=== PATIENT | female | born 1965 | race Two or more races ===

== ENCOUNTER → 2016-12-06 | Outpatient (CLI) | payer OTHER ==
--- NOTE | 2016-12-06 14:30 | PN ---
51-year-old lady who has been followed in the sleep center for treatment of sleepwalking and possible REM sleep behavioral disorder. We did the polysomnogram for the patient in September 2016 which did not show significant respiratory abnormalities. At the same time, patient continued to feel closing her throat in the middle of the night and at that time she snores. She is on treatment with clonazepam 0.5 mg, with that dose, there was no improvements related to her movements at night. With two tablets, she is slightly better, but she still continued to move and go out of bed. They put alarm on the door which wakes up her if she is starting to go out of her bedroom. [place] Sleepiness Scale is 9. MEDICATIONS: 1. Clonazepam. 2. Ultram. 3. [place]. 4. ( ) Prozac. During physical exam, the patient in no distress. BP 101/76, HR 100, RR 16. Weight 190, BMI 34.7. Temp 97.2. Oxygen saturation at room air 95%. HEENT: PERRLA, EOMI. LUNGS: Clear. HEART: S1, S2 regular. ABDOMEN: Obese, soft, nontender. EXTREMITIES: No edema. IMPRESSION: 1. Snoring, patient continued to wake up from sleep with feeling that her throat was closed. Results of polysomnogram from September negative for obstructive sleep apnea-hypopnea syndrome but during the sleep study, there was no REM sleep practically documented. 2. Patient continued to have out of dream movements during sleep on the dose of Clonazepam 0.5 mg and 1 mg. 3. Depression. 4. Anxiety. 5. Obesity. 6. Posttraumatic stress disorder. 7. Neck disc problems. 8. Shoulder pain. 9. Back pain. 10. Status post section. 11. Status post tonsillectomy. 12. Patient continues smoking. PLAN: 1. We will consider to repeat sleep study at home. 2. We will increase dose of Klonopin to 1.5 mg at bedtime. 3. Losing weight. 4. No driving if feeling any sleepiness. 5. Precautions related to REM sleep behavioral disorder. Continue to use precautions. 6. Losing weight. 7. Smoking cessation program. Thank you very much for allowing me to participate in the management of your patient. Sincerely, Clarke Us MD, PhD, FAASM. Diplomat of [employer], Sleep Medicine Board by [employer] Enterostomal Nurse of [facility] [place]
== END | disposition home or self-care (01) ==

== ENCOUNTER 2016-12-22 17:25 | Emergency (ER) | payer OTHER ==
[2016-12-22 17:37] VITALS: BP 106/63; PULSE 105; RESP 20; TEMP 97.4
[2016-12-22] MEDS ORDERED: DIPH,PERTUS(ACELL)TETVAC-LF 0.5 ML VIAL IM ONE (18:20)
--- NOTE | 2016-12-22 18:52 | ED ---
Psych HPI - General Chief Complaint: Psychiatric Symptoms Stated Complaint: LACERATION, MENTAL HEALTH Time Seen by Provider: 12/22/16 17:43 Source: patient Mode of arrival: ambulatory - History of Present Illness Initial Comments: The patient is a 51-year-old female who presents to ED with a chief complaint of suicidal ideation. Patient states that she was depressed earlier today and consumed alcohol. She states that she wanted to hurt herself so she sliced her right wrist with a razor blade. She notes that she has an underlying history of psychiatric disorder for which she takes multiple medications. Patient states that she is usually compliant with these medications, though she does admit that she did not take her most recent dose secondary to the fact that she felt a little dizzy earlier today. The patient notes that she's been hearing voices. She states that this is sometimes typical of her disorder. Again, she does state that she is having suicidal ideations. She denies any homicidal ideations. Patient denies any fevers or chills. Patient is uncertain as to when she had her last tetanus shot. - Related Data Home Medications Medication Instructions Recorded Confirmed Atorvastatin [Lipitor] 40 mg PO HS 06/30/15 05/22/16 FLUoxetine HCL 40 mg PO DAILY 11/22/15 05/22/16 QUEtiapine [SEROquel] 400 mg PO HS 11/22/15 05/22/16 FLUoxetine HCL [PROzac] 20 mg PO DAILY 02/20/16 05/22/16 cloNIDine HCL [Catapres] 0.1 mg PO TID 05/22/16 05/22/16 traMADol HCL [Ultram] 50 mg PO Q6HR PRN 05/22/16 05/22/16 Previous Rx's Medication Instructions Recorded Hyoscyamine Sulfate [Levsin] 0.125 mg PO AC-BRKFST PRN #20 tab 05/22/16 Ondansetron Odt [Zofran Odt] 4 mg PO Q6HR PRN #12 tab 05/22/16 Dicyclomine [Bentyl] 20 mg PO QID #20 tablet 06/09/16 Ondansetron Odt [Zofran ODT] 4 mg PO Q8HR PRN #15 tab 06/09/16 Allergies Allergy/AdvReac Type Severity Reaction Status Date / Time No Known Allergies Allergy Verified 12/22/16 18:12 Review of Systems ROS Statement: Those systems with pertinent positive or pertinent negative responses have been documented in the HPI. ROS Other: All systems not noted in ROS Statement are negative. Constitutional: Denies: fever, chills, weakness Eyes: Denies: eye pain ENT: Denies: ear pain, throat pain, dental pain Respiratory: Denies: cough, dyspnea, wheezes, hemoptysis, stridor Cardiovascular: Denies: chest pain, palpitations Endocrine: Denies: fatigue Gastrointestinal: Denies: abdominal pain, nausea, vomiting, diarrhea Genitourinary: Denies: urgency, dysuria, frequency Musculoskeletal: Denies: back pain Skin: Denies: rash, lesions Neurological: Denies: headache, weakness Psychiatric: Reports: anxiety, depression, auditory hallucinations, suicidal thoughts Hematological/Lymphatic: Denies: easy bleeding Past Medical History Past Medical History: Asthma, Hyperlipidemia, Osteoarthritis (OA) Additional Past Medical History / Comment(s): migraines, PALPITATIONS, CERVICAL DISC DISEASE History of Any Multi-Drug Resistant Organisms: None Reported Past Surgical History: Breast Surgery, Section, Tonsillectomy Additional Past Surgical History / Comment(s): Lt breast biopsy-NEG Past Anesthesia/Blood Transfusion Reactions: No Reported Reaction Additional Past Anesthesia/Blood Transfusion Reaction / Comment(s): CLUASTERPHOBIA Past Psychological History: Anxiety, Depression, PTSD Smoking Status: Current every day smoker Past Alcohol Use History: Rare Additional Past Alcohol Use History / Comment(s): STARTED SMOKING AT AGE 22, SMOKES 5 CIG PER DAY Past Drug Use History: Marijuana - Past Family History Mother Additional Family Medical History / Comment(s): HAD 1 KIDNEY REMOVED WHEN SHE WAS YOUNGER-PT NOT SURE WHY Father Family Medical History: Osteoarthritis (OA) Additional Family Medical History / Comment(s): DDD General Exam Limitations: no limitations General appearance: alert, in no apparent distress Head exam: Present: atraumatic Eye exam: Present: normal appearance, PERRL Pupils: Present: normal accommodation ENT exam: Present: normal exam, mucous membranes moist Neck exam: Present: normal inspection Respiratory exam: Present: normal lung sounds bilaterally. Absent: wheezes, rales, rhonchi, stridor Cardiovascular Exam: Present: regular rate, normal rhythm GI/Abdominal exam: Present: soft. Absent: distended, tenderness, guarding, rebound Extremities exam: Present: other (multiple superficial lacerations noted on the anterior right wrist) Back exam: Present: normal inspection, full ROM. Absent: tenderness Neurological exam: Present: alert, oriented X3 Psychiatric exam: Present: depressed, suicidal ideation Skin exam: Present: warm, dry, other (4cm laceration horizontally across the anterior right wrist. This does not extend deeper than the subcutaneous tissue. There is another superficial laceration proximal to this that does not extend below the dermis) Course Vital Signs 12/22/16 17:32 Temperature 97.4 F L Pulse Rate 105 H Respiratory 20 Rate Blood Pressure 106/63 O2 Sat by Pulse 96 Oximetry Medical Decision Making - Medical Decision Making Patient is a 51-year-old female who presents to ED with a chief complaint of suicidal ideation. Patient states that the symptoms of the present over the course the past 24 hours. Patient's initial BAL noted to be 0.09. Patient was reevaluated about one hour later and noted to no longer be suicidal. We'll provide patient with tetanus shot. Check UDS. Check UA. Check CBC, BMP, mag. Check salicylates and acetaminophen as well. 10:53 PM [facility] has evaluated the patient and deemed that she is safe for discharge home at this point in time. Patient has regular follow-up with [facility]. She agrees to stay with her significant other over the course of the night. Patient has no desire to harm herself. Patient's laceration on the right wrist was cleaned extensively with wound final cleaner. Antibiotic ointment was placed over it. Nonstick gauze covered this and it was wrapped with a Kerlex. Encouraged patient to leave this on overnight. Answered all the patient's questions to her satisfaction. He encouraged her to continue following up with her psychiatrist. Encouraged patient to return to the ED should she have any recurrence of suicidal ideation. Patient denies that she has guns in her household.. - Lab Data Result diagrams: 12/22/16 18:42 12/22/16 18:42 Lab Results 12/22/16 12/22/16 12/22/16 Range/Units 18:42 18:42 18:42 WBC 9.4 (3.8-10.6) k/uL RBC 3.74 L (3.80-5.40) m/uL Hgb 12.8 (11.4-16.0) gm/dL Hct 38.2 (34.0-46.0) % MCV 102.3 H (80.0-100.0) fL MCH 34.3 (25.0-35.0) pg MCHC 33.5 (31.0-37.0) g/dL RDW 13.8 (11.5-15.5) % Plt Count 279 (150-450) k/uL Macrocytosis Slight Sodium 139 (137-145) mmol/L Potassium 3.8 (3.5-5.1) mmol/L Chloride 105 (98-107) mmol/L Carbon Dioxide 19 L (22-30) mmol/L Anion Gap 15 mmol/L BUN 9 (7-17) mg/dL Creatinine 0.80 (0.52-1.04) mg/dL Est GFR (MDRD) Af Amer >60 (>60 ml/min/1.73 sqM) Est GFR (MDRD) Non-Af >60 (>60 ml/min/1.73 sqM) Glucose 97 (74-99) mg/dL Calcium 9.1 (8.4-10.2) mg/dL Magnesium 2.0 (1.6-2.3) mg/dL Total Bilirubin 0.4 (0.2-1.3) mg/dL AST 37 H (14-36) U/L ALT 37 (9-52) U/L Alkaline Phosphatase 102 (38-126) U/L Total Protein 6.6 (6.3-8.2) g/dL Albumin 3.7 (3.5-5.0) g/dL Urine Color Urine Appearance (Clear) Urine pH (5.0-8.0) Ur Specific [place] (1.001-1.035) Urine Protein (Negative) Urine Glucose (UA) (Negative) Urine Ketones (Negative) Urine Blood (Negative) Urine Nitrate (Negative) Urine Bilirubin (Negative) Urine Urobilinogen (<2.0) mg/dL Ur Leukocyte Esterase (Negative) Urine RBC (0-5) /hpf Urine WBC (0-5) /hpf Ur Squamous Epith Cells (0-4) /hpf Urine Bacteria (None) /hpf Hyaline Casts (0-2) /lpf Urine Mucus (None) /hpf Urine HCG, Qual (Not Detectd) Salicylates <1.0 mg/dL Urine Opiates Screen (NotDetected) Ur Oxycodone Screen (NotDetected) Urine Methadone Screen (NotDetected) Ur Propoxyphene Screen (NotDetected) Acetaminophen <10.0 ug/mL Ur Barbiturates Screen (NotDetected) U Tricyclic Antidepress (NotDetected) Ur Phencyclidine Scrn (NotDetected) Ur Amphetamines Screen (NotDetected) U Methamphetamines Scrn (NotDetected) U Benzodiazepines Scrn (NotDetected) Urine Cocaine Screen (NotDetected) U Marijuana (THC) Screen (NotDetected) 12/22/16 12/22/16 Range/Units 19:18 19:18 WBC (3.8-10.6) k/uL RBC (3.80-5.40) m/uL Hgb (11.4-16.0) gm/dL Hct (34.0-46.0) % MCV (80.0-100.0) fL MCH (25.0-35.0) pg MCHC (31.0-37.0) g/dL RDW (11.5-15.5) % Plt Count (150-450) k/uL Macrocytosis Sodium (137-145) mmol/L Potassium (3.5-5.1) mmol/L Chloride (98-107) mmol/L Carbon Dioxide (22-30) mmol/L Anion Gap mmol/L BUN (7-17) mg/dL Creatinine (0.52-1.04) mg/dL Est GFR (MDRD) Af Amer (>60 ml/min/1.73 sqM) Est GFR (MDRD) Non-Af (>60 ml/min/1.73 sqM) Glucose (74-99) mg/dL Calcium (8.4-10.2) mg/dL Magnesium (1.6-2.3) mg/dL Total Bilirubin (0.2-1.3) mg/dL AST (14-36) U/L ALT (9-52) U/L Alkaline Phosphatase (38-126) U/L Total Protein (6.3-8.2) g/dL Albumin (3.5-5.0) g/dL Urine Color Yellow Urine Appearance Cloudy H (Clear) Urine pH 5.5 (5.0-8.0) Ur Specific [place] 1.012 (1.001-1.035) Urine Protein Trace H (Negative) Urine Glucose (UA) Negative (Negative) Urine Ketones Negative (Negative) Urine Blood Negative (Negative) Urine Nitrate Negative (Negative) Urine Bilirubin Negative (Negative) Urine Urobilinogen <2.0 (<2.0) mg/dL Ur Leukocyte Esterase Negative (Negative) Urine RBC 1 (0-5) /hpf Urine WBC 2 (0-5) /hpf Ur Squamous Epith Cells 9 H (0-4) /hpf Urine Bacteria Rare H (None) /hpf Hyaline Casts 1 (0-2) /lpf Urine Mucus Few H (None) /hpf Urine HCG, Qual Not Detected (Not Detectd) Salicylates mg/dL Urine Opiates Screen Detected H (NotDetected) Ur Oxycodone Screen Not Detected (NotDetected) Urine Methadone Screen Not Detected (NotDetected) Ur Propoxyphene Screen Not Detected (NotDetected) Acetaminophen ug/mL Ur Barbiturates Screen Not Detected (NotDetected) U Tricyclic Antidepress Detected H (NotDetected) Ur Phencyclidine Scrn Not Detected (NotDetected) Ur Amphetamines Screen Not Detected (NotDetected) U Methamphetamines Scrn Not Detected (NotDetected) U Benzodiazepines Scrn Detected H (NotDetected) Urine Cocaine Screen Not Detected (NotDetected) U Marijuana (THC) Screen Detected H (NotDetected) - EKG Data -: EKG Interpreted by Me 12/22/16 18:51 EKG demonstrates NSR with a rate of 80. There are no concerning ST-T changes. The OH and QRS intervals are within normal limits. Disposition Clinical Impression: Depression, Anxiety, Self-harm Disposition: HOME SELF-CARE Condition: Good Instructions: Depression (ED), Anxiety (ED) Additional Instructions: Please return to the ED should you have any suicidal ideations while at home Referrals: None,Stated [Primary Care Provider] - 1-2 days Time of Disposition: 22:53
[2016-12-22 18:53] LABS: CH 34.7; CHCM 34.1; HCT 38.2 % (34.0-46.0); HDW 2.43; HGB 12.8 gm/dL (11.4-16.0); MCH 34.3 pg (25.0-35.0); MCHC 33.5 g/dL (31.0-37.0); MCV 102.3 fL (80.0-100.0); Macrocytosis Slight; Mean Platelet Volume 8.5; RBC 3.74 m/uL (3.80-5.40); RDW 13.8 % (11.5-15.5); WBC 9.4 k/uL (3.8-10.6)
[2016-12-22 19:02] LABS: ALT 37 U/L (9-52); AST 37 U/L (14-36); Acetaminophen <10.0 ug/mL; Alkaline Phosphatase 102 U/L (38-126); Anion Gap 15 mmol/L; Blood Urea Nitrogen 9 mg/dL (7-17); Calcium 9.1 mg/dL (8.4-10.2); Carbon Dioxide 19 mmol/L (22-30); Chloride 105 mmol/L (98-107); Glucose 97 mg/dL (74-99); Non-African American GFR(MDRD) >60 (>60 ml/min/1.73 sqM); Potassium 3.8 mmol/L (3.5-5.1); Salicylate <1.0 mg/dL; Sodium 139 mmol/L (137-145); Total Bilirubin 0.4 mg/dL (0.2-1.3); Total Protein 6.6 g/dL (6.3-8.2)
[2016-12-22 19:55] LABS: Appearance,Urine Cloudy (Clear); Bacteria,Urine Rare /hpf; Bilirubin,Urine Negative (Negative); Glucose,Urine (UA) Negative (Negative); Ketones,Urine Negative (Negative); Leukocyte Esterase,Urine Negative (Negative); Mucus,Urine Few /hpf; Nitrite,Urine Negative (Negative); PH, Urine 5.5 (5.0-8.0); Particle Count 8383; Protein,Urine Trace (Negative); RBC,Urine 1 /hpf (0-5); Specific Gravity,Urine 1.012 (1.001-1.035); Squamous Epithelial Cell,Urine 9 /hpf (0-4); UA Billing (MACRO vs. MICRO) MICRO; Urobilinogen,Urine <2.0 mg/dL (<2.0); WBC,Urine 2 /hpf (0-5)
== END 2016-12-22 23:06 | disposition home or self-care (01) ==
LOC: EC 17:25
DX: S61.511A Laceration without foreign body of right wrist, initial encounter (principal); F41.8 Other specified anxiety disorders; E78.5 Hyperlipidemia, unspecified; F43.10 Post-traumatic stress disorder, unspecified; M19.90 Unspecified osteoarthritis, unspecified site; F17.210 Nicotine dependence, cigarettes, uncomplicated; Z23 Encounter for immunization; Z79.899 Other long term (current) drug therapy; X78.8XXA Intentional self-harm by other sharp object, initial encounter
CPT/HCPCS: 36415; 80053; 80306; 81001; 81025; 82075; 83520; 83735; 85027; 90715; 93005; 99284

== ENCOUNTER 2017-01-08 10:29 | Emergency (ER) | payer OTHER ==
[2017-01-08 10:39] VITALS: PULSE 85; RESP 20; TEMP 97.4
[2017-01-08] MEDS ORDERED: KETOROLAC 60 MG/2 ML VIAL IM STA (10:48)
--- NOTE | 2017-01-08 10:52 | ED ---
Fall HPI - General Chief Complaint: Fall Stated Complaint: Fall, back/knee pain, rash Time Seen by Provider: 01/08/17 10:38 Source: EMS, RN notes reviewed Mode of arrival: EMS - History of Present Illness Initial Comments: 51-year-old female presents to the emergency department with the chief complaint of fall. Patient tripped and fell 2 days ago she can use at low back pain and left knee pain. Patient states that she has not tried anything for pain. But he just continued to worsen so she thought that she should be seen. Patient states she did not hit her head on the father's but no loss bowel or bladder function or saddle anesthesia. Patient states she's been able to get up and walk around just continued pain so she thought that she should be seen possibly use a prescription for home for pain. Patient states that she's also had this rash she's had it for about a month. Patient states she is currently pending a dermatology appointment but it just continues to itch and seems to be getting worse so she thought maybe she could get something for the rash as well. Patient states there is no fever chills. Patient denies any drainage or discharge from the rash. Patient denies any history of a rash. Patient states on of the family has the rash. Patient denies any other symptoms. Patient denies any recent fever, chills, shortness of breath, chest pain, abdominal pain , nausea vomiting, numbness or tingling, dysuria or hematuria, constipation or diarrhea, headaches or visual changes, or any other current symptoms. - Related Data Home Medications Medication Instructions Recorded Confirmed Atorvastatin [Lipitor] 40 mg PO HS 06/30/15 05/22/16 FLUoxetine HCL 40 mg PO DAILY 11/22/15 05/22/16 QUEtiapine [SEROquel] 400 mg PO HS 11/22/15 05/22/16 FLUoxetine HCL [PROzac] 20 mg PO DAILY 02/20/16 05/22/16 cloNIDine HCL [Catapres] 0.1 mg PO TID 05/22/16 05/22/16 traMADol HCL [Ultram] 50 mg PO Q6HR PRN 05/22/16 05/22/16 Previous Rx's Medication Instructions Recorded Hyoscyamine Sulfate [Levsin] 0.125 mg PO AC-BRKFST PRN #20 tab 05/22/16 Ondansetron Odt [Zofran Odt] 4 mg PO Q6HR PRN #12 tab 05/22/16 Dicyclomine [Bentyl] 20 mg PO QID #20 tablet 06/09/16 Ondansetron Odt [Zofran ODT] 4 mg PO Q8HR PRN #15 tab 06/09/16 Ibuprofen [Motrin] 600 mg PO Q6HR PRN #20 tab 01/08/17 predniSONE 50 mg PO DAILY #5 tab 01/08/17 Allergies Allergy/AdvReac Type Severity Reaction Status Date / Time No Known Allergies Allergy Verified 01/08/17 11:15 Review of Systems ROS Statement: Those systems with pertinent positive or pertinent negative responses have been documented in the HPI. ROS Other: All systems not noted in ROS Statement are negative. Past Medical History Past Medical History: Asthma, Hyperlipidemia, Osteoarthritis (OA) Additional Past Medical History / Comment(s): migraines, PALPITATIONS, CERVICAL DISC DISEASE History of Any Multi-Drug Resistant Organisms: None Reported Past Surgical History: Breast Surgery, Section, Tonsillectomy Additional Past Surgical History / Comment(s): Lt breast biopsy-NEG Past Anesthesia/Blood Transfusion Reactions: No Reported Reaction Additional Past Anesthesia/Blood Transfusion Reaction / Comment(s): CLUASTERPHOBIA Past Psychological History: Anxiety, Depression, PTSD Smoking Status: Current every day smoker Past Alcohol Use History: Rare Additional Past Alcohol Use History / Comment(s): STARTED SMOKING AT AGE 22, SMOKES 5 CIG PER DAY Past Drug Use History: Marijuana - Past Family History Mother Additional Family Medical History / Comment(s): HAD 1 KIDNEY REMOVED WHEN SHE WAS YOUNGER-PT NOT SURE WHY Father Family Medical History: Osteoarthritis (OA) Additional Family Medical History / Comment(s): DDD General Exam Limitations: no limitations General appearance: alert, in no apparent distress Head exam: Present: atraumatic, normocephalic, normal inspection Neck exam: Present: normal inspection. Absent: tenderness, meningismus, lymphadenopathy Respiratory exam: Present: normal lung sounds bilaterally Cardiovascular Exam: Present: regular rate, normal rhythm, normal heart sounds. Absent: systolic murmur, diastolic murmur, rubs, gallop, clicks Extremities exam: Present: full ROM, normal capillary refill. Absent: normal inspection (Patient does appear to have a well-healed abrasion to left knee), tenderness, pedal edema, joint swelling, calf tenderness Back exam: Present: normal inspection, full ROM. Absent: tenderness, CVA tenderness (R), CVA tenderness (L), muscle spasm Neurological exam: Present: alert, oriented X3, CN II-XII intact. Absent: motor sensory deficit Psychiatric exam: Present: normal affect, normal mood Skin exam: Present: warm, dry, intact, rash (Raised red circular rash throughout the body, pruritic) Course Vital Signs 01/08/17 10:35 Temperature 97.4 F L Pulse Rate 85 Respiratory 20 Rate O2 Sat by Pulse 93 L Oximetry Medical Decision Making - Medical Decision Making 51-year-old female presents for a rash as well as a fall. At this time x-rays reviewed additional acute process. We discussed patient with significant lumbar strain and left knee abrasion. Patient says. Rash that is consistent with a contact dermatitis. This and we will see patient steroids. We did discuss follow-up with dermatology which she has an appointment for. We discussed return parameters. Patient stated that she understood and all her questions have been answered. She will be discharged home. - Radiology Data Radiology results: report reviewed, image reviewed Disposition Clinical Impression: Fall, Lumbar strain, Contact dermatitis, Abrasion, left knee, initial encounter Disposition: HOME SELF-CARE Condition: Stable Instructions: Abrasion (ED), Low Back Strain (ED) Additional Instructions: Please use medication as discussed. Please follow up with family doctor if symptoms have not improved over the next two days. Please return to the emergency room if your symptoms increase or worsen or for any other concerns. Prescriptions: Ibuprofen [Motrin] 600 mg PO Q6HR PRN #20 tab PRN Reason: Pain predniSONE 50 mg PO DAILY #5 tab Referrals: None,Stated [Primary Care Provider] - 1-2 days Camilo Cortez MD [STAFF PHYSICIAN] - 1-2 days Time of Disposition: 11:16
--- NOTE | 2017-01-08 11:14 | XR ---
EXAMINATION TYPE: XR knee complete LT DATE OF EXAM: 01/08/2017 11:07 AM CLINICAL HISTORY: Fall injury with left knee pain. TECHNIQUE: Three views of the left knee are obtained. COMPARISON: None. FINDINGS: There is no acute fracture/dislocation evident in left knee. The tri-compartment joint sp aces appear within normal limits. A fabella is noted. The overlying soft tissue appears unremarkable. IMPRESSION: There is no acute fracture or dislocation in the left knee.
--- NOTE | 2017-01-08 11:14 | XR ---
EXAMINATION TYPE: XR lumbar spine 2 or 3V DATE OF EXAM: 01/08/2017 11:07 AM COMPARISON: NONE HISTORY: 31-year-old female with low back pain after fall TECHNIQUE: 3 views FINDINGS: There are 5 lumbar-type vertebral bodies. Mild degenerative disc disease lower lumbar spine with disc space narrowing and endplate spondylosis from L3 through S1 levels. Vertebral body heights are prese rved and alignment is maintained. IMPRESSION: Mild degenerative disc disease in the lower lumbar spine. No vertebral compression collapse or malali gnment.
== END 2017-01-08 11:33 | disposition home or self-care (01) ==
LOC: EC 10:29
DX: S39.012A Strain of muscle, fascia and tendon of lower back, initial encounter (principal); L25.9 Unspecified contact dermatitis, unspecified cause; S80.212A Abrasion, left knee, initial encounter; W01.0XXA Fall on same level from slipping, tripping and stumbling without subsequent striking against object, initial encounter; Z79.899 Other long term (current) drug therapy; E78.5 Hyperlipidemia, unspecified; F41.9 Anxiety disorder, unspecified; F32.9 Major depressive disorder, single episode, unspecified; F17.200 Nicotine dependence, unspecified, uncomplicated
CPT/HCPCS: 72100; 73562; 99283; 96372; J1885

== ENCOUNTER 2017-01-27 06:21 | Emergency (ER) | payer OTHER ==
[2017-01-27 06:31] VITALS: BP 140/67; PULSE 98; RESP 18; TEMP 97.4
--- NOTE | 2017-01-27 06:41 | ED ---
General Adult HPI - General Chief complaint: Skin/Abscess/Foreign Body Stated complaint: infection Time Seen by Provider: 01/27/17 06:25 Source: patient, RN notes reviewed Mode of arrival: ambulatory Limitations: no limitations - History of Present Illness Initial comments: This is a 51-year-old female who presents emergency department with a lesion on her old abdominal scar. Her primary medical care doctor cut it open when it was an abscess but now won't heal. She was told by someone in the office that it was staph but she doesn't know if it was MRSA or not. Patient comes in today because the lesion won't heal but there doesn't feel like there is any lump anymore it's just a lesion on the surface of the skin. Patient's had no fever or chills patient's had no drainage. - Related Data Home Medications Medication Instructions Recorded Confirmed Atorvastatin [Lipitor] 40 mg PO HS 06/30/15 01/27/17 QUEtiapine [SEROquel] 400 mg PO HS 11/22/15 01/27/17 FLUoxetine HCL [PROzac] 20 mg PO TID 02/20/16 01/27/17 cloNIDine HCL [Catapres] 0.1 mg PO BID 05/22/16 01/27/17 traMADol HCL [Ultram] 50 mg PO Q6HR PRN 05/22/16 01/27/17 clonazePAM [KlonoPIN] 1.5 mg PO HS 01/08/17 01/27/17 Previous Rx's Medication Instructions Recorded Ondansetron Odt [Zofran Odt] 4 mg PO Q6HR PRN #12 tab 05/22/16 Ibuprofen [Motrin] 600 mg PO Q6HR PRN #20 tab 01/08/17 predniSONE 50 mg PO DAILY #5 tab 01/08/17 Mupirocin [Mupirocin 2%] 1 applic TOPICAL TID 10 Days 01/27/17 Sulfamethox-Tmp 800-160Mg [Bactrim 1 each PO Q12HR #14 tab 01/27/17 DS 800-160 mg] Allergies Allergy/AdvReac Type Severity Reaction Status Date / Time No Known Allergies Allergy Verified 01/08/17 11:15 Review of Systems ROS Statement: Those systems with pertinent positive or pertinent negative responses have been documented in the HPI. ROS Other: All systems not noted in ROS Statement are negative. Past Medical History Past Medical History: Asthma, Hyperlipidemia, Osteoarthritis (OA) Additional Past Medical History / Comment(s): migraines, PALPITATIONS, CERVICAL DISC DISEASE History of Any Multi-Drug Resistant Organisms: None Reported Past Surgical History: Breast Surgery, Section, Tonsillectomy Additional Past Surgical History / Comment(s): Lt breast biopsy-NEG Past Anesthesia/Blood Transfusion Reactions: No Reported Reaction Additional Past Anesthesia/Blood Transfusion Reaction / Comment(s): CLUASTERPHOBIA Past Psychological History: Anxiety, Depression, PTSD Smoking Status: Current every day smoker Past Alcohol Use History: Rare Additional Past Alcohol Use History / Comment(s): STARTED SMOKING AT AGE 22, SMOKES 5 CIG PER DAY Past Drug Use History: Marijuana - Past Family History Mother Additional Family Medical History / Comment(s): HAD 1 KIDNEY REMOVED WHEN SHE WAS YOUNGER-PT NOT SURE WHY Father Family Medical History: Osteoarthritis (OA) Additional Family Medical History / Comment(s): DDD General Exam - General Exam Comments Initial Comments: GENERAL Patient is well-developed and well-nourished. Patient is in mild distress. EYES Patient's pupils are equal and round. Extraocular motion is intact SKIN There is a small 1 cm lesion on an old abdominal scar. No abscess in the area no erythema in the area NEURO The patient is alert and oriented 3 PYSCH Patient has normal interpersonal interactions. MUSCULOSKELETAL Patient has all 4 extremities and and they have full range of motion Limitations: no limitations Course Vital Signs 01/27/17 06:27 Temperature 97.4 F L Pulse Rate 98 Respiratory 18 Rate Blood Pressure 140/67 O2 Sat by Pulse 94 L Oximetry Disposition Clinical Impression: Skin lesion Disposition: HOME SELF-CARE Instructions: Surgical Site Infections (ED) Prescriptions: Mupirocin [Mupirocin 2%] 1 applic TOPICAL TID 10 Days Sulfamethox-Tmp 800-160Mg [Bactrim DS 800-160 mg] 1 each PO Q12HR #14 tab Referrals: None,Stated [Primary Care Provider] - 1-2 days Time of Disposition: 06:39
== END 2017-01-27 06:57 | disposition home or self-care (01) ==
LOC: EC 06:21
DX: L98.9 Disorder of the skin and subcutaneous tissue, unspecified (principal); E78.5 Hyperlipidemia, unspecified; F32.9 Major depressive disorder, single episode, unspecified; F43.10 Post-traumatic stress disorder, unspecified; F41.9 Anxiety disorder, unspecified; Z79.899 Other long term (current) drug therapy; M19.90 Unspecified osteoarthritis, unspecified site; F17.200 Nicotine dependence, unspecified, uncomplicated
CPT/HCPCS: 99282

== ENCOUNTER → 2017-02-14 | Outpatient (CLI) | payer OTHER ==
--- NOTE | 2017-02-14 18:12 | PN ---
DATE OF SERVICE: 02/14/2017 51-year-old lady who has been followed in the sleep center for treatment of sleepwalking, nightmares. We discussed results of recent home sleep apnea test, which showed apnea-hypopnea index of 4.0 which is considered to be normal range by today's criteria. With increasing dose of Klonopin, patient takes now 2 mg at bedtime. She feels much better. No out of dream movements. No going out of bed. [place] Sleepiness Scale today is 9. MEDICATIONS: 1. Seroquel. 2. Prozac. 3. Klonopin. 4. Ultram. 5. [place]. During physical exam, the patient in no distress. BP 102/61, HR 80, RR 16. Oxygen saturation at room air 96%. Weight 196, which is on 6 pounds up comparing with Home sleep study dated which was done in December 2016. Neck: Supple. No JVD. Thyroid is not palpable. LUNGS: Clear to percussion and to auscultation. Good air exchange. No wheezing or rhonchi. HEART: S1, S2 regular. No murmurs, gallops, or rubs. ABDOMEN: Obese. Soft and nontender. Bowel sounds are present. No organomegaly appreciated. EXTREMITIES: No clubbing or cyanosis. CEPHALOMETRIC TECHNICIAN: Awake, alert, and oriented x3. Cranial nerves 2 to 7 intact. There is no fasciculation or atrophy noted. No focal deficits observed. IMPRESSION: 1. Minimal respiratory abnormalities during this home sleep study with apnea-hypopnea index 4.0. 2. Obesity. Patient increased her weight about 6 pounds since the sleep study was done. 3. History of sleepwalking. 4. Nightmares. 5. Depression. 6. Anxiety. 7. Posttraumatic stress disorder. 8. Neck disc problems. 9. Shoulder pain. 10. Back pain. 11. Status post section. 12. Status post tonsillectomy. 13. Patient continues to smoke. PLAN: 1. Continue treatment with Klonopin at the same dose 2 mg. 2. Follow-up visit in two months if patient will continues to increase her weight we will consider to repeat a home sleep apnea test. 3. Losing weight. 4. Sleep hygiene with regular time in bed for at least 8 hours. 5. Precautions related to parasomnia have been discussed with the patient. Thank you very much for allowing me to participate in the management of your patient. Sincerely, Clarke Us MD, PhD, FAASM. Diplomat of [place] [employer], Sleep Medicine Board by [place] [employer] [place] [employer] of [facility] [place]
== END | disposition home or self-care (01) ==
LOC: SLEEP 14:13
PROVIDERS: ATTEND Internal Medicine
DX: G47.33 Obstructive sleep apnea (adult) (pediatric) (principal); E66.9 Obesity, unspecified; F51.3 Sleepwalking [somnambulism]; F51.5 Nightmare disorder; F32.9 Major depressive disorder, single episode, unspecified; F41.9 Anxiety disorder, unspecified; F43.10 Post-traumatic stress disorder, unspecified; F17.200 Nicotine dependence, unspecified, uncomplicated; Z68.35 Body mass index [BMI] 35.0-35.9, adult; Z79.899 Other long term (current) drug therapy

== ENCOUNTER → 2017-04-11 | Outpatient (CLI) | payer OTHER ==
--- NOTE | 2017-04-11 16:13 | PN ---
DATE OF SERVICE: 04/11/2017 51-year-old lady who has been followed in the sleep center for treatment of nightmares, sleepwalking and possible some out of dreams and possible REM sleep behavioral disorder. Presently, the patient is on treatment with Klonopin 2 mg at bedtime. With this regimen no recent episodes of sleepwalking or episodes of out of dream behavior. [place] Sleepiness Scale is 6, which is in normal range. MEDICATIONS: Klonopin, Prozac, Seroquel, Ultram, [place]. During physical exam, the patient in no distress. VITAL SIGNS: BP 113/69, HR 104, RR 16. Height 5 feet 2 inches. Weight 194. BMI 35.4. Temp 97.7 with oxygen level at room air 95%. HEENT: PERRLA, EOMI, Evaluation of the oropharynx showed tongue protrudes midline. NECK: Supple. No JVD, Thyroid is not palpable. LUNGS: Clear to percussion and to auscultation. Good air exchange. No wheezing or rhonchi. HEART: S1, S2 regular. No murmurs, gallops, or rubs. ABDOMEN: Obese, soft and nontender. Bowel sounds are present. No organomegaly appreciated. CENTRAL STERILE SUPPLY TECHNICIAN: Awake, alert, and oriented x3. Cranial nerves 2 to 7 intact. There is no fasciculation or atrophy noted. No focal deficits observed. IMPRESSION: 1. History of sleepwalking, on control with Klonopin at 2 mg at bedtime. 2. Minimal respiratory abnormalities on the home sleep study with apnea-hypopnea index 4.0. 3. Obesity. 4. Nightmares. 5. Anxiety. 6. Depression. 7. Posttraumatic stress disorder. 8. Neck disc problems. 9. Shoulder pain. 10. Back pain. 11. Status post section. 12. Status post tonsillectomy. 13. Patient is a smoker, continues to smoke. PLAN: 1. Continue treatment with Klonopin 2 mg at bedtime. Prescription will be written. 2. Sleep hygiene with regular time in bed for at least 8 hours. 3. No driving if feeling any sleepiness. 4. Watching and losing weight. Thank you very much for allowing me to suspect the management your patient. Sincerely, Clarke Us MD, PhD, FAASM Diplomat of [place] [employer], Sleep Medicine Board by [place] [employer] [place] [employer] Instructor of [facility] [place]
== END | disposition home or self-care (01) ==
LOC: SLEEP 13:08
PROVIDERS: ATTEND Internal Medicine
DX: F51.3 Sleepwalking [somnambulism] (principal); Z79.899 Other long term (current) drug therapy; E66.9 Obesity, unspecified; Z68.35 Body mass index [BMI] 35.0-35.9, adult; F51.5 Nightmare disorder; F41.9 Anxiety disorder, unspecified; F32.9 Major depressive disorder, single episode, unspecified; F43.10 Post-traumatic stress disorder, unspecified; F17.200 Nicotine dependence, unspecified, uncomplicated; M25.519 Pain in unspecified shoulder; M54.9 Dorsalgia, unspecified

== ENCOUNTER → 2017-10-17 | Outpatient (CLI) | payer OTHER ==
--- NOTE | 2017-10-17 11:46 | PN ---
PROGRESS NOTE DATE OF SERVICE: 10/17/2017 A 52-year-old lady has been followed in sleep center for treatment of obstructive sleep apnea-hypopnea syndrome. Recently patient had a home sleep apnea test, which showed obstructive sleep apnea-hypopnea syndrome and subsequently she was started on treatment with CPAP after CPAP titration recommended CPAP pressure 8 cm of water. The patient received her CPAP unit and trying to use it every night, but she has some problem with her mask. I checked her CPAP unit. CPAP pressure is 8 cm of water. Usage is 8/30 nights for more than 4 hours. Apnea-hypopnea index is only 0.9, which is totally normal. When we checked her mask, it looked that patient did not put her head gear on correct position and this was the reason for the problem. She feels better when she is using her CPAP equipment. [place] Sleepiness Scale today is 12. MEDICATIONS: Klonopin, Prozac, Seroquel, [place]. PHYSICAL EXAM: During physical exam, patient in no distress. VITAL SIGNS: BP 118/83, HR around 100, RR 16, weight 187, temp 98.0, oxygen saturation room air 96%. HEENT: PERRLA, EOMI. Evaluation of oropharynx showed moderately low position of soft palate. Short distance between soft palate and pharyngeal wall. NECK: Supple, no JVD. Thyroid is not palpable. LUNGS: Clear to percussion and to auscultation. Good air exchange. No wheezing or rhonchi. HEART: S1, S2 tachycardiac. ABDOMEN: Obese. EXTREMITIES: No clubbing or cyanosis. UNDERWRITING INTERN: Awake, alert, and oriented X3. Cranial nerves 2 to 7 intact. There is no fasciculation or atrophy. noted. No focal deficits observed. IMPRESSION: 1. Obstructive sleep apnea-hypopnea syndrome. of patient's respiration on CPAP. The patient benefitting from treatment. 2. Depression. 3. Anxiety. 4. Posttraumatic stress disorder. 5. Neck problems. 6. Shoulder pain, status post neck, back and shoulder injections. 7. Status post . 8. Patient continues to smoke. PLAN: 1. Continue treatment with CPAP every night for the whole night. 2. Losing weight. 3. Sleep hygiene with regular time in bed for at least 7-1/2 to 8 hours. 4. No driving if feeling sleepiness. 5. Smoking cessation program. Thank you very much for allowing me to participate in management of your patient. Sincerely, Clarke Us MD, PhD, FAASM Diplomat of [employer] [place] Board of Medical Specialties [place] Board of Internal Medicine [employer] Clerk of [facility] [place] HERMILA / GRAEME: [id number] /
== END ==
LOC: SLEEP 10:34
PROVIDERS: ATTEND Internal Medicine
DX: G47.33 Obstructive sleep apnea (adult) (pediatric) (principal); F41.9 Anxiety disorder, unspecified; F32.9 Major depressive disorder, single episode, unspecified; F43.10 Post-traumatic stress disorder, unspecified; F17.200 Nicotine dependence, unspecified, uncomplicated; Z98.890 Other specified postprocedural states; Z79.899 Other long term (current) drug therapy

== ENCOUNTER 2017-11-19 14:53 | Emergency (ER) | payer OTHER ==
[2017-11-19] MEDS ORDERED: SODIUM CHLORIDE 0.9% 1,000 ML IV ONE (15:19)
--- NOTE | 2017-11-19 15:24 | ED ---
General Adult HPI - General Chief complaint: Chest Pain Stated complaint: Weak/passed out 2 days ago Time Seen by Provider: 11/19/17 15:12 Source: patient, RN notes reviewed, old records reviewed Mode of arrival: wheelchair Limitations: no limitations - History of Present Illness Initial comments: 52-year-old female presents for evaluation of bilateral chest pressure, shortness of breath, cough and multiple other complaints. Patient states over the past 3 days she has had generalized weakness. She had episode of lightheadedness and near collapse 3 days ago. Denies palpitations. She has also had intermittent chest pressure. Denies any central radiating chest pain. Complains of some mild shortness of breath as well as cough. Cough is nonproductive, worse at night. She also complains of rhinorrhea and nasal congestion. Complains of mild sore throat. Denies fever or chills. Denies myalgias. States she has had some nausea and approximately 3 episodes of vomiting over the past week. Patient is not certain of current medication she is on. She denies history of CAD. Denies history of COPD, states she has mild asthma, she has been using an albuterol inhaler with minimal relief. She is a current smoker. She does have a history of chronic back pain. - Related Data Home Medications Medication Instructions Recorded Confirmed FLUoxetine HCL [PROzac] 60 mg PO DAILY 02/20/16 11/19/17 clonazePAM [KlonoPIN] 0.5 mg PO HS 01/08/17 11/19/17 Hydrocodone/Acetaminophen [Peggs 1 tab PO TID PRN 11/19/17 11/19/17 7.5-325] Prazosin HCl 2 mg PO BID 11/19/17 11/19/17 QUEtiapine FUMARATE [Seroquel Xr] 600 mg PO HS 11/19/17 11/19/17 Previous Rx's Medication Instructions Recorded Albuterol Inhaler [Ventolin Hfa 1 - 2 puff INHALATION Q4HR PRN #1 11/19/17 Inhaler] inhaler Azithromycin [Zithromax Z-pack] 0 mg PO DIRECTED #6 tab 11/19/17 methylPREDNISolone Dose Pack 4 mg PO DIRECTED #21 package 11/19/17 [Medrol Dose Pack] Allergies Allergy/AdvReac Type Severity Reaction Status Date / Time No Known Allergies Allergy Verified 11/19/17 15:42 Review of Systems ROS Statement: Those systems with pertinent positive or pertinent negative responses have been documented in the HPI. ROS Other: All systems not noted in ROS Statement are negative. Past Medical History Past Medical History: Asthma, Hyperlipidemia, Osteoarthritis (OA) Additional Past Medical History / Comment(s): migraines, PALPITATIONS, CERVICAL DISC DISEASE History of Any Multi-Drug Resistant Organisms: None Reported Past Surgical History: Breast Surgery, Section, Tonsillectomy Additional Past Surgical History / Comment(s): Lt breast biopsy-NEG Past Anesthesia/Blood Transfusion Reactions: No Reported Reaction Additional Past Anesthesia/Blood Transfusion Reaction / Comment(s): CLUASTERPHOBIA Past Psychological History: Anxiety, Depression, PTSD Smoking Status: Current every day smoker Past Alcohol Use History: Rare Past Drug Use History: Marijuana - Past Family History Mother Additional Family Medical History / Comment(s): HAD 1 KIDNEY REMOVED WHEN SHE WAS YOUNGER-PT NOT SURE WHY Father Family Medical History: Osteoarthritis (OA) Additional Family Medical History / Comment(s): DDD General Exam Limitations: no limitations General appearance: alert, in no apparent distress Head exam: Present: atraumatic, normocephalic Eye exam: Present: normal appearance, PERRL ENT exam: Present: normal exam, other (Bilateral nasal congestion) Neck exam: Present: normal inspection. Absent: tenderness, meningismus Respiratory exam: Present: wheezes, decreased breath sounds, other ( Bronchospastic cough). Absent: respiratory distress Cardiovascular Exam: Present: regular rate, normal rhythm GI/Abdominal exam: Present: soft. Absent: distended, tenderness, guarding, rebound Extremities exam: Present: normal inspection, normal capillary refill. Absent: pedal edema, calf tenderness Back exam: Present: normal inspection, full ROM Neurological exam: Present: alert, oriented X3, CN II-XII intact. Absent: motor sensory deficit Psychiatric exam: Present: normal affect, normal mood Skin exam: Present: warm, dry, intact. Absent: cyanosis, diaphoretic Course Vital Signs 11/19/17 11/19/17 11/19/17 15:00 15:56 16:03 Temperature 97.8 F Pulse Rate 105 H 93 Respiratory 18 20 20 Rate Blood Pressure 81/53 103/67 O2 Sat by Pulse 95 96 Oximetry 11/19/17 11/19/17 11/19/17 16:58 17:00 17:16 Temperature Pulse Rate 92 94 90 Respiratory 19 Rate Blood Pressure 107/72 O2 Sat by Pulse 97 Oximetry EKG Findings - EKG Comments: EKG Findings:: EKG shows normal sinus rhythm, ventricular rate 97, WV interval 1 :30, castration 82, QTC [address] segment elevation or depression Medical Decision Making - Medical Decision Making 52-year-old female presenting with flulike symptoms for the past 3 days. She does admit to having some chest pressure. Patient does have history of asthma, and had minimal wheezing on auscultation. No respiratory distress. Laboratory studies reveal normal white blood cell count 7.1, hemoglobin 14.7, d-dimer is negative. He actually at the normal limits. Lactic acid normal 1.1, urinalysis is negative for signs of infection. Influenza was obtained, this is negative. Chest x-ray shows atelectasis at the left lung base. She is given albuterol and steroids in the emergency department as well as IV hydration. on reevaluation, patient is feeling better. Diagnosis: Viral syndrome, asthma exacerbation. - Lab Data Result diagrams: 11/19/17 15:27 11/19/17 15:27 Lab Results 11/19/17 11/19/17 11/19/17 Range/Units 15:27 15:27 15:27 WBC 7.1 (3.8-10.6) k/uL RBC 4.24 (3.80-5.40) m/uL Hgb 14.7 (11.4-16.0) gm/dL Hct 44.4 (34.0-46.0) % MCV 104.8 H (80.0-100.0) fL MCH 34.7 (25.0-35.0) pg MCHC 33.1 (31.0-37.0) g/dL RDW 14.3 (11.5-15.5) % Plt Count 218 (150-450) k/uL Neutrophils % 55 % Lymphocytes % 32 % Monocytes % 6 % Eosinophils % 3 % Basophils % 1 % Neutrophils # 3.9 (1.3-7.7) k/uL Lymphocytes # 2.3 (1.0-4.8) k/uL Monocytes # 0.4 (0-1.0) k/uL Eosinophils # 0.2 (0-0.7) k/uL Basophils # 0.1 (0-0.2) k/uL Manual Slide Review Performed Large Platelets Present Macrocytosis Moderate PT (9.0-12.0) sec INR (<1.2) APTT (22.0-30.0) sec D-Dimer (<0.60) mg/L FEU Sodium 139 (137-145) mmol/L Potassium 4.3 (3.5-5.1) mmol/L Chloride 105 (98-107) mmol/L Carbon Dioxide 27 (22-30) mmol/L Anion Gap 7 mmol/L BUN 6 L (7-17) mg/dL Creatinine 0.90 (0.52-1.04) mg/dL Est GFR (MDRD) Af Amer >60 (>60 ml/min/1.73 sqM) Est GFR (MDRD) Non-Af >60 (>60 ml/min/1.73 sqM) Glucose 72 L (74-99) mg/dL Plasma Lactic Acid Pablo (0.7-2.0) mmol/L Calcium 8.7 (8.4-10.2) mg/dL Magnesium 2.3 (1.6-2.3) mg/dL Total Bilirubin 0.3 (0.2-1.3) mg/dL AST 77 H (14-36) U/L ALT 52 (9-52) U/L Alkaline Phosphatase 93 (38-126) U/L Total Creatine Kinase 41 (30-135) U/L CK-MB (CK-2) <0.2 (0.0-2.4) ng/mL CK-MB (CK-2) Rel Index Troponin I <0.012 (0.000-0.034) ng/mL NT-Pro-B Natriuret Pep pg/mL Total Protein 5.1 L (6.3-8.2) g/dL Albumin 2.8 L (3.5-5.0) g/dL Amylase 30 (30-110) U/L Lipase 41 (23-300) U/L Urine Color Urine Appearance (Clear) Urine pH (5.0-8.0) Ur Specific [place] (1.001-1.035) Urine Protein (Negative) Urine Glucose (UA) (Negative) Urine Ketones (Negative) Urine Blood (Negative) Urine Nitrite (Negative) Urine Bilirubin (Negative) Urine Urobilinogen (<2.0) mg/dL Ur Leukocyte Esterase (Negative) Influenza Type A RNA (Not Detectd) Influenza Type B (PCR) (Not Detectd) 11/19/17 11/19/17 11/19/17 Range/Units 15:27 15:27 15:27 WBC (3.8-10.6) k/uL RBC (3.80-5.40) m/uL Hgb (11.4-16.0) gm/dL Hct (34.0-46.0) % MCV (80.0-100.0) fL MCH (25.0-35.0) pg MCHC (31.0-37.0) g/dL RDW (11.5-15.5) % Plt Count (150-450) k/uL Neutrophils % % Lymphocytes % % Monocytes % % Eosinophils % % Basophils % % Neutrophils # (1.3-7.7) k/uL Lymphocytes # (1.0-4.8) k/uL Monocytes # (0-1.0) k/uL Eosinophils # (0-0.7) k/uL Basophils # (0-0.2) k/uL Manual Slide Review Large Platelets Macrocytosis PT 9.7 (9.0-12.0) sec INR 1.0 (<1.2) APTT 22.5 (22.0-30.0) sec D-Dimer 0.21 (<0.60) mg/L FEU Sodium (137-145) mmol/L Potassium (3.5-5.1) mmol/L Chloride (98-107) mmol/L Carbon Dioxide (22-30) mmol/L Anion Gap mmol/L BUN (7-17) mg/dL Creatinine (0.52-1.04) mg/dL Est GFR (MDRD) Af Amer (>60 ml/min/1.73 sqM) Est GFR (MDRD) Non-Af (>60 ml/min/1.73 sqM) Glucose (74-99) mg/dL Plasma Lactic Acid Pablo 1.1 (0.7-2.0) mmol/L Calcium (8.4-10.2) mg/dL Magnesium (1.6-2.3) mg/dL Total Bilirubin (0.2-1.3) mg/dL AST (14-36) U/L ALT (9-52) U/L Alkaline Phosphatase (38-126) U/L Total Creatine Kinase (30-135) U/L CK-MB (CK-2) (0.0-2.4) ng/mL CK-MB (CK-2) Rel Index Troponin I (0.000-0.034) ng/mL NT-Pro-B Natriuret Pep 45 pg/mL Total Protein (6.3-8.2) g/dL Albumin (3.5-5.0) g/dL Amylase (30-110) U/L Lipase (23-300) U/L Urine Color Urine Appearance (Clear) Urine pH (5.0-8.0) Ur Specific [place] (1.001-1.035) Urine Protein (Negative) Urine Glucose (UA) (Negative) Urine Ketones (Negative) Urine Blood (Negative) Urine Nitrite (Negative) Urine Bilirubin (Negative) Urine Urobilinogen (<2.0) mg/dL Ur Leukocyte Esterase (Negative) Influenza Type A RNA (Not Detectd) Influenza Type B (PCR) (Not Detectd) 11/19/17 11/19/17 Range/Units 15:40 16:00 WBC (3.8-10.6) k/uL RBC (3.80-5.40) m/uL Hgb (11.4-16.0) gm/dL Hct (34.0-46.0) % MCV (80.0-100.0) fL MCH (25.0-35.0) pg MCHC (31.0-37.0) g/dL RDW (11.5-15.5) % Plt Count (150-450) k/uL Neutrophils % % Lymphocytes % % Monocytes % % Eosinophils % % Basophils % % Neutrophils # (1.3-7.7) k/uL Lymphocytes # (1.0-4.8) k/uL Monocytes # (0-1.0) k/uL Eosinophils # (0-0.7) k/uL Basophils # (0-0.2) k/uL Manual Slide Review Large Platelets Macrocytosis PT (9.0-12.0) sec INR (<1.2) APTT (22.0-30.0) sec D-Dimer (<0.60) mg/L FEU Sodium (137-145) mmol/L Potassium (3.5-5.1) mmol/L Chloride (98-107) mmol/L Carbon Dioxide (22-30) mmol/L Anion Gap mmol/L BUN (7-17) mg/dL Creatinine (0.52-1.04) mg/dL Est GFR (MDRD) Af Amer (>60 ml/min/1.73 sqM) Est GFR (MDRD) Non-Af (>60 ml/min/1.73 sqM) Glucose (74-99) mg/dL Plasma Lactic Acid Pablo (0.7-2.0) mmol/L Calcium (8.4-10.2) mg/dL Magnesium (1.6-2.3) mg/dL Total Bilirubin (0.2-1.3) mg/dL AST (14-36) U/L ALT (9-52) U/L Alkaline Phosphatase (38-126) U/L Total Creatine Kinase (30-135) U/L CK-MB (CK-2) (0.0-2.4) ng/mL CK-MB (CK-2) Rel Index Troponin I (0.000-0.034) ng/mL NT-Pro-B Natriuret Pep pg/mL Total Protein (6.3-8.2) g/dL Albumin (3.5-5.0) g/dL Amylase (30-110) U/L Lipase (23-300) U/L Urine Color Yellow Urine Appearance Clear (Clear) Urine pH 8.0 (5.0-8.0) Ur Specific [place] 1.010 (1.001-1.035) Urine Protein Trace H (Negative) Urine Glucose (UA) Negative (Negative) Urine Ketones Negative (Negative) Urine Blood Negative (Negative) Urine Nitrite Negative (Negative) Urine Bilirubin Negative (Negative) Urine Urobilinogen <2.0 (<2.0) mg/dL Ur Leukocyte Esterase Negative (Negative) Influenza Type A RNA Not Detected (Not Detectd) Influenza Type B (PCR) Not Detected (Not Detectd) Disposition Clinical Impression: Viral syndrome, Asthma Disposition: HOME SELF-CARE Condition: Good Instructions: Asthma (ED), Viral Syndrome (ED) Prescriptions: Albuterol Inhaler [Ventolin Hfa Inhaler] 1 - 2 puff INHALATION Q4HR PRN #1 inhaler PRN Reason: Shortness Of Breath Azithromycin [Zithromax Z-pack] 0 mg PO DIRECTED #6 tab methylPREDNISolone Dose Pack [Medrol Dose Pack] 4 mg PO DIRECTED #21 package Referrals: None,Stated [Primary Care Provider] - 1-2 days Ras Kelly MD [REFERRING] - 1-2 days Time of Disposition: 17:12
[2017-11-19 15:56] LABS: ALT 52 U/L (9-52); AST 77 U/L (14-36); Alkaline Phosphatase 93 U/L (38-126); Amylase 30 U/L (30-110); Anion Gap 7 mmol/L; Blood Urea Nitrogen 6 mg/dL (7-17); Calcium 8.7 mg/dL (8.4-10.2); Carbon Dioxide 27 mmol/L (22-30); Chloride 105 mmol/L (98-107); Glucose 72 mg/dL (74-99); Magnesium 2.3 mg/dL (1.6-2.3); Non-African American GFR(MDRD) >60 (>60 ml/min/1.73 sqM); Potassium 4.3 mmol/L (3.5-5.1); Sodium 139 mmol/L (137-145); Total Bilirubin 0.3 mg/dL (0.2-1.3); Total Protein 5.1 g/dL (6.3-8.2)
[2017-11-19 15:58] LABS: Basophils # (A) 0.1 k/uL (0-0.2); Basophils % (A) 1 %; CH 34.6; CHCM 33.2; Eosinophils # (A) 0.2 k/uL (0-0.7); Eosinophils % (A) 3 %; HCT 44.4 % (34.0-46.0); HDW 2.08; HGB 14.7 gm/dL (11.4-16.0); Luc # (Auto) 0.29; Luc % (Auto) 4; Lymphocytes # (A) 2.3 k/uL (1.0-4.8); Lymphocytes % (A) 32 %; MCH 34.7 pg (25.0-35.0); MCHC 33.1 g/dL (31.0-37.0); MCV 104.8 fL (80.0-100.0); Macrocytosis Moderate; Mean Platelet Volume 9.5; Monocytes # (A) 0.4 k/uL (0-1.0); Monocytes % (A) 6 %; Neutrophils # (A) 3.9 k/uL (1.3-7.7); Neutrophils % (A) 55 %; RBC 4.24 m/uL (3.80-5.40); RDW 14.3 % (11.5-15.5); WBC 7.1 k/uL (3.8-10.6); WBC (Perox) 7.01
[2017-11-19 16:08] LABS: Creatine Kinase 41 U/L (30-135); Partial Thromboplastin Time 22.5 sec (22.0-30.0); Prothrombin Time 9.7 sec (9.0-12.0)
[2017-11-19 16:15] LABS: Large Platelets Present; Manual Review Performed
--- NOTE | 2017-11-19 16:17 | XR ---
EXAMINATION TYPE: XR chest 2V DATE OF EXAM: 11/19/2017 COMPARISON: NONE INDICATION: Chest pain TECHNIQUE: Frontal and lateral views of the chest are obtained. FINDINGS: The heart size is normal. The pulmonary vasculature is normal. Minimal infiltrate may lie along the left diaphragm. Correlate for some minimal subsegmental atelecta sis. Lungs are otherwise clear. IMPRESSION: 1. Minimal subsegmental atelectasis left lung base
[2017-11-19 16:20] LABS: Creatine Kinase MB <0.2 ng/mL (0.0-2.4); Troponin I <0.012 ng/mL (0.000-0.034)
[2017-11-19 16:23] LABS: Appearance,Urine Clear (Clear); Bilirubin,Urine Negative (Negative); Glucose,Urine (UA) Negative (Negative); Ketones,Urine Negative (Negative); Leukocyte Esterase,Urine Negative (Negative); Nitrite,Urine Negative (Negative); Protein,Urine Trace (Negative); UA Billing (MACRO vs. MICRO) CHEM; Urobilinogen,Urine <2.0 mg/dL (<2.0)
[2017-11-19] MEDS ORDERED: DEXAMETHASONE SOD PHOSPHATE 10 MG/ML 1 ML VIAL IV STA (16:40)
[2017-11-19] MEDS ORDERED: ALBUTEROL NEBULIZED 2.5 MG/3 ML INHALATION STA (16:40)
[2017-11-19 18:00] VITALS: BP 106/67; RESP 18
[2017-11-19 18:46] VITALS: PULSE 89; TEMP 96.5
== END 2017-11-19 18:46 | disposition home or self-care (01) ==
LOC: EC 14:53
DX: J45.901 Unspecified asthma with (acute) exacerbation (principal); B34.9 Viral infection, unspecified; F41.9 Anxiety disorder, unspecified; F32.9 Major depressive disorder, single episode, unspecified; F43.10 Post-traumatic stress disorder, unspecified; F17.200 Nicotine dependence, unspecified, uncomplicated; Z79.899 Other long term (current) drug therapy
CPT/HCPCS: 99285; 96374; 96361; 36415; 94640; 93005; 85379; 83880; 80053; 82150; 82550; 82553; 83605; 83690; 83735; 84484; 85025; 85610; 85730; 81003; 87502; 71020; J1100

== ENCOUNTER 2018-01-24 10:49 | Day surgery (SDC) | payer OTHER ==
[2018-01-23 08:42] VITALS: BMI 34.0
[~2018-01-24 10:49] MED LIST: LACTATED RINGERS 1,000 ML IV SCH
[2018-01-24 11:11] VITALS: TEMP 97
[2018-01-24] MEDS ORDERED: PROPOFOL 10 MG/ML 20 ML VIAL IV ONE (11:13)
--- NOTE | 2018-01-24 11:24 | P.GSHP ---
History of Present Illness H&P Date: 01/24/18 Chief Complaint: Screening colonoscopy This a 52-year-old female referred from [facility]. Patient presents today for screening colonoscopy. Past Medical History Past Medical History: Asthma, Hyperlipidemia, Osteoarthritis (OA), Sleep Apnea/ CPAP/BIPAP Additional Past Medical History / Comment(s): hx migraines, occ irregular heartbeat, History of Any Multi-Drug Resistant Organisms: None Reported Past Surgical History: Breast Surgery, Section, Tonsillectomy, Tubal Ligation Additional Past Surgical History / Comment(s): Lt breast biopsy, Past Anesthesia/Blood Transfusion Reactions: Motion Sickness Additional Past Anesthesia/Blood Transfusion Reaction / Comment(s): . Past Psychological History: Anxiety, Depression, PTSD Smoking Status: Current every day smoker Past Alcohol Use History: None Reported Additional Past Alcohol Use History / Comment(s): has smoked for 15 yrs, SMOKES 5 CIGARETTES PER DAY Past Drug Use History: None Reported Additional Drug Use History / Comment(s): denies - Past Family History Mother Family Medical History: No Reported History Additional Family Medical History / Comment(s): . Father Family Medical History: Osteoarthritis (OA) Additional Family Medical History / Comment(s): DDD Medications and Allergies Home Medications Medication Instructions Recorded Confirmed Type FLUoxetine HCL [PROzac] 60 mg PO DAILY 02/20/16 01/23/18 History clonazePAM [KlonoPIN] 1.5 mg PO HS 01/08/17 01/23/18 History Prazosin HCl 2 mg PO 0800,1400 11/19/17 01/23/18 History QUEtiapine FUMARATE [Seroquel Xr] 600 mg PO HS 11/19/17 01/23/18 History Albuterol Inhaler [Ventolin Hfa 2 puff INHALATION Q4HR PRN 01/23/18 01/23/18 History Inhaler] Atorvastatin [Lipitor] 40 mg PO DAILY 01/23/18 01/23/18 History Cholecalciferol (Vitamin D3) 2,000 unit PO DAILY 01/23/18 01/23/18 History [Vitamin D3] Latanoprost Ophth [Xalatan 0.005%] 1 drops BOTH EYES HS 01/23/18 01/23/18 History Omeprazole [PriLOSEC] 20 mg PO DAILY PRN 02/22/18 02/22/18 History Allergies Allergy/AdvReac Type Severity Reaction Status Date / Time No Known Allergies Allergy Verified 01/23/18 08:29 Surgical - Exam Vital Signs Temp Pulse Resp BP Pulse Ox 97 F L 89 18 123/69 95 01/24/18 11:03 01/24/18 11:03 01/24/18 11:03 01/24/18 11:03 01/24/18 11:03 - General well developed, no distress - Eyes PERRL - ENT normal pinna - Neck no masses - Respiratory normal expansion - Cardiovascular Rhythm: regular - Abdomen Abdomen: soft, non tender Assessment and Plan Assessment: We'll perform screening colonoscopy.
--- NOTE | 2018-01-24 11:41 | P.OP ---
Date of Procedure: 01/24/18 Preoperative Diagnosis: Screening colonoscopy Postoperative Diagnosis: Normal colon Procedure(s) Performed: Colonoscopy Anesthesia: MAC Surgeon: Natan Leger Pathology: none sent Condition: stable Disposition: PACU Description of Procedure: PROCEDURE: The patient was placed on the endoscopy table in the lateral position. Digital rectal examination was performed which revealed no abnormalities. . Flexible colonoscope was then placed in the patient's anus and passed throughout the entire colon. The ileocecal valve was visualized. The cecum, ascending, transverse, descending and sigmoid colon were normal. The rectum was normal as well. There were no masses, polyps or diverticula noted in the entire colon. SUMMARY OF FINDINGS: Normal colonoscopy.
[2018-01-24] MEDS ORDERED: ALBUTEROL NEBULIZED 2.5 MG/3 ML INHALATION STA (12:25)
[2018-01-24 12:32] VITALS: RESP 20
--- NOTE | 2018-01-24 13:19 | XR ---
EXAMINATION TYPE: XR chest 1V portable DATE OF EXAM: 01/24/2018 COMPARISON: 11/19/2017 HISTORY: Shortness of breath after colonoscopy. TECHNIQUE: Single frontal view of the chest is obtained. FINDINGS: Left midlung opacity is curvilinear in orientation and likely related to atelectasis. Copi ous soft tissues partially obscure the left lateral lung. There is no focal air space opacity, pleura l effusion, or pneumothorax seen. The cardiac silhouette size is within normal limits. The osseous structures are intact. Incidental note of degenerative changes of the right glenohumeral joint at t he greater tuberosity. IMPRESSION: Curvilinear left midlung opacity favored to represent subsegmental atelectasis.
[2018-01-24 13:39] VITALS: BP 138/82; PULSE 94
== END 2018-01-24 13:58 | disposition home or self-care (01) ==
LOC: ORWHC2ENDO 10:49
PROVIDERS: ATTEND Surgery
DX: Z12.11 Encounter for screening for malignant neoplasm of colon (principal); J45.909 Unspecified asthma, uncomplicated; E78.5 Hyperlipidemia, unspecified; M19.90 Unspecified osteoarthritis, unspecified site; F41.9 Anxiety disorder, unspecified; F32.9 Major depressive disorder, single episode, unspecified; G47.33 Obstructive sleep apnea (adult) (pediatric); F43.10 Post-traumatic stress disorder, unspecified; F17.210 Nicotine dependence, cigarettes, uncomplicated; Z82.61 Family history of arthritis; Z79.899 Other long term (current) drug therapy; Z99.89 Dependence on other enabling machines and devices; Z86.69 Personal history of other diseases of the nervous system and sense organs
CPT/HCPCS: 94640; 81025; 71045; J2704; G0121

== ENCOUNTER 2018-01-29 12:44 | Emergency (ER) | payer OTHER ==
[2018-01-29 12:59] VITALS: RESP 18
--- NOTE | 2018-01-29 13:09 | ED ---
Fall HPI - General Chief Complaint: Fall Stated Complaint: Throat pain, fall Time Seen by Provider: 01/29/18 12:54 Source: patient, EMS, RN notes reviewed Mode of arrival: EMS Limitations: no limitations - History of Present Illness Initial Comments: This a 52-year-old female presents emergency Department chief complaint of right ankle pain. Patient states she tripped and fell yesterday. Patient only complains of right ankle pain. Denies head injury, loss conscious, neck, back pain. Patient states she did have colonoscopy yesterday with no complications. Patient denies any chest pain or shortness of breath. Patient states that she has been drinking alcohol today. She does drink on a regular basis. - Related Data Home Medications Medication Instructions Recorded Confirmed FLUoxetine HCL [PROzac] 60 mg PO DAILY 02/20/16 01/29/18 clonazePAM [KlonoPIN] 1 - 1.5 mg PO HS 01/08/17 01/29/18 Prazosin HCl 2 mg PO 0800,1400 11/19/17 01/29/18 QUEtiapine FUMARATE [Seroquel Xr] 600 mg PO HS 11/19/17 01/29/18 Albuterol Inhaler [Ventolin Hfa 2 puff INHALATION RT-Q4H PRN 01/23/18 01/29/18 Inhaler] Atorvastatin [Lipitor] 40 mg PO DAILY 01/23/18 01/29/18 Cholecalciferol (Vitamin D3) 2,000 unit PO DAILY 01/23/18 01/29/18 [Vitamin D3] Latanoprost Ophth [Xalatan 0.005%] 1 drops BOTH EYES HS 01/23/18 01/29/18 Omeprazole [PriLOSEC] 20 mg PO DAILY PRN 01/23/18 01/29/18 Allergies Allergy/AdvReac Type Severity Reaction Status Date / Time No Known Allergies Allergy Verified 01/29/18 13:15 Review of Systems ROS Statement: Those systems with pertinent positive or pertinent negative responses have been documented in the HPI. ROS Other: All systems not noted in ROS Statement are negative. Past Medical History Past Medical History: Asthma, Hyperlipidemia, Osteoarthritis (OA), Sleep Apnea/ CPAP/BIPAP Additional Past Medical History / Comment(s): hx migraines, occ irregular heartbeat, History of Any Multi-Drug Resistant Organisms: None Reported Past Surgical History: Breast Surgery, Section, Tonsillectomy, Tubal Ligation Additional Past Surgical History / Comment(s): Lt breast biopsy, Past Anesthesia/Blood Transfusion Reactions: Motion Sickness Additional Past Anesthesia/Blood Transfusion Reaction / Comment(s): . Past Psychological History: Anxiety, Depression, PTSD Smoking Status: Current every day smoker Past Alcohol Use History: Occasional Past Drug Use History: None Reported - Past Family History Mother Family Medical History: No Reported History Additional Family Medical History / Comment(s): . Father Family Medical History: Osteoarthritis (OA) Additional Family Medical History / Comment(s): DDD General Exam Limitations: no limitations General appearance: alert, in no apparent distress Head exam: Present: atraumatic, normocephalic, normal inspection Eye exam: Present: normal appearance, PERRL, EOMI. Absent: scleral icterus, conjunctival injection, periorbital swelling Neck exam: Present: normal inspection, full ROM. Absent: tenderness Respiratory exam: Present: normal lung sounds bilaterally. Absent: respiratory distress, wheezes, rales, rhonchi, stridor Cardiovascular Exam: Present: regular rate, normal rhythm, normal heart sounds. Absent: systolic murmur, diastolic murmur, rubs, gallop, clicks GI/Abdominal exam: Present: soft, normal bowel sounds. Absent: distended, tenderness, guarding, rebound, rigid Extremities exam: Present: other (Right ankle there is minimal swelling and tenderness the lateral portion, pedal pulses are equal bilaterally there is no proximal tib-fib tenderness no tenderness of the right foot. Remaining extremity exam within normal limits) Neurological exam: Present: alert, oriented X3, CN II-XII intact Skin exam: Present: warm, dry, intact, normal color. Absent: rash Course Vital Signs 01/29/18 12:49 Temperature 98.0 F Pulse Rate 95 Respiratory 18 Rate Blood Pressure 104/59 O2 Sat by Pulse 95 Oximetry Medical Decision Making - Medical Decision Making 52-year-old female presented for fall, right ankle injury. There is no acute fracture. Patient did admit to some alcohol drinking. Patient's blood alcohol was 0.1. Patient has been in the ER for over an hour she is clinically sober at this time. Patient will be discharged to the waiting room. patient is not driving Disposition Clinical Impression: Fall, Right ankle sprain, Alcohol abuse Disposition: HOME SELF-CARE Condition: Stable Instructions: Ankle Sprain (ED) Additional Instructions: Please return to the Emergency Department if symptoms worsen or any other concerns. Referrals: None,Stated [Primary Care Provider] - 1-2 days Time of Disposition: 14:02
--- NOTE | 2018-01-29 13:37 | XR ---
EXAMINATION TYPE: XR ankle complete RT DATE OF EXAM: 01/29/2018 COMPARISON: NONE HISTORY: Pain TECHNIQUE: Frontal, lateral and oblique images of the right ankle are obtained. COMPARISON: None. FINDINGS: There is no acute fracture/dislocation evident. The joint spaces appear within normal pretty its. The overlying soft tissue appears unremarkable. IMPRESSION: There is no acute fracture or dislocation seen.
[2018-01-29 14:17] VITALS: BP 105/67; PULSE 96; TEMP 98.3
== END 2018-01-29 14:15 | disposition home or self-care (01) ==
LOC: EC 12:44
DX: S93.401A Sprain of unspecified ligament of right ankle, initial encounter (principal); F10.10 Alcohol abuse, uncomplicated; E78.5 Hyperlipidemia, unspecified; G47.33 Obstructive sleep apnea (adult) (pediatric); F32.9 Major depressive disorder, single episode, unspecified; F41.9 Anxiety disorder, unspecified; F17.200 Nicotine dependence, unspecified, uncomplicated; Z79.899 Other long term (current) drug therapy; Z99.89 Dependence on other enabling machines and devices; W01.0XXA Fall on same level from slipping, tripping and stumbling without subsequent striking against object, initial encounter; Y92.009 Unspecified place in unspecified non-institutional (private) residence as the place of occurrence of the external cause
CPT/HCPCS: 82075; 99284

== ENCOUNTER → 2018-05-02 | Outpatient (CLI) | payer OTHER ==
--- NOTE | 2018-05-05 11:56 | MM ---
Reason for exam: screening (asymptomatic). Last mammogram was performed 3 years and 5 months ago. History: Family history of breast cancer in grandmother at age 60. Excisional biopsy of the left breast. Physical Findings: A clinical breast exam by your physician is recommended on an annual basis and results should be correlated with mammographic findings. MG Screening Mammo w CAD Bilateral CC and MLO view(s) were taken. Prior study comparison: December 09, 2014, bilateral MG diagnostic mammo w CAD [facility]. The breast tissue is heterogeneously dense. This may lower the sensitivity of mammography. Focal asymmetry upper outer right breast 7.3cm from nipple. This finding is changed when compared with previous exams. ASSESSMENT: Incomplete: need additional imaging evaluation, BI-RAD 0 RECOMMENDATION: Special view mammogram of the right breast. If lesion persists on supplemental views, image directed ultrasound is recommended. [facility] will attempt to contact patient to return for supplemental views and ultrasound if indicated.
== END | disposition home or self-care (01) ==
LOC: RADMAMWWP 10:24
PROVIDERS: ATTEND Family Medicine
DX: Z12.31 Encounter for screening mammogram for malignant neoplasm of breast (principal)
CPT/HCPCS: 77067

== ENCOUNTER → 2018-05-20 | Outpatient (CLI) | payer OTHER ==
--- NOTE | 2018-05-20 08:55 | MM ---
Reason for exam: additional evaluation requested from abnormal screening. Last mammogram was performed 1 month ago. History: Family history of breast cancer in grandmother at age 60. Excisional biopsy of the left breast. Physical Findings: Nurse did not find any significant physical abnormalities on exam. MG 3D Work Up W/Cad RT Spot compression CC, spot compression MLO, and LM view(s) were taken of the right breast. Prior study comparison: May 02, 2018, bilateral MG screening mammo w CAD. December 09, 2014, bilateral MG diagnostic mammo w CAD [facility]. No definite lesions persist on additional views. These results were verbally communicated with the patient and result sheet given to the patient on 05/20/18. ASSESSMENT: Probably benign, BI-RAD 3 RECOMMENDATION: Follow-up diagnostic mammogram of the right breast in 6 months.
== END | disposition home or self-care (01) ==
LOC: RADMAMWWP 06:52
PROVIDERS: ATTEND Family Medicine
DX: R92.8 Other abnormal and inconclusive findings on diagnostic imaging of breast (principal)
CPT/HCPCS: 77065; G0279; 77061

== ENCOUNTER → 2018-05-22 | Outpatient (CLI) | payer OTHER ==
--- NOTE | 2018-05-22 16:22 | PN ---
PROGRESS NOTE DATE OF SERVICE: 05/22/2018 This patient is a 52-year-old lady who has been followed in the sleep center for treatment of obstructive sleep apnea-hypopnea syndrome, sleepwalking, sleeptalking and night terrors. At the present time, patient continues to use her CPAP equipment every night for the whole night. No snoring with the machine. The patient did not bring her machine today to check. With Klonopin 1.5 mg at night, she does not have any episodes of sleepwalking nor any side effects of medications. [place] Sleepiness Scale today is 6, which is in normal range. MEDICATIONS: 1. Klonopin. 2. Prozac. 3. Seroquel. PHYSICAL EXAMINATION: GENERAL A pleasant patient in no distress. VITAL SIGNS: BP 120/81, HR 96, RR 16, height 5 feet 1 inch, weight 181, BMI 34. Afebrile. HEENT: PERRLA, EOMI. Evaluation of oropharynx showed tongue protrudes midline; moderately low position of soft palate. NECK: Supple. No JVD. Thyroid is not palpable. LUNGS: Clear to percussion and to auscultation. Good air exchange. No wheezing or rhonchi. HEART: S1, S2 regular. No murmurs, gallops or rubs. ABDOMEN: Obese. EXTREMITIES : No clubbing or cyanosis. ASSISTANT CREDIT MANAGER: Awake, alert, and oriented X3. Cranial nerves 2 to 7 intact. There is no fasciculation or atrophy. noted. No focal deficits observed. IMPRESSION: 1. Obstructive sleep apnea-hypopnea syndrome. The patient is on treatment with CPAP, benefitting from treatment. 2. History of sleepwalking, on treatment with Klonopin 1.5 mg at bedtime. No episodes of sleepwalking. 3. Depression. 4. Anxiety. 5. Post-traumatic stress disorder. 6. History of neck problems. 7. Shoulder pain. 8. Status post . 9. Patient continues to smoke about half pack a day. PLAN: 1. Continue treatment with CPAP every night for the whole night. 2. The patient will continue to take Klonopin 1.5 mg at bedtime. 3. Losing weight. At present patient has lost 6 pounds compared to the previous visit. 4. No driving if feeling any sleepiness. Thank you very much for allowing me to participate in the management of your patient. Sincerely, Clarke Us MD, PhD, FAASM Diplomat of [employer] Waste Collection Driver of [facility] [place] MMRITA / GRAEME: [id number] /
== END | disposition home or self-care (01) ==
LOC: SLEEP 15:00
PROVIDERS: ATTEND Internal Medicine
DX: G47.33 Obstructive sleep apnea (adult) (pediatric) (principal); F32.9 Major depressive disorder, single episode, unspecified; F41.9 Anxiety disorder, unspecified; F43.10 Post-traumatic stress disorder, unspecified; M25.519 Pain in unspecified shoulder; F17.200 Nicotine dependence, unspecified, uncomplicated; M53.82 Other specified dorsopathies, cervical region; Z99.89 Dependence on other enabling machines and devices; Z79.899 Other long term (current) drug therapy

== ENCOUNTER → 2018-06-09 | Outpatient (CLI) | payer OTHER ==
--- NOTE | 2018-06-09 09:36 | MR ---
EXAMINATION TYPE: MR alexine/lspine wo con DATE OF EXAM: 06/09/2018 COMPARISON: Prior MRI cervical and lumbar spine August 03, 2016. HISTORY: Neck pain, low back pain per order. Severe low back pain for 2 years going into right leg pe r patient. Neck pain for one year causing pain or weakness into both arms and fingers per patient. TECHNIQUE: Multiplanar, multisequence imaging of the cervical and lumbar spine are both performed wit hout IV contrast. FINDINGS: C-SPINE: FINDINGS: Sagittal images of the cervical spine show the craniocervical junction to remain within nor mal limits. The cervical and upper thoracic spinal cord remains normal in course, caliber, and signa l. Vertebral alignment is stable. The vertebral body heights remain normal. Mild disc space narrowi ng C5-C6 and C6-C7 levels with posterior disc herniations effacing anterior thecal sac on sagittal im ages is redemonstrated. Mild anterior spurring at these levels is again seen. The bone marrow signal intensity is within normal limits. Axial images show the C2-C3, C3-C4, and the C4-C5 levels all to remain within normal limits. Axial images at C5-C6 level redemonstrated broad-based posterior disc protrusion effacing anterior th ecal sac and causing mild to moderate right greater than left bilateral neural foraminal narrowing. N o significant change from prior. Some posterior spurring is also redemonstrated. Axial images at C6-C7 level show broad-based posterior disc protrusion and some marginal spurring cau sing effacement of the anterior thecal sac and moderate bilateral neural foraminal narrowing. No sign ificant change from prior. Axial images at C7-T1 level remain within normal limits. IMPRESSION: Degenerative changes redemonstrated C5-C6 and C6-C7 level as detailed above. No significa nt change or progression from prior MRI. L-SPINE: Sagittal images of the lumbar spine show vertebral body heights and alignment to remain satisfactory. The intervertebral discs redemonstrate multilevel disc desiccation. There is persistent mild to mode rate disc space narrowing L4-L5 level with vacuum disc phenomenon present. No new prominent posterior disc herniations are seen on sagittal images. The conus medullaris remains normal in position and si gnal ending superior L1 level. The bone marrow signal intensity is within normal limits. Mild multil evel anterior spurring is redemonstrated. Axial images show the T12-L1, L1-L2, and L2-L3 levels all to remain within normal limits. Axial images at L3-L4 level redemonstrate mild facet degenerative changes and mild broad disc bulge b ut spinal canal is preserved and bilateral neural foramina are patent. No significant change from rito or. Axial images at L4-L5 level redemonstrate mild broad disc bulge and mild facet degenerative changes b ilaterally. Bilateral neural foramina are patent. Spinal canal is preserved. No significant change fr om prior. Axial images at L5-S1 level redemonstrate mild facet degenerative changes bilaterally. There is centr al disc protrusion seen but spinal canal is preserved as there is prominence of epidural fat at this level. Bilateral neural foramina are patent. No suspicious retroperitoneal findings are seen. IMPRESSION: Multilevel degenerative changes mid to lower lumbar spine as detailed above, no significa nt change or progression from prior MRI is seen.
== END | disposition home or self-care (01) ==
LOC: RADMRIMAIN 08:14
PROVIDERS: ATTEND Psychiatry & Neurology Neurology
DX: M48.02 Spinal stenosis, cervical region (principal); M99.71 Connective tissue and disc stenosis of intervertebral foramina of cervical region; M50.222 Other cervical disc displacement at C5-C6 level; M47.812 Spondylosis without myelopathy or radiculopathy, cervical region; M48.061 Spinal stenosis, lumbar region without neurogenic claudication; M51.26 Other intervertebral disc displacement, lumbar region; M47.816 Spondylosis without myelopathy or radiculopathy, lumbar region
CPT/HCPCS: 72141; 72148

== ENCOUNTER 2018-11-16 11:56 | Emergency (ER) | payer OTHER ==
[2018-11-16 12:05] VITALS: TEMP 98.2
[2018-11-16] MEDS ORDERED: SODIUM CHLORIDE 0.9% 1,000 ML IV STA (12:58)
--- NOTE | 2018-11-16 13:11 | ED ---
General Adult HPI - General Chief complaint: Vaginal Bleeding Stated complaint: Dizzy Time Seen by Provider: 11/16/18 12:55 Source: patient, RN notes reviewed Mode of arrival: wheelchair Limitations: no limitations - History of Present Illness Initial comments: Patient 53-year-old female presented to the emergency room today with a chief complaint of vaginal bleeding. She does admit that she has been bleeding over the last 3 months. She states she's had having bleeding when bleeding starts for 5 days. She states that it's followed by just a light bleeding for the rest month until the next period starts. She states this is been going on for the past 3 months. She states prior to that she had 2 months for she did not have a period. She states prior to that she was having normal menstrual cycles. Patient does admit to abdominal cramping and pain. Patient denies any other complaints or symptoms. Patient denies any recent fever, chills, shortness of breath, chest pain, nausea or vomiting, numbness or tingling, constipation or diarrhea, headaches or visual changes, or any other complaints. - Related Data Home Medications Medication Instructions Recorded Confirmed FLUoxetine HCL [PROzac] 60 mg PO DAILY 02/20/16 01/29/18 clonazePAM [KlonoPIN] 1.5 mg PO HS 01/08/17 11/16/18 Prazosin HCl 2 mg PO 0800,1400 11/19/17 01/29/18 Albuterol Inhaler [Ventolin Hfa 2 puff INHALATION RT-Q4H PRN 01/23/18 11/16/18 Inhaler] Atorvastatin [Lipitor] 40 mg PO DAILY 01/23/18 11/16/18 Cholecalciferol (Vitamin D3) 2,000 unit PO DAILY 01/23/18 01/29/18 [Vitamin D3] Latanoprost Ophth [Xalatan 0.005%] 1 drops BOTH EYES HS 01/23/18 11/16/18 Omeprazole [PriLOSEC] 20 mg PO DAILY 01/23/18 11/16/18 Hydrocodone/Acetaminophen [[place] 1 tab PO TID PRN 11/16/18 11/16/18 10-325] Seroquel (Unknown Dose) 1 tab PO HS 11/16/18 11/16/18 Trazodone (Unknown Dose) 1 tab PO HS 11/16/18 11/16/18 Previous Rx's Medication Instructions Recorded Ibuprofen [Motrin] 800 mg PO Q6HR #30 tab 11/16/18 Allergies Allergy/AdvReac Type Severity Reaction Status Date / Time No Known Allergies Allergy Verified 11/16/18 13:28 Review of Systems ROS Statement: Those systems with pertinent positive or pertinent negative responses have been documented in the HPI. ROS Other: All systems not noted in ROS Statement are negative. Past Medical History Past Medical History: Asthma, Hyperlipidemia, Osteoarthritis (OA), Sleep Apnea/ CPAP/BIPAP Additional Past Medical History / Comment(s): hx migraines, occ irregular heartbeat, History of Any Multi-Drug Resistant Organisms: None Reported Past Surgical History: Breast Surgery, Section, Tonsillectomy, Tubal Ligation Additional Past Surgical History / Comment(s): Lt breast biopsy, Past Anesthesia/Blood Transfusion Reactions: Motion Sickness Additional Past Anesthesia/Blood Transfusion Reaction / Comment(s): . Past Psychological History: Anxiety, Depression, PTSD Smoking Status: Current every day smoker Past Alcohol Use History: Occasional Past Drug Use History: None Reported - Past Family History Mother Family Medical History: No Reported History Additional Family Medical History / Comment(s): . Father Family Medical History: Osteoarthritis (OA) Additional Family Medical History / Comment(s): DDD General Exam - General Exam Comments Initial Comments: General: The patient is awake and alert, in no distress, and does not appear acutely ill. Eye: There is normal conjunctiva bilaterally. No signs of icterus. Ears, nose, mouth and throat: There are moist mucous membranes and no oral lesions. Neck: The neck is supple, there is no tenderness or JVD. Cardiovascular: There is a regular rate and rhythm. No murmur, rub or gallop is appreciated. Respiratory: Lungs are clear to auscultation, respirations are non-labored, breath sounds are equal. No wheezes, stridor, rales, or rhonchi. Gastrointestinal: Soft and palpation. Patient does have tenderness both left and right lower quadrants. No rebound, guarding or CVA tenderness. Musculoskeletal: Normal ROM, no tenderness. Strength 5/5. Sensation intact. Pulses equal bilaterally 2+. Neurological: A&O x 3. CN II-XII intact, There are no obvious motor or sensory deficits. Coordination appears grossly intact. Speech is normal. Skin: Skin is warm and dry and no rashes or lesions are noted. Psychiatric: Cooperative, appropriate mood & affect, normal judgment. Limitations: no limitations Course Vital Signs 11/16/18 11/16/18 12:03 14:05 Temperature 98.2 F Pulse Rate 80 84 Respiratory 18 16 Rate Blood Pressure 94/62 118/85 O2 Sat by Pulse 98 96 Oximetry EKG Findings - EKG Comments: EKG Findings:: EKG performed at 1347: Shows normal sinus rhythm at [address] interval 132. QRS 82. QT/QTC 370/467. No acute ST changes. Medical Decision Making - Medical Decision Making Patient reexamined at this time shows no signs of distress is resting comfortably in the room. Patient's vitals reviewed in show improvement of blood pressure after liter bolus. She is doing well at this time. Denies any dizziness or lightheadedness. Patient does not that she's had this bleeding for the last 3 months. Ultrasound reviewed and does show evidence for uterine fibroid. Patient's hemoglobin stable. Remaining labs reviewed. Will be discharged home to follow-up with [facility]. She states she's tried to follow up through the family physician. Advised return if any symptoms increase or worsen or for any other concerns. - Lab Data Result diagrams: 11/16/18 14:16 11/16/18 14:16 Lab Results 11/16/18 11/16/18 11/16/18 Range/Units 14:16 14:16 14:16 WBC 5.3 (3.8-10.6) k/uL RBC 4.23 (3.80-5.40) m/uL Hgb 14.4 (11.4-16.0) gm/dL Hct 45.5 (34.0-46.0) % MCV 107.5 H (80.0-100.0) fL MCH 33.9 (25.0-35.0) pg MCHC 31.5 (31.0-37.0) g/dL RDW 13.1 (11.5-15.5) % Plt Count 182 (150-450) k/uL Neutrophils % 46 % Lymphocytes % 40 % Monocytes % 6 % Eosinophils % 3 % Basophils % 1 % Neutrophils # 2.5 (1.3-7.7) k/uL Lymphocytes # 2.1 (1.0-4.8) k/uL Monocytes # 0.3 (0-1.0) k/uL Eosinophils # 0.2 (0-0.7) k/uL Basophils # 0.1 (0-0.2) k/uL Manual Slide Review Performed Reactive Lymphocytes Present Large Platelets Present Macrocytosis Moderate PT 9.6 (9.0-12.0) sec INR 0.9 (<1.2) APTT 24.7 (22.0-30.0) sec Sodium 142 (137-145) mmol/L Potassium 3.8 (3.5-5.1) mmol/L Chloride 105 (98-107) mmol/L Carbon Dioxide 26 (22-30) mmol/L Anion Gap 11 mmol/L BUN 9 (7-17) mg/dL Creatinine 0.75 (0.52-1.04) mg/dL Est GFR (CKD-EPI)AfAm >90 (>60 ml/min/1.73 sqM) Est GFR (CKD-EPI)NonAf >90 (>60 ml/min/1.73 sqM) Glucose 87 (74-99) mg/dL Calcium 9.1 (8.4-10.2) mg/dL Total Bilirubin 0.3 (0.2-1.3) mg/dL AST 46 H (14-36) U/L ALT 33 (9-52) U/L Alkaline Phosphatase 89 (38-126) U/L Total Protein 7.0 (6.3-8.2) g/dL Albumin 4.1 (3.5-5.0) g/dL Urine Color Urine Appearance (Clear) Urine pH (5.0-8.0) Ur Specific [place] (1.001-1.035) Urine Protein (Negative) Urine Glucose (UA) (Negative) Urine Ketones (Negative) Urine Blood (Negative) Urine Nitrite (Negative) Urine Bilirubin (Negative) Urine Urobilinogen (<2.0) mg/dL Ur Leukocyte Esterase (Negative) Urine RBC (0-5) /hpf Urine WBC (0-5) /hpf Ur Squamous Epith Cells (0-4) /hpf Urine Bacteria (None) /hpf 16/18 Range/Units 14:16 WBC (3.8-10.6) k/uL RBC (3.80-5.40) m/uL Hgb (11.4-16.0) gm/dL Hct (34.0-46.0) % MCV (80.0-100.0) fL MCH (25.0-35.0) pg MCHC (31.0-37.0) g/dL RDW (11.5-15.5) % Plt Count (150-450) k/uL Neutrophils % % Lymphocytes % % Monocytes % % Eosinophils % % Basophils % % Neutrophils # (1.3-7.7) k/uL Lymphocytes # (1.0-4.8) k/uL Monocytes # (0-1.0) k/uL Eosinophils # (0-0.7) k/uL Basophils # (0-0.2) k/uL Manual Slide Review Reactive Lymphocytes Large Platelets Macrocytosis PT (9.0-12.0) sec INR (<1.2) APTT (22.0-30.0) sec Sodium (137-145) mmol/L Potassium (3.5-5.1) mmol/L Chloride (98-107) mmol/L Carbon Dioxide (22-30) mmol/L Anion Gap mmol/L BUN (7-17) mg/dL Creatinine (0.52-1.04) mg/dL Est GFR (CKD-EPI)AfAm (>60 ml/min/1.73 sqM) Est GFR (CKD-EPI)NonAf (>60 ml/min/1.73 sqM) Glucose (74-99) mg/dL Calcium (8.4-10.2) mg/dL Total Bilirubin (0.2-1.3) mg/dL AST (14-36) U/L ALT (9-52) U/L Alkaline Phosphatase (38-126) U/L Total Protein (6.3-8.2) g/dL Albumin (3.5-5.0) g/dL Urine Color Yellow Urine Appearance Cloudy H (Clear) Urine pH 6.0 (5.0-8.0) Ur Specific [place] 1.003 (1.001-1.035) Urine Protein Trace H (Negative) Urine Glucose (UA) Negative (Negative) Urine Ketones Negative (Negative) Urine Blood Large H (Negative) Urine Nitrite Negative (Negative) Urine Bilirubin Negative (Negative) Urine Urobilinogen <2.0 (<2.0) mg/dL Ur Leukocyte Esterase Negative (Negative) Urine RBC 8 H (0-5) /hpf Urine WBC 3 (0-5) /hpf Ur Squamous Epith Cells 2 (0-4) /hpf Urine Bacteria Few H (None) /hpf Disposition Clinical Impression: Uterine fibroid Disposition: HOME SELF-CARE Condition: Good Instructions: Dysfunctional Uterine Bleeding (ED) Additional Instructions: Please follow-up with [facility] as discussed. Please use medication as prescribed. Please return to emergency room symptoms increase or worsen. Concerns. Prescriptions: Ibuprofen [Motrin] 800 mg PO Q6HR #30 tab Is patient prescribed a controlled substance at d/c from ED?: No Referrals: [facility] [Primary Care Provider] - 1-2 days Time of Disposition: 16:35
[2018-11-16] MEDS ORDERED: ACETAMINOPHEN IV (For NPO) 1,000 MG in EMPTY BAG 1 BAG IVPB STA (13:13)
[2018-11-16] MEDS ORDERED: MORPHINE SULFATE 4 MG/ML SYRINGE IV STA (14:25)
[2018-11-16 14:47] LABS: Appearance,Urine Cloudy (Clear); Bacteria,Urine Few /hpf; Bilirubin,Urine Negative (Negative); Blood,Urine Large (Negative); Color,Urine Yellow; Glucose,Urine (UA) Negative (Negative); Ketones,Urine Negative (Negative); Leukocyte Esterase,Urine Negative (Negative); Nitrite,Urine Negative (Negative); Protein,Urine Trace (Negative); RBC,Urine 8 /hpf (0-5); Specific Gravity,Urine 1.003 (1.001-1.035); Squamous Epithelial Cell,Urine 2 /hpf (0-4); Urobilinogen,Urine <2.0 mg/dL (<2.0)
[2018-11-16 14:53] LABS: INR 0.9 (<1.2); Partial Thromboplastin Time 24.7 sec (22.0-30.0); Prothrombin Time 9.6 sec (9.0-12.0)
[2018-11-16 14:56] LABS: Basophils # (A) 0.1 k/uL (0-0.2); Basophils % (A) 1 %; Eosinophils # (A) 0.2 k/uL (0-0.7); Eosinophils % (A) 3 %; HCT 45.5 % (34.0-46.0); HGB 14.4 gm/dL (11.4-16.0); Lymphocytes # (A) 2.1 k/uL (1.0-4.8); Lymphocytes % (A) 40 %; MCH 33.9 pg (25.0-35.0); MCHC 31.5 g/dL (31.0-37.0); MCV 107.5 fL (80.0-100.0); Macrocytosis Moderate; Mean Platelet Volume 10.3; Monocytes # (A) 0.3 k/uL (0-1.0); Monocytes % (A) 6 %; Neutrophils # (A) 2.5 k/uL (1.3-7.7); Neutrophils % (A) 46 %; Platelet Count 182 k/uL (150-450); RBC 4.23 m/uL (3.80-5.40); RDW 13.1 % (11.5-15.5); WBC 5.3 k/uL (3.8-10.6)
[2018-11-16 14:59] LABS: ALT 33 U/L (9-52); AST 46 U/L (14-36); Albumin 4.1 g/dL (3.5-5.0); Alkaline Phosphatase 89 U/L (38-126); Anion Gap 11 mmol/L; Blood Urea Nitrogen 9 mg/dL (7-17); Calcium 9.1 mg/dL (8.4-10.2); Carbon Dioxide 26 mmol/L (22-30); Chloride 105 mmol/L (98-107); Glucose 87 mg/dL (74-99); Potassium 3.8 mmol/L (3.5-5.1); Sodium 142 mmol/L (137-145); Total Bilirubin 0.3 mg/dL (0.2-1.3)
[2018-11-16 15:14] LABS: Large Platelets Present; Reactive Lymphocytes Present
--- NOTE | 2018-11-16 16:10 | US ---
EXAMINATION TYPE: US transvaginal DATE OF EXAM: 11/16/2018 COMPARISON: CT 2016 CLINICAL HISTORY: bleeding. Pelvic pain, irregular cycles, 3, para 3 TECHNIQUE: Transvaginal ER exam Date of LMP: 11/14/18 EXAM MEASUREMENTS: Uterus: 8.6 x 4.0 x 4.9 cm Endometrial Stripe: 0.6 cm Right Ovary: not seen Left Ovary: not seen 1. Uterus: anteverted, 4.5 x 3.5 x 4.2cm exophytic hypoechoic area left uterus, probable fibroid 2. Endometrium: small amount of fluid seen within fundal portion 3. Right Ovary: not seen 4. Left Ovary: not seen 5. Bilateral Adnexa: wnl 6. Posterior cul-de-sac: wnl Heterogeneous uterus with endometrium thickened to 6 mm, there is a 4 mm oval anechoic area towards t he fundus. Some lobulation suggest poorly visualized fibroids. Suspect trapped fluid. Would exclude p regnancy or early gestational sac with beta-hCG. No free fluid is seen in pelvic cul-de-sac. Neither ovary is clearly identified. IMPRESSION: As above. Heterogeneous lobulation is suggestive of fibroids, they can be better visualiz ed and characterized with pelvic MRI if desired.
[2018-11-16 17:05] VITALS: BP 119/65; PULSE 71; RESP 18
== END 2018-11-16 16:46 | disposition home or self-care (01) ==
LOC: EC 11:56
DX: D25.9 Leiomyoma of uterus, unspecified (principal); E78.5 Hyperlipidemia, unspecified; J45.909 Unspecified asthma, uncomplicated; G47.30 Sleep apnea, unspecified; F32.9 Major depressive disorder, single episode, unspecified; F41.9 Anxiety disorder, unspecified; F17.200 Nicotine dependence, unspecified, uncomplicated; Z79.899 Other long term (current) drug therapy; Z99.89 Dependence on other enabling machines and devices; Z86.79 Personal history of other diseases of the circulatory system; Z98.51 Tubal ligation status
CPT/HCPCS: 36415; 93005; 80053; 85025; 85610; 85730; 81001; 76830; 99284; 96374; 96375; 96361; J2270; J0131

== ENCOUNTER 2018-11-17 14:28 | Emergency (ER) | payer OTHER ==
[2018-11-17] MEDS ORDERED: SODIUM CHLORIDE 0.9% 1,000 ML IV STA (16:01)
[2018-11-17] MEDS ORDERED: KETOROLAC 30 MG/ML 1 ML VIAL IVP STA (16:01)
--- NOTE | 2018-11-17 16:10 | ED ---
General Adult HPI - General Chief complaint: Urogenital Stated complaint: Back and and pain-revisit Time Seen by Provider: 11/17/18 15:44 Source: patient, RN notes reviewed Mode of arrival: ambulatory Limitations: no limitations - History of Present Illness Initial comments: Patient's a 53-year-old female presents emergency room today with a chief complaint vaginal bleeding with lower abdominal pain. She does admit that she was seen here in the emergency room yesterday. She was diagnosed with uterine fibroid. She states she did follow-up the family doctor today and is trying to get an appointment with [facility]. Patient states still having some bleeding which has improved. States still having pain today she has been using her [place] at home with little relief the symptoms. Patient does admit that she's felt tired. Patient denies any recent fever, chills, shortness of breath, chest pain, back pain, numbness or tingling, dysuria or hematuria, constipation or diarrhea, headaches or visual changes, or any other complaints. - Related Data Home Medications Medication Instructions Recorded Confirmed clonazePAM [KlonoPIN] 1.5 mg PO HS 01/08/17 11/17/18 Albuterol Inhaler [Ventolin Hfa 2 puff INHALATION RT-Q4H PRN 01/23/18 11/17/18 Inhaler] Atorvastatin [Lipitor] 40 mg PO DAILY 01/23/18 11/17/18 Omeprazole [PriLOSEC] 20 mg PO DAILY 01/23/18 11/17/18 Hydrocodone/Acetaminophen [[place] 1 tab PO TID PRN 11/16/18 11/17/18 10-325] Multivitamins, Thera [Multivitamin 1 tab PO DAILY 11/17/18 11/17/18 (formulary)] Allergies Allergy/AdvReac Type Severity Reaction Status Date / Time No Known Allergies Allergy Verified 11/17/18 15:02 Review of Systems ROS Statement: Those systems with pertinent positive or pertinent negative responses have been documented in the HPI. ROS Other: All systems not noted in ROS Statement are negative. Past Medical History Past Medical History: Asthma, Hyperlipidemia, Osteoarthritis (OA), Sleep Apnea/ CPAP/BIPAP Additional Past Medical History / Comment(s): hx migraines, occ irregular heartbeat, History of Any Multi-Drug Resistant Organisms: None Reported Past Surgical History: Breast Surgery, Section, Tonsillectomy, Tubal Ligation Additional Past Surgical History / Comment(s): Lt breast biopsy, Past Anesthesia/Blood Transfusion Reactions: Motion Sickness Additional Past Anesthesia/Blood Transfusion Reaction / Comment(s): . Past Psychological History: Anxiety, Depression, PTSD Smoking Status: Current every day smoker Past Alcohol Use History: Occasional Past Drug Use History: None Reported - Past Family History Mother Family Medical History: No Reported History Additional Family Medical History / Comment(s): . Father Family Medical History: Osteoarthritis (OA) Additional Family Medical History / Comment(s): DDD General Exam - General Exam Comments Initial Comments: General: The patient is awake and alert, in no distress, and does not appear acutely ill. Eye: Pupils are equal, round and reactive to light, extra-ocular movements are intact. No nystagmus. There is normal conjunctiva bilaterally. No signs of icterus. Ears, nose, mouth and throat: There are moist mucous membranes and no oral lesions. Neck: The neck is supple, there is no tenderness or JVD. Cardiovascular: There is a regular rate and rhythm. No murmur, rub or gallop is appreciated. Respiratory: Lungs are clear to auscultation, respirations are non-labored, breath sounds are equal. No wheezes, stridor, rales, or rhonchi. Gastrointestinal: Abdomen soft on palpation. Mild tenderness lower abdomen on palpation. No rebound, guarding or CVA tenderness. Musculoskeletal: Normal ROM, no tenderness. Strength 5/5. Sensation intact. Pulses equal bilaterally 2+. Neurological: A&O x 3. CN II-XII intact, There are no obvious motor or sensory deficits. Coordination appears grossly intact. Speech is normal. Skin: Skin is warm and dry and no rashes or lesions are noted. Psychiatric: Cooperative, appropriate mood & affect, normal judgment. Limitations: no limitations Course Vital Signs 11/17/18 11/17/18 15:00 16:25 Temperature 98.3 F Pulse Rate 101 H 97 Respiratory 16 18 Rate Blood Pressure 93/54 105/69 O2 Sat by Pulse 95 100 Oximetry Medical Decision Making - Medical Decision Making Reexamined at this time shows no signs of distress. Patient's labs been reviewed. Hemoglobin stable. Patient's urinalysis does show 7 white cells. Culture pending. Patient's did have a ultrasound performed yesterday which did show evidence for uterine fibroids. Was discussed with patient she does admit that she has an appointment later in the week with her doctor. Patient was prescribed anti-inflammatories. She states that she has naproxen at home. She states she has not been using. She is advised to begin taking this because it may help with her symptoms. Advised to return if any symptoms increase or worsen. She states understanding and is in agreement. - Lab Data Result diagrams: 11/17/18 16:20 11/17/18 16:20 Lab Results 11/17/18 11/17/18 11/17/18 Range/Units 16:20 16:20 16:20 WBC 5.8 (3.8-10.6) k/uL RBC 4.37 (3.80-5.40) m/uL Hgb 15.2 (11.4-16.0) gm/dL Hct 46.9 H (34.0-46.0) % MCV 107.4 H (80.0-100.0) fL MCH 34.7 (25.0-35.0) pg MCHC 32.4 (31.0-37.0) g/dL RDW 13.1 (11.5-15.5) % Plt Count 192 (150-450) k/uL Neutrophils % 45 % Lymphocytes % 42 % Monocytes % 5 % Eosinophils % 4 % Basophils % 1 % Neutrophils # 2.6 (1.3-7.7) k/uL Lymphocytes # 2.4 (1.0-4.8) k/uL Monocytes # 0.3 (0-1.0) k/uL Eosinophils # 0.2 (0-0.7) k/uL Basophils # 0.1 (0-0.2) k/uL Macrocytosis Moderate PT (9.0-12.0) sec INR (<1.2) APTT (22.0-30.0) sec Sodium 141 (137-145) mmol/L Potassium 3.8 (3.5-5.1) mmol/L Chloride 107 (98-107) mmol/L Carbon Dioxide 26 (22-30) mmol/L Anion Gap 8 mmol/L BUN 6 L (7-17) mg/dL Creatinine 0.94 (0.52-1.04) mg/dL Est GFR (CKD-EPI)AfAm 81 (>60 ml/min/1.73 sqM) Est GFR (CKD-EPI)NonAf 71 (>60 ml/min/1.73 sqM) Glucose 92 (74-99) mg/dL Calcium 9.3 (8.4-10.2) mg/dL Total Bilirubin 0.5 (0.2-1.3) mg/dL AST 49 H (14-36) U/L ALT 34 (9-52) U/L Alkaline Phosphatase 77 (38-126) U/L Total Protein 7.1 (6.3-8.2) g/dL Albumin 4.0 (3.5-5.0) g/dL Urine Color Urine Appearance (Clear) Urine pH (5.0-8.0) Ur Specific [place] (1.001-1.035) Urine Protein (Negative) Urine Glucose (UA) (Negative) Urine Ketones (Negative) Urine Blood (Negative) Urine Nitrite (Negative) Urine Bilirubin (Negative) Urine Urobilinogen (<2.0) mg/dL Ur Leukocyte Esterase (Negative) Urine RBC (0-5) /hpf Urine WBC (0-5) /hpf Ur Squamous Epith Cells (0-4) /hpf Urine Bacteria (None) /hpf Urine Mucus (None) /hpf Urine HCG, Qual Not Detected (Not Detectd) 11/17/18 11/17/18 Range/Units 16:20 16:20 WBC (3.8-10.6) k/uL RBC (3.80-5.40) m/uL Hgb (11.4-16.0) gm/dL Hct (34.0-46.0) % MCV (80.0-100.0) fL MCH (25.0-35.0) pg MCHC (31.0-37.0) g/dL RDW (11.5-15.5) % Plt Count (150-450) k/uL Neutrophils % % Lymphocytes % % Monocytes % % Eosinophils % % Basophils % % Neutrophils # (1.3-7.7) k/uL Lymphocytes # (1.0-4.8) k/uL Monocytes # (0-1.0) k/uL Eosinophils # (0-0.7) k/uL Basophils # (0-0.2) k/uL Macrocytosis PT 10.0 (9.0-12.0) sec INR 0.9 (<1.2) APTT 25.3 (22.0-30.0) sec Sodium (137-145) mmol/L Potassium (3.5-5.1) mmol/L Chloride (98-107) mmol/L Carbon Dioxide (22-30) mmol/L Anion Gap mmol/L BUN (7-17) mg/dL Creatinine (0.52-1.04) mg/dL Est GFR (CKD-EPI)AfAm (>60 ml/min/1.73 sqM) Est GFR (CKD-EPI)NonAf (>60 ml/min/1.73 sqM) Glucose (74-99) mg/dL Calcium (8.4-10.2) mg/dL Total Bilirubin (0.2-1.3) mg/dL AST (14-36) U/L ALT (9-52) U/L Alkaline Phosphatase (38-126) U/L Total Protein (6.3-8.2) g/dL Albumin (3.5-5.0) g/dL Urine Color Light Red Urine Appearance Cloudy H (Clear) Urine pH 6.0 (5.0-8.0) Ur Specific [place] 1.017 (1.001-1.035) Urine Protein 1+ H (Negative) Urine Glucose (UA) Negative (Negative) Urine Ketones Trace H (Negative) Urine Blood Large H (Negative) Urine Nitrite Negative (Negative) Urine Bilirubin Negative (Negative) Urine Urobilinogen 3.0 (<2.0) mg/dL Ur Leukocyte Esterase Trace H (Negative) Urine RBC 2 (0-5) /hpf Urine WBC 7 H (0-5) /hpf Ur Squamous Epith Cells 31 H (0-4) /hpf Urine Bacteria Occasional H (None) /hpf Urine Mucus Many H (None) /hpf Urine HCG, Qual (Not Detectd) Disposition Clinical Impression: Uterine fibroid Disposition: HOME SELF-CARE Condition: Good Instructions: Dysfunctional Uterine Bleeding (ED) Additional Instructions: Please use medication as discussed. Please follow-up with [facility]/family doctor in the next 2 days of symptoms have not improved. Please return to emergency room if the symptoms increase or worsen or for any other concerns. Is patient prescribed a controlled substance at d/c from ED?: No Referrals: [facility] [Primary Care Provider] - 1-2 days Time of Disposition: 17:42
[2018-11-17 16:42] LABS: Appearance,Urine Cloudy (Clear); Bacteria,Urine Occasional /hpf; Bilirubin,Urine Negative (Negative); Blood,Urine Large (Negative); Color,Urine Light Red; Glucose,Urine (UA) Negative (Negative); Ketones,Urine Trace (Negative); Leukocyte Esterase,Urine Trace (Negative); Mucus,Urine Many /hpf; Nitrite,Urine Negative (Negative); Protein,Urine 1+ (Negative); RBC,Urine 2 /hpf (0-5); Specific Gravity,Urine 1.017 (1.001-1.035); Squamous Epithelial Cell,Urine 31 /hpf (0-4)
[2018-11-17 16:46] LABS: Calcium 9.3 mg/dL (8.4-10.2); Potassium 3.8 mmol/L (3.5-5.1); Total Bilirubin 0.5 mg/dL (0.2-1.3); Total Protein 7.1 g/dL (6.3-8.2)
[2018-11-17 16:56] LABS: Basophils # (A) 0.1 k/uL (0-0.2); Basophils % (A) 1 %; Eosinophils # (A) 0.2 k/uL (0-0.7); Eosinophils % (A) 4 %; HCT 46.9 % (34.0-46.0); HGB 15.2 gm/dL (11.4-16.0); INR 0.9 (<1.2); Lymphocytes # (A) 2.4 k/uL (1.0-4.8); Lymphocytes % (A) 42 %; MCH 34.7 pg (25.0-35.0); MCHC 32.4 g/dL (31.0-37.0); MCV 107.4 fL (80.0-100.0); Macrocytosis Moderate; Mean Platelet Volume 9.8; Monocytes # (A) 0.3 k/uL (0-1.0); Monocytes % (A) 5 %; Neutrophils # (A) 2.6 k/uL (1.3-7.7); Neutrophils % (A) 45 %; Partial Thromboplastin Time 25.3 sec (22.0-30.0); Platelet Count 192 k/uL (150-450); RBC 4.37 m/uL (3.80-5.40); RDW 13.1 % (11.5-15.5); WBC 5.8 k/uL (3.8-10.6)
[2018-11-17 17:53] VITALS: BP 133/59; PULSE 68; RESP 17; TEMP 97.3
== END 2018-11-17 17:53 | disposition home or self-care (01) ==
LOC: EC 14:28
DX: D25.9 Leiomyoma of uterus, unspecified (principal); J45.909 Unspecified asthma, uncomplicated; E78.5 Hyperlipidemia, unspecified; M19.90 Unspecified osteoarthritis, unspecified site; G47.30 Sleep apnea, unspecified; Z99.89 Dependence on other enabling machines and devices; F32.9 Major depressive disorder, single episode, unspecified; F41.9 Anxiety disorder, unspecified; F43.10 Post-traumatic stress disorder, unspecified; F17.200 Nicotine dependence, unspecified, uncomplicated; Z79.899 Other long term (current) drug therapy
CPT/HCPCS: 36415; 80053; 85025; 85610; 85730; 81001; 81025; 87086; 99283; 96374; 96361; J1885

== ENCOUNTER → 2019-05-14 | Outpatient (CLI) | payer OTHER ==
--- NOTE | 2019-05-14 18:07 | PN ---
PROGRESS NOTE DATE OF SERVICE: 05/14/2019 This patient is a 53-year-old lady who has been [facility] for treatment of obstructive sleep apnea-hypopnea syndrome. Patient has had difficulties using her CPAP equipment because she does not feel comfortable with her full-face mask. Without the machine, she continues to wake up from sleep multiple times with choking. [place] Sleepiness Scale today is 5. I checked the patient's CPAP unit. CPAP pressure is 8 cm of water. I reviewed the results of her previous titration. MEDICATIONS: 1. Klonopin. 2. Prozac. 3. Seroquel. PHYSICAL EXAMINATION: GENERAL: A pleasant 53-year-old lady without distress. VITAL SIGNS: BP 150/90, HR 84, RR 16, height 5 feet 1-1/2 inches, weight 170 pounds, body mass index 31.6, temperature 97.9, oxygen saturation at room air 98%. HEENT: PERRLA, EOMI. Evaluation of oropharynx showed tongue protrudes midline. Moderately low position of soft palate. NECK: Supple. No JVD. Thyroid is not palpable. LUNGS: Clear to percussion and to auscultation. Good air exchange. No wheezing or rhonchi. HEART: S1, S2 regular. No murmurs, gallops or rubs. ABDOMEN: Slightly obese. EXTREMITIES: No clubbing or cyanosis. PLASTIC AND RECONSTRUCTIVE SURGEON: Awake, alert, and oriented X3. Cranial nerves 2 to 7 intact. There is no fasciculation or atrophy. noted. No focal deficits observed. IMPRESSION: 1. Obstructive sleep apnea-hypopnea syndrome. Patient has difficulties using CPAP equipment secondary to mask fitting and pressure. 2. History of sleepwalking, on treatment with Klonopin. 3. Depression. 4. Anxiety. 5. Post-traumatic stress disorder. 6. History of neck problems. 7. Shoulder pain. 8. Status post section. 9. Patient continues to smoke, about 5 cigarettes a day. PLAN: 1. We will fit the patient with a nasal pillow mask. 2. I adjusted the pressure in her CPAP unit to automatic regimen with a pressure range from 4 to 8 cm of water, which makes the pressure less and hopefully will improve patient's compliance with treatment. 3. Sleep hygiene with regular time in bed for 7-1/2 to 8 hours. 4. No driving if feeling any sleepiness. Thank you very much for allowing me to participate in the management of your patient. Sincerely, Clarke Us MD, PhD, FAASM Diplomat of [employer] [place] [employer] In Service Coordinator of [facility] [place] HERMILA / GRAEME: [id number] /
== END | disposition home or self-care (01) ==
LOC: SLEEP 16:04
PROVIDERS: ATTEND Internal Medicine
DX: G47.33 Obstructive sleep apnea (adult) (pediatric) (principal); F51.3 Sleepwalking [somnambulism]; F32.9 Major depressive disorder, single episode, unspecified; F41.9 Anxiety disorder, unspecified; E66.9 Obesity, unspecified; F43.10 Post-traumatic stress disorder, unspecified; M25.519 Pain in unspecified shoulder; F17.210 Nicotine dependence, cigarettes, uncomplicated; M54.2 Cervicalgia; Z98.890 Other specified postprocedural states; Z79.899 Other long term (current) drug therapy; Z99.89 Dependence on other enabling machines and devices; Z68.31 Body mass index [BMI] 31.0-31.9, adult

== ENCOUNTER 2019-06-23 00:05 | Emergency (ER) | payer OTHER ==
[2019-06-23] MEDS ORDERED: SODIUM CHLORIDE 0.9% 1,000 ML IV ONE (00:24)
--- NOTE | 2019-06-23 00:24 | ED ---
Altered Mental Status HPI <Belinda Jama - Last Filed: 06/23/19 07:58> <Cipriano Palafox - Last Filed: 06/23/19 10:46> - General Stated Complaint: etoh Time Seen by Provider: 06/23/19 00:12 - History of Present Illness Initial Comments: Cydney is a 53-year-old female who is brought to the emergency department today by EMS and police for evaluation of altered mental status. The police they were called because the patient was found sitting on the front porch at a house, the occupants of the house did not know the patient, did not know why she was there. The patient had slurred speech and cannot explain herself therefore police were called. Upon arrival is very clear that the patient was intoxicated. She denied any complaints, she was laughing and cooperative with staff, she cannot provide any significant history and decision was made to bring the ER for evaluation. (Belinda Jama) - Related Data Home Medications Medication Instructions Recorded Confirmed clonazePAM [KlonoPIN] 1.5 mg PO HS 01/08/17 06/23/19 Hydrocodone/Acetaminophen [[place] 1 tab PO TID PRN 11/16/18 06/23/19 10-325] Ibuprofen [Motrin] 600 mg PO Q6HR PRN 06/23/19 06/23/19 Allergies Allergy/AdvReac Type Severity Reaction Status Date / Time No Known Allergies Allergy Verified 06/23/19 10:06 Review of Systems ROS Other: All systems not noted in ROS Statement are negative. <Belinda Jama - Last Filed: 06/23/19 07:58> ROS Other: All systems not noted in ROS Statement are negative. <Cipriano Palafox - Last Filed: 06/23/19 10:46> ROS Statement: Those systems with pertinent positive or pertinent negative responses have been documented in the HPI. Past Medical History Past Medical History: Asthma, Hyperlipidemia, Osteoarthritis (OA), Sleep Apnea/CPAP/BIPAP Additional Past Medical History / Comment(s): hx migraines, occ irregular heartbeat, History of Any Multi-Drug Resistant Organisms: None Reported Past Surgical History: Breast Surgery, Section, Tonsillectomy, Tubal Ligation Additional Past Surgical History / Comment(s): Lt breast biopsy, Past Anesthesia/Blood Transfusion Reactions: Motion Sickness Additional Past Anesthesia/Blood Transfusion Reaction / Comment(s): . Past Psychological History: Anxiety, Depression, PTSD Smoking Status: Current every day smoker Past Alcohol Use History: Occasional Past Drug Use History: None Reported - Past Family History Mother Family Medical History: No Reported History Additional Family Medical History / Comment(s): . Father Family Medical History: Osteoarthritis (OA) Additional Family Medical History / Comment(s): DDD <Belinda Jama - Last Filed: 06/23/19 07:58> General Exam <Belinda Jama - Last Filed: 06/23/19 07:58> - General Exam Comments Initial Comments: Physical Exam GENERAL: Patient appears much older than stated age HENT: Normocephalic TMs normal bilaterally, no hemotympanum No lwo signs or raccoon eyes Patient is wearing glasses which are noted to be broken with no left-sided arm, patient is also noted have an abrasion on her left eyebrow, and concerned she may have fallen and broken her glasses EYES: PERRL, EOMI PULMONARY: Unlabored respirations. No audible rales rhonchi or wheezing was noted. CARDIOVASCULAR: There is a regular rate and rhythm without any murmurs gallops or rubs. ABDOMEN: Soft and nontender with normal bowel sounds. SKIN: Abrasion above left eyebrow : Deferred NEUROLOGIC: Oriented to self only, unaware of where she is, where she was prior to coming to the hospital or the date MUSCULOSKELETAL: Normal extremities with adequate strength and full range of motion. No lower extremity swelling or edema. No calf tenderness. PSYCHIATRIC: Belligerent (Belinda Jama) Course <Cipriano Palafox - Last Filed: 06/23/19 10:46> Vital Signs 06/23/19 06/23/19 06/23/19 00:24 05:56 08:56 Temperature 98.0 F 98.0 F 97.5 F L Pulse Rate 79 75 75 Respiratory 18 16 16 Rate Blood Pressure 117/78 92/54 115/73 O2 Sat by Pulse 92 L 94 L 93 L Oximetry - Reevaluation(s) Reevaluation #1: 06/23/19 10:45 Patient reevaluated she is awake alert oriented 3 determined to be sober she will be discharged (Cipriano Palafox) Medical Decision Making - Lab Data Result diagrams: 06/23/19 00:29 06/23/19 00:29 <Belinda Jama - Last Filed: 06/23/19 07:58> - Lab Data Result diagrams: 06/23/19 00:29 06/23/19 00:29 <JavyCipriano - Last Filed: 06/23/19 10:46> - Medical Decision Making The patient was seen and evaluated, history is obtained from PD, EMS and limited history from the patient Patient was apparently found sitting on the front porch of people she did not know, did not know how she got there, did not know why she was there, patient was clearly intoxicated spelled of alcohol he admitted to drinking Patient was noted to have broken glasses and abrasion above her left I therefore decision was made to computed tomography scan head to evaluate for any intracranial pathology due to trauma Labs resulted with the elevated alcohol level at 287 CT head with no acute findings (Belinda Jama) - Lab Data Lab Results 06/23/19 06/23/19 06/23/19 Range/Units 00:29 00:29 00:29 WBC 6.4 (3.8-10.6) k/uL RBC 4.53 (3.80-5.40) m/uL Hgb 15.7 (11.4-16.0) gm/dL Hct 47.6 H (34.0-46.0) % MCV 105.2 H (80.0-100.0) fL MCH 34.6 (25.0-35.0) pg MCHC 32.9 (31.0-37.0) g/dL RDW 13.6 (11.5-15.5) % Plt Count 187 (150-450) k/uL Neutrophils % (Manual) 44 % Lymphocytes % (Manual) 45 % Monocytes % (Manual) 5 % Eosinophils % (Manual) 5 % Myelocytes % 1 % Neutrophils # (Manual) 2.82 (1.3-7.7) k/uL Lymphocytes # (Manual) 2.88 (1.0-4.8) k/uL Monocytes # (Manual) 0.32 (0-1.0) k/uL Eosinophils # (Manual) 0.32 (0-0.7) k/uL Myelocytes # (Manual) 0.06 H (0) k/uL Nucleated RBCs 0 (0-0) /100 WBC Manual Slide Review Performed Macrocytosis Slight PT 10.1 (9.0-12.0) sec INR 0.9 (<1.2) APTT 25.5 (22.0-30.0) sec Sodium 138 (137-145) mmol/L Potassium 3.5 (3.5-5.1) mmol/L Chloride 99 (98-107) mmol/L Carbon Dioxide 29 (22-30) mmol/L Anion Gap 10 mmol/L BUN 6 L (7-17) mg/dL Creatinine 0.74 (0.52-1.04) mg/dL Est GFR (CKD-EPI)AfAm >90 (>60 ml/min/1.73 sqM) Est GFR (CKD-EPI)NonAf >90 (>60 ml/min/1.73 sqM) Glucose 82 (74-99) mg/dL Calcium 8.8 (8.4-10.2) mg/dL Total Bilirubin 0.9 (0.2-1.3) mg/dL AST 48 H (14-36) U/L ALT 24 (9-52) U/L Alkaline Phosphatase 95 (38-126) U/L Total Protein 7.1 (6.3-8.2) g/dL Albumin 4.2 (3.5-5.0) g/dL Urine Color Urine Appearance (Clear) Urine pH (5.0-8.0) Ur Specific [place] (1.001-1.035) Urine Protein (Negative) Urine Glucose (UA) (Negative) Urine Ketones (Negative) Urine Blood (Negative) Urine Nitrite (Negative) Urine Bilirubin (Negative) Urine Urobilinogen (<2.0) mg/dL Ur Leukocyte Esterase (Negative) Urine RBC (0-5) /hpf Urine WBC (0-5) /hpf Ur Squamous Epith Cells (0-4) /hpf Urine Opiates Screen (NotDetected) Ur Oxycodone Screen (NotDetected) Urine Methadone Screen (NotDetected) Ur Propoxyphene Screen (NotDetected) Ur Barbiturates Screen (NotDetected) U Tricyclic Antidepress (NotDetected) Ur Phencyclidine Scrn (NotDetected) Ur Amphetamines Screen (NotDetected) U Methamphetamines Scrn (NotDetected) U Benzodiazepines Scrn (NotDetected) Urine Cocaine Screen (NotDetected) U Marijuana (THC) Screen (NotDetected) Serum Alcohol 287 H* mg/dL 06/23/19 Range/Units 08:40 WBC (3.8-10.6) k/uL RBC (3.80-5.40) m/uL Hgb (11.4-16.0) gm/dL Hct (34.0-46.0) % MCV (80.0-100.0) fL MCH (25.0-35.0) pg MCHC (31.0-37.0) g/dL RDW (11.5-15.5) % Plt Count (150-450) k/uL Neutrophils % (Manual) % Lymphocytes % (Manual) % Monocytes % (Manual) % Eosinophils % (Manual) % Myelocytes % % Neutrophils # (Manual) (1.3-7.7) k/uL Lymphocytes # (Manual) (1.0-4.8) k/uL Monocytes # (Manual) (0-1.0) k/uL Eosinophils # (Manual) (0-0.7) k/uL Myelocytes # (Manual) (0) k/uL Nucleated RBCs (0-0) /100 WBC Manual Slide Review Macrocytosis PT (9.0-12.0) sec INR (<1.2) APTT (22.0-30.0) sec Sodium (137-145) mmol/L Potassium (3.5-5.1) mmol/L Chloride (98-107) mmol/L Carbon Dioxide (22-30) mmol/L Anion Gap mmol/L BUN (7-17) mg/dL Creatinine (0.52-1.04) mg/dL Est GFR (CKD-EPI)AfAm (>60 ml/min/1.73 sqM) Est GFR (CKD-EPI)NonAf (>60 ml/min/1.73 sqM) Glucose (74-99) mg/dL Calcium (8.4-10.2) mg/dL Total Bilirubin (0.2-1.3) mg/dL AST (14-36) U/L ALT (9-52) U/L Alkaline Phosphatase (38-126) U/L Total Protein (6.3-8.2) g/dL Albumin (3.5-5.0) g/dL Urine Color Light Yellow Urine Appearance Clear (Clear) Urine pH 6.0 (5.0-8.0) Ur Specific [place] 1.004 (1.001-1.035) Urine Protein Negative (Negative) Urine Glucose (UA) Negative (Negative) Urine Ketones Negative (Negative) Urine Blood Trace H (Negative) Urine Nitrite Negative (Negative) Urine Bilirubin Negative (Negative) Urine Urobilinogen <2.0 (<2.0) mg/dL Ur Leukocyte Esterase Negative (Negative) Urine RBC <1 (0-5) /hpf Urine WBC 1 (0-5) /hpf Ur Squamous Epith Cells 1 (0-4) /hpf Urine Opiates Screen Not Detected (NotDetected) Ur Oxycodone Screen Not Detected (NotDetected) Urine Methadone Screen Not Detected (NotDetected) Ur Propoxyphene Screen Not Detected (NotDetected) Ur Barbiturates Screen Not Detected (NotDetected) U Tricyclic Antidepress Detected H (NotDetected) Ur Phencyclidine Scrn Not Detected (NotDetected) Ur Amphetamines Screen Not Detected (NotDetected) U Methamphetamines Scrn Not Detected (NotDetected) U Benzodiazepines Scrn Not Detected (NotDetected) Urine Cocaine Screen Not Detected (NotDetected) U Marijuana (THC) Screen Detected H (NotDetected) Serum Alcohol mg/dL Disposition Is patient prescribed a controlled substance at d/c from ED?: No <Belinda Jama - Last Filed: 06/23/19 07:58> Is patient prescribed a controlled substance at d/c from ED?: No <Cipriano Palafox - Last Filed: 06/23/19 10:46> Clinical Impression: Alcoholic intoxication Disposition: HOME SELF-CARE Condition: Stable Instructions (If sedation given, give patient instructions): Alcohol Intoxication (ED) Referrals: [facility] [Primary Care Provider] - 1-2 days
[2019-06-23 00:40] LABS: HCT 47.6 % (34.0-46.0); HGB 15.7 gm/dL (11.4-16.0); MCH 34.6 pg (25.0-35.0); MCHC 32.9 g/dL (31.0-37.0); MCV 105.2 fL (80.0-100.0); Macrocytosis Slight; Mean Platelet Volume 9.4; Platelet Count 187 k/uL (150-450); RBC 4.53 m/uL (3.80-5.40); RDW 13.6 % (11.5-15.5); WBC 6.4 k/uL (3.8-10.6)
[2019-06-23 00:49] LABS: African American GFR (CKD) >90 (>60 ml/min/1.73 sqM); Albumin 4.2 g/dL (3.5-5.0); Anion Gap 10 mmol/L; Calcium 8.8 mg/dL (8.4-10.2); Carbon Dioxide 29 mmol/L (22-30); Chloride 99 mmol/L (98-107); Glucose 82 mg/dL (74-99); Sodium 138 mmol/L (137-145); Total Bilirubin 0.9 mg/dL (0.2-1.3); Total Protein 7.1 g/dL (6.3-8.2)
[2019-06-23 00:54] LABS: INR 0.9 (<1.2); Partial Thromboplastin Time 25.5 sec (22.0-30.0); Prothrombin Time 10.1 sec (9.0-12.0)
[2019-06-23 00:57] LABS: Alcohol 287 mg/dL; Blood Urea Nitrogen 6 mg/dL (7-17); Potassium 3.5 mmol/L (3.5-5.1)
[2019-06-23 00:58] LABS: ALT 24 U/L (9-52); AST 48 U/L (14-36); Alkaline Phosphatase 95 U/L (38-126)
[2019-06-23 01:39] LABS: Eosinophils # (M) 0.32 k/uL (0-0.7); Lymphocytes # (M) 2.88 k/uL (1.0-4.8); Monocytes # (M) 0.32 k/uL (0-1.0); Myelocytes # (M) 0.06 k/uL (0); Myelocytes % 1 %; Neutrophils % (M) 44 %; Nucleated Red Blood Cells 0 /100 WBC (0-0); Total Cells Counted 100
--- NOTE | 2019-06-23 02:33 | CT ---
EXAM: CT Head Without Intravenous Contrast CLINICAL HISTORY: altered mental status, intoxicated, head injury TECHNIQUE: Axial computed tomography images of the head/brain without intravenous contrast. CTDI is 0.085, 0.085, 49.1 mGy and DLP is 1099.4 mGy-cm. This CT exam was performed using one or more of the following dose reduction techniques: automated exposure control, adjustment of the mA and/or kV according to patient size, and/or use of iterative reconstruction technique. COMPARISON: 11/11/2014 FINDINGS: Brain: Unremarkable. No acute hemorrhage, large hypodensity, or significant mass effect. Ventricles: Unremarkable. No ventriculomegaly. Bones/joints: Unremarkable. No acute fracture. Soft tissues: Unremarkable. Sinuses: Unremarkable. Mastoid air cells: Unremarkable. IMPRESSION: No acute intracranial hemorrhage or calvarial fracture.
[2019-06-23 05:57] VITALS: PULSE 75; RESP 16
[2019-06-23 08:57] VITALS: BP 115/73; TEMP 97.5
[2019-06-23 09:13] LABS: Appearance,Urine Clear (Clear); Bilirubin,Urine Negative (Negative); Blood,Urine Trace (Negative); Color,Urine Light Yellow; Glucose,Urine (UA) Negative (Negative); Ketones,Urine Negative (Negative); Leukocyte Esterase,Urine Negative (Negative); Nitrite,Urine Negative (Negative); Protein,Urine Negative (Negative); RBC,Urine <1 /hpf (0-5); Specific Gravity,Urine 1.004 (1.001-1.035); Squamous Epithelial Cell,Urine 1 /hpf (0-4); Urobilinogen,Urine <2.0 mg/dL (<2.0); WBC,Urine 1 /hpf (0-5)
[2019-06-23 09:17] LABS: Amphetamine Screen,Urine Not Detected (NotDetected); Barbiturate Screen,Urine Not Detected (NotDetected); Benzodiazepines Screen,Urine Not Detected (NotDetected); Cocaine Screen,Urine Not Detected (NotDetected); Methadone Screen, Urine Not Detected (NotDetected); Opiate Screen,Urine Not Detected (NotDetected); Oxycodone Screen, Urine Not Detected (NotDetected); Phencyclidine Screen,Urine Not Detected (NotDetected); Tricyclic Antidepressant,Urine Detected (NotDetected); Urn Cannabinoid Scrn Detected (NotDetected)
== END 2019-06-23 11:30 | disposition home or self-care (01) ==
LOC: EC 00:05
DX: F10.129 Alcohol abuse with intoxication, unspecified (principal); S00.212A Abrasion of left eyelid and periocular area, initial encounter; G47.30 Sleep apnea, unspecified; F17.200 Nicotine dependence, unspecified, uncomplicated; Z79.899 Other long term (current) drug therapy
CPT/HCPCS: 99284; 36415; 80053; 85025; 85610; 85730; 81001; 80306; 70450; 96360; 96361 ×9; G0480; 80320

== ENCOUNTER → 2019-09-25 | Outpatient (CLI) | payer OTHER ==
--- NOTE | 2019-09-28 08:26 | MM ---
Reason for exam: screening (asymptomatic). Last mammogram was performed 1 year and 4 months ago. History: Family history of breast cancer in grandmother at age 60. Excisional biopsy of the left breast. Physical Findings: A clinical breast exam by your physician is recommended on an annual basis and results should be correlated with mammographic findings. MG 3D Screening Mammo W/Cad Bilateral CC and MLO view(s) were taken. Prior study comparison: May 20, 2018, right breast MG 3d work up w/cad RT. May 02, 2018, bilateral MG screening mammo w CAD. The breast tissue is heterogeneously dense. This may lower the sensitivity of mammography. No significant changes when compared with prior studies. ASSESSMENT: Benign, BI-RAD 2 RECOMMENDATION: Routine screening mammogram of both breasts in 1 year.
== END | disposition home or self-care (01) ==
LOC: RADMAMWWP 10:50
PROVIDERS: ATTEND Internal Medicine
DX: Z12.31 Encounter for screening mammogram for malignant neoplasm of breast (principal)
CPT/HCPCS: 77063; 77067

== ENCOUNTER 2020-01-14 07:30 | Day surgery (SDC) | payer OTHER ==
[2020-01-12 12:23] VITALS: BMI 32.1
[~2020-01-14 07:30] MED LIST changes: +LIDOCAINE 1% 20 ML VIAL (10MG/ML) FOR IV START INTRADERMA PRN; +MIDAZOLAM 2 MG/2 ML VIAL IV PRN
[2020-01-14 08:13] VITALS: TEMP 98.1
[2020-01-14] MEDS ORDERED: fentaNYL (PF) 50 MCG/ML 2 ML AMP ONE (08:34)
[2020-01-14] MEDS ORDERED: PROPOFOL 10 MG/ML 20 ML VIAL IV ONE (08:34)
[2020-01-14] MEDS ORDERED: LIDOCAINE 1% INJ 10MG/ML (20 ML MDV) ONE (08:34)
[2020-01-14] MEDS ORDERED: MIDAZOLAM 2 MG/2 ML VIAL ONE (08:34)
--- NOTE | 2020-01-14 09:02 | P.PCN ---
Date of Procedure: 01/14/20 Description of Procedure: BRIEF HISTORY: Patient is a 54-year-old female presents for outpatient esophagogastroduodenoscopy for evaluation of symptoms of dysphagia. She reports frequent episodes of esophageal dysphagia. She reports episodes where she wakes up at night and has difficulty swallowing. She also reports uncontrolled reflux disease. Home medications list omeprazole daily. PROCEDURE PERFORMED: Esophagogastroduodenoscopy with biopsy. PREOPERATIVE DIAGNOSIS: Dysphagia, esophageal dysphagia, GERD. ESTIMATED BLOOD LOSS: Minimal. IV sedation per anesthesia. PROCEDURE: After informed consent was obtained, the patient was brought into the endoscopy unit. IV sedation was administered by Anesthesia under continuous monitoring. Initially the Olympus GIF-190 video endoscope was inserted into the mouth. Esophagus intubated without any difficulty. It was gradually advanced into the stomach and duodenum and carefully examined. The bulb and the second part of the duodenum appeared normal, except for some erythema suggestive of mild duodenitis with biopsies taken. The scope at this time was withdrawn to the stomach, adequately insufflated with air, and upon careful examination, mucosa of the antrum, body, cardia and the fundus appeared normal, except for some scattered punctate erythema in the antrum and body suggestive of mild gastritis with biopsies taken. The scope was then withdrawn into the esophagus. The GE junction was located at 35 cm from the incisors. The esophagus appeared normal, except for some minimal erythema in the distal esophagus suggestive of LA grade a distal esophagitis with biopsies of the GE junction taken. There were no ero sions or ulcerations seen and the patient tolerated the procedure well. IMPRESSION: 1. Mild gastritis antrum and body, biopsied. 2. Duodenitis, biopsied. 3. LA grade a distal esophagitis, biopsies of the GE junction. RECOMMENDATIONS: The findings of this examination were discussed with the patient. Okay to resume diet. Okay to resume medications. No pathology from biopsies. Continue omeprazole daily.
[2020-01-14 09:37] VITALS: BP 116/81; PULSE 87; RESP 20
== END 2020-01-14 09:45 | disposition home or self-care (01) ==
LOC: ORWHC2ENDO 07:30
PROVIDERS: ATTEND Internal Medicine
DX: K29.50 Unspecified chronic gastritis without bleeding (principal); K21.0 Gastro-esophageal reflux disease with esophagitis; K29.80 Duodenitis without bleeding; F17.210 Nicotine dependence, cigarettes, uncomplicated; E78.5 Hyperlipidemia, unspecified; G47.33 Obstructive sleep apnea (adult) (pediatric); Z99.89 Dependence on other enabling machines and devices; J45.909 Unspecified asthma, uncomplicated; F43.10 Post-traumatic stress disorder, unspecified; G43.909 Migraine, unspecified, not intractable, without status migrainosus; F41.9 Anxiety disorder, unspecified; F32.9 Major depressive disorder, single episode, unspecified; Z90.710 Acquired absence of both cervix and uterus; Z97.2 Presence of dental prosthetic device (complete) (partial); Z98.51 Tubal ligation status; Z79.891 Long term (current) use of opiate analgesic; Z79.899 Other long term (current) drug therapy
CPT/HCPCS: 88305; 43239; J2250; J2001; J3010; J2704

== ENCOUNTER → 2020-01-18 | Outpatient (CLI) | payer OTHER ==
--- NOTE | 2020-01-18 11:14 | FL ---
EXAMINATION: Cervical and Thoracic Esophagram DATE OF EXAM: 01/18/2020 CLINICAL INDICATION: 54-year-old female worsening heartburn for one year COMPARISON: None Total Fluoroscopy Time: 3 minutes 3 seconds Total images: 50 FINDINGS: The swallowing mechanism is normal. There may be some contour nodularity in the region of the lingual tonsils. Also, anterior endplate spondylosis mid to lower cervical spine causes mild impression onto the posterior wall of the cervical esophagus/hypopharynx without obstruction. Otherwise, hypopharyng eal anatomy is preserved. The thoracic portion has a normal course and caliber. There is mild tertiary peristalsis and intermit tent mild delay in clearance of contrast from the esophagus. The mucosa is normal and no persistent f illing defect is encountered. There is a tiny sliding hiatal hernia. The patient is prone/supine, changes in position contributes t o moderate to severe gastroesophageal reflux. Valsalva maneuver inconsistently contributes to reflux. IMPRESSION: 1. Tiny sliding hiatal hernia with moderate to severe gastroesophageal reflux. 2. Some contour nodularity in the region of the lingual tonsils. Correlate with direct inspection for suspected lingual tonsillar hypertrophy.
== END | disposition home or self-care (01) ==
LOC: RADUSWWP 09:29
PROVIDERS: ATTEND Internal Medicine
DX: K44.9 Diaphragmatic hernia without obstruction or gangrene (principal); K21.9 Gastro-esophageal reflux disease without esophagitis
CPT/HCPCS: 74220

== ENCOUNTER 2020-05-02 13:27 | Emergency (ER) | payer OTHER ==
[2020-05-02 13:36] VITALS: RESP 18
--- NOTE | 2020-05-02 14:38 | ED ---
Psych HPI - General Chief Complaint: Psychiatric Symptoms Stated Complaint: nervous breakdown Time Seen by Provider: 05/02/20 13:45 Source: patient, family, RN notes reviewed Mode of arrival: ambulatory - History of Present Illness Initial Comments: This is a 54-year-old female history depression and history of posttraumatic stress disorder and anxiety who is brought in by family because of having frequent panic attacks so depressed having suicidal thoughts she's not been com pliant with her medications. She does admit to drinking alcohol denies any illicit drugs. No fevers chills nausea vomiting sweats she did have some chest pain however. He is nonspecific with chest pain she is no prior history of heart disease or overt lung disease is known. No cough no phlegm production no palpitations no other modifying factors MD Complaint: suicidal ideation, feels depressed, other - Related Data Home Medications Medication Instructions Recorded Confirmed clonazePAM [KlonoPIN] 1 mg PO HS 01/08/17 01/14/20 Hydrocodone/Acetaminophen [[place] 1 tab PO TID PRN 11/16/18 01/14/20 10-325] FLUoxetine HCL [PROzac] 20 mg PO DAILY 01/12/20 01/14/20 Omeprazole 20 mg PO DAILY 01/12/20 01/14/20 QUEtiapine FUMARATE [SEROquel] 300 mg PO HS 01/12/20 01/14/20 traZODone HCL 150 mg PO HS 01/12/20 01/14/20 Allergies Allergy/AdvReac Type Severity Reaction Status Date / Time No Known Allergies Allergy Verified 05/02/20 13:36 Review of Systems ROS Statement: Those systems with pertinent positive or pertinent negative responses have been documented in the HPI. ROS Other: All systems not noted in ROS Statement are negative. Past Medical History Past Medical History: Asthma, Hyperlipidemia, Osteoarthritis (OA), Sleep Apnea/CPAP/BIPAP Additional Past Medical History / Comment(s): hx migraines, occ irregular heartbeat, History of Any Multi-Drug Resistant Organisms: None Reported Past Surgical History: Breast Surgery, Section, Tonsillectomy, Tubal Ligation Additional Past Surgical History / Comment(s): Lt breast biopsy, Past Anesthesia/Blood Transfusion Reactions: Motion Sickness Additional Past Anesthesia/Blood Transfusion Reaction / Comment(s): . Past Psychological History: Anxiety, Depression, PTSD Smoking Status: Current every day smoker Past Alcohol Use History: Occasional Past Drug Use History: None Reported - Past Family History Mother Family Medical History: No Reported History Additional Family Medical History / Comment(s): . Father Family Medical History: Osteoarthritis (OA) Additional Family Medical History / Comment(s): DDD General Exam - General Exam Comments Initial Comments: Is a well-developed well-nourished awake alert oriented 3 female she does demonstrate a flat affect Limitations: no limitations General appearance: alert, in no apparent distress Head exam: Present: atraumatic, normocephalic, normal inspection Eye exam: Present: normal appearance, PERRL, EOMI. Absent: scleral icterus, conjunctival injection, periorbital swelling ENT exam: Present: normal exam, mucous membranes moist Neck exam: Present: normal inspection. Absent: tenderness, meningismus, lymphadenopathy Respiratory exam: Present: normal lung sounds bilaterally. Absent: respiratory distress, wheezes, rales, rhonchi, stridor Cardiovascular Exam: Present: regular rate, normal rhythm, normal heart sounds. Absent: systolic murmur, diastolic murmur, rubs, gallop, clicks GI/Abdominal exam: Present: soft, normal bowel sounds. Absent: distended, tenderness, guarding, rebound, rigid Extremities exam: Present: normal inspection, full ROM, normal capillary refill. Absent: tenderness, pedal edema, joint swelling, calf tenderness Back exam: Present: normal inspection Neurological exam: Present: alert, oriented X3, CN II-XII intact Psychiatric exam: Present: depressed, flat affect, suicidal ideation Skin exam: Present: warm, dry, intact, normal color. Absent: rash Course Vital Signs 05/02/20 13:28 Temperature 98.0 F Pulse Rate 95 Respiratory 18 Rate Blood Pressure 105/71 O2 Sat by Pulse 96 Oximetry Medical Decision Making - Medical Decision Making The patient was evaluated by psychiatric service and [facility]. Patient denies suicidal ideation at this time she has agreed to take her medication she'll be discharged with outpatient follow-up. The chest pain is chest wall pain. A care plan has been devised - Lab Data Result diagrams: 05/02/20 14:35 05/02/20 14:35 Lab Results 05/02/20 05/02/20 05/02/20 Range/Units 14:35 14:35 14:35 WBC 10.1 (3.8-10.6) k/uL RBC 3.86 (3.80-5.40) m/uL Hgb 13.7 (11.4-16.0) gm/dL Hct 40.6 (34.0-46.0) % MCV 105.2 H (80.0-100.0) fL MCH 35.6 H (25.0-35.0) pg MCHC 33.8 (31.0-37.0) g/dL RDW 12.8 (11.5-15.5) % Plt Count 174 (150-450) k/uL Neutrophils % 65 % Lymphocytes % 25 % Monocytes % 5 % Eosinophils % 2 % Basophils % 1 % Neutrophils # 6.5 (1.3-7.7) k/uL Lymphocytes # 2.5 (1.0-4.8) k/uL Monocytes # 0.5 (0-1.0) k/uL Eosinophils # 0.2 (0-0.7) k/uL Basophils # 0.1 (0-0.2) k/uL Manual Slide Review Performed Large Platelets Present Macrocytosis Slight PT 9.7 (9.0-12.0) sec INR 0.9 (<1.2) APTT 24.1 (22.0-30.0) sec Sodium 136 L (137-145) mmol/L Potassium 3.4 L (3.5-5.1) mmol/L Chloride 106 (98-107) mmol/L Carbon Dioxide 24 (22-30) mmol/L Anion Gap 6 mmol/L BUN 12 (7-17) mg/dL Creatinine 0.73 (0.52-1.04) mg/dL Est GFR (CKD-EPI)AfAm >90 (>60 ml/min/1.73 sqM) Est GFR (CKD-EPI)NonAf >90 (>60 ml/min/1.73 sqM) Glucose 109 H (74-99) mg/dL Calcium 8.9 (8.4-10.2) mg/dL Magnesium 2.0 (1.6-2.3) mg/dL Total Bilirubin 0.2 (0.2-1.3) mg/dL AST 20 (14-36) U/L ALT 9 (4-34) U/L Alkaline Phosphatase 95 (38-126) U/L Creatine Kinase 76 (30-135) U/L Troponin I (0.000-0.034) ng/mL Total Protein 6.5 (6.3-8.2) g/dL Albumin 3.7 (3.5-5.0) g/dL Lipase 102 (23-300) U/L Urine Opiates Screen (NotDetected) Ur Oxycodone Screen (NotDetected) Urine Methadone Screen (NotDetected) Ur Propoxyphene Screen (NotDetected) Ur Barbiturates Screen (NotDetected) U Tricyclic Antidepress (NotDetected) Ur Phencyclidine Scrn (NotDetected) Ur Amphetamines Screen (NotDetected) U Methamphetamines Scrn (NotDetected) U Benzodiazepines Scrn (NotDetected) Urine Cocaine Screen (NotDetected) U Marijuana (THC) Screen (NotDetected) 05/02/20 05/02/20 Range/Units 14:35 16:00 WBC (3.8-10.6) k/uL RBC (3.80-5.40) m/uL Hgb (11.4-16.0) gm/dL Hct (34.0-46.0) % MCV (80.0-100.0) fL MCH (25.0-35.0) pg MCHC (31.0-37.0) g/dL RDW (11.5-15.5) % Plt Count (150-450) k/uL Neutrophils % % Lymphocytes % % Monocytes % % Eosinophils % % Basophils % % Neutrophils # (1.3-7.7) k/uL Lymphocytes # (1.0-4.8) k/uL Monocytes # (0-1.0) k/uL Eosinophils # (0-0.7) k/uL Basophils # (0-0.2) k/uL Manual Slide Review Large Platelets Macrocytosis PT (9.0-12.0) sec INR (<1.2) APTT (22.0-30.0) sec Sodium (137-145) mmol/L Potassium (3.5-5.1) mmol/L Chloride (98-107) mmol/L Carbon Dioxide (22-30) mmol/L Anion Gap mmol/L BUN (7-17) mg/dL Creatinine (0.52-1.04) mg/dL Est GFR (CKD-EPI)AfAm (>60 ml/min/1.73 sqM) Est GFR (CKD-EPI)NonAf (>60 ml/min/1.73 sqM) Glucose (74-99) mg/dL Calcium (8.4-10.2) mg/dL Magnesium (1.6-2.3) mg/dL Total Bilirubin (0.2-1.3) mg/dL AST (14-36) U/L ALT (4-34) U/L Alkaline Phosphatase (38-126) U/L Creatine Kinase (30-135) U/L Troponin I <0.012 (0.000-0.034) ng/mL Total Protein (6.3-8.2) g/dL Albumin (3.5-5.0) g/dL Lipase (23-300) U/L Urine Opiates Screen Not Detected (NotDetected) Ur Oxycodone Screen Not Detected (NotDetected) Urine Methadone Screen Not Detected (NotDetected) Ur Propoxyphene Screen Not Detected (NotDetected) Ur Barbiturates Screen Not Detected (NotDetected) U Tricyclic Antidepress Detected H (NotDetected) Ur Phencyclidine Scrn Not Detected (NotDetected) Ur Amphetamines Screen Not Detected (NotDetected) U Methamphetamines Scrn Not Detected (NotDetected) U Benzodiazepines Scrn Not Detected (NotDetected) Urine Cocaine Screen Not Detected (NotDetected) U Marijuana (THC) Screen Detected H (NotDetected) - EKG Data -: EKG Interpreted by Mi EKG shows normal: sinus rhythm EKG Comments: Sinus rhythm rate 83. Interval 1:30 QRS duration 80 QT since QTC 392/416 nonspecific T-wave configuration prolonged QT noted ST-T wave changes - Radiology Data Radiology results: report reviewed (Imaging reviewed no acute findings), image reviewed Disposition Clinical Impression: Adjustment reaction of adult life, Chest wall pain Disposition: HOME SELF-CARE Condition: Good Instructions (If sedation given, give patient instructions): Mood Disorders (ED), Chest Wall Pain (ED) Is patient prescribed a controlled substance at d/c from ED?: No Referrals: [facility] [Primary Care Provider] - 1-2 days
[2020-05-02 14:56] LABS: Basophils # (A) 0.1 k/uL (0-0.2); Basophils % (A) 1 %; Eosinophils # (A) 0.2 k/uL (0-0.7); Eosinophils % (A) 2 %; HCT 40.6 % (34.0-46.0); HGB 13.7 gm/dL (11.4-16.0); Lymphocytes # (A) 2.5 k/uL (1.0-4.8); Lymphocytes % (A) 25 %; MCH 35.6 pg (25.0-35.0); MCHC 33.8 g/dL (31.0-37.0); MCV 105.2 fL (80.0-100.0); Macrocytosis Slight; Mean Platelet Volume 11.3; Monocytes # (A) 0.5 k/uL (0-1.0); Monocytes % (A) 5 %; Neutrophils # (A) 6.5 k/uL (1.3-7.7); Neutrophils % (A) 65 %; Platelet Count 174 k/uL (150-450); RBC 3.86 m/uL (3.80-5.40); RDW 12.8 % (11.5-15.5); WBC 10.1 k/uL (3.8-10.6)
[2020-05-02 14:57] LABS: INR 0.9 (<1.2); Partial Thromboplastin Time 24.1 sec (22.0-30.0); Prothrombin Time 9.7 sec (9.0-12.0)
--- NOTE | 2020-05-02 15:00 | XR ---
EXAMINATION TYPE: XR chest 2V DATE OF EXAM: 05/02/2020 COMPARISON: 01/24/2018 HISTORY: 54-year-old female with chest pain TECHNIQUE: PA and lateral views FINDINGS: Heart normal size. Aorta within normal limits. Mild interstitial prominence is unchanged. There is fo yumi patchy peripheral left basilar opacity. No pleural effusion. IMPRESSION: Focal peripheral left basilar opacity could represent atelectasis. Early infiltrate not excluded. Cor relate for an infectious respiratory signs/symptoms.
[2020-05-02 15:03] LABS: ALT 9 U/L (4-34); AST 20 U/L (14-36); African American GFR (CKD) >90 (>60 ml/min/1.73 sqM); Albumin 3.7 g/dL (3.5-5.0); Alkaline Phosphatase 95 U/L (38-126); Anion Gap 6 mmol/L; Blood Urea Nitrogen 12 mg/dL (7-17); Calcium 8.9 mg/dL (8.4-10.2); Carbon Dioxide 24 mmol/L (22-30); Chloride 106 mmol/L (98-107); Creatine Kinase 76 U/L (30-135); Glucose 109 mg/dL (74-99); Non-African American GFR(CKD) >90 (>60 ml/min/1.73 sqM); Potassium 3.4 mmol/L (3.5-5.1); Sodium 136 mmol/L (137-145); Total Bilirubin 0.2 mg/dL (0.2-1.3); Total Protein 6.5 g/dL (6.3-8.2)
[2020-05-02 15:31] LABS: Large Platelets Present
[2020-05-02] MEDS ORDERED: HYDROcodone/APAP 10-325MG 1 EACH TAB PO ONE (16:05)
[2020-05-02] MEDS ORDERED: FLUoxetine HCL 20 MG CAP PO STA (16:05)
[2020-05-02] MEDS ORDERED: clonazePAM 1 MG TAB PO STA (16:06)
[2020-05-02 16:49] LABS: Amphetamine Screen,Urine Not Detected (NotDetected); Barbiturate Screen,Urine Not Detected (NotDetected); Benzodiazepines Screen,Urine Not Detected (NotDetected); Cocaine Screen,Urine Not Detected (NotDetected); Methadone Screen, Urine Not Detected (NotDetected); Opiate Screen,Urine Not Detected (NotDetected); Oxycodone Screen, Urine Not Detected (NotDetected); Phencyclidine Screen,Urine Not Detected (NotDetected); Tricyclic Antidepressant,Urine Detected (NotDetected); Urn Cannabinoid Scrn Detected (NotDetected)
[2020-05-02 18:13] VITALS: BP 107/68; PULSE 79; TEMP 98.1
== END 2020-05-02 18:13 | disposition home or self-care (01) ==
LOC: EC 13:27
DX: F43.22 Adjustment disorder with anxiety (principal); R07.89 Other chest pain; F41.9 Anxiety disorder, unspecified; F32.9 Major depressive disorder, single episode, unspecified; G47.30 Sleep apnea, unspecified; F17.200 Nicotine dependence, unspecified, uncomplicated; Z79.899 Other long term (current) drug therapy; Z99.89 Dependence on other enabling machines and devices; Z91.14 Patient's other noncompliance with medication regimen
CPT/HCPCS: 36415; 71046; 80053; 80306; 82075; 82550; 83690; 83735; 84484; 85025; 85610; 85730; 93005; 99285

== ENCOUNTER → 2020-06-01 | Outpatient (CLI) | payer OTHER ==
[2020-06-01 08:05] LABS: HCT 46.7 % (34.0-46.0); HGB 15.7 gm/dL (11.4-16.0); MCH 35.4 pg (25.0-35.0); MCHC 33.7 g/dL (31.0-37.0); MCV 105.3 fL (80.0-100.0); Macrocytosis Slight; Mean Platelet Volume 11.2; RBC 4.43 m/uL (3.80-5.40); RDW 12.7 % (11.5-15.5); WBC 5.9 k/uL (3.8-10.6)
[2020-06-01 10:41] LABS: Platelet Count 155 k/uL (150-450)
[2020-06-01 12:20] LABS: T4, Free (Free Thyroxine) 0.9 ng/dL (0.80-1.80)
[2020-06-01 13:52] LABS: African American GFR (CKD) 85.2 (60.0-200.0); Albumin 4.3 g/dL (3.80-4.90); Albumin/Globulin Ratio 1.87 (1.60-3.17); Anion Gap 11.2 mmol/L (4.00-12.00); BUN/Creat Ratio 11.11 Ratio (12.00-20.00); Calcium 9.2 mg/dL (8.7-10.3); Carbon Dioxide 23.8 mmol/L (21.6-31.8); Globulin 2.3 g/dL (1.6-3.3); Non-African American GFR(CKD) 73.5 (60.0-200.0); Total Bilirubin 0.3 mg/dL (0.2-1.2); Total Protein 6.6 g/dL (6.2-8.2)
== END | disposition home or self-care (01) ==
LOC: LABWHC1 07:03
PROVIDERS: ATTEND Physician Assistant
DX: R41.3 Other amnesia (principal)
CPT/HCPCS: 36415; 80053; 82306; 82607; 84207; 84439; 84443; 84481; 85027

== ENCOUNTER → 2021-01-15 | Outpatient (CLI) | payer OTHER | END | disposition home or self-care (01) | LOC: LABMAIN 10:46 | PROVIDERS: ATTEND Nurse Practitioner Family | DX: Z00.8 Encounter for other general examination (principal); G89.4 Chronic pain syndrome | CPT/HCPCS: 36415; 84132 ==

== ENCOUNTER → 2021-04-13 | Outpatient (CLI) | payer BC, OTHER ==
--- NOTE | 2021-04-14 06:00 | SFUN ---
SLEEP CENTER FOLLOW UP NOTE DATE OF SERVICE: 04/13/2021 55-year-old lady has been followed in Sleep Center for treatment of obstructive sleep apnea-hypopnea syndrome and sleepwalking. Recently the patient had difficulties to use her CPAP equipment and practically did not use it for the last several months. I checked her machine. Regimen of the pressure 4-8, average pressure of 5.9 for the 2 nights when she used it. Quite high leak was documented at that time 71 L/minute, but apnea-hypopnea index was zero. I adjusted ramp to 45 minutes and EPR to 3 instead of 2. Previously, patient was on Klonopin 2 mg at bedtime, but for quite long periods of time she is off medication and feels more problem now during the sleep as before. [place] Sleepiness Scale today is 10. Medications according to patient, Prozac, Seroquel. PHYSICAL EXAMINATION: GENERAL: Patient in no distress. BP 106/71, HR 94, RR 15, height 5 feet 2 inches, weight 195.0, temperature 96.6, oxygen saturation at room air 96%. Body mass index 35.6. HEENT: PERRLA, EOMI. Oropharynx moderately low position of soft palate. NECK: Supple, no JVD. Thyroid is not palpable. LUNGS: Clear to percussion and to auscultation. Good air exchange. No wheezing or rhonchi. HEART: S1, S2 regular. No murmurs, gallops, or rubs. ABDOMEN: Slightly obese. Soft and nontender. Bowel sounds are present. No organomegaly appreciated. EXTREMITIES: No clubbing or cyanosis. NURSING TECHNICIAN: Awake, alert, and oriented X3. Cranial nerves 2 to 7 intact. There is no fasciculation or atrophy. noted. No focal deficits observed. IMPRESSION: 1. Mild obstructive sleep apnea-hypopnea syndrome. I reviewed results of previous sleep studies. The patient did not demonstrate good compliance with treatment. 2. History of sleepwalking. The patient did not receive Klonopin for a long period of time, increased problems related to parasomnias. 3. Depression. 4. Anxiety. 5. Posttraumatic stress disorder. 6. History of neck problems. 7. Shoulder pain. 8. Status post . PLAN: 1. I adjusted the CPAP unit ramp to 45 minutes and EPR I increased to 3, which should make patient exhalation easier. 2. Prescription for Klonopin 1 mg at bedtime. Previously patient was on 2 mg, but she did not use medication for awhile, so possibly her sensitivity to Klonopin increased. 3. Patient will continue to use PAP equipment every night for the whole night. 4. Sleep hygiene with regular time in bed for at least 7-1/2 to 8 hours. 5. Precautions related to driving. No driving if feeling sleepiness. 6. I will maintain all necessary prescription for PAP supplies including mask, tube, filters. 7. Watching weight. 8. Follow-up visit in 6 months or earlier if patient has any problems. Thank you very much for allowing me to participate in management of your patient. Sincerely, Clarke Us MD, PhD, FAASM Diplomat of [place] [employer] [employer] Design Assembler [facility] [place] MMODL / SARIKAN: [id number] /
== END ==
LOC: SLEEP 16:34
PROVIDERS: ATTEND Internal Medicine
DX: G47.33 Obstructive sleep apnea (adult) (pediatric) (principal); F32.9 Major depressive disorder, single episode, unspecified; F41.9 Anxiety disorder, unspecified; F43.10 Post-traumatic stress disorder, unspecified; M25.519 Pain in unspecified shoulder; F17.200 Nicotine dependence, unspecified, uncomplicated; Z87.39 Personal history of other diseases of the musculoskeletal system and connective tissue; Z98.891 History of uterine scar from previous surgery; Z79.899 Other long term (current) drug therapy

== ENCOUNTER 2021-10-03 08:22 | Emergency (ER) | payer BC, OTHER ==
[2021-10-03 08:32] VITALS: TEMP 98.4
[2021-10-03] MEDS ORDERED: SODIUM CHLORIDE 0.9% 1,000 ML IV STA ×2 (09:00→10:27)
[2021-10-03] MEDS ORDERED: FAMOTIDINE 20 MG/2 ML VIAL IV STA (09:00)
[2021-10-03] MEDS ORDERED: ONDANSETRON 4 MG/2 ML VIAL IVP STA (09:00)
--- NOTE | 2021-10-03 09:44 | XR ---
EXAMINATION TYPE: XR chest 1V portable DATE OF EXAM: 10/03/2021 COMPARISON: 05/02/2020 INDICATION: Chest pain, difficulty breathing TECHNIQUE: Single frontal view of the chest is obtained. FINDINGS: The heart size is normal. The pulmonary vasculature is normal. The lungs are clear. IMPRESSION: 1. No acute pulmonary process.
[2021-10-03 09:45] LABS: Basophils # (A) 0.1 k/uL (0-0.2); Basophils % (A) 1 %; Eosinophils % (A) 0 %; HCT 45.4 % (34.0-46.0); HGB 15.8 gm/dL (11.4-16.0); Lymphocytes # (A) 1.8 k/uL (1.0-4.8); Lymphocytes % (A) 25 %; MCH 36.3 pg (25.0-35.0); MCHC 34.9 g/dL (31.0-37.0); MCV 103.9 fL (80.0-100.0); Macrocytosis Slight; Mean Platelet Volume 11.5; Monocytes # (A) 0.4 k/uL (0-1.0); Monocytes % (A) 6 %; Neutrophils # (A) 4.6 k/uL (1.3-7.7); Neutrophils % (A) 65 %; Platelet Count 175 k/uL (150-450); RBC 4.36 m/uL (3.80-5.40); RDW 13.1 % (11.5-15.5); WBC 7.1 k/uL (3.8-10.6)
[2021-10-03 10:16] LABS: Large Platelets Present
[2021-10-03] MEDS ORDERED: MORPHINE SULFATE 4 MG/ML SYRINGE IVP STA (10:27)
[2021-10-03 10:58] LABS: Appearance,Urine Clear (Clear); Bilirubin,Urine Negative (Negative); Blood,Urine Negative (Negative); Color,Urine Yellow; Glucose,Urine (UA) Negative (Negative); Ketones,Urine 4+ (Negative); Leukocyte Esterase,Urine Negative (Negative); Nitrite,Urine Negative (Negative); Protein,Urine Trace (Negative); Specific Gravity,Urine 1.025 (1.001-1.035); Urobilinogen,Urine <2.0 mg/dL (<2.0)
[2021-10-03 11:11] LABS: ALT 38 U/L (4-34); AST 55 U/L (14-36); African American GFR (CKD) >90 (>60 ml/min/1.73 sqM); Albumin 4.7 g/dL (3.5-5.0); Alkaline Phosphatase 111 U/L (38-126); Amylase 51 U/L (30-110); Anion Gap 16 mmol/L; Blood Urea Nitrogen 10 mg/dL (7-17); Calcium 9.9 mg/dL (8.4-10.2); Carbon Dioxide 23 mmol/L (22-30); Chloride 98 mmol/L (98-107); Glucose 74 mg/dL (74-99); Lipase 25 U/L (23-300); Magnesium 1.9 mg/dL (1.6-2.3); Non-African American GFR(CKD) 83 (>60 ml/min/1.73 sqM); Potassium 3.5 mmol/L (3.5-5.1); Sodium 137 mmol/L (137-145); Total Bilirubin 0.7 mg/dL (0.2-1.3); Total Protein 7.8 g/dL (6.3-8.2)
--- NOTE | 2021-10-03 11:38 | CT ---
EXAMINATION TYPE: CT abdomen pelvis w con DATE OF EXAM: 10/03/2021 HISTORY: Flu like symptoms, acute abdominal pain CT DLP: 1351.8mGycm Automated Exposure Control for Dose Reduction was Utilized. CONTRAST: CT scan of the abdomen and pelvis is performed without oral but with IV Contrast, patient injected wi th 100 mL of Isovue 300. COMPARISON: CT abdomen and pelvis February 20, 2016 FINDINGS: LUNG BASES: Dependent atelectasis and mild left basilar linear atelectasis. LIVER/GB: Liver is diffusely low dense consistent with diffuse fatty infiltration. PANCREAS: No significant abnormality is seen. SPLEEN: No significant abnormality is seen. ADRENALS: No significant abnormality is seen. KIDNEYS: Symmetric cortical medullary uptake and excretion without hydronephrosis seen bilaterally. BOWEL: Suboptimal evaluation of bowel without enteric contrast. No suspicious of small or large bowel dilatation. Mild to moderate mucosal thickening and enhancement of the terminal ileum stents contigu ously into the distal ileum over a moderate length segment. Appendix within normal limits from the ce cum. Wall thickening in the right colon and transverse colon into the left colon favors product of po or distention. UTERUS/ADNEXA: Uterus is surgically absent. A few scattered pelvic phleboliths. LYMPH NODES: No greater than 1cm abdominal or pelvic lymph nodes are appreciated. OSSEOUS STRUCTURES: Mild to moderate disc space narrowing with vacuum disc phenomenon L4-L5 level. OTHER: Moderate-sized umbilical hernia containing fat and tiny mesenteric vessels. Mild calcified pedro que of the aorta extends into branch vessels. IMPRESSION: Suspect uncomplicated focal enteritis involving the terminal ileum. Differential includes infectious and inflammatory etiologies. Correlate clinically.
--- NOTE | 2021-10-03 12:36 | ED ---
General Adult HPI - General Chief complaint: Upper Respiratory Infection Stated complaint: flu symptoms Time Seen by Provider: 10/03/21 08:39 Source: EMS, RN notes reviewed, old records reviewed Mode of arrival: EMS Limitations: no limitations - History of Present Illness Initial comments: Patient is a 56-year-old female who presents emergency Department with 3-4 days of nausea, vomiting, diarrhea. She states she is having difficulty holding food down. She states she feels like she may have the stomach flu. Endorsus crampy abdominal pain across the bilateral lower quadrants. Denies any chest pain, shortness breath. Denies any weakness but does endorse fatigue. Denies any fevers or sick contacts. States no one else at home has same symptoms. She was not vaccinated for COVID-19. She has no other acute complaints at this time. She presents over concern for possible dehydration. States her bowel movements are loose and nonbloody. States her emesis is nonbilious and nonbloody. - Related Data Home Medications Medication Instructions Recorded Confirmed clonazePAM [KlonoPIN] 1 mg PO HS 01/08/17 10/03/21 Hydrocodone/Acetaminophen [[place] 1 tab PO QID 11/16/18 10/03/21 10-325] FLUoxetine HCL [PROzac] 20 mg PO DAILY 01/12/20 10/03/21 Omeprazole 20 mg PO DAILY 01/12/20 10/03/21 traZODone HCL 150 mg PO HS PRN 01/12/20 10/03/21 Ergocalciferol [Vitamin D2 (1250 1,250 mcg PO Q7D 10/03/21 10/03/21 Mcg = 34621 Iu)] Fenofibrate 54 mg PO DAILY 10/03/21 10/03/21 Naloxone HCl [Narcan] 4 mg NASAL ONCE PRN 10/03/21 10/03/21 Polyethylene Glycol 3350 [Miralax] 17 gm PO DAILY PRN 10/03/21 10/03/21 QUEtiapine [SEROquel] 400 mg PO HS 10/03/21 10/03/21 busPIRone HCL 15 mg PO BID PRN 10/03/21 10/03/21 Previous Rx's Medication Instructions Recorded Dicyclomine [Bentyl] 10 mg PO TID 7 Days #21 capsule 10/03/21 Famotidine [Pepcid] 20 mg PO DAILY 7 Days #7 tablet 10/03/21 Ondansetron Odt [Zofran Odt] 4 mg PO Q8HR PRN 3 Days #9 tab 10/03/21 Allergies Allergy/AdvReac Type Severity Reaction Status Date / Time No Known Allergies Allergy Verified 10/03/21 09:44 Review of Systems ROS Statement: Those systems with pertinent positive or pertinent negative responses have been documented in the HPI. Review of Systems: CONST: Denies fever EYES: Denies blurry vision ENT: Denies nasal congestion C/V: Denies Chest pain RESP: Denies shortness of breath GI: Endorses abdominal pain : Denies dysuria SKIN: Denies rash. MSK: Denies joint pain. NEURO: Denies headache ROS Other: All systems not noted in ROS Statement are negative. Past Medical History Past Medical History: Asthma, Hyperlipidemia, Osteoarthritis (OA), Sleep Apnea/CPAP/BIPAP Additional Past Medical History / Comment(s): hx migraines, occ irregular heartbeat, History of Any Multi-Drug Resistant Organisms: None Reported Past Surgical History: Breast Surgery, Section, Tonsillectomy, Tubal Ligation Additional Past Surgical History / Comment(s): Lt breast biopsy, Past Anesthesia/Blood Transfusion Reactions: Motion Sickness Additional Past Anesthesia/Blood Transfusion Reaction / Comment(s): . Past Psychological History: Anxiety, Depression, PTSD Past Alcohol Use History: Occasional Past Drug Use History: None Reported - Past Family History Mother Family Medical History: No Reported History Additional Family Medical History / Comment(s): . Father Family Medical History: Osteoarthritis (OA) Additional Family Medical History / Comment(s): DDD General Exam - General Exam Comments Initial Comments: General: Appears in no acute distress. HEAD: Normal with no signs of head trauma. EYES: PERRLA, EOMI, conjunctiva normal, no discharge. ENT: Hearing grossly intact, normal oropharynx. Mildly dry mucous membranes. RESPIRATORY: Clear breath sounds bilaterally. No wheezes, rales, or rhonchi. C/V: Regular rate and rhythm. S1 and S2 auscultated, no edema, peripheral pulses 2+ and intact throughout ABD: Abdomen soft, nondistended. Patient's mother tender to palpation in the bilateral lower quadrants. No back tenderness to palpation. No guarding. No peritoneal signs. No rebound tenderness. EXT: Normal range of motion, no obvious deformity SKIN: No rashes or lesions observed on exposed skin. NEURO: Alert and oriented 4. Limitations: no limitations Course Vital Signs 10/03/21 10/03/21 10/03/21 08:23 08:40 08:43 Temperature 98.4 F Pulse Rate 91 Respiratory 18 Rate Blood Pressure 108/73 O2 Sat by Pulse 97 88 L 93 L Oximetry 10/03/21 10/03/21 10/03/21 10:12 11:52 12:50 Temperature 98.4 F Pulse Rate 89 87 82 Respiratory 16 20 16 Rate Blood Pressure 114/70 136/84 134/78 O2 Sat by Pulse 95 95 98 Oximetry Medical Decision Making - Medical Decision Making Based on patient's presentation and physical exam, I'm concerned for possible acute abdominal etiology for her current symptoms. Cannot rule out COVID-19 infection. Therefore we'll obtain an abdominal imaging studies as well as a 19 swab. She was in agreement this plan. We will also obtain CT abdomen and pelvis to to her bilateral lower quadrant tenderness to rule out etiologies such as diverticulosis or appendicitis. She was in agreement this plan. Her symptoms symptomatically treated with 1 L fluid bolus, IV Zofran, pain medications. Patient's chest x-ray revealed no acute pulmonary process. EKG revealed normal sinus rhythm. No signs of acute ischemia. Laboratory studies were remarkable for mildly elevated AST and ALT of 55 and 38. Urinalysis is remarkable for 4+ ketones. Covid is negative. Remainder of his labs are unremarkable. CT abdomen and pelvis revealed acute enteritis. Following multiple fluid boluses, patient is feeling improved. She would like to go home. I explained she has enteritis. Likely viral in etiology and supportive management is indicated. She was in agreement this plan. Patient will be given Bentyl, Zofran, famotidine for home. Instructed her to follow-up with her PCP. She was in agreement this plan. I counseled her on proper fluid hydration. I will provide the patient with a prescription for famotidine, ODT Zofran, Bentyl. I instructed the patient to follow up with their PCP in the next 3 days.. I explained that the patient should return to the emergency department if they experience any worsening symptoms. Strict return precautions were discussed with the patient. The patient expressed understanding of these instructions. I answered all questions that the patient had. The patient was discharged home in fair condition with their prescriptions and follow up information. - Lab Data Result diagrams: 10/03/21 09:15 10/03/21 09:15 Lab Results 10/03/21 10/03/21 10/03/21 Range/Units 09:15 09:15 09:15 WBC 7.1 (3.8-10.6) k/uL RBC 4.36 (3.80-5.40) m/uL Hgb 15.8 (11.4-16.0) gm/dL Hct 45.4 (34.0-46.0) % MCV 103.9 H (80.0-100.0) fL MCH 36.3 H (25.0-35.0) pg MCHC 34.9 (31.0-37.0) g/dL RDW 13.1 (11.5-15.5) % Plt Count 175 (150-450) k/uL MPV 11.5 Neutrophils % 65 % Lymphocytes % 25 % Monocytes % 6 % Eosinophils % 0 % Basophils % 1 % Neutrophils # 4.6 (1.3-7.7) k/uL Lymphocytes # 1.8 (1.0-4.8) k/uL Monocytes # 0.4 (0-1.0) k/uL Eosinophils # 0.0 (0-0.7) k/uL Basophils # 0.1 (0-0.2) k/uL Manual Slide Review Performed Large Platelets Present RBC Morphology Normal Macrocytosis Slight Sodium 137 (137-145) mmol/L Potassium 3.5 (3.5-5.1) mmol/L Chloride 98 (98-107) mmol/L Carbon Dioxide 23 (22-30) mmol/L Anion Gap 16 mmol/L BUN 10 (7-17) mg/dL Creatinine 0.81 (0.52-1.04) mg/dL Est GFR (CKD-EPI)AfAm >90 (>60 ml/min/1.73 sqM) Est GFR (CKD-EPI)NonAf 83 (>60 ml/min/1.73 sqM) Glucose 74 (74-99) mg/dL Calcium 9.9 (8.4-10.2) mg/dL Magnesium 1.9 (1.6-2.3) mg/dL Total Bilirubin 0.7 (0.2-1.3) mg/dL AST 55 H (14-36) U/L ALT 38 H (4-34) U/L Alkaline Phosphatase 111 (38-126) U/L Total Protein 7.8 (6.3-8.2) g/dL Albumin 4.7 (3.5-5.0) g/dL Amylase 51 (30-110) U/L Lipase 25 (23-300) U/L Urine Color Yellow Urine Appearance Clear (Clear) Urine pH 6.0 (5.0-8.0) Ur Specific [place] 1.025 (1.001-1.035) Urine Protein Trace H (Negative) Urine Glucose (UA) Negative (Negative) Urine Ketones 4+ H (Negative) Urine Blood Negative (Negative) Urine Nitrite Negative (Negative) Urine Bilirubin Negative (Negative) Urine Urobilinogen <2.0 (<2.0) mg/dL Ur Leukocyte Esterase Negative (Negative) Coronavirus (PCR) (Not Detectd) 10/03/21 Range/Units 09:15 WBC (3.8-10.6) k/uL RBC (3.80-5.40) m/uL Hgb (11.4-16.0) gm/dL Hct (34.0-46.0) % MCV (80.0-100.0) fL MCH (25.0-35.0) pg MCHC (31.0-37.0) g/dL RDW (11.5-15.5) % Plt Count (150-450) k/uL MPV Neutrophils % % Lymphocytes % % Monocytes % % Eosinophils % % Basophils % % Neutrophils # (1.3-7.7) k/uL Lymphocytes # (1.0-4.8) k/uL Monocytes # (0-1.0) k/uL Eosinophils # (0-0.7) k/uL Basophils # (0-0.2) k/uL Manual Slide Review Large Platelets RBC Morphology Macrocytosis Sodium (137-145) mmol/L Potassium (3.5-5.1) mmol/L Chloride (98-107) mmol/L Carbon Dioxide (22-30) mmol/L Anion Gap mmol/L BUN (7-17) mg/dL Creatinine (0.52-1.04) mg/dL Est GFR (CKD-EPI)AfAm (>60 ml/min/1.73 sqM) Est GFR (CKD-EPI)NonAf (>60 ml/min/1.73 sqM) Glucose (74-99) mg/dL Calcium (8.4-10.2) mg/dL Magnesium (1.6-2.3) mg/dL Total Bilirubin (0.2-1.3) mg/dL AST (14-36) U/L ALT (4-34) U/L Alkaline Phosphatase (38-126) U/L Total Protein (6.3-8.2) g/dL Albumin (3.5-5.0) g/dL Amylase (30-110) U/L Lipase (23-300) U/L Urine Color Urine Appearance (Clear) Urine pH (5.0-8.0) Ur Specific [place] (1.001-1.035) Urine Protein (Negative) Urine Glucose (UA) (Negative) Urine Ketones (Negative) Urine Blood (Negative) Urine Nitrite (Negative) Urine Bilirubin (Negative) Urine Urobilinogen (<2.0) mg/dL Ur Leukocyte Esterase (Negative) Coronavirus (PCR) Not Detected (Not Detectd) - EKG Data -: EKG Interpreted by Me EKG Comments: 12-lead Electrocardiogram Interpretation Note EKG was reviewed and interpreted by myself. 12-lead ECG performed at 0922 is interpreted by me as revealing normal sinus rhythm at a rate of 83 beats per m inute. [place] is normal. NE Intervals 146 ms, QRS duration is 80 ms, QTc is 495 ms.. There were no ST or T wave abnormalities to suggest myocardial ischemia or injury. R wave progression across the precordium was satisfactory. By my interpretation this EKG is non-diagnostic for acute ischemia. Disposition Clinical Impression: Enteritis, Dehydration, Nausea and vomiting, Diarrhea Disposition: HOME SELF-CARE Condition: Fair Instructions (If sedation given, give patient instructions): Enteritis (ED) Prescriptions: Dicyclomine [Bentyl] 10 mg PO TID 7 Days #21 capsule Famotidine [Pepcid] 20 mg PO DAILY 7 Days #7 tablet Ondansetron Odt [Zofran Odt] 4 mg PO Q8HR PRN 3 Days #9 tab PRN Reason: Nausea Is patient prescribed a controlled substance at d/c from ED?: No Referrals: [facility] [Primary Care Provider] - 1-2 days
[2021-10-03 12:51] VITALS: BP 134/78; PULSE 82; RESP 16
== END 2021-10-03 12:50 | disposition home or self-care (01) ==
LOC: EC 08:22
DX: K52.9 Noninfective gastroenteritis and colitis, unspecified (principal); E86.0 Dehydration; R11.2 Nausea with vomiting, unspecified; J45.909 Unspecified asthma, uncomplicated; E78.5 Hyperlipidemia, unspecified; M19.90 Unspecified osteoarthritis, unspecified site; F41.9 Anxiety disorder, unspecified; F32.9 Major depressive disorder, single episode, unspecified; F43.12 Post-traumatic stress disorder, chronic; Z98.51 Tubal ligation status; Z20.822 Contact with and (suspected) exposure to COVID-19
CPT/HCPCS: 99285; 96374; 96375 ×2; 96361 ×2; 36415; 93005; 80053; 82150; 83690; 83735; 85025; 81003; 87635; 71045; 74177; J2270; J2405; Q9967

== ENCOUNTER → 2021-10-05 | Outpatient (CLI) | payer BC, OTHER ==
--- NOTE | 2021-10-05 15:03 | SFUN ---
SLEEP CENTER FOLLOW UP NOTE DATE OF SERVICE: 10/05/2021 This 56-year-old lady has been followed in Sleep Center for treatment of obstructive sleep apnea-hypopnea syndrome. Patient cannot use the CPAP equipment, indicating that she cannot tolerate the pressure and has difficulties with the mask. During her previous visit, I adjusted RAMP to the maximal time of 45 minutes and EPR from 2 increased to 3, which is supposed to make breathing easier, and regimen in the machine in the lowest range. Range of the pressure 4 to 8. The patient is on Klonopin 1 mg at bedtime to prevent her sleepwalking episodes. [place] Sleepiness Scale today is 8. MEDICATIONS: Prozac, Seroquel, Klonopin, and some other medication; patient does not remember. PHYSICAL EXAMINATION: GENERAL: Pleasant patient in no distress. VITAL SIGNS: BP 108/74, HR 95, RR 15, height 5 feet 2 inches, weight 193.0, body mass index 35.2. Patient lost about 2 pounds since her last visit. Temperature 96.7, oxygen saturation at room air 94%. HEENT: PERRLA, EOMI, evaluation of oropharynx showed tongue protrudes midline. Moderately low position of soft palate. NECK: Supple, no JVD. Thyroid is not palpable. LUNGS: Clear to percussion and to auscultation. Good air exchange. No wheezing or rhonchi. HEART: S1, S2 regular. No murmurs, gallops, or rubs. ABDOMEN: Soft and nontender. Bowel sounds are present. No organomegaly appreciated. EXTREMITIES: No clubbing or cyanosis. MECHANICAL MAINTENANCE ENGINEER: Awake, alert, and oriented X3. Cranial nerves 2 to 7 intact. There is no fasciculation or atrophy. noted. No focal deficits observed. IMPRESSION: 1. Obstructive sleep apnea-hypopnea syndrome, in mild range. Patient does not use CPAP equipment, has some problems with CPAP. 2. History of sleepwalking, on treatment with Klonopin 1 mg at bedtime. 3. Depression. 4. Anxiety. 5. Post-traumatic stress disorder. 6. History of neck problems. 7. Shoulder pain. 8. Status post . PLAN: 1. Repeat CPAP titration to figure out what is the best mask for the patient along with the best pressure for her. 2. Continue Klonopin 1 mg at bedtime for sleepwalking. 3. Watching and losing weight. 4. Sleep hygiene with time in bed for 7-1/2 to 8 hours. 5. Precautions related to driving. No driving if feeling sleepiness. Thank you very much for allowing me to participate in the management of your patient. Sincerely, Clarke Us MD, PhD, FAASM Diplomat of [place] [employer] Sleep Medicine Board of [place] [employer] Learning Facilitator of [facility] [place] MMRITA / GRAEME: [id number] /
== END ==
LOC: SLEEP 11:45
PROVIDERS: ATTEND Internal Medicine
DX: G47.33 Obstructive sleep apnea (adult) (pediatric) (principal); F41.9 Anxiety disorder, unspecified; F32.9 Major depressive disorder, single episode, unspecified; F43.10 Post-traumatic stress disorder, unspecified; M25.519 Pain in unspecified shoulder; F17.200 Nicotine dependence, unspecified, uncomplicated; Z87.59 Personal history of other complications of pregnancy, childbirth and the puerperium; Z87.39 Personal history of other diseases of the musculoskeletal system and connective tissue; Z79.899 Other long term (current) drug therapy

== ENCOUNTER 2022-02-24 06:51 | Emergency (ER) | payer OTHER ==
[2022-02-24 06:57] VITALS: TEMP 99
[2022-02-24] MEDS ORDERED: LIDOCAINE 5% PATCH TOPICAL STA (07:19)
[2022-02-24] MEDS ORDERED: KETOROLAC 15 MG/ML 1 ML VIAL IVP STA (07:19)
--- NOTE | 2022-02-24 07:19 | ED ---
General Adult HPI - General Chief complaint: Chest Pain Stated complaint: chest pain Time Seen by Provider: 02/24/22 06:56 Source: patient, family Mode of arrival: ambulatory Limitations: no limitations - History of Present Illness Initial comments: Dictation was produced using [id number] dictation software. please excuse any grammatical, word or spelling errors. Chief Complaint: 56-year-old female presents to the emergency department for 1 month of bilateral CVA pain History of Present Illness: Is 56-year-old female she is a poor historian. Patient states she has asthma, dyslipidemia and arthritis. Patient presents to the emergency department for bilateral CVA pain. She did tell triage that she had chest pain that was worsening this morning and abdominal discomfort. Patient when questioned by myself at the bedside states that she is here for bilateral CVA pain. She states that it's to her upper abdomen and radiates to h er bilateral CVAs. She states she's had this for approximately one month. 3 days ago she had episode of hallucinations after one of these pain attacks. Patient lives at home with her fianc. She denies any headache. Patient reports that her pain is severe and at a 10 out of 10. No nausea vomiting. No associated diaphoresis. She has a history of and bilateral tubal ligation. The ROS documented in this emergency department record has been reviewed and confirmed by me. Those systems with pertinent positive or negative responses have been documented in the HPI. All other systems are other negative and/or noncontributory. PHYSICAL EXAM: General Impression: Alert and oriented x3, not in acute distress HEENT: Normocephalic atraumatic, extra-ocular movements intact, pupils equal and reactive to light bilaterally, mucous membranes moist. Cardiovascular: Heart regular rate and rhythm Chest: Able to complete full sentences, no retractions, no tachypnea Abdomen: abdomen soft, non-tender, non-distended, no organomegaly Musculoskeletal: Pulses present and equal in all extremities, no peripheral edema, exquisite palpatory tenderness with grazing the skin with my finger Motor: no focal deficits noted Neurological: CN II-XII grossly intact, no focal motor or sensory deficits noted Skin: Intact with no visualized rashes, no rashes to the flank Psych: Normal affect and mood ED course: 56-year-old female presents emergency department for 1 month of pain complaints. She states that she feels like it is worse in her bilateral CVAs. She does report pain also in the bilateral upper quadrants. Vital signs upon arrival are within acceptable limits. Patient exhibiting bizarre behavior. She states she had hallucinations 3 days ago where she visualized her fianc when he was in there. Laboratory evaluation obtained. CBC, metabolic panel is unremarkable. Urinalysis is negative. Labs suggests chronic alcohol abuse. Computed tomography scan of brain is unremarkable. Chest x-ray is nonacute. Computed tomography scan abdomen and pelvis shows no evidence of intra-abdominal processes. There does appear to be hepatic steatosis fat-containing umbilical hernia. Patient reevaluated at bedside at 950 and found to be stable medical condition. At this point no life-threatening processes noted. Patient does not have any high-risk features. Patient be discharged. Told to follow-up with Primary care doctor. Patient told that she has mild degree of hepatitis it's likely secondary to fatty liver versus alcoholic hepatitis. Patient's told to improve her daily habits include regular exercise, well-rounded diet and decrease in alcohol intake and fatty foods. EKG interpretation: Ventricular rate 80, sinus rhythm, MN interval 134, care is 87, QTC 419. No MN prolongation, no QTC prolongation, no ST or T-wave changes noted. EKG compared to January 14 2022 showing no changes. Overall, this EKG is unremarkable - Related Data Home Medications Medication Instructions Recorded Confirmed clonazePAM [KlonoPIN] 1 mg PO HS 01/08/17 10/03/21 Hydrocodone/Acetaminophen [[place] 1 tab PO QID 11/16/18 10/03/21 10-325] FLUoxetine HCL [PROzac] 20 mg PO DAILY 01/12/20 10/03/21 Omeprazole 20 mg PO DAILY 01/12/20 10/03/21 traZODone HCL 150 mg PO HS PRN 01/12/20 10/03/21 Ergocalciferol [Vitamin D2 (1250 1,250 mcg PO Q7D 10/03/21 10/03/21 Mcg = 24630 Iu)] Fenofibrate 54 mg PO DAILY 10/03/21 10/03/21 Naloxone HCl [Narcan] 4 mg NASAL ONCE PRN 10/03/21 10/03/21 Polyethylene Glycol 3350 [Miralax] 17 gm PO DAILY PRN 10/03/21 10/03/21 QUEtiapine [SEROquel] 400 mg PO HS 10/03/21 10/03/21 busPIRone HCL 15 mg PO BID PRN 10/03/21 10/03/21 Previous Rx's Medication Instructions Recorded Dicyclomine [Bentyl] 10 mg PO TID 7 Days #21 capsule 10/03/21 Famotidine [Pepcid] 20 mg PO DAILY 7 Days #7 tablet 10/03/21 Ondansetron Odt [Zofran Odt] 4 mg PO Q8HR PRN 3 Days #9 tab 10/03/21 Allergies Allergy/AdvReac Type Severity Reaction Status Date / Time No Known Allergies Allergy Verified 02/24/22 06:57 Review of Systems ROS Statement: Those systems with pertinent positive or pertinent negative responses have been documented in the HPI. ROS Other: All systems not noted in ROS Statement are negative. Past Medical History Past Medical History: Asthma, Hyperlipidemia, Osteoarthritis (OA), Sleep Apnea/CPAP/BIPAP Additional Past Medical History / Comment(s): hx migraines, occ irregular heartbeat, History of Any Multi-Drug Resistant Organisms: None Reported Past Surgical History: Breast Surgery, Section, Tonsillectomy, Tubal Ligation Additional Past Surgical History / Comment(s): Lt breast biopsy, Past Anesthesia/Blood Transfusion Reactions: Motion Sickness Additional Past Anesthesia/Blood Transfusion Reaction / Comment(s): . Past Psychological History: Anxiety, Depression, PTSD Smoking Status: Current every day smoker Past Alcohol Use History: Occasional Past Drug Use History: None Reported - Past Family History Mother Family Medical History: No Reported History Additional Family Medical History / Comment(s): . Father Family Medical History: Osteoarthritis (OA) Additional Family Medical History / Comment(s): DDD General Exam Limitations: no limitations Course Vital Signs 02/24/22 02/24/22 06:51 08:54 Temperature 99 F Pulse Rate 96 80 Respiratory 22 20 Rate Blood Pressure 111/75 125/92 O2 Sat by Pulse 97 100 Oximetry Medical Decision Making - Lab Data Result diagrams: 02/24/22 07:16 02/24/22 07:16 Lab Results 02/24/22 02/24/22 02/24/22 Range/Units 07:16 07:16 07:31 WBC 7.0 (3.8-10.6) k/uL RBC 4.50 (3.80-5.40) m/uL Hgb 16.2 H (11.4-16.0) gm/dL Hct 48.8 H (34.0-46.0) % MCV 108.4 H (80.0-100.0) fL MCH 36.1 H (25.0-35.0) pg MCHC 33.3 (31.0-37.0) g/dL RDW 13.0 (11.5-15.5) % Plt Count 164 (150-450) k/uL MPV 12.1 Neutrophils % 57 % Lymphocytes % 30 % Monocytes % 7 % Eosinophils % 2 % Basophils % 2 % Neutrophils # 4.0 (1.3-7.7) k/uL Lymphocytes # 2.1 (1.0-4.8) k/uL Monocytes # 0.5 (0-1.0) k/uL Eosinophils # 0.2 (0-0.7) k/uL Basophils # 0.2 (0-0.2) k/uL Manual Slide Review Performed Large Platelets Present Macrocytosis Moderate Sodium 138 (137-145) mmol/L Potassium 3.8 (3.5-5.1) mmol/L Chloride 102 (98-107) mmol/L Carbon Dioxide 26 (22-30) mmol/L Anion Gap 10 mmol/L BUN 8 (7-17) mg/dL Creatinine 0.90 (0.52-1.04) mg/dL Est GFR (CKD-EPI)AfAm 84 (>60 ml/min/1.73 sqM) Est GFR (CKD-EPI)NonAf 73 (>60 ml/min/1.73 sqM) Glucose 100 H (74-99) mg/dL Calcium 9.7 (8.4-10.2) mg/dL Magnesium 2.0 (1.6-2.3) mg/dL Total Bilirubin 1.1 (0.2-1.3) mg/dL AST 103 H (14-36) U/L ALT 49 H (4-34) U/L Alkaline Phosphatase 112 (38-126) U/L Total Protein 8.2 (6.3-8.2) g/dL Albumin 4.7 (3.5-5.0) g/dL Lipase 47 (23-300) U/L Urine Color Yellow Urine Appearance Cloudy H (Clear) Urine pH 6.0 (5.0-8.0) Ur Specific [place] 1.024 (1.001-1.035) Urine Protein Trace H (Negative) Urine Glucose (UA) Negative (Negative) Urine Ketones 1+ H (Negative) Urine Blood Negative (Negative) Urine Nitrite Negative (Negative) Urine Bilirubin Negative (Negative) Urine Urobilinogen 2.0 (<2.0) mg/dL Ur Leukocyte Esterase Negative (Negative) Urine RBC 2 (0-5) /hpf Urine WBC 3 (0-5) /hpf Ur Squamous Epith Cells 8 H (0-4) /hpf Urine Bacteria Rare H (None) /hpf Urine Mucus Many H (None) /hpf Disposition Clinical Impression: Pain Disposition: HOME SELF-CARE Condition: Good Instructions (If sedation given, give patient instructions): Alcoholic Hepatitis (ED) Is patient prescribed a controlled substance at d/c from ED?: No Referrals: Galina Clemente NPC [Nurse Practitioner] - 1-2 days
[2022-02-24 07:29] LABS: Basophils # (A) 0.2 k/uL (0-0.2); Basophils % (A) 2 %; Eosinophils # (A) 0.2 k/uL (0-0.7); Eosinophils % (A) 2 %; HCT 48.8 % (34.0-46.0); HGB 16.2 gm/dL (11.4-16.0); Lymphocytes # (A) 2.1 k/uL (1.0-4.8); Lymphocytes % (A) 30 %; MCH 36.1 pg (25.0-35.0); MCHC 33.3 g/dL (31.0-37.0); MCV 108.4 fL (80.0-100.0); Macrocytosis Moderate; Mean Platelet Volume 12.1; Monocytes # (A) 0.5 k/uL (0-1.0); Monocytes % (A) 7 %; Neutrophils % (A) 57 %
[2022-02-24 07:37] LABS: Albumin 4.7 g/dL (3.5-5.0); Calcium 9.7 mg/dL (8.4-10.2); Potassium 3.8 mmol/L (3.5-5.1); Total Bilirubin 1.1 mg/dL (0.2-1.3); Total Protein 8.2 g/dL (6.3-8.2)
--- NOTE | 2022-02-24 08:05 | XR ---
EXAMINATION TYPE: XR chest 1V portable DATE OF EXAM: 02/24/2022 7:40 AM COMPARISON:Multiple radiographs, with the most recent on 01/14/2022 TECHNIQUE: XR chest 1V portable Frontal view of the chest. CLINICAL INDICATION:Female, 56 years old with history of severe bilateral cva pain; FINDINGS: Lungs/Pleura: There is flattening of the diaphragm with increased lucency of the lungs. No evidence o f pneumothorax, pleural effusion or focal consolidation. Pulmonary vascularity: Unremarkable. Heart/mediastinum: Cardiomediastinal silhouette is unremarkable. Musculoskeletal: No acute osseous pathology. IMPRESSION: 1. No acute cardiopulmonary disease process. 2. COPD changes.
[2022-02-24 08:16] LABS: Appearance,Urine Cloudy (Clear); Bacteria,Urine Rare /hpf; Bilirubin,Urine Negative (Negative); Blood,Urine Negative (Negative); Color,Urine Yellow; Glucose,Urine (UA) Negative (Negative); Ketones,Urine 1+ (Negative); Leukocyte Esterase,Urine Negative (Negative); Mucus,Urine Many /hpf; Nitrite,Urine Negative (Negative); Protein,Urine Trace (Negative); RBC,Urine 2 /hpf (0-5); Specific Gravity,Urine 1.024 (1.001-1.035); Squamous Epithelial Cell,Urine 8 /hpf (0-4); WBC,Urine 3 /hpf (0-5)
[2022-02-24 08:30] LABS: Large Platelets Present; Platelet Count 164 k/uL (150-450)
[2022-02-24 08:55] VITALS: RESP 20
--- NOTE | 2022-02-24 09:30 | CT ---
EXAMINATION TYPE: CT brain wo con CT DLP: 1094.4 mGycm, Automated exposure control for dose reduction was used. DATE OF EXAM: 02/24/2022 9:21 AM COMPARISON: Prior CT Brain from 06/23/2019 . CLINICAL INDICATION:Female, 56 years old with history of severe bilateral cva pain, TECHNIQUE: Brain: Multiple axial CT images of the brain were obtained without IV contrast. FINDINGS: Brain: Extra-axial spaces: No abnormal extra-axial fluid collections. Ventricular system: Within normal limits Cerebral parenchyma: No acute intraparenchymal hemorrhage or mass effect. The barrera-white junction is well differentiated. Cerebellum: Unremarkable. Mass effect: No evidence of midline shift. Intracranial vasculature: Atherosclerotic calcifications of the intracranial vessels. Soft tissues: Normal. Calvarium/osseous structures: No depressed skull fracture. Paranasal sinuses and mastoid air cells: Mild scattered paranasal sinus disease. Visualized orbits: Orbital contents are intact. IMPRESSION: No acute intracranial process.
--- NOTE | 2022-02-24 09:36 | CT ---
EXAMINATION TYPE: CT abdomen pelvis wo con CT DLP: 836.2 mGycm, Automated exposure control for dose reduction was used. DATE OF EXAM: 02/24/2022 9:22 AM COMPARISON: CT abdomen pelvis most recent from 10/03/2021. CLINICAL INDICATION:Female, 56 years old with history of severe bilateral cva pain; Abdominal pain TECHNIQUE: Standard CT of the abdomen and pelvis without IV or oral contrast. Lack of IV or oral co ntrast limits evaluation of solid and hollow organ viscera. Coronal and sagittal reformats were perfo rmed. FINDINGS: LOWER CHEST: Posterior dependent subsegmental atelectasis is noted. ABDOMEN LIVER: Diffusely hypoattenuating parenchyma. GALLBLADDER AND BILE DUCTS: Unremarkable. PANCREAS: Unremarkable. SPLEEN: Unremarkable. ADRENAL GLANDS: Unremarkable. KIDNEYS AND URETERS: No evidence of hydronephrosis or renal calculus. The ureters are unremarkable. PELVIS BLADDER: Unremarkable REPRODUCTIVE: Unremarkable. ABDOMEN & PELVIS STOMACH AND BOWEL: No evidence of bowel obstruction. Appendix is visualized and within normal limits. PERITONEUM: No evidence of pneumoperitoneum or free fluid. VASCULATURE: Mild atherosclerotic calcifications are present throughout the abdominal aorta and its b ranches. MUSCULOSKELETAL: Mild disc degeneration changes are present throughout the thoracolumbar spine. Atrop hy of the erector spinae muscles bilaterally. LYMPH NODES: No gross evidence for lymphadenopathy. SOFT TISSUE/ABDOMINAL WALL: Fat filled umbilical hernia measuring 18 mm at the neck with superimposed ventral hernia. This hernia intact.. IMPRESSION: 1. No evidence for renal calculi, hydronephrosis or acute intra-abdominal process. 2. Hepatic steatosis 3. Fat-containing Umbilical hernia.
[2022-02-24 10:09] VITALS: BP 122/85; PULSE 78
== END 2022-02-24 10:08 | disposition home or self-care (01) ==
LOC: EC 06:51
DX: R07.89 Other chest pain (principal); J45.909 Unspecified asthma, uncomplicated; E78.5 Hyperlipidemia, unspecified; M19.90 Unspecified osteoarthritis, unspecified site; F41.9 Anxiety disorder, unspecified; F32.A Depression, unspecified; F43.10 Post-traumatic stress disorder, unspecified; F17.200 Nicotine dependence, unspecified, uncomplicated; Z98.51 Tubal ligation status
CPT/HCPCS: 99285; 96374; 36415; 93005; 80053; 83690; 83735; 85025; 81001; 71045; 70450; 74176; J1885

== ENCOUNTER 2022-03-16 08:50 | Day surgery (SDC) | payer OTHER ==
[2022-03-14 12:46] VITALS: BMI 34.0
[~2022-03-16 08:50] MED LIST changes: +DEXAMETHASONE SOD PHOSPHATE 4 MG/ML 1 ML VIAL IV ONE; -LACTATED RINGERS 1,000 ML IV SCH; -LIDOCAINE 1% 20 ML VIAL (10MG/ML) FOR IV START INTRADERMA PRN; -MIDAZOLAM 2 MG/2 ML VIAL IV PRN; +ONDANSETRON 4 MG/2 ML VIAL IVP ONE; +SCOPOLAMINE 1 MG/72 HR PATCH TRANSDERM ONE
[2022-03-16] MEDS: LACTATED RINGERS 1,000 ML IV SCH ×2 (09:16→10:10)
[2022-03-16 09:17] LABS: Glucose,Whole Blood 93 mg/dL (75-99)
[2022-03-16] MEDS: fentaNYL (PF) 50 MCG/ML 2 ML AMP IVP ONE ×2 (09:38→09:41)
[2022-03-16] MEDS: MIDAZOLAM 2 MG/2 ML VIAL IV PRN ×2 (09:38→09:41)
[2022-03-16] MEDS ORDERED: PROPOFOL 10 MG/ML 20 ML VIAL IV ONE (10:14)
[2022-03-16] MEDS ORDERED: MIDAZOLAM 2 MG/2 ML VIAL ONE (10:14)
[2022-03-16] MEDS ORDERED: NEOSTIGMINE 1 MG/ML 10 ML VIAL ONE (10:14)
[2022-03-16] MEDS ORDERED: fentaNYL (PF) 50 MCG/ML 2 ML AMP ONE (10:14)
[2022-03-16] MEDS ORDERED: ROCURONIUM 10 MG/ML (5 ML VIAL) IV ONE (10:14)
[2022-03-16] MEDS ORDERED: SUCCINYLCHOLINE CHLORIDE VIAL 200 MG/10 ML VIAL IV ONE (10:14)
[2022-03-16] MEDS ORDERED: GLYCOPYRROLATE 0.2 MG/ML 2 ML VIAL ONE (10:14)
[2022-03-16] MEDS ORDERED: LIDOCAINE 1%-EPI 1:100,000 20 ML VIAL SQ ONE ×2 (10:32)
[2022-03-16] MEDS ORDERED: BUPIVACAINE (PF) 0.25% 30 ML VIAL SQ ONE ×2 (10:32)
--- NOTE | 2022-03-16 10:39 | P.ANPRN ---
Procedure Note - Anesthesia - Nerve Block Performed Bilateral Rectus Abdominis Single Time Out Performed: Yes ([id number]) Date of Procedure: 03/16/22 Procedure Start Time: 09:37 Procedure Stop Time: 09:43 Location of Patient: PreOp Indication: Acute Post-Operative Pain, Requested by Surgeon Specifically requested for management of pain by DrMaurice: Roro Arroyo Sedation Type: Sedate with meaningful contact maintained Preparation: Sterile Prep Position: Supine Catheter: None Needle Types: Pajunk Needle Gauge: 21 Ultrasound used to visualize needle placement: Yes Ultrasound used to observe medication spread: Yes Injectate: 0.5% Ropivacaine (see comment for volume) (15cc + 10cc nacl pf each side) Blood Aspirated: No Pain Paresthesia on Injection Noted: No Resistance on Injection: Normal Image Stored and Saved: Yes Events: Uneventful and Well Tolerated
[2022-03-16] MEDS ORDERED: LACTATED RINGERS 1,000 ML IV ONE ×2 (10:53)
--- NOTE | 2022-03-16 11:02 | P.OP ---
Date of Procedure: 03/16/22 Preoperative Diagnosis: Umbilical hernia Postoperative Diagnosis: Umbilical hernia Procedure(s) Performed: Umbilical hernia repair with mesh Anesthesia: CASH Surgeon: Roro Arroyo Estimated Blood Loss (ml): 3 Pathology: none sent Condition: stable Disposition: PACU Description of Procedure: The patient's a 56-year-old female with symptomatic umbilical hernia. She is taken to the OR where she's prepped and draped in the usual sterile manner under a general endotracheal anesthetic. Local anesthetic is instilled into the skin, subcutaneous tissue and fascia. An infraumbilical incision was made. The umbilical skin was dissected free from the hernia contents. The fascial edges were freshened. The hernia contents consisted of preperitoneal fat. Preperitoneal space was bluntly and sharply developed. Fascial defect was 2 x 2 centimeters. A subfascial mesh was then placed. It was secured to the fascia using 0 Vicryl. The umbilicus was tacked to the fascia using 4-0 Vicryl. The skin was closed with 4-0 Vicryl in a subcuticular manner. Steri-Strips and dressings were applied. She tolerated the procedure without difficulty and was taken to recovery room in satisfactory condition. According to or personnel, all counts were correct. Plan - Discharge Summary Discharge Rx Participant: Yes New Discharge Prescriptions: New Naproxen 500 mg PO BID #60 tablet HYDROcodone/APAP 10-325MG [[place] 10-325] 1 tab PO Q4HR PRN 3 Days #18 tab PRN Reason: Pain No Action Hydrocodone/Acetaminophen [[place] 10-325] 1 tab PO QID FLUoxetine HCL [PROzac] 20 mg PO DAILY Omeprazole 20 mg PO DAILY busPIRone HCL 15 mg PO BID Fenofibrate 54 mg PO DAILY Atorvastatin Calcium [Lipitor] 40 mg PO HS Magnesium Oxide 400 mg PO HS QUEtiapine [SEROquel] 400 mg PO HS Albuterol Inhaler [Ventolin Hfa Inhaler] 1 puff INHALATION DAILY Discharge Medication List Hydrocodone/Acetaminophen [[place] 10-325] 1 tab PO QID 11/16/18 [History] FLUoxetine HCL [PROzac] 20 mg PO DAILY 01/12/20 [History] Omeprazole 20 mg PO DAILY 01/12/20 [History] Fenofibrate 54 mg PO DAILY 11/02/21 [History] QUEtiapine [SEROquel] 400 mg PO HS 10/03/21 [History] busPIRone HCL 15 mg PO BID 10/03/21 [History] Albuterol Inhaler [Ventolin Hfa Inhaler] 1 puff INHALATION DAILY 03/14/22 [History] Atorvastatin Calcium [Lipitor] 40 mg PO HS 03/14/22 [History] Magnesium Oxide 400 mg PO HS 03/14/22 [History] HYDROcodone/APAP 10-325MG [[place] 10-325] 1 tab PO Q4HR PRN 3 Days #18 tab 03/16/22 [Rx] Naproxen 500 mg PO BID #60 tablet 03/16/22 [Rx] Follow up Appointment(s)/Referral(s): Roro Arroyo DO [Doctor of Osteopathic Medicine] - 2 Weeks Activity/Diet/Wound Care/Special Instructions: Ice to the incision for 24-48 hours. Keep the dressing on until Saturday. It may then be removed and you may shower. No tub baths for 1 week. No lifting greater than 10 [address] while taking pain medication. Call if questions or concerns. Discharge Disposition: HOME SELF-CARE
[2022-03-16 11:16] VITALS: TEMP 97
[2022-03-16] MEDS: HYDROmorphone 0.5 MG/0.5 ML SYRINGE IVP PRN ×2 (11:22→11:33)
[2022-03-16] MEDS ORDERED: HYDROcodone/APAP 10-325MG 1 EACH TAB ONE (12:14)
[2022-03-16] MEDS ORDERED: HYDROcodone/APAP 10-325MG 1 EACH TAB PO ONE (12:15)
[2022-03-16 12:16] VITALS: BP 106/68; PULSE 83; RESP 20
== END 2022-03-16 12:51 | disposition home or self-care (01) ==
LOC: OR 08:50
PROVIDERS: ATTEND Surgery
DX: K42.9 Umbilical hernia without obstruction or gangrene (principal); G89.18 Other acute postprocedural pain
CPT/HCPCS: 49585; C1781; J2250; J0330; J1100; J2710; J0690; J2405; J3010; J2704; J1170

== ENCOUNTER → 2022-06-28 | Outpatient (CLI) | payer OTHER ==
--- NOTE | 2022-06-28 17:08 | P.PN ---
Subjective DATE: 06/28/2022 FOLLOW UP VISIT. Patient with obstructive sleep apnea hypopnea syndrome and positive history of sleep walking return to sleep center for follow-up visit. Information from previous visit have been reviewed. Patient is on clonazepam 1 mg at bedtime to prevent any parasomnias. No recent episodes of sleepwalking Presently patient patient doesn't use machine on a regular basis. She used her CPAP unit only for several nights. The patient does not have significant problems with the mask, PAP unit and humidification. Wyalusing sleepiness scale is 7. I checked information from PAP unit. PAP unit pressure 4-8 average 6.6 cm H2O. Patient feels that sometimes pressure is too high for her. Leak is 66 l/m, which is in high range. Apnea Hypopnea Index is 1, which is normal. MEDICATIONS:1. Clonazepam 1 mg at bedtime 2. Seroquel 3. Trazodone 4. Prozac 5. Buspar During physical exam: GENERAL: A pleasant patient without any distress. VITAL SIGNS: BP 128/83, HR 82, RR 16, weight 177.0, temperature 96.8, oxygen saturation at room air 96 % . HEENT: PERRLA, EOMI.low position of soft palate, Mallapati 3. NECK: Supple. No JVD. LUNGS: Clear to percussion and to auscultation. Good air exchange. No wheezing or rhonchi. HEART: S1, S2 regular. ABDOMEN: Soft and nontender.[] EXTREMITIES: No clubbing or cyanosis. INDUSTRIAL SERVICER: Awake, alert, and oriented x3. No focal deficit. Impressions: 1. Obstructive sleep apnea-hypopnea syndrome. Patient has difficulties with using CPAP. I adjusted pressure down to the range 46 cm of water. Patient promised to use machine every night. 2. History of sleepwalking, on treatment with Klonopin. No recent episodes. 3. anxiety. 4. Depression. 5. Posttraumatic stress disorder. 6. History of shoulder pain. 7. History of neck problems. Plan: 1. Continue using PAP equipment every night for the whole night. Patient promised to follow recommendations. 2. To change air filter at least 1-2 times per month. 3. PAP unit should stay lower then position of the head. 4. Advised patient to remove all remaining water from humidifier canister daily and make it dry after each usage. Refill canister with fresh distilled water before each usage. 5. Sleep hygiene with regular time in bed for at least 8 hours. 6. Precautions related to driving. No driving if feel any sleepiness. 7. I will maintain prescription for PAP supplies including mask, tube, filters. 8. Follow up visit in 6 months or earlier if patient has any problems. 9. Watching weight. 10. Continue clonazepam 1 mg at bedtime. Thank you very much for allowing me to participate in the management of your patient. Clarke Us MD, PhD, FAASM. Diplomat of [place] [employer], Sleep Medicine Board by [place] [employer] [facility] [place]
== END ==
LOC: SLEEP 16:15
PROVIDERS: ATTEND Internal Medicine
DX: G47.33 Obstructive sleep apnea (adult) (pediatric) (principal); F41.9 Anxiety disorder, unspecified; F32.A Depression, unspecified; F43.10 Post-traumatic stress disorder, unspecified; Z99.89 Dependence on other enabling machines and devices; Z87.39 Personal history of other diseases of the musculoskeletal system and connective tissue; F17.200 Nicotine dependence, unspecified, uncomplicated; Z79.899 Other long term (current) drug therapy
CPT/HCPCS: 99212

== ENCOUNTER → 2022-08-13 | Outpatient (CLI) | payer OTHER ==
--- NOTE | 2022-08-15 16:06 | MM ---
Reason for Exam: Screening (asymptomatic). Last mammogram was performed 2 year(s) and 11 month(s) ago. Patient History: Menarche at age 13. First Full-Term at age 24. Hysterectomy at age 52. Postmenopausal. Excisional Biopsy on the Left side. Maternal grandmother had breast cancer, age 60. Risk Values: Kia 5 year model risk: 1.4%. NCI Lifetime model risk: 9.5%. Prior Study Comparison: 05/02/2018 Bilateral Screening Mammogram, [facility]. 05/20/2018 Right Diagnostic Mammogram, [facility]. 09/25/2019 Bilateral Screening Mammogram, [facility]. Tissue Density: The breast tissue is heterogeneously dense. This may lower the sensitivity of mammography. Findings: Analyzed By CAD. There is no suspicious group of microcalcifications or new suspicious mass in either breast. Overall Assessment: Negative, BI-RAD 1 Management: Screening Mammogram of both breasts in 1 year. A clinical breast exam by your physician is recommended on an annual basis and results should be correlated with mammographic findings. Electronically signed and approved by: Cipriano Jay DO
== END | disposition home or self-care (01) ==
LOC: RADMAMWWP 14:47
PROVIDERS: ATTEND Nurse Practitioner
DX: Z12.31 Encounter for screening mammogram for malignant neoplasm of breast (principal); Z78.0 Asymptomatic menopausal state; Z80.3 Family history of malignant neoplasm of breast
CPT/HCPCS: 77063; 77067

== ENCOUNTER 2023-03-07 17:16 | Emergency (ER) | payer OTHER ==
[2023-03-07 17:30] VITALS: BP 107/74; PULSE 100; RESP 20; TEMP 97.2
[2023-03-07] MEDS ORDERED: TRIAMCINOLONE ACET 0.1% OINTMENT 15 GM TUBE TOPICAL ONE (18:03)
--- NOTE | 2023-03-07 18:07 | ED ---
Skin/Abscess/FB HPI - General Chief complaint: Skin/Abscess/Foreign Body Stated complaint: Rash,Sent by Clinic Time Seen by Provider: 03/07/23 17:35 Source: patient, RN notes reviewed Mode of arrival: ambulatory Limitations: no limitations - History of Present Illness Initial comments: This is a 57-year-old female who presents to the emergency department for a rash. States that 2 years ago, shortly after having Covid, she developed dry patches on her legs. These patches start out as a small purple circular lesion. Within 1-2 days these dry up and crust over, and subsequently fall off. She has noticed that these lesions are now occurring on her arms as well. This morning, she noticed that she had a lesion on her abdomen. She called [facility], who advised she come to the emergency department for further evaluation. Patient was told that there are no dermatologists in [place]. Denies any fevers, chills, sore throat, cough, dyspnea, chest pain, palpitations, abdominal pain, nausea, vomiting, diarrhea, back pain, or headaches. MD complaint: rash - Related Data Home Medications Medication Instructions Recorded Confirmed Hydrocodone/Acetaminophen [Alverda 1 tab PO QID 11/16/18 03/16/22 10-325] FLUoxetine HCL [PROzac] 20 mg PO DAILY 01/12/20 03/16/22 Omeprazole 20 mg PO DAILY 01/12/20 03/16/22 Fenofibrate 54 mg PO DAILY 10/03/21 03/16/22 QUEtiapine [SEROquel] 400 mg PO HS 10/03/21 03/16/22 busPIRone HCL 15 mg PO BID 10/03/21 03/16/22 Albuterol Inhaler [Ventolin Hfa 1 puff INHALATION DAILY 03/14/22 03/16/22 Inhaler] Atorvastatin Calcium [Lipitor] 40 mg PO HS 03/14/22 03/16/22 Magnesium Oxide 400 mg PO HS 03/14/22 03/16/22 Previous Rx's Medication Instructions Recorded HYDROcodone/APAP 10-325MG [Alverda 1 tab PO Q4HR PRN 3 Days #18 tab 03/16/22 10-325] Naproxen 500 mg PO BID #60 tablet 03/16/22 Allergies Allergy/AdvReac Type Severity Reaction Status Date / Time No Known Allergies Allergy Verified 03/07/23 17:30 Review of Systems ROS Statement: Those systems with pertinent positive or pertinent negative responses have been documented in the HPI. ROS Other: All systems not noted in ROS Statement are negative. Past Medical History Past Medical History: Asthma, GERD/Reflux, Hyperlipidemia, Osteoarthritis (OA), Sleep Apnea/CPAP/BIPAP Additional Past Medical History / Comment(s): hx migraines, occ irregular heartbeat, no cpap used, anemia, History of Any Multi-Drug Resistant Organisms: None Reported Past Surgical History: Breast Surgery, Section, Hysterectomy, Tonsillectomy, Tubal Ligation Additional Past Surgical History / Comment(s): Lt breast biopsy, Past Anesthesia/Blood Transfusion Reactions: No Reported Reaction, Motion Sickness Additional Past Anesthesia/Blood Transfusion Reaction / Comment(s): . Past Psychological History: Anxiety, Depression, PTSD Smoking Status: Current every day smoker Past Alcohol Use History: Occasional Past Drug Use History: None Reported - Past Family History Mother Family Medical History: No Reported History Additional Family Medical History / Comment(s): . Father Family Medical History: Osteoarthritis (OA) Additional Family Medical History / Comment(s): DDD General Exam Limitations: no limitations General appearance: alert, in no apparent distress Head exam: Present: atraumatic, normocephalic, normal inspection Respiratory exam: Present: normal lung sounds bilaterally. Absent: respiratory distress, wheezes, rales, rhonchi, stridor Cardiovascular Exam: Present: regular rate, normal rhythm, normal heart sounds. Absent: systolic murmur, diastolic murmur, rubs, gallop, clicks Neurological exam: Present: alert, oriented X3, CN II-XII intact Psychiatric exam: Present: normal affect, normal mood Skin exam: Present: other (Scattered circular areas on the bilateral upper and lower extremities. 1 cm papular area near the umbilicus that is purple in color. No drainage or overlying tenderness.) Course Vital Signs 03/07/23 17:27 Temperature 97.2 F L Pulse Rate 100 Respiratory 20 Rate Blood Pressure 107/74 O2 Sat by Pulse 95 Oximetry Medical Decision Making - Medical Decision Making This is a 57-year-old female who presents to the emergency department for a rash. Was pt. sent in by a medical professional or institution? @ -No Did you speak to anyone other than the patient for history? @ -No Did you review nursing and triage notes? @ -Yes, and I agree, it is accurate with regards to the patient's symptoms. Were old charts reviewed? @ -No Differential Diagnosis? @ -Differential Rash: Roseola, measles, Lyme disease, erythema multiforme, cellulitis, toxic shock syndrome, Juan Ramon Jonatan syndrome, Kawasaki disease, ayo mountain spotted fever, contact dermatitis, allergic dermatitis, measles, mumps, rubella, varicella, meningococcal disease, drug reaction, coxsackievirus, This is not meant to be an all-inclusive list. What testing was considered but not performed? (CT, X-rays, U/S, labs)? Why? @ -None What meds were considered but not given? Why? @ -None Did you discuss the management of the patient with other professionals? @ -No Did you reconcile home meds? @ -No Was smoking cessation discussed for >3mins.? @ -No Was critical care preformed (if so, how long)? @ -No Were there social determinants of health that impacted care today? How? (Homelessness, low income, unemployed, alcoholism, drug addiction, transportation, low edu. Level, literacy, decrease access to med. care, fci, rehab)? @ -No Was there de-escalation of care discussed even if they declined? (Discuss DNR or withdrawal of care, Hospice)? @ -No What co-morbidities impacted this encounter? (DM, HTN, Smoking, COPD, CAD, Cancer, CVA, Hep., AIDS, mental health diagnosis, sleep apnea, morbid obesity)? @ -Morbid obesity Was patient admitted / discharged? @ -Discharged. Dr. Zuniga evaluated the patient alongside of me, we discussed with her that we do not have a clear indication as to what exactly is causing this rash. Also advised that we do not do biopsies or similar procedures in the emergency department. I did inform her that we do have a local chiropractic neurologist in [place]. Dr. Prabhakar's office says on their website that the [place] office accepts Medicaid. This information was relayed to the patient, and she was instructed to contact them first thing in the morning for a follow-up appointment. Recommended she take a picture of the lesion on her abdomen before it changes so that she can show it to the chiropractic neurologist and her primary care provider. Triamcinolone cream administered in the emergency department. Advised that she apply this to lesions 3-4 times daily as needed to help with the itching. Undiagnosed new problem with uncertain prognosis? @ -None Drug Therapy requiring intensive monitoring for toxicity (Heparin, Nitro, Insulin, Cardizem)? @ -None Were any procedures done? @ -None Diagnosis/symptom? @ -Dermatitis Acute, or Chronic, or Acute on Chronic? @ -Acute Uncomplicated (without systemic symptoms) or Complicated (systemic symptoms)? @ -Uncomplicated Side effects of treatment? @ -None Exacerbation, Progression, or Severe Exacerbation] @ -Not applicable Poses a threat to life or bodily function? @ -No Return precautions reviewed in depth, the patient is instructed to return to the emergency department with any new, worsening, or concerning symptoms. Patient verbalized understanding. This case was discussed in detail with the attending ED physician, Dr. Zuniga. Presentation, findings, and treatment plan discussed in detail as well. Disposition Clinical Impression: Dermatitis Disposition: HOME SELF-CARE Instructions (If sedation given, give patient instructions): Dermatitis (ED) Additional Instructions: Return to the emergency department with any new, worsening, or concerning symptoms. Use your phone to take a picture of this lesion so you can show your primary care provider. You can use the steroid cream 3-4 times daily as needed. Do not apply this to your face. Contact the dermatology office listed below first thing in the morning for a follow-up appointment. Follow up with your primary care provider in 1-2 days. Is patient prescribed a controlled substance at d/c from ED?: No Referrals: [facility] [Primary Care Provider] - 1-2 days Beatris Prabhakar MD [STAFF PHYSICIAN] - 1-2 days
== END 2023-03-07 18:33 | disposition home or self-care (01) ==
LOC: EC 17:16
DX: L30.9 Dermatitis, unspecified (principal); J45.909 Unspecified asthma, uncomplicated; K21.9 Gastro-esophageal reflux disease without esophagitis; E78.5 Hyperlipidemia, unspecified; M19.90 Unspecified osteoarthritis, unspecified site; F41.9 Anxiety disorder, unspecified; F32.A Depression, unspecified; F17.200 Nicotine dependence, unspecified, uncomplicated; Z79.899 Other long term (current) drug therapy
CPT/HCPCS: 99282

== ENCOUNTER → 2023-03-27 | Outpatient (CLI) | payer OTHER ==
--- NOTE | 2023-03-27 17:43 | P.PN ---
Subjective DATE: 03/27/2023 FOLLOW UP VISIT. Patient with sleepwalking and obstructive sleep apnea hypopnea syndrome return to sleep center for follow-up visit. Information from previous visit have been reviewed. Patient is on treatment with the Klonopin 1 mg at bedtime. With this regimen no recent episodes of sleep walking. Patient does not use CPAP equipment on regular basis. MEDICATIONS:1. Seroquel 2. Trazodone 3. Prozac 4. BuSpar 5. Clonazepam During physical exam: GENERAL: A pleasant patient without any distress. VITAL SIGNS: BP 90/63, HR 107, RR 16 , weight 175.6, temperature 98, oxygen saturation at room air 94 % . HEENT: PERRLA, EOMI.low position of soft palate, Mallapati 3 . NECK: Supple. No JVD. LUNGS: Clear to percussion and to auscultation. Good air exchange. No wheezing or rhonchi. HEART: S1, S2 regular. ABDOMEN: Soft and nontender. Slightly obese EXTREMITIES: No clubbing or cyanosis. MANAGER PROGRESSIVE CARE: Awake, alert, and oriented x3. No focal deficit. Impressions: 1. Sleepwalking. Patient is on treatment with clonazepam 1 mg at bedtime. No recent episodes 2. History of obstructive sleep apnea-hypopnea syndrome. Patient is using CPAP equipment but not on a regular basis. Promised to follow recommendations to use CPAP. 3. History of posttraumatic stress disorder. 4. Depression. 5. History of shoulder pain. 6. History of neck problems. Plan: 1. Patient should use CPAP equipment every night. I again discussed necessity of CPAP therapy with the patient. 2. I will maintain prescription for clonazepam 1 mg at bedtime to prevent sleepwalking. 3. PAP unit should stay lower then position of the head. 4. Advised patient to remove all remaining water from humidifier canister daily and make it dry after each usage. Refill canister with fresh distilled water before each usage. 5. Sleep hygiene with regular time in bed for at least 8 hours. 6. Precautions related to driving. No driving if feel any sleepiness. 7. I will maintain prescription for PAP supplies including mask, tube, filters if necessary. 8. Watching and losing weight. 9. Follow up visit in 6 months or earlier if patient has any problems. Thank you very much for allowing me to participate in the management of your patient. Clarke Us MD, PhD, FAASM. Diplomat of [place] [employer], Sleep Medicine Board by [place] [employer] [facility]
== END ==
LOC: SLEEP 15:15
PROVIDERS: ATTEND Internal Medicine
DX: G47.33 Obstructive sleep apnea (adult) (pediatric) (principal); F32.A Depression, unspecified; F43.10 Post-traumatic stress disorder, unspecified; Z99.89 Dependence on other enabling machines and devices; F51.3 Sleepwalking [somnambulism]; R63.4 Abnormal weight loss; M54.2 Cervicalgia; F17.200 Nicotine dependence, unspecified, uncomplicated
CPT/HCPCS: 99212

== ENCOUNTER 2023-06-03 04:56 | Emergency (ER) | payer OTHER ==
[2023-06-03 05:02] VITALS: RESP 18; TEMP 99
[2023-06-03] MEDS ORDERED: ALBUTEROL NEBULIZED 2.5 MG/3 ML INHALATION STA (05:26)
[2023-06-03] MEDS ORDERED: MORPHINE SULFATE 4 MG/ML SYRINGE IV STA (05:27)
--- NOTE | 2023-06-03 05:46 | ED ---
General Adult HPI - General Chief complaint: Abdominal Pain Stated complaint: Uterine pain Time Seen by Provider: 06/03/23 05:14 Source: patient Mode of arrival: ambulatory Limitations: no limitations - History of Present Illness Initial comments: This patient is a 57-year-old woman to have evaluation for pain that initially was periumbilical but now seems to be diffusely throughout her abdomen. The patient states that the symptoms had been becoming more intense over the course of past few days and into tonight. She has had nausea. Patient has not noted change in bowel movements or urination. No fever or chills -: days(s) Location: abdomen Quality: aching Consistency: constant Improves with: none Worsens with: none Associated Symptoms: nausea/vomiting Treatments Prior to Arrival: none - Related Data Home Medications Medication Instructions Recorded Confirmed Hydrocodone/Acetaminophen [[place]den 1 tab PO QID 11/16/18 03/16/22 10-325] FLUoxetine HCL [PROzac] 20 mg PO DAILY 01/12/20 03/16/22 Omeprazole 20 mg PO DAILY 01/12/20 03/16/22 Fenofibrate 54 mg PO DAILY 10/03/21 03/16/22 QUEtiapine [SEROquel] 400 mg PO HS 10/03/21 03/16/22 busPIRone HCL 15 mg PO BID 10/03/21 03/16/22 Albuterol Inhaler [Ventolin Hfa 1 puff INHALATION DAILY 03/14/22 03/16/22 Inhaler] Atorvastatin Calcium [Lipitor] 40 mg PO HS 03/14/22 03/16/22 Magnesium Oxide 400 mg PO HS 03/14/22 03/16/22 Previous Rx's Medication Instructions Recorded HYDROcodone/APAP 10-325MG [Belden 1 tab PO Q4HR PRN 3 Days #18 tab 03/16/22 10-325] Naproxen 500 mg PO BID #60 tablet 03/16/22 Amoxic-Pot Clav 875-125Mg 1 tab PO Q12HR 7 Days #14 tab 06/03/23 [Augmentin 875-125] Allergies Allergy/AdvReac Type Severity Reaction Status Date / Time No Known Allergies Allergy Verified 06/03/23 05:01 Review of Systems ROS Statement: Those systems with pertinent positive or pertinent negative responses have been documented in the HPI. ROS Other: All systems not noted in ROS Statement are negative. Constitutional: Denies: fever, chills Respiratory: Denies: cough, dyspnea Cardiovascular: Denies: chest pain, palpitations, edema Gastrointestinal: Reports: abdominal pain, nausea. Denies: vomiting, diarrhea, constipation, melena, hematochezia Genitourinary: Denies: dysuria, hematuria Musculoskeletal: Denies: back pain Skin: Denies: rash Neurological: Denies: headache, weakness Past Medical History Past Medical History: Asthma, GERD/Reflux, Hyperlipidemia, Osteoarthritis (OA), Sleep Apnea/CPAP/BIPAP Additional Past Medical History / Comment(s): hx migraines, occ irregular heartbeat, no cpap used, anemia, History of Any Multi-Drug Resistant Organisms: None Reported Past Surgical History: Breast Surgery, Section, Hernia Repair, Hysterectomy, Tonsillectomy, Tubal Ligation Additional Past Surgical History / Comment(s): Lt breast biopsy, Past Anesthesia/Blood Transfusion Reactions: No Reported Reaction, Motion Sickness Additional Past Anesthesia/Blood Transfusion Reaction / Comment(s): . Past Psychological History: Anxiety, Depression, PTSD Smoking Status: Current every day smoker Past Alcohol Use History: Daily Past Drug Use History: None Reported - Past Family History Mother Family Medical History: No Reported History Additional Family Medical History / Comment(s): . Father Family Medical History: Osteoarthritis (OA) Additional Family Medical History / Comment(s): DDD General Exam Limitations: no limitations General appearance: alert, in no apparent distress Head exam: Present: atraumatic, normocephalic Eye exam: Present: normal appearance Neck exam: Present: normal inspection Respiratory exam: Present: normal lung sounds bilaterally, wheezes. Absent: respiratory distress, rales, rhonchi, stridor Cardiovascular Exam: Present: regular rate, normal rhythm, normal heart sounds. Absent: systolic murmur, diastolic murmur, rubs, gallop GI/Abdominal exam: Present: soft. Absent: distended, tenderness, guarding, rebound, rigid, mass Extremities exam: Present: normal inspection, normal capillary refill. Absent: pedal edema, calf tenderness Back exam: Present: normal inspection. Absent: CVA tenderness (R), CVA tenderness (L) Neurological exam: Present: alert Skin exam: Present: warm, dry, intact, normal color. 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 - EKG Results: EKG: interpreted by FABRICIOD, sinus rhythm (Rate 79 bpm), normal axis, normal QRS, normal ST/T, no acute changes Medical Decision Making - Medical Decision Making The patient had computed tomography scan of the abdomen which I interpreted to show some colitis of the right sided colon. Was pt. sent in by a medical professional or institution (, PA, [facility], urgent care, hospital, or fpc...) When possible be specific @ -[No] Did you speak to anyone other than the patient for history (EMS, parent, family, police, friend...)? What history was obtained from this source @ -[No] Did you review nursing and triage notes (agree or disagree)? Why? @ -[I reviewed and agree with nursing and triage notes] Were old charts reviewed (outside hosp., previous admission, EMS record, old EKG, old radiological studies, urgent care reports/EKG's, fpc records)? Report findings @ -[No old charts were reviewed] Differential Diagnosis (chest pain, altered mental status, abdominal pain women, abdominal pain men, vaginal bleeding, weakness, fever, dyspnea, syncope, headache, dizziness, GI bleed, back pain, seizure, CVA, palpatations, mental health, musculoskeletal)? @ -[Differential Abdominal Pain Women: Appendicitis, Cholecystitis, diverticulosis, ischemic bowel, pancreatitis, hepatitis, UTI, gastroenteritis, AAA, incarcerated hernia, bowel obstruction, constipation, inflammatory bowel, hepatitis, peptic ulcer disease, splenic infarction, perforated viscus, vulvitis, ovarian torsion, PID, kidney stone, placenta abruption, this is not meant to be an all-inclusive list EKG interpreted by me (3pts min.). @ -[As above] X-rays interpreted by me (1pt min.). @ -[None done] CT interpreted by me (1pt min.). @ -[As above U/S interpreted by me (1pt. min.). @ -[None done] What testing was considered but not performed or refused? (CT, X-rays, U/S, labs)? Why? @ -[None] What meds were considered but not given or refused? Why? @ -[None] Did you discuss the management of the patient with other professionals (professionals i.e. , PA, [facility], lab, RT, psych nurse, marriage and family social worker, trial lawyer, teacher, safety patrol officer, residential case manager)? Give summary @ -[No] Was smoking cessation discussed for >3mins.? @ -[No] Was critical care preformed (if so, how long)? @ -[No] Were there social determinants of health that impacted care today? How? (Homelessness, low income, unemployed, alcoholism, drug addiction, transportation, low edu. Level, literacy, decrease access to med. care, detention, rehab)? @ -[No] Was there de-escalation of care discussed even if they declined (Discuss DNR or withdrawal of care, Hospice)? DNR status @ -[No] What co-morbidities impacted this encounter? (DM, HTN, Smoking, COPD, CAD, Cancer, CVA, ARF, Chemo, Hep., AIDS, mental health diagnosis, sleep apnea, morbi d obesity)? @ -[None] Was patient admitted / discharged? Hospital course, mention meds given and route, prescriptions, significant lab abnormalities, going to OR and other pertinent info. @ -[This patient is a 57-year-old woman found to have some colitis. We discussed the appropriate further care and follow-up as well as return parameters. Patient currently stable for discharge but will return if any problems. Undiagnosed new problem with uncertain prognosis? @ -[No] Drug Therapy requiring intensive monitoring for toxicity (Heparin, Nitro, Insulin, Cardizem)? @ -[No] Were any procedures done? @ -[No] Diagnosis/symptom? @ -Acute colitis Acute, or Chronic, or Acute on Chronic? @ -[default] Uncomplicated (without systemic symptoms) or Complicated (systemic symptoms)? @ -[Uncomplicated Side effects of treatment? @ -[No] Exacerbation, Progression, or Severe Exacerbation? @ -[No] Poses a threat to life or bodily function? How? (Chest pain, [place], [place], pneumonia, PE, COPD, DKA, ARF, appy, cholecystitis, CVA, Diverticulitis, Homicidal, Suicidal, threat to staff... and all critical care pts) @ -[No] - Lab Data Result diagrams: 06/03/23 05:16 06/03/23 05:16 Lab Results 06/03/23 06/03/23 06/03/23 Range/Units 05:16 05:16 05:16 WBC 7.3 (3.8-10.6) k/uL RBC 4.46 (3.80-5.40) m/uL Hgb 15.8 (11.4-16.0) gm/dL Hct 47.2 H (34.0-46.0) % MCV 105.9 H (80.0-100.0) fL MCH 35.4 H (25.0-35.0) pg MCHC 33.4 (31.0-37.0) g/dL RDW 13.2 (11.5-15.5) % Plt Count 322 (150-450) k/uL MPV 10.9 Neutrophils % 62 % Lymphocytes % 26 % Monocytes % 7 % Eosinophils % 2 % Basophils % 1 % Neutrophils # 4.5 (1.3-7.7) k/uL Lymphocytes # 1.9 (1.0-4.8) k/uL Monocytes # 0.5 (0-1.0) k/uL Eosinophils # 0.1 (0-0.7) k/uL Basophils # 0.0 (0-0.2) k/uL Macrocytosis Moderate Sodium 138 (137-145) mmol/L Potassium 3.9 (3.5-5.1) mmol/L Chloride 105 (98-107) mmol/L Carbon Dioxide 22 (22-30) mmol/L Anion Gap 11 mmol/L BUN 7 (7-17) mg/dL Creatinine 0.47 L (0.52-1.04) mg/dL Est GFR (CKD-EPI)AfAm >90 (>60 ml/min/1.73 sqM) Est GFR (CKD-EPI)NonAf >90 (>60 ml/min/1.73 sqM) Glucose 91 (74-99) mg/dL Lactic Ac Sepsis Rflx Plasma Lactic Acid Pablo 2.1 H* (0.7-2.0) mmol/L Calcium 9.2 (8.4-10.2) mg/dL Total Bilirubin 0.6 (0.2-1.3) mg/dL AST 58 H (14-36) U/L ALT 23 (4-34) U/L Alkaline Phosphatase 135 H (38-126) U/L C-Reactive Protein 2.4 H (<1.0) mg/dL Total Protein 7.5 (6.3-8.2) g/dL Albumin 4.2 (3.5-5.0) g/dL Amylase 43 (30-110) U/L Lipase 69 (23-300) U/L Urine Color Urine Appearance (Clear) Urine pH (5.0-8.0) Ur Specific [place] (1.001-1.035) Urine Protein (Negative) Urine Glucose (UA) (Negative) Urine Ketones (Negative) Urine Blood (Negative) Urine Nitrite (Negative) Urine Bilirubin (Negative) Urine Urobilinogen (<2.0) mg/dL Ur Leukocyte Esterase (Negative) 06/03/23 06/03/23 Range/Units 06:26 07:05 WBC (3.8-10.6) k/uL RBC (3.80-5.40) m/uL Hgb (11.4-16.0) gm/dL Hct (34.0-46.0) % MCV (80.0-100.0) fL MCH (25.0-35.0) pg MCHC (31.0-37.0) g/dL RDW (11.5-15.5) % Plt Count (150-450) k/uL MPV Neutrophils % % Lymphocytes % % Monocytes % % Eosinophils % % Basophils % % Neutrophils # (1.3-7.7) k/uL Lymphocytes # (1.0-4.8) k/uL Monocytes # (0-1.0) k/uL Eosinophils # (0-0.7) k/uL Basophils # (0-0.2) k/uL Macrocytosis Sodium (137-145) mmol/L Potassium (3.5-5.1) mmol/L Chloride (98-107) mmol/L Carbon Dioxide (22-30) mmol/L Anion Gap mmol/L BUN (7-17) mg/dL Creatinine (0.52-1.04) mg/dL Est GFR (CKD-EPI)AfAm (>60 ml/min/1.73 sqM) Est GFR (CKD-EPI)NonAf (>60 ml/min/1.73 sqM) Glucose (74-99) mg/dL Lactic Ac Sepsis Rflx Y Plasma Lactic Acid Pablo (0.7-2.0) mmol/L Calcium (8.4-10.2) mg/dL Total Bilirubin (0.2-1.3) mg/dL AST (14-36) U/L ALT (4-34) U/L Alkaline Phosphatase (38-126) U/L C-Reactive Protein (<1.0) mg/dL Total Protein (6.3-8.2) g/dL Albumin (3.5-5.0) g/dL Amylase (30-110) U/L Lipase (23-300) U/L Urine Color Yellow Urine Appearance Clear (Clear) Urine pH 7.0 (5.0-8.0) Ur Specific [place] 1.020 (1.001-1.035) Urine Protein Trace H (Negative) Urine Glucose (UA) Negative (Negative) Urine Ketones 1+ H (Negative) Urine Blood Negative (Negative) Urine Nitrite Negative (Negative) Urine Bilirubin Negative (Negative) Urine Urobilinogen <2.0 (<2.0) mg/dL Ur Leukocyte Esterase Negative (Negative) Disposition Clinical Impression: Colitis Disposition: HOME SELF-CARE Condition: Good Prescriptions: Amoxic-Pot Clav 875-125Mg [Augmentin 875-125] 1 tab PO Q12HR 7 Days #14 tab Is patient prescribed a controlled substance at d/c from ED?: No Referrals: [facility] [Primary Care Provider] - 1-2 days
[2023-06-03 06:01] LABS: ALT 23 U/L (4-34); AST 58 U/L (14-36); African American GFR (CKD) >90 (>60 ml/min/1.73 sqM); Albumin 4.2 g/dL (3.5-5.0); Alkaline Phosphatase 135 U/L (38-126); Amylase 43 U/L (30-110); Anion Gap 11 mmol/L; Blood Urea Nitrogen 7 mg/dL (7-17); C Reactive Protein 2.4 mg/dL (<1.0); Calcium 9.2 mg/dL (8.4-10.2); Carbon Dioxide 22 mmol/L (22-30); Chloride 105 mmol/L (98-107); Glucose 91 mg/dL (74-99); Lipase 69 U/L (23-300); Non-African American GFR(CKD) >90 (>60 ml/min/1.73 sqM); Potassium 3.9 mmol/L (3.5-5.1); Sodium 138 mmol/L (137-145); Total Bilirubin 0.6 mg/dL (0.2-1.3); Total Protein 7.5 g/dL (6.3-8.2)
[2023-06-03] MEDS ORDERED: ONDANSETRON 4 MG/2 ML VIAL IVP STA (06:05)
[2023-06-03 06:09] LABS: Basophils % (A) 1 %; Eosinophils # (A) 0.1 k/uL (0-0.7); Eosinophils % (A) 2 %; HCT 47.2 % (34.0-46.0); HGB 15.8 gm/dL (11.4-16.0); Lymphocytes # (A) 1.9 k/uL (1.0-4.8); Lymphocytes % (A) 26 %; MCH 35.4 pg (25.0-35.0); MCHC 33.4 g/dL (31.0-37.0); MCV 105.9 fL (80.0-100.0); Macrocytosis Moderate; Mean Platelet Volume 10.9; Monocytes # (A) 0.5 k/uL (0-1.0); Monocytes % (A) 7 %; Neutrophils # (A) 4.5 k/uL (1.3-7.7); Neutrophils % (A) 62 %; Platelet Count 322 k/uL (150-450); RBC 4.46 m/uL (3.80-5.40); RDW 13.2 % (11.5-15.5); WBC 7.3 k/uL (3.8-10.6)
[2023-06-03 07:16] LABS: Appearance,Urine Clear (Clear); Bilirubin,Urine Negative (Negative); Blood,Urine Negative (Negative); Color,Urine Yellow; Glucose,Urine (UA) Negative (Negative); Ketones,Urine 1+ (Negative); Leukocyte Esterase,Urine Negative (Negative); Nitrite,Urine Negative (Negative); Protein,Urine Trace (Negative); Urobilinogen,Urine <2.0 mg/dL (<2.0)
--- NOTE | 2023-06-03 07:48 | CT ---
EXAMINATION TYPE: CT abdomen pelvis wo con DATE OF EXAM: 06/03/2023 COMPARISON: 02/24/2022 INDICATION: Abdominal pain, diffuse DLP: 751.7 mGycm, Automated exposure control for dose reduction was used. CONTRAST: 0 mL of Isovue 300. Study performed without Oral Contrast TECHNIQUE: Axial images were obtained from above the diaphragm to the pubic rami in the axial plane a t 5 mm thick sections. Reconstructed images are reviewed on the computer in the coronal plane. FINDINGS: Limited CT sections are obtained the lung bases. The lung bases are clear. CT ABDOMEN: Liver: Normal Spleen: Normal Pancreas: Normal Adrenal glands: The adrenal glands are normal. Gallbladder: Normal Kidneys: No masses are evident. No hydronephrosis is present. No cysts are present. No renal stone s are evident. Aorta: Mild Vascular calcification is within the aorta. Inferior vena cava: Normal. CT PELVIS: Loops of bowel within the abdomen and pelvis are normal. Study as the oral contrast limiting the evaluation. History some diffuse wall thickening distal ileum and proximal ascending colon. Correlate for colitis and ileitis. No dilated loops of bowel or suggest obstruction. Appendix: Not identified. No suspicious dilated tubular structure or inflammatory changes are evident . Urinary bladder: Normal. Genitourinary structures: Uterus and ovaries are not identified. Osseous structures: No suspicious lytic or sclerotic lesions. IMPRESSIONS: 1. Some mild wall thickening of the distal ileum and proximal ascending colon. Correlate for colitis and ileitis.
[2023-06-03] MEDS ORDERED: predniSONE 20 MG TAB PO STA (07:57)
[2023-06-03] MEDS ORDERED: AMOXIC-POT CLAV 875-125MG 1 EACH TAB PO STA (07:58)
[2023-06-03 08:07] VITALS: BP 112/76; PULSE 70
== END 2023-06-03 08:07 | disposition home or self-care (01) ==
LOC: EC 04:56
DX: K52.9 Noninfective gastroenteritis and colitis, unspecified (principal); E78.5 Hyperlipidemia, unspecified; F32.A Depression, unspecified; F41.9 Anxiety disorder, unspecified; G47.30 Sleep apnea, unspecified; J45.909 Unspecified asthma, uncomplicated; K21.9 Gastro-esophageal reflux disease without esophagitis; M19.90 Unspecified osteoarthritis, unspecified site; F17.200 Nicotine dependence, unspecified, uncomplicated; Z79.899 Other long term (current) drug therapy
CPT/HCPCS: 36415; 94640; 93005; 80053; 82150; 83605; 83690; 85025; 86140; 81003; 74176; 99284; 96374; 96375; J2270; J2405; J7512

== ENCOUNTER → 2023-06-19 | Outpatient (CLI) | payer OTHER ==
[2023-06-19 14:36] LABS: HCT 41.9 % (37.2-46.3); HGB 13.9 d/dL (12.0-15.0); MCH 35.7 pg (27.0-32.0); MCHC 33.2 d/dL (32.0-37.0); MCV 107.7 FL (80.0-97.0); Mean Platelet Volume 12.4 FL (9.5-12.2); NRBC Per 100 WBC 0 X 10*3/uL (0.00-0.01); Platelet Count 194 X 10*3/uL (140-440); RBC 3.89 X 10*6/uL (4.10-5.20); RDW 14.3 % (11.5-14.5); WBC 5.78 X 10*3/uL (4.50-10.00)
[2023-06-19 15:13] LABS: ALT 28 U/L (8-44); AST 52 U/L (13-35); Albumin 4.2 d/dL (3.8-4.9); Albumin/Globulin Ratio 1.75 Ratio (1.60-3.17); Alkaline Phosphatase 112 U/L (41-126); BUN/Creat Ratio 8.67 Ratio (12.00-20.00); Blood Urea Nitrogen 5.2 mg/dL (9.0-27.0); Calcium 9.2 mg/dL (8.7-10.3); Carbon Dioxide 23.7 mmol/L (21.6-31.8); Chloride 104 mmol/L (96-109); Globulin 2.4 d/dL (1.6-3.3); Glucose 84 mg/dL (70-110); Potassium 4.1 mmol/L (3.5-5.5); Sodium 143 mmol/L (135-145); Total Bilirubin 0.4 mg/dL (0.3-1.2); Total Protein 6.6 d/dL (6.2-8.2)
[2023-06-19 15:51] LABS: Basophils # (A) 0.06 X 10*3/uL (0.00-0.10); Eosinophils # (A) 0.25 X 10*3/uL (0.04-0.35); Eosinophils % (A) 4.3 %; Lymphocytes # (A) 1.88 X 10*3/uL (0.90-5.00); Lymphocytes % (A) 32.5 %; Macrocytosis (M) 2+; Monocytes # (A) 0.46 X 10*3/uL (0.20-1.00); Neutrophils # (A) 3.11 X 10*3/uL (1.80-7.70); Neutrophils % (A) 53.9 %
[2023-06-19 17:07] LABS: Hepatitis A Antibody IgM Nonreactive; Hepatitis B Core IgM Nonreactive; Hepatitis B Surface Antigen Nonreactive; Hepatitis C IgG Antibody Nonreactive
[2023-06-20 17:30] LABS: HIV 2 AB Non-Reactive (Non-Reactive); HIV AB P24 Non-Reactive (Non-Reactive); HIV P24 AG Non-Reactive (Non-Reactive)
== END | disposition home or self-care (01) ==
LOC: LABWHC1 07:02
PROVIDERS: ATTEND Dermatology
DX: L40.8 Other psoriasis (principal)
CPT/HCPCS: 36415; 80053; 80074; 85025; 86060; 86480; 87390

== ENCOUNTER 2023-07-01 12:16 | Emergency (ER) | payer OTHER ==
[2023-07-01 12:26] VITALS: RESP 18
--- NOTE | 2023-07-01 13:03 | ED ---
General Adult HPI - General Chief complaint: Anxiety Stated complaint: Anxiety Time Seen by Provider: 07/01/23 12:18 Source: patient, EMS, RN notes reviewed, old records reviewed Mode of arrival: EMS Limitations: no limitations - History of Present Illness Initial comments: 57-year-old female had presented for anxiety. Prior to complete evaluation the patient had eloped from the emergency department. She had stable vitals, normal gait. She was anxious but not reporting any suicidality. She states that she had to deal with some issues at home. A complete history and physical exam was not performed but a screening history and physical exam was performed. Patient had run home to lock her door and then returned emergency department for evaluation. She complains of anxiety. No chest pain. No dyspnea. She states that she does have some diaphoresis. No vomiting. No fever. No suicidal or homicidal ideation. - Related Data Home Medications Medication Instructions Recorded Confirmed Hydrocodone/Acetaminophen [Lengby 1 tab PO QID 11/16/18 03/16/22 10-325] FLUoxetine HCL [PROzac] 20 mg PO DAILY 01/12/20 03/16/22 Omeprazole 20 mg PO DAILY 01/12/20 03/16/22 Fenofibrate 54 mg PO DAILY 10/03/21 03/16/22 QUEtiapine [SEROquel] 400 mg PO HS 10/03/21 03/16/22 busPIRone HCL 15 mg PO BID 10/03/21 03/16/22 Albuterol Inhaler [Ventolin Hfa 1 puff INHALATION DAILY 03/14/22 03/16/22 Inhaler] Atorvastatin Calcium [Lipitor] 40 mg PO HS 03/14/22 03/16/22 Magnesium Oxide 400 mg PO HS 03/14/22 03/16/22 Previous Rx's Medication Instructions Recorded HYDROcodone/APAP 10-325MG [Lengby 1 tab PO Q4HR PRN 3 Days #18 tab 03/16/22 10-325] Naproxen 500 mg PO BID #60 tablet 03/16/22 Amoxic-Pot Clav 875-125Mg 1 tab PO Q12HR 7 Days #14 tab 06/03/23 [Augmentin 875-125] QUEtiapine FUMARATE [SEROquel] 400 mg PO DAILY 30 Days #30 tablet 07/01/23 Allergies Allergy/AdvReac Type Severity Reaction Status Date / Time No Known Allergies Allergy Verified 06/03/23 05:01 Review of Systems ROS Statement: Those systems with pertinent positive or pertinent negative responses have been documented in the HPI. ROS Other: All systems not noted in ROS Statement are negative. Past Medical History Past Medical History: Asthma, GERD/Reflux, Hyperlipidemia, Osteoarthritis (OA), Sleep Apnea/CPAP/BIPAP Additional Past Medical History / Comment(s): hx migraines, occ irregular heartbeat, no cpap used, anemia, History of Any Multi-Drug Resistant Organisms: None Reported Past Surgical History: Breast Surgery, Section, Hernia Repair, H ysterectomy, Tonsillectomy, Tubal Ligation Additional Past Surgical History / Comment(s): Lt breast biopsy, Past Anesthesia/Blood Transfusion Reactions: No Reported Reaction, Motion Sickness Additional Past Anesthesia/Blood Transfusion Reaction / Comment(s): . Past Psychological History: Anxiety, Depression, PTSD Smoking Status: Current every day smoker Past Alcohol Use History: Occasional Past Drug Use History: None Reported - Past Family History Mother Family Medical History: No Reported History Additional Family Medical History / Comment(s): . Father Family Medical History: Osteoarthritis (OA) Additional Family Medical History / Comment(s): DDD General Exam Limitations: no limitations General appearance: alert, anxious Head exam: Present: atraumatic, normocephalic Eye exam: Present: normal appearance ENT exam: Present: normal exam Respiratory exam: Present: normal lung sounds bilaterally. Absent: respiratory distress, wheezes, rales, rhonchi Cardiovascular Exam: Present: regular rate, normal rhythm GI/Abdominal exam: Present: soft. Absent: distended, tenderness, guarding Extremities exam: Present: normal inspection, normal capillary refill. Absent: pedal edema, calf tenderness Neurological exam: Present: alert, CN II-XII intact, normal gait. Absent: motor sensory deficit Psychiatric exam: Present: anxious Skin exam: Present: normal color. Absent: cyanosis Course Vital Signs 07/01/23 12:20 Temperature 97.6 F Pulse Rate 69 Respiratory 18 Rate Blood Pressure 152/85 O2 Sat by Pulse 99 Oximetry Medical Decision Making - Medical Decision Making Was pt. sent in by a medical professional or institution (, PA, [employer], urgent care, hospital, or [facility]...) When possible be specific @ -No Did you speak to anyone other than the patient for history (EMS, parent, family, police, friend...)? What history was obtained from this source @ -No Did you review nursing and triage notes (agree or disagree)? Why? @ -I reviewed and agree with nursing and triage notes Were old charts reviewed (outside hosp., previous admission, EMS record, old EKG, old radiological studies, urgent care reports/EKG's, [facility] records)? Report findings @ -No old charts were reviewed Differential Diagnosis (chest pain, altered mental status, abdominal pain women, abdominal pain men, vaginal bleeding, weakness, fever, dyspnea, syncope, headache, dizziness, GI bleed, back pain, seizure, CVA, palpatations, mental health, musculoskeletal)? @ Arrhythmia, medication refill, anxiety EKG interpreted by me (3pts min.). @Sinus rhythm rate of 79, OK interval 132, QRS duration 87, QTC 414, no ST segment elevation. X-rays interpreted by me (1pt min.). @ -None done CT interpreted by me (1pt min.). @ -None done U/S interpreted by me (1pt. min.). @ -None done What testing was considered but not performed or refused? (CT, X-rays, U/S, labs)? Why? @ -None What meds were considered but not given or refused? Why? @ -None Did you discuss the management of the patient with other professionals (professionals i.e. , PA, [employer], lab, RT, psych nurse, director of social work, broom bundler, teacher, command center officer, case technician)? Give summary @ -No Was smoking cessation discussed for >3mins.? @ -No Was critical care preformed (if so, how long)? @ -No Were there social determinants of health that impacted care today? How? (Homelessness, low income, unemployed, alcoholism, drug addiction, transportation, low edu. Level, literacy, decrease access to med. care, senior care, rehab)? @ -No Was there de-escalation of care discussed even if they declined (Discuss DNR or withdrawal of care, Hospice)? DNR status @ -No What co-morbidities impacted this encounter? (DM, HTN, Smoking, COPD, CAD, Cancer, CVA, ARF, Chemo, Hep., AIDS, mental health diagnosis, sleep apnea, morbid obesity)? @ -Anxiety Was patient admitted / discharged? Hospital course, mention meds given and route, prescriptions, significant lab abnormalities, going to OR and other pertinent info. @ -[Patient does admit to needing a refill of her Seroquel which she takes once daily. Vital signs are stable. She is in sinus rhythm. She has a mild hypokalemia which is replaced. Stable for discharge at this time. Undiagnosed new problem with uncertain prognosis? @ -No Drug Therapy requiring intensive monitoring for toxicity (Heparin, Nitro, Insulin, Cardizem)? @ -No Were any procedures done? @ -No Diagnosis/symptom? @ -Medication refill, anxiety Acute, or Chronic, or Acute on Chronic? @ -[Acute Uncomplicated (without systemic symptoms) or Complicated (systemic symptoms)? @ -default Side effects of treatment? @ -No Exacerbation, Progression, or Severe Exacerbation? @ -No Poses a threat to life or bodily function? How? (Chest pain, [place], [place], pneumonia, PE, COPD, DKA, ARF, appy, cholecystitis, CVA, Diverticulitis, Homicidal, Suicidal, threat to staff... and all critical care pts) @ -[Low risk at this time - Lab Data Result diagrams: 07/01/23 13:40 07/01/23 13:40 Lab Results 07/01/23 07/01/23 Range/Units 13:40 13:40 WBC 9.6 (3.8-10.6) k/uL RBC 4.08 (3.80-5.40) m/uL Hgb 14.7 (11.4-16.0) gm/dL Hct 43.5 (34.0-46.0) % MCV 106.5 H (80.0-100.0) fL MCH 36.1 H (25.0-35.0) pg MCHC 33.9 (31.0-37.0) g/dL RDW 13.2 (11.5-15.5) % Plt Count 205 (150-450) k/uL MPV 10.6 Neutrophils % 64 % Lymphocytes % 23 % Monocytes % 8 % Eosinophils % 1 % Basophils % 1 % Neutrophils # 6.1 (1.3-7.7) k/uL Lymphocytes # 2.2 (1.0-4.8) k/uL Monocytes # 0.7 (0-1.0) k/uL Eosinophils # 0.1 (0-0.7) k/uL Basophils # 0.1 (0-0.2) k/uL Macrocytosis Moderate Sodium 136 L (137-145) mmol/L Potassium 3.2 L (3.5-5.1) mmol/L Chloride 99 (98-107) mmol/L Carbon Dioxide 23 (22-30) mmol/L Anion Gap 14 mmol/L BUN 11 (7-17) mg/dL Creatinine 0.59 (0.52-1.04) mg/dL Est GFR (CKD-EPI)AfAm >90 (>60 ml/min/1.73 sqM) Est GFR (CKD-EPI)NonAf >90 (>60 ml/min/1.73 sqM) Glucose 84 (74-99) mg/dL Calcium 8.9 (8.4-10.2) mg/dL Total Bilirubin 0.9 (0.2-1.3) mg/dL AST 70 H (14-36) U/L ALT 31 (4-34) U/L Alkaline Phosphatase 137 H (38-126) U/L Total Protein 6.9 (6.3-8.2) g/dL Albumin 4.1 (3.5-5.0) g/dL Disposition Clinical Impression: Acute anxiety, Medication refill Disposition: HOME SELF-CARE Condition: Fair Instructions (If sedation given, give patient instructions): Generalized Anxiety Disorder (ED) Prescriptions: QUEtiapine FUMARATE [SEROquel] 400 mg PO DAILY 30 Days #30 tablet Is patient prescribed a controlled substance at d/c from ED?: No Referrals: [facility] [Primary Care Provider] - 1-2 days Time of Disposition: 14:33
[2023-07-01 13:47] LABS: Basophils # (A) 0.1 k/uL (0-0.2); Basophils % (A) 1 %; Eosinophils # (A) 0.1 k/uL (0-0.7); Eosinophils % (A) 1 %; HCT 43.5 % (34.0-46.0); HGB 14.7 gm/dL (11.4-16.0); Lymphocytes # (A) 2.2 k/uL (1.0-4.8); Lymphocytes % (A) 23 %; MCH 36.1 pg (25.0-35.0); MCHC 33.9 g/dL (31.0-37.0); MCV 106.5 fL (80.0-100.0); Macrocytosis Moderate; Mean Platelet Volume 10.6; Monocytes # (A) 0.7 k/uL (0-1.0); Monocytes % (A) 8 %; Neutrophils # (A) 6.1 k/uL (1.3-7.7); Neutrophils % (A) 64 %; Platelet Count 205 k/uL (150-450); RBC 4.08 m/uL (3.80-5.40); RDW 13.2 % (11.5-15.5); WBC 9.6 k/uL (3.8-10.6)
[2023-07-01] MEDS ORDERED: ALBUTEROL HFA INHALER INHALATION STA (13:48)
[2023-07-01 14:13] LABS: ALT 31 U/L (4-34); AST 70 U/L (14-36); African American GFR (CKD) >90 (>60 ml/min/1.73 sqM); Albumin 4.1 g/dL (3.5-5.0); Alkaline Phosphatase 137 U/L (38-126); Anion Gap 14 mmol/L; Blood Urea Nitrogen 11 mg/dL (7-17); Calcium 8.9 mg/dL (8.4-10.2); Carbon Dioxide 23 mmol/L (22-30); Chloride 99 mmol/L (98-107); Glucose 84 mg/dL (74-99); Non-African American GFR(CKD) >90 (>60 ml/min/1.73 sqM); Potassium 3.2 mmol/L (3.5-5.1); Sodium 136 mmol/L (137-145); Total Bilirubin 0.9 mg/dL (0.2-1.3); Total Protein 6.9 g/dL (6.3-8.2)
[2023-07-01] MEDS ORDERED: POTASSIUM CHLORIDE ER 20 MEQ TAB.ER PO STA (14:23)
[2023-07-01 14:58] VITALS: BP 143/86; PULSE 86; TEMP 98
== END 2023-07-01 14:58 | disposition home or self-care (01) ==
LOC: EC 12:16
DX: F41.9 Anxiety disorder, unspecified (principal); Z76.0 Encounter for issue of repeat prescription; E78.5 Hyperlipidemia, unspecified; F32.A Depression, unspecified; G47.30 Sleep apnea, unspecified; J45.909 Unspecified asthma, uncomplicated; K21.9 Gastro-esophageal reflux disease without esophagitis; M19.90 Unspecified osteoarthritis, unspecified site; F17.200 Nicotine dependence, unspecified, uncomplicated; Z79.899 Other long term (current) drug therapy
CPT/HCPCS: 36415; 80053; 85025; 93005; 94640; 99284

== ENCOUNTER 2023-07-22 08:31 | Emergency (ER) | payer OTHER ==
[2023-07-22 08:36] VITALS: TEMP 98.8
[2023-07-22] MEDS ORDERED: ONDANSETRON 4 MG/2 ML VIAL IVP STA (09:17)
[2023-07-22] MEDS ORDERED: SODIUM CHLORIDE 0.9% 1,000 ML IV STA ×2 (09:17→10:00)
[2023-07-22] MEDS ORDERED: PANTOPRAZOLE 40 MG/10 ML VIAL IVP STA (09:17)
[2023-07-22] MEDS: MORPHINE SULFATE 4 MG/ML SYRINGE IVP STA ×2 (09:35→09:55)
--- NOTE | 2023-07-22 09:40 | ED ---
General Adult HPI - General Chief complaint: Abdominal Pain Stated complaint: abd pain Time Seen by Provider: 07/22/23 09:10 Source: patient, EMS, RN notes reviewed, old records reviewed Mode of arrival: EMS - History of Present Illness Initial comments: Patient is a 57-year-old female with past medical history remarkable for chronic pain on home opiate medications, who was recently diagnosed with colitis last month, presents emergency Department complaining of abdominal pain. States she has completed all of her pain meds and has been without them. Has generalized pain. She does have a history of hernia repair with mesh. No other history of abdominal surgeries. So states to finish her pain meds early. States she is continuing to have bilateral lower quadrant abdominal pain worse over the last few days. States she initially improved after short course of antibiotics last month. Presents for reevaluation. Endorses nausea but no emesis. Denies chest pain or shortness of breath. Denies any fevers. Denies any diarrhea or constipation. Denies any melena or hematochezia. Presents for further evaluation at this time. Patient states she also has a history of hysterectomy. Denies any vaginal discharge or bleeding. - Related Data Home Medications Medication Instructions Recorded Confirmed Hydrocodone/Acetaminophen [Salix 1 tab PO QID 11/16/18 03/16/22 10-325] FLUoxetine HCL [PROzac] 20 mg PO DAILY 01/12/20 03/16/22 Omeprazole 20 mg PO DAILY 01/12/20 03/16/22 Fenofibrate 54 mg PO DAILY 10/03/21 03/16/22 QUEtiapine [SEROquel] 400 mg PO HS 10/03/21 03/16/22 busPIRone HCL 15 mg PO BID 10/03/21 03/16/22 Albuterol Inhaler [Ventolin Hfa 1 puff INHALATION DAILY 03/14/22 03/16/22 Inhaler] Atorvastatin Calcium [Lipitor] 40 mg PO HS 03/14/22 03/16/22 Magnesium Oxide 400 mg PO HS 03/14/22 03/16/22 Previous Rx's Medication Instructions Recorded HYDROcodone/APAP 10-325MG [Salix 1 tab PO Q4HR PRN 3 Days #18 tab 03/16/22 10-325] Naproxen 500 mg PO BID #60 tablet 03/16/22 Amoxic-Pot Clav 875-125Mg 1 tab PO Q12HR 7 Days #14 tab 06/03/23 [Augmentin 875-125] QUEtiapine FUMARATE [SEROquel] 400 mg PO DAILY 30 Days #30 tablet 07/01/23 Ciprofloxacin HCl [Cipro] 500 mg PO BID 5 Days #10 tab 07/22/23 metroNIDAZOLE [Flagyl] 500 mg PO TID 5 Days #15 tab 07/22/23 Allergies Allergy/AdvReac Type Severity Reaction Status Date / Time No Known Allergies Allergy Verified 07/22/23 08:37 Review of Systems ROS Statement: Those systems with pertinent positive or pertinent negative responses have been documented in the HPI. Review of Systems: CONST: Denies fever EYES: Denies blurry vision ENT: Denies nasal congestion C/V: Denies Chest pain RESP: Denies shortness of breath GI: Endorses abdominal pain : Denies dysuria SKIN: Denies rash. MSK: Denies joint pain. NEURO: Denies headache ROS Other: All systems not noted in ROS Statement are negative. Past Medical History Past Medical History: Asthma, GERD/Reflux, Hyperlipidemia, Osteoarthritis (OA), Sleep Apnea/CPAP/BIPAP Additional Past Medical History / Comment(s): hx migraines, occ irregular heartbeat, no cpap used, anemia, History of Any Multi-Drug Resistant Organisms: None Reported Past Surgical History: Breast Surgery, Section, Hernia Repair, Hysterectomy, Tonsillectomy, Tubal Ligation Additional Past Surgical History / Comment(s): Lt breast biopsy, Past Anesthesia/Blood Transfusion Reactions: No Reported Reaction, Motion Sickness Additional Past Anesthesia/Blood Transfusion Reaction / Comment(s): . Past Psychological History: Anxiety, Depression, PTSD Smoking Status: Current every day smoker Past Alcohol Use History: Occasional Past Drug Use History: None Reported - Past Family History Mother Family Medical History: No Reported History Additional Family Medical History / Comment(s): . Father Family Medical History: Osteoarthritis (OA) Additional Family Medical History / Comment(s): DDD General Exam - General Exam Comments Initial Comments: General: Appears in no acute distress. HEAD: Normal with no signs of head trauma. EYES: PERRLA, EOMI, conjunctiva normal, no discharge. ENT: Hearing grossly intact, normal oropharynx. RESPIRATORY: Clear breath sounds bilaterally. No wheezes, rales, or rhonchi. C/V: Regular rate and rhythm. S1 and S2 auscultated, no edema, peripheral pulses 2+ and intact throughout ABD: Abdomen soft, nondistended. Mildly tender to palpation in the bilateral lower quadrants and suprapubically. No guarding. No rebound tenderness. No peritoneal signs. Pain mostly seems to be in suprapubic and left lower quadrant. EXT: Normal range of motion, no obvious deformity SKIN: No rashes or lesions observed on exposed skin. NEURO: Alert and oriented 4. No focal sensory or strength deficits. Course Vital Signs 07/22/23 07/22/23 07/22/23 08:32 09:36 12:02 Temperature 98.8 F Pulse Rate 104 H 102 H 61 Respiratory 19 20 19 Rate Blood Pressure 132/84 97/58 112/79 O2 Sat by Pulse 94 L 96 95 Oximetry Medical Decision Making - Medical Decision Making Was pt. sent in by a medical professional or institution (, PA, PETS SALESPERSON, urgent care, hospital, or half-way...) When possible be specific @ -No Did you speak to anyone other than the patient for history (EMS, parent, family, police, friend...)? What history was obtained from this source @ -No Did you review nursing and triage notes (agree or disagree)? Why? @ -I reviewed and agree with nursing and triage notes Were old charts reviewed (outside hosp., previous admission, EMS record, old EKG, old radiological studies, urgent care reports/EKG's, half-way records)? Report findings @ -Old charts reviewed from June 2023, her last visit. Diagnosed with colitis of the visit. Differential Diagnosis (chest pain, altered mental status, abdominal pain women, abdominal pain men, vaginal bleeding, weakness, fever, dyspnea, syncope, head ache, dizziness, GI bleed, back pain, seizure, CVA, palpatations, mental health, musculoskeletal)? @ -Differential Abdominal Pain Women: Appendicitis, Cholecystitis, diverticulosis, ischemic bowel, pancreatitis, hepatitis, UTI, gastroenteritis, AAA, incarcerated hernia, bowel obstruction, constipation, inflammatory bowel, hepatitis, peptic ulcer disease, splenic infarction, perforated viscus, vulvitis, ovarian torsion, PID, kidney stone, placenta abruption, this is not meant to be an all-inclusive list EKG interpreted by me (3pts min.). @ -As above X-rays interpreted by me (1pt min.). @ -Chest x-ray reveals no obvious acute cardiopulmonary process. CT interpreted by me (1pt min.). @ -CT abdomen and pelvis revealed ileitis. U/S interpreted by me (1pt. min.). @ -None done What testing was considered but not performed or refused? (CT, X-rays, U/S, labs)? Why? @ -None What meds were considered but not given or refused? Why? @ -None Did you discuss the management of the patient with other professionals (professionals i.e. , PA, PETS SALESPERSON, lab, RT, psych nurse, social secretary, behavioral psychologist, teacher, surveillance dual rate officer, renal case manager)? Give summary @ -No Was smoking cessation discussed for >3mins.? @ -No Was critical care preformed (if so, how long)? @ -No Were there social determinants of health that impacted care today? How? (Homelessness, low income, unemployed, alcoholism, drug addiction, transportation, low edu. Level, literacy, decrease access to med. care, penitentiary, rehab)? @ -No Was there de-escalation of care discussed even if they declined (Discuss DNR or withdrawal of care, Hospice)? DNR status @ -No What co-morbidities impacted this encounter? (DM, HTN, Smoking, COPD, CAD, Cancer, CVA, ARF, Chemo, Hep., AIDS, mental health diagnosis, sleep apnea, morbid obesity)? @ -None Was patient admitted / discharged? Hospital course, mention meds given and route, prescriptions, significant lab abnormalities, going to OR and other pertinent info. @ -Based on the patient's presentation and physical exam, she presents with lower abdominal pain. Has a history of colitis as well as multiple surgeries. No other obvious symptoms. Also is chronically on pain medications and is out for the last few days. Presents for further evaluation at this time. We will obtain abdominal laboratory studies as well as CT abdomen and pelvis. Vital signs within acceptable limits. She'll be symptomatically treated with IV fluids, Zofran, Protonix as well as morphine. She was in agreement this plan. Patient's labs are remarkable for no obvious findings. Imaging reveals ileitis but no other obvious acute process. On reevaluation, patient's pain is resolved. She will like to home. We discussed results. As her previous symptoms did resolve with antibiotics I will place her on them again empirically. She was in agreement this plan. She is placed on ciprofloxacin and Flagyl. Strict return precautions discussed. She was given a dose prior to discharge. I will provide the patient with a prescription for ciprofloxacin, Flagyl. I instructed the patient to follow up with their PCP in the next 1-3 days. I provided contact information for follow up with gastroenterology. I explained that the patient should return to the emergency department if they experience any worsening symptoms. Strict return precautions were discussed with the patient. The patient expressed understanding of these instructions. I answered all questions that the patient had. The patient was discharged home in good condition with their prescriptions and follow up information. Undiagnosed new problem with uncertain prognosis? @ -No Drug Therapy requiring intensive monitoring for toxicity (Heparin, Nitro, Insulin, Cardizem)? @ -No Were any procedures done? @ -No Diagnosis/symptom? @ -Ileitis Acute, or Chronic, or Acute on Chronic? @ -Acute Uncomplicated (without systemic symptoms) or Complicated (systemic symptoms)? @ -Uncomplicated Side effects of treatment? @ -none Exacerbation, Progression, or Severe Exacerbation] @ -no Poses a threat to life or bodily function? @ -no - Lab Data Result diagrams: 07/22/23 09:29 07/22/23 09:29 Lab Results 07/22/23 07/22/23 07/22/23 Range/Units 09:29 09:29 09:29 WBC 6.2 (3.8-10.6) k/uL RBC 4.82 (3.80-5.40) m/uL Hgb 17.2 H (11.4-16.0) gm/dL Hct 51.7 H (34.0-46.0) % MCV 107.1 H (80.0-100.0) fL MCH 35.7 H (25.0-35.0) pg MCHC 33.3 (31.0-37.0) g/dL RDW 13.1 (11.5-15.5) % Plt Count 127 L (150-450) k/uL MPV 11.7 Neutrophils % 72 % Lymphocytes % 18 % Monocytes % 5 % Eosinophils % 1 % Basophils % 0 % Neutrophils # 4.4 (1.3-7.7) k/uL Lymphocytes # 1.1 (1.0-4.8) k/uL Monocytes # 0.3 (0-1.0) k/uL Eosinophils # 0.1 (0-0.7) k/uL Basophils # 0.0 (0-0.2) k/uL Manual Slide Review Performed Large Platelets Present Macrocytosis Moderate PT 9.8 (9.0-12.0) sec INR 0.9 (<1.2) APTT 23.9 (22.0-30.0) sec Sodium (137-145) mmol/L Potassium (3.5-5.1) mmol/L Chloride (98-107) mmol/L Carbon Dioxide (22-30) mmol/L Anion Gap mmol/L BUN (7-17) mg/dL Creatinine (0.52-1.04) mg/dL Est GFR (CKD-EPI)AfAm (>60 ml/min/1.73 sqM) Est GFR (CKD-EPI)NonAf (>60 ml/min/1.73 sqM) Glucose (74-99) mg/dL Plasma Lactic Acid Palbo (0.7-2.0) mmol/L Calcium (8.4-10.2) mg/dL Total Bilirubin (0.2-1.3) mg/dL AST (14-36) U/L ALT (4-34) U/L Alkaline Phosphatase (38-126) U/L Total Protein (6.3-8.2) g/dL Albumin (3.5-5.0) g/dL Amylase (30-110) U/L Lipase (23-300) U/L Urine Color Light Yellow Urine Appearance Clear (Clear) Urine pH 6.5 (5.0-8.0) Ur Specific Wilson 1.003 (1.001-1.035) Urine Protein Negative (Negative) Urine Glucose (UA) Negative (Negative) Urine Ketones Negative (Negative) Urine Blood Negative (Negative) Urine Nitrite Negative (Negative) Urine Bilirubin Negative (Negative) Urine Urobilinogen <2.0 (<2.0) mg/dL Ur Leukocyte Esterase Negative (Negative) 07/22/23 07/22/23 Range/Units 09:29 09:29 WBC (3.8-10.6) k/uL RBC (3.80-5.40) m/uL Hgb (11.4-16.0) gm/dL Hct (34.0-46.0) % MCV (80.0-100.0) fL MCH (25.0-35.0) pg MCHC (31.0-37.0) g/dL RDW (11.5-15.5) % Plt Count (150-450) k/uL MPV Neutrophils % % Lymphocytes % % Monocytes % % Eosinophils % % Basophils % % Neutrophils # (1.3-7.7) k/uL Lymphocytes # (1.0-4.8) k/uL Monocytes # (0-1.0) k/uL Eosinophils # (0-0.7) k/uL Basophils # (0-0.2) k/uL Manual Slide Review Large Platelets Macrocytosis PT (9.0-12.0) sec INR (<1.2) APTT (22.0-30.0) sec Sodium 140 (137-145) mmol/L Potassium 3.9 (3.5-5.1) mmol/L Chloride 107 (98-107) mmol/L Carbon Dioxide 25 (22-30) mmol/L Anion Gap 8 mmol/L BUN 8 (7-17) mg/dL Creatinine 0.62 (0.52-1.04) mg/dL Est GFR (CKD-EPI)AfAm >90 (>60 ml/min/1.73 sqM) Est GFR (CKD-EPI)NonAf >90 (>60 ml/min/1.73 sqM) Glucose 97 (74-99) mg/dL Plasma Lactic Acid Pablo 1.4 (0.7-2.0) mmol/L Calcium 8.8 (8.4-10.2) mg/dL Total Bilirubin 0.5 (0.2-1.3) mg/dL AST 45 H (14-36) U/L ALT 23 (4-34) U/L Alkaline Phosphatase 106 (38-126) U/L Total Protein 6.7 (6.3-8.2) g/dL Albumin 3.8 (3.5-5.0) g/dL Amylase 42 (30-110) U/L Lipase 67 (23-300) U/L Urine Color Urine Appearance (Clear) Urine pH (5.0-8.0) Ur Specific Wilson (1.001-1.035) Urine Protein (Negative) Urine Glucose (UA) (Negative) Urine Ketones (Negative) Urine Blood (Negative) Urine Nitrite (Negative) Urine Bilirubin (Negative) Urine Urobilinogen (<2.0) mg/dL Ur Leukocyte Esterase (Negative) - EKG Data -: EKG Interpreted by Me EKG Comments: 12-lead Electrocardiogram Interpretation Note EKG was reviewed and interpreted by myself. 12-lead ECG performed at 0952 is interpreted by me as revealing normal sinus rhythm at a rate of 94 beats per minute. [place] is normal. NC interval is 136 ms, QRS duration is 91 ms, QTc is 4 29 ms.. There were no ST or T wave abnormalities to suggest myocardial ischemia or injury. R wave progression across the precordium was satisfactory. By my interpretation this EKG is non-diagnostic for acute ischemia. Disposition Clinical Impression: Ileitis Disposition: HOME SELF-CARE Condition: Good Prescriptions: Ciprofloxacin HCl [Cipro] 500 mg PO BID 5 Days #10 tab metroNIDAZOLE [Flagyl] 500 mg PO TID 5 Days #15 tab Is patient prescribed a controlled substance at d/c from ED?: No Referrals: [facility] [Primary Care Provider] - 1-2 days Alba Jara MD [STAFF PHYSICIAN] - 1-2 days Time of Disposition: 11:31
[2023-07-22] MEDS ORDERED: fentaNYL (PF) 50 MCG/ML 2 ML AMP IVP STA (09:54)
[2023-07-22 10:22] LABS: ALT 23 U/L (4-34); AST 45 U/L (14-36); African American GFR (CKD) >90 (>60 ml/min/1.73 sqM); Albumin 3.8 g/dL (3.5-5.0); Alkaline Phosphatase 106 U/L (38-126); Amylase 42 U/L (30-110); Basophils % (A) 0 %; Blood Urea Nitrogen 8 mg/dL (7-17); Calcium 8.8 mg/dL (8.4-10.2); Carbon Dioxide 25 mmol/L (22-30); Eosinophils # (A) 0.1 k/uL (0-0.7); Eosinophils % (A) 1 %; Glucose 97 mg/dL (74-99); HCT 51.7 % (34.0-46.0); HGB 17.2 gm/dL (11.4-16.0); Lipase 67 U/L (23-300); Lymphocytes # (A) 1.1 k/uL (1.0-4.8); Lymphocytes % (A) 18 %; MCH 35.7 pg (25.0-35.0); MCHC 33.3 g/dL (31.0-37.0); MCV 107.1 fL (80.0-100.0); Macrocytosis Moderate; Mean Platelet Volume 11.7; Monocytes # (A) 0.3 k/uL (0-1.0); Monocytes % (A) 5 %; Neutrophils # (A) 4.4 k/uL (1.3-7.7); Neutrophils % (A) 72 %; Non-African American GFR(CKD) >90 (>60 ml/min/1.73 sqM); Platelet Count 127 k/uL (150-450); RBC 4.82 m/uL (3.80-5.40); RDW 13.1 % (11.5-15.5); Total Bilirubin 0.5 mg/dL (0.2-1.3); Total Protein 6.7 g/dL (6.3-8.2); WBC 6.2 k/uL (3.8-10.6)
--- NOTE | 2023-07-22 10:24 | XR ---
EXAMINATION TYPE: XR chest 1V portable DATE OF EXAM: 07/22/2023 COMPARISON: 02/24/2022 INDICATION: Abdomen pain TECHNIQUE: Single frontal view of the chest is obtained. Examined upright position. FINDINGS: The heart size is normal. The pulmonary vasculature is normal. The lungs are clear. No free air is under the diaphragm. IMPRESSION: 1. No acute pulmonary process.
[2023-07-22 10:37] LABS: Anion Gap 8 mmol/L; Chloride 107 mmol/L (98-107); Potassium 3.9 mmol/L (3.5-5.1); Sodium 140 mmol/L (137-145)
[2023-07-22 10:38] LABS: Appearance,Urine Clear (Clear); Bilirubin,Urine Negative (Negative); Blood,Urine Negative (Negative); Color,Urine Light Yellow; Glucose,Urine (UA) Negative (Negative); Ketones,Urine Negative (Negative); Leukocyte Esterase,Urine Negative (Negative); Nitrite,Urine Negative (Negative); PH, Urine 6.5 (5.0-8.0); Protein,Urine Negative (Negative); Specific Gravity,Urine 1.003 (1.001-1.035); Urobilinogen,Urine <2.0 mg/dL (<2.0)
[2023-07-22 10:41] LABS: INR 0.9 (<1.2); Partial Thromboplastin Time 23.9 sec (22.0-30.0); Prothrombin Time 9.8 sec (9.0-12.0)
--- NOTE | 2023-07-22 10:56 | CT ---
EXAMINATION TYPE: CT abdomen pelvis w con DATE OF EXAM: 07/22/2023 COMPARISON: 06/03/2023 HISTORY: 57-year-old female left lower quadrant abdominal pain TECHNIQUE: Contiguous axial scanning of the abdomen and pelvis following administration of 100 ml Iso eugenia 300 IV contrast. Delayed images through the kidneys and coronal/sagittal reconstructions perform ed. CT DLP: 1924.2 mGycm Automated exposure control for dose reduction was used. FINDINGS: Heart and lungs are normal in size. Prominent hazy bilateral lower lung areas of probable a telectasis and/or scarring. Some mosaic attenuation is also present and could reflect small airways d isease. There is a small hiatal hernia. Liver enlarged at 18.7 cm with low attenuation. Uterus cyst versus more focal fat along the anterior falciform ligament measuring 1.4 cm. Portal venous system is patent. No biliary ductal dilatation. Gallbladder, adrenal glands, spleen, and pancreas within normal limits. Scattered prominent fluid-filled small bowel loops throughout the abdomen. No dilated small bowel, fr ee fluid, or free air. There is moderate to severe circumferential wall thickening involving the ileum to the level of the i leocecal valve for stent of at least 20 cm. There is associated mucosal hyperemia and engorgement of the adjacent vasculature. Reactive right lower quadrant mesenteric lymphadenopathy measuring up to 1. 3 cm. Normal appendix. Mild stool burden. No pericolonic inflammatory change. Bladder partially distended. A couple small pelvic phleboliths. No abnormal fluid collection in the p [place] or pelvic lymphadenopathy. Bones: Moderate degenerative disc disease L4-L5. Facet arthropathy mid to lower lumbar spine. IMPRESSION: 1. EXAM POSITIVE FOR ILEITIS SPANNING AT LEAST 20 CM WITH MODERATE INFLAMMATORY SMALL BOWEL WALL THIC KENING. CORRELATE FOR INFECTIOUS CAUSES OR INFLAMMATORY BOWEL DISEASE. 2. NO ABSCESS OR FREE AIR. 3. HEPATIC STEATOSIS AND SMALL HIATAL HERNIA.
[2023-07-22 11:29] LABS: Large Platelets Present
[2023-07-22] MEDS ORDERED: metroNIDAZOLE 500 MG TAB PO STA (11:47)
[2023-07-22] MEDS ORDERED: CIPROFLOXACIN HCL 500 MG TAB PO STA (11:47)
[2023-07-22] MEDS ORDERED: ONDANSETRON 4 MG ODT STARTER PACK 2 TAB BTL PO STA (11:48)
[2023-07-22 12:04] VITALS: BP 112/79; PULSE 61; RESP 19
== END 2023-07-22 12:15 | disposition home or self-care (01) ==
LOC: EC 08:31
DX: K52.9 Noninfective gastroenteritis and colitis, unspecified (principal); K76.0 Fatty (change of) liver, not elsewhere classified; K44.9 Diaphragmatic hernia without obstruction or gangrene; J45.909 Unspecified asthma, uncomplicated; K21.9 Gastro-esophageal reflux disease without esophagitis; E78.5 Hyperlipidemia, unspecified; M19.90 Unspecified osteoarthritis, unspecified site; G47.30 Sleep apnea, unspecified; F41.9 Anxiety disorder, unspecified; F32.A Depression, unspecified; F17.200 Nicotine dependence, unspecified, uncomplicated; Z79.899 Other long term (current) drug therapy; Z79.1 Long term (current) use of non-steroidal anti-inflammatories (NSAID)
CPT/HCPCS: 36415; 93005; 80053; 82150; 83605; 83690; 85025; 85610; 85730; 81003; 71045; 74177; 99285; 96374; 96375 ×2; 96361; J2405; J3010; S0119; C9113; Q9967

== ENCOUNTER 2023-08-05 14:19 | Emergency (ER) | payer OTHER ==
[2023-08-05] MEDS ORDERED: SODIUM CHLORIDE 0.9% 1,000 ML IV STA (14:27)
[2023-08-05] MEDS ORDERED: KETOROLAC 15 MG/ML 1 ML VIAL IVP STA ×2 (14:27→17:21)
[2023-08-05] MEDS ORDERED: MORPHINE SULFATE 2 MG/ML SYRINGE IVP STA (14:27)
--- NOTE | 2023-08-05 14:34 | ED ---
Fall HPI - General Chief Complaint: Fall Stated Complaint: Left leg fracture Time Seen by Provider: 08/05/23 14:20 Source: patient, EMS, RN notes reviewed Mode of arrival: EMS Limitations: no limitations - History of Present Illness Initial Comments: This is a 58-year-old female who presents to the emergency department for a fall. Patient fell from a standing position in her apartment earlier today and landed on her left leg. Patient did consume alcohol today. States that she did not have that much, however per EMS, her said that she will consume whatever she can get her hands on. Patient does admit to losing a family member couple of days ago and states that this is why she has been consuming alcohol. Pain is predominantly in the lower left leg. This was splinted by EMS prior to arrival. Patient denies hitting her head or sustaining any loss of consciousness. Not taking any blood thinners. MD Complaint: fall - Related Data Home Medications Medication Instructions Recorded Confirmed Hydrocodone/Acetaminophen [[place] 1 tab PO QID 11/16/18 03/16/22 10-325] FLUoxetine HCL [PROzac] 20 mg PO DAILY 01/12/20 03/16/22 Omeprazole 20 mg PO DAILY 01/12/20 03/16/22 Fenofibrate 54 mg PO DAILY 10/03/21 03/16/22 QUEtiapine [SEROquel] 400 mg PO HS 10/03/21 03/16/22 busPIRone HCL 15 mg PO BID 10/03/21 03/16/22 Albuterol Inhaler [Ventolin Hfa 1 puff INHALATION DAILY 03/14/22 03/16/22 Inhaler] Atorvastatin Calcium [Lipitor] 40 mg PO HS 03/14/22 03/16/22 Magnesium Oxide 400 mg PO HS 03/14/22 03/16/22 Previous Rx's Medication Instructions Recorded HYDROcodone/APAP 10-325MG [[place] 1 tab PO Q4HR PRN 3 Days #18 tab 03/16/22 10-325] Naproxen 500 mg PO BID #60 tablet 03/16/22 Amoxic-Pot Clav 875-125Mg 1 tab PO Q12HR 7 Days #14 tab 06/03/23 [Augmentin 875-125] QUEtiapine FUMARATE [SEROquel] 400 mg PO DAILY 30 Days #30 tablet 07/01/23 Ciprofloxacin HCl [Cipro] 500 mg PO BID 5 Days #10 tab 07/22/23 metroNIDAZOLE [Flagyl] 500 mg PO TID 5 Days #15 tab 07/22/23 Ibuprofen [Motrin] 800 mg PO Q8H PRN #30 tab 08/05/23 Allergies Allergy/AdvReac Type Severity Reaction Status Date / Time No Known Allergies Allergy Verified 08/05/23 14:22 Review of Systems ROS Statement: Those systems with pertinent positive or pertinent negative responses have been documented in the HPI. ROS Other: All systems not noted in ROS Statement are negative. Past Medical History Past Medical History: Asthma, GERD/Reflux, Hyperlipidemia, Osteoarthritis (OA), Sleep Apnea/CPAP/BIPAP Additional Past Medical History / Comment(s): hx migraines, occ irregular heartbeat, no cpap used, anemia, History of Any Multi-Drug Resistant Organisms: None Reported Past Surgical History: Breast Surgery, Section, Hernia Repair, Hysterectomy, Tonsillectomy, Tubal Ligation Additional Past Surgical History / Comment(s): Lt breast biopsy, Past Anesthesia/Blood Transfusion Reactions: No Reported Reaction, Motion Sickness Additional Past Anesthesia/Blood Transfusion Reaction / Comment(s): . Past Psychological History: Anxiety, Depression, PTSD Smoking Status: Current every day smoker Past Alcohol Use History: Occasional Past Drug Use History: None Reported - Past Family History Mother Family Medical History: No Reported History Additional Family Medical History / Comment(s): . Father Family Medical History: Osteoarthritis (OA) Additional Family Medical History / Comment(s): DDD General Exam Limitations: no limitations General appearance: alert, appears intoxicated Head exam: Present: atraumatic, normocephalic, normal inspection Respiratory exam: Present: normal lung sounds bilaterally. Absent: respiratory distress, wheezes, rales, rhonchi, stridor Cardiovascular Exam: Present: regular rate, normal rhythm, normal heart sounds. Absent: systolic murmur, diastolic murmur, rubs, gallop, clicks Extremities exam: Present: other (Tenderness to palpation over the majority of the left ankle. Limited range of motion secondary to pain. 2+ DP and PT pulses. Capillary refill less than 1 second.) Neurological exam: Present: alert, oriented X3, CN II-XII intact Psychiatric exam: Present: normal affect, normal mood Skin exam: Present: warm, dry, intact, normal color. Absent: rash Course Vital Signs 08/05/23 08/05/23 08/05/23 14:21 16:00 16:38 Temperature 98.3 F 97.9 F Pulse Rate 115 H 109 H Respiratory 20 18 Rate Blood Pressure 88/62 121/80 109/69 O2 Sat by Pulse 95 95 Oximetry 08/05/23 08/05/23 17:35 19:25 Temperature Pulse Rate 101 H 102 H Respiratory 20 Rate Blood Pressure 124/91 128/86 O2 Sat by Pulse 98 95 Oximetry Procedures - Orthopedic Fracture Reduction Fracture #1 Consent Obtained: verbal consent Side: left Fracture Reduction Location: tibia, fibula Analgesia: none Technique: direct manipulation Post Reduction X-rays Demonstrate: acceptable reduction Post-Reduction Neuro Exam: intact Post-Reduction Vascular Exam: intact Splint Applied: Yes Patient Tolerated Procedure: well - Orthopedic Splinting/Casting Injury #1 Side: left Lower Extremity Injury Location: short leg, ankle Lower Extremity Immobilizer: posterior splint, stirrup splint Other Orthopedic Equipment: crutches Medical Decision Making - Medical Decision Making This is a 58-year-old female who presents to the emergency department for alcohol intoxication and left leg pain after a fall. Was pt. sent in by a medical professional or institution? @ -No Did you speak to anyone other than the patient for history? @ -EMS provided the majority of the information, with the patient explaining where her pain was. Did you review nursing and triage notes? @ -Yes, and I agree, it is accurate with regards to the patient's symptoms. Were old charts reviewed? @ -No Differential Diagnosis? @ -Differential Leg Pain: Leg fracture, leg sprain, DVT, PVD, arterial insufficiency, iliac artery aneurysm, cellulitis, compartment syndrome, tendinopathy, nerve entrapment, piriformis syndrome, osteoarthritis, rhabdomyolysis, myositis, cramping from an electrolyte imbalance, this is not meant to be an all inclusive list. EKG interpreted by me (3pts min.)? @ -Not obtained X-rays interpreted by me (1pt min.)? @ -X-ray of the left hip and tib/fib obtained. My interpretation identifies a fracture to the left medial and lateral malleolus. CT interpreted by me (1pt min.)? @ -Not obtained U/S interpreted by me (1pt. min.)? @ -Not obtained What testing was considered but not performed? (CT, X-rays, U/S, labs)? Why? @ -None What meds were considered but not given? Why? @ -None Did you discuss the management of the patient with other professionals? @ -Yes, Dr. Frye, orthopedics, who advised attempting reduction and splinting, with plan to follow up in the office. However, if reduction could not be done successfully, patient could be admitted to the hospital. Did you reconcile home meds? @ -No Was smoking cessation discussed for >3mins.? @ -No Was critical care preformed (if so, how long)? @ -No Were there social determinants of health that impacted care today? How? (Homeles sness, low income, unemployed, alcoholism, drug addiction, transportation, low edu. Level, literacy, decrease access to med. care, custodial, rehab)? @ -Yes, alcoholism, increasing her risk for health problems and falls, which was the case today. Was there de-escalation of care discussed even if they declined? (Discuss DNR or withdrawal of care, Hospice)? @ -No What co-morbidities impacted this encounter? (DM, HTN, Smoking, COPD, CAD, Cancer, CVA, Hep., AIDS, mental health diagnosis, sleep apnea, morbid obesity)? @ -Alcoholism Was patient admitted / discharged? @ -Discharged. Lab work obtained revealing hypokalemia and a critically elevated alcohol level of 336. However, patient does have chronic alcohol abuse, and this is not uncommon for her. She is also not clinically intoxicated. Patient was given a liter bolus of IV fluids and a 40 mEq of K-Dur for the hypokalemia. X-ray of the left hip and tib-fib obtained revealing displaced fractures to the left medial and lateral malleolus. I spoke with Dr. Frye, orthopedics, who advised that there is associated dislocation and we should attempt reduction in the emergency department. Given her alcohol level, conscious sedation was avoided and she was given IV pain medication. We were able to manipulate this to some extent and apply a posterior stirrup splint. Repeat x-rays did demonstrate improved alignment of the fracture segments. Patient is already taking [place] at home, and she will continue to do. She did not feel like she needed to be admitted, and requested discharge home. I did send in a prescription for ibuprofen to take as well. She is instructed to apply ice for 15-20 minutes every 2-3 hours and keep the leg elevated. Patient was also given a pair of crutches and advised that she cannot be weightbearing on the left lower extremity. Patient was clinically sober at the time of discharge, and discharged home in a taxi. She was also given information for orthopedic follow-up and instructed to contact them first thing tomorrow morning for follow-up appointment. Undiagnosed new problem with uncertain prognosis? @ -None Drug Therapy requiring intensive monitoring for toxicity (Heparin, Nitro, Insulin, Cardizem)? @ -None Were any procedures done? @ -Yes, reduction of the left ankle fracture and application of posterior stirrup splint Diagnosis/symptom? @ -Alcohol intoxication, left lateral malleolus fracture, left medial malleolus fracture, hypokalemia Acute, or Chronic, or Acute on Chronic? @ -Acute Uncomplicated (without systemic symptoms) or Complicated (systemic symptoms)? @ -Uncomplicated Side effects of treatment? @ -None Exacerbation, Progression, or Severe Exacerbation] @ -Not applicable Poses a threat to life or bodily function? @ -Yes, this will impact her ability to ambulate Return precautions reviewed in depth, the patient is instructed to return to the emergency department with any new, worsening, or concerning symptoms. Patient verbalized understanding. This case was discussed in detail with the attending ED physician, Dr. Scanlon. Presentation, findings, and treatment plan discussed in detail as well. - Lab Data Result diagrams: 08/05/23 14:43 08/05/23 14:43 Lab Results 08/05/23 08/05/23 Range/Units 14:43 14:43 WBC 6.7 (3.8-10.6) k/uL RBC 3.84 (3.80-5.40) m/uL Hgb 13.7 D (11.4-16.0) gm/dL Hct 41.2 (34.0-46.0) % MCV 107.4 H (80.0-100.0) fL MCH 35.7 H (25.0-35.0) pg MCHC 33.3 (31.0-37.0) g/dL RDW 13.1 (11.5-15.5) % Plt Count 197 D (150-450) k/uL MPV 9.9 Neutrophils % 66 % Lymphocytes % 25 % Monocytes % 5 % Eosinophils % 1 % Basophils % 0 % Neutrophils # 4.4 (1.3-7.7) k/uL Lymphocytes # 1.7 (1.0-4.8) k/uL Monocytes # 0.3 (0-1.0) k/uL Eosinophils # 0.1 (0-0.7) k/uL Basophils # 0.0 (0-0.2) k/uL Macrocytosis Moderate Sodium 144 (137-145) mmol/L Potassium 2.9 L (3.5-5.1) mmol/L Chloride 106 (98-107) mmol/L Carbon Dioxide 25 (22-30) mmol/L Anion Gap 13 mmol/L BUN 8 (7-17) mg/dL Creatinine 0.62 (0.52-1.04) mg/dL Est GFR (CKD-EPI)AfAm >90 (>60 ml/min/1.73 sqM) Est GFR (CKD-EPI)NonAf >90 (>60 ml/min/1.73 sqM) Glucose 144 H (74-99) mg/dL Calcium 8.7 (8.4-10.2) mg/dL Total Bilirubin 0.4 (0.2-1.3) mg/dL AST 69 H (14-36) U/L ALT 31 (4-34) U/L Alkaline Phosphatase 106 (38-126) U/L Total Protein 7.2 (6.3-8.2) g/dL Albumin 4.0 (3.5-5.0) g/dL Serum Alcohol 336 H* mg/dL - Radiology Data Radiology results: report reviewed, image reviewed Disposition Clinical Impression: Fall, Fracture of medial malleolus of left tibia, Fracture of lateral malleolus of left ankle, Alcohol intoxication, Hypokalemia Disposition: HOME SELF-CARE Instructions (If sedation given, give patient instructions): Ankle Fracture (ED), Fall Prevention for Older Adults (ED), Splint Care (ED) Additional Instructions: Return to the emergency department with any new, worsening, or concerning symptoms. Alternate with ibuprofen and Tylenol as needed for pain relief. Celestine ly ice for 15-20 minutes every 2-3 hours and keep the leg elevated. Contact orthopedics first thing tomorrow morning regarding the fracture, and let them know that Dr. Frye requested you be seen in the office this week. Make sure that you avoid putting weight on that leg. Prescriptions: Ibuprofen [Motrin] 800 mg PO Q8H PRN #30 tab PRN Reason: Pain Is patient prescribed a controlled substance at d/c from ED?: No Referrals: [facility] [Primary Care Provider] - 1-2 days Essie Frye DO [Doctor of Osteopathic Medicine] - 1-2 days
[2023-08-05 15:20] LABS: ALT 31 U/L (4-34); AST 69 U/L (14-36); African American GFR (CKD) >90 (>60 ml/min/1.73 sqM); Alkaline Phosphatase 106 U/L (38-126); Anion Gap 13 mmol/L; Blood Urea Nitrogen 8 mg/dL (7-17); Calcium 8.7 mg/dL (8.4-10.2); Carbon Dioxide 25 mmol/L (22-30); Chloride 106 mmol/L (98-107); Glucose 144 mg/dL (74-99); Non-African American GFR(CKD) >90 (>60 ml/min/1.73 sqM); Potassium 2.9 mmol/L (3.5-5.1); Sodium 144 mmol/L (137-145); Total Bilirubin 0.4 mg/dL (0.2-1.3); Total Protein 7.2 g/dL (6.3-8.2)
[2023-08-05 15:26] LABS: Basophils % (A) 0 %; Eosinophils # (A) 0.1 k/uL (0-0.7); Eosinophils % (A) 1 %; HCT 41.2 % (34.0-46.0); Lymphocytes # (A) 1.7 k/uL (1.0-4.8); Lymphocytes % (A) 25 %; MCH 35.7 pg (25.0-35.0); MCHC 33.3 g/dL (31.0-37.0); MCV 107.4 fL (80.0-100.0); Macrocytosis Moderate; Mean Platelet Volume 9.9; Monocytes # (A) 0.3 k/uL (0-1.0); Monocytes % (A) 5 %; Neutrophils # (A) 4.4 k/uL (1.3-7.7); Neutrophils % (A) 66 %; Platelet Count 197 k/uL (150-450); RBC 3.84 m/uL (3.80-5.40); RDW 13.1 % (11.5-15.5); WBC 6.7 k/uL (3.8-10.6)
--- NOTE | 2023-08-05 15:29 | XR ---
EXAMINATION TYPE: XR Hip Complete LT DATE OF EXAM: 08/05/2023 3:05 PM INDICATION: Patient age:Female; 58 years old; Reason for study: Pain after fall; COMPARISON: None. TECHNIQUE: The left hip was examined in the frontal and lateral projections and a AP pelvis. FINDINGS: No evidence for acute process, joint dislocation or significant soft tissue swelling. Osteo phyte formation of the superior acetabulum of the hip. IMPRESSION: 1. No evidence for acute process. 2. Mild hip osteoarthrosis.
[2023-08-05 15:30] LABS: HGB 13.7 gm/dL (11.4-16.0)
--- NOTE | 2023-08-05 15:31 | XR ---
EXAMINATION TYPE: XR tibia fibula LT DATE OF EXAM: 08/05/2023 3:05 PM INDICATION: Patient age:Female; 58 years old; Reason for study: Pain after fall; COMPARISON: 01/08/2017 TECHNIQUE: The left tibia/fibula was examined in AP and lateral projections. FINDINGS/IMPRESSION: 1. Medial and lateral malleolus fractures with posterior lateral displacement of the ankle. There is 9 mm displacement of the medial malleolus. Fibular fragment is displaced 11 mm. 2. No proximal fractures of the tibia and fibula.
[2023-08-05 15:38] LABS: Alcohol 336 mg/dL
[2023-08-05] MEDS ORDERED: POTASSIUM CHLORIDE ER 20 MEQ TAB.ER PO STA (15:38)
[2023-08-05] MEDS ORDERED: HYDROmorphone 0.5 MG/0.5 ML SYRINGE IVP STA (16:06)
[2023-08-05 16:40] VITALS: TEMP 97.9
[2023-08-05] MEDS ORDERED: HYDROmorphone 1 MG/ML 1 ML SYRINGE IVP STA (17:21)
[2023-08-05] MEDS ORDERED: IBUPROFEN 600 MG STARTER PACK 4 TAB BTL PO STA (18:09)
[2023-08-05] MEDS ORDERED: ACET/COD 300 MG/30 MG STARTER PACK 6 TAB BTL PO STA (18:09)
[2023-08-05] MEDS ORDERED: HYDROcodone/APAP 10-325MG 1 EACH TAB PO ONE (18:09)
--- NOTE | 2023-08-05 18:36 | XR ---
EXAMINATION TYPE: XR ankle complete LT DATE OF EXAM: 08/05/2023 6:22 PM INDICATION: Patient age:Female; 58 years old; Reason for study: Post reduction images; COMPARISON: Prereduction images TECHNIQUE: The left ankle is imaged in frontal, lateral and oblique projections. FINDINGS/IMPRESSION: Status post splint placement with improved alignment of the medial malleolus and lateral malleolus fr actures. No new fractures visualized.
[2023-08-05 19:33] VITALS: BP 128/86; PULSE 102; RESP 20
== END 2023-08-05 19:25 | disposition home or self-care (01) ==
LOC: EC 14:19
DX: S82.52XA Displaced fracture of medial malleolus of left tibia, initial encounter for closed fracture (principal); S82.62XA Displaced fracture of lateral malleolus of left fibula, initial encounter for closed fracture; F10.129 Alcohol abuse with intoxication, unspecified; E87.6 Hypokalemia; J45.909 Unspecified asthma, uncomplicated; K21.9 Gastro-esophageal reflux disease without esophagitis; F41.9 Anxiety disorder, unspecified; E78.5 Hyperlipidemia, unspecified; F32.A Depression, unspecified; F17.200 Nicotine dependence, unspecified, uncomplicated; Z79.899 Other long term (current) drug therapy; Y90.8 Blood alcohol level of 240 mg/100 ml or more; W18.30XA Fall on same level, unspecified, initial encounter; Y92.039 Unspecified place in apartment as the place of occurrence of the external cause
CPT/HCPCS: 36415; 80053; 85025; 73502; 73590; 73610; 27810; 99284; 96374; 96375; 96376 ×2; 96361 ×2; G0480; J1170 ×2; J1885; 80320

== ENCOUNTER → 2023-08-14 | Outpatient (CLI) | payer OTHER | END | disposition home or self-care (01) | LOC: LABPAT 16:11 | PROVIDERS: ATTEND Podiatrist | DX: Z01.812 Encounter for preprocedural laboratory examination (principal) | CPT/HCPCS: 36415; 84132 ==

== ENCOUNTER 2023-08-16 10:15 | Observation (INO) | payer OTHER ==
[2023-08-14 13:15] VITALS: BMI 33.0
[2023-08-16] MEDS ORDERED: LACTATED RINGERS 1,000 ML IV ONE ×3 (11:02→17:30)
[2023-08-16] MEDS ORDERED: ONDANSETRON 4 MG/2 ML VIAL ONE (11:02)
[2023-08-16] MEDS ORDERED: DEXAMETHASONE SOD PHOSPHATE 4 MG/ML 1 ML VIAL IVP ONE (11:05)
[2023-08-16] MEDS ORDERED: DEXAMETHASONE SOD PHOSPHATE 4 MG/ML 1 ML VIAL IV ONE (11:08)
[2023-08-16] MEDS ORDERED: MIDAZOLAM 2 MG/2 ML VIAL IV PRN (11:08)
[2023-08-16] MEDS ORDERED: LIDOCAINE 1% (10MG/ML) FOR IV START INTRADERMA PRN (11:08)
[2023-08-16] MEDS ORDERED: ONDANSETRON 4 MG/2 ML VIAL IVP ONE (11:08)
[2023-08-16] MEDS ORDERED: fentaNYL (PF) 50 MCG/ML 2 ML AMP IVP ONE ×2 (11:17)
[2023-08-16] MEDS ORDERED: MIDAZOLAM 2 MG/2 ML VIAL IVP ONE (11:17)
--- NOTE | 2023-08-16 11:54 | P.ANPRN ---
Procedure Note - Anesthesia - Nerve Block Performed Left Adductor Canal Time Out Performed: Yes (11:16) Date of Procedure: 08/16/23 Procedure Start Time: :16 Procedure Stop Time: :20 Location of Patient: Phase I Indication: Acute Post-Operative Pain, Requested by Surgeon (Dr Swan) Sedation Type: Sedate with meaningful contact maintained Preparation: Sterile Prep Position: Supine Catheter: None Needle Types: Pajunk Needle Gauge: 21 Ultrasound used to visualize needle placement: Yes Ultrasound used to observe medication spread: Yes Injectate: 0.5% Ropivacaine (see comment for volume) (20cc) Blood Aspirated: No Pain Paresthesia on Injection Noted: No Resistance on Injection: Normal Image Stored and Saved: Yes Events: Uneventful and Well Tolerated
--- NOTE | 2023-08-16 11:55 | P.ANPRN ---
Procedure Note - Anesthesia - Nerve Block Performed Left Popliteal Time Out Performed: Yes Date of Procedure: 08/16/23 Procedure Start Time: : Procedure Stop Time: : Location of Patient: Phase I Indication: Acute Post-Operative Pain, Requested by Surgeon (Dr Swan) Sedation Type: Sedate with meaningful contact maintained Preparation: Sterile Prep Position: Right Lateral Catheter: None Needle Types: Pajunk Needle Gauge: 21 Ultrasound used to visualize needle placement: Yes Ultrasound used to observe medication spread: Yes Injectate: 0.5% Ropivacaine (see comment for volume) (15cc +5cc PF Normal saline) Blood Aspirated: No Pain Paresthesia on Injection Noted: No Resistance on Injection: Normal Image Stored and Saved: Yes Events: Uneventful and Well Tolerated
[2023-08-16] MEDS ORDERED: ROPIVACAINE 5 MG/ML 30 ML VIAL ONE (12:13)
[2023-08-16] MEDS ORDERED: HYDROmorphone (PF) 1 MG/ML ONE (12:13)
[2023-08-16] MEDS ORDERED: NEOSTIGMINE 1 MG/ML 10 ML VIAL ONE (12:13)
[2023-08-16] MEDS ORDERED: PROPOFOL 10 MG/ML 20 ML VIAL IV ONE (12:13)
[2023-08-16] MEDS ORDERED: SODIUM CHLORIDE 0.9% (PF) 10 ML VIAL ONE (12:13)
[2023-08-16] MEDS ORDERED: ROCURONIUM 10 MG/ML (5 ML VIAL) IV ONE (12:13)
[2023-08-16] MEDS ORDERED: fentaNYL (PF) 50 MCG/ML 2 ML AMP ONE (12:13)
[2023-08-16] MEDS ORDERED: GLYCOPYRROLATE 0.2 MG/ML 2 ML VIAL ONE (12:13)
[2023-08-16] MEDS ORDERED: SUCCINYLCHOLINE CHLORIDE 200 MG/10 ML VIAL IV ONE (12:13)
[2023-08-16] MEDS ORDERED: LIDOCAINE 2% INJ 20 MG/ML (2 ML VIAL) ONE (12:13)
[2023-08-16] MEDS ORDERED: ceFAZolin 1,000 MG in SODIUM CHLORIDE 0.9% 1,000 ML IRRIGATION ONE (12:18)
[2023-08-16] MEDS: HYDROmorphone 0.5 MG/0.5 ML SYRINGE IVP PRN ×3 (14:45→15:01)
--- NOTE | 2023-08-16 14:47 | P.OP ---
Date of Procedure: 08/16/23 Preoperative Diagnosis: Displaced trimalleolar fracture left ankle Postoperative Diagnosis: Same Procedure(s) Performed: Open reduction with internal fixation left trimalleolar ankle fracture Implants: Arthrex one third tubular plate 1 Arthrex posterior malleolus plate 1 Arthrex medial malleolus hook plate 1 Anesthesia: GETA Surgeon: Juan Swan Estimated Blood Loss (ml): 20 Pathology: none sent Condition: stable Disposition: PACU Description of Procedure: Prior to the patient being brought to the operative room, anesthesia administered nerve block and left lower extremity. Patient brought into the operating room. Timeout was taken to confirm correct patient identifiers, correct laterally surgery, correct procedure. Once all staff in the room were in agreement timeout, the patient was induced and intubated and placed under general anesthesia. The patient was rolled into the prone position on the operating room table with the feet dangling over the edge. Once positioning was satisfactory to surgery and anesthesia, a well-padded tourniquet was placed the left thigh and the left leg was prepped and draped usual manner. The left leg was exsanguinated and the tourniquet inflated to 250 mmHg. Attention was directed to the posterior lateral ankle where an incision was made between the peroneal tendons and Achilles tendon. The incision was deepened down to the subcutaneous tissue careful to identify, avoid, and retract any jeevan rovascular structures and cauterize any bleeding vessels. Blunt dissection was carried down to the deep fascia. The deep fascia was incised carefully to avoid trauma to the underlying structures. Blunt dissection was continued down until the muscle bellies of the flexor halluces longus the peroneal tendons were identified. The septum between the muscles was divided and then the muscles were retracted medially and laterally to expose the posterior aspect of the fibula and the tibia. The lateral malleolus fracture was exposed and the soft tissue dissected. There was hematoma and soft tissue between the fracture fragments and these were removed. Tension was placed on the distal fragment to bring them back out to length. Once length was restored a K wire was placed through the fracture to maintain temporary stability. Fluoroscopy confirmed that the fracture was out to length and that the posterior displacement present pre-op was no longer present. Attention was directed the posterior malleolar fracture which was isolated and identified. Lateral fluoroscopy confirmed that it had suffered induced after the fibula was brought out to length. A wire was positioned across the fracture to maintain the position. An Arthrex posterior malleolar plate was then positioned over the posterior lateral tibia. Fluoroscopy was used to adjust the plate was properly aligned on the AP and lateral views. Temporary fixation was then placed. Distal screws were placed first. They were nonlocking screws and drilling was done under direct fluoroscopic visualization so that the ankle joint was not penetrated. To the locking screws were placed through the drill holes in the plate across the fracture. These were bicortical screws to afford compression at the fracture line. Next a nonlocking screw was placed in the proximal plate which was also proximal to the fracture. This allowed the plate to contour to the posterior aspect of the tibia. The last screw was the most proximal screw which was a locking screw. Fluoroscopic imaging showed anatomic contour of the ankle joint and proper placement of the hardware on AP and lateral views. Then attention was redirected to the lateral malleolar fracture. A 5 hole one third tubular plate was positioned on the posterior aspect of the fibula, crossing the fracture. The compression slot was placed superior to the fracture. A no nlocking screw was placed through the plate into the distal fragment. Fluoroscopy was used to confirm proper length of the screw. Next through the compression slot hole was drilled acentrically closest to the fracture line. The screw was placed engage plate and created some lengthening of the distal fragment which then allowed it to reduce completely into anatomic alignment. 2 additional locking screws were placed one distal and one proximal. Final fluoroscopic imaging showed anatomic alignment of the fracture with restored length of the fibula. Then attention was directed to the medial malleolus where a linear incision was made over the fracture. The incision was deepened to the subcutaneous tissue careful to identify, avoid, and retract any neurovascular structures and cauterize any bleeding vessels. Dissection was then taken down to the fracture line were there was hematoma and soft tissue interposed between the fracture fragments. These tissues were removed with a Eugene. A guidewire for a 4.0 cannula screw was placed at the distal aspect of the medial malleolus and advanced into the tibia across the fracture and avoiding the ankle joint. Drilling was done to the fracture line. A screw was placed over the wire and advanced until the head engaged the tip of the medial malleolus, however, there was no bite of the screw in the tibia therefore there is no compression. A different size screw was placed over the wire and again this failed to purchase. The guidewire and screw were removed and the decision was made to put a medial plate on. So the incision was extended and soft tissue dissected was done to allow the placement of the plate. The hooks were placed over the medial malleolus and aligned under fluoroscopy. The hooks were then impacted in the medial malleolus. A compression drill hole was made through the compression slot superior to the fracture line. The screws placed bicortically once a tightened compressed the fracture. A second screw was placed at the most superior hole the plate, which was again a nonlocking screw which allow the plate to contour to the tibia. Final fluoroscopic imaging showed an open and symmetric ankle joint. All hardware was properly positioned. And then under live fluoroscopy the ankle was stressed to assess the syndesmosis, which did not indicate any instability. All wounds were thoroughly irrigated with antibiotic saline. The posterior wound closure was done layered with 2-0 Vicryl, 4-0 Monocryl, and pilar. The medial wound was closed with 2-0 Vicryl, 4-0 Monocryl and pilar. An Arthrex jumpstart dressings were placed over all the incisions. A bulky dry dressings applied to left ankle. The tourniquet was released and capillary refill return to all digits on the left foot. The patient was then placed in a well-padded, well molded plaster posterior mold/sugar tong splint. The patient was then rolled onto the transfer table into the supine position. Anesthesia was reversed and the patient was taken recovery with vital signs stable.
--- NOTE | 2023-08-16 15:01 | FL ---
Fluoroscopy History: ORIF Left Ankle 59 SEC FLUORO, .[id number] mGym2, LEFT ANKLE DONE, PATIENT PRONE IN IMAGES, SURGEON DIDN'T WANT IMAGES FLI PPED
[2023-08-16] MEDS ORDERED: fentaNYL (PF) 50 MCG/1 ML VIAL IVP ONE (15:34)
[2023-08-16] MEDS ORDERED: HYDROcodone/APAP 10-325MG 1 EACH TAB PO ONE ×2 (16:00→16:02)
[2023-08-16] MEDS ORDERED: HYDROcodone/APAP 10-325MG 1 EACH TAB ONE (16:01)
[2023-08-16] MEDS ORDERED: NALOXONE 0.4 MG/ML 1 ML VIAL IV PRN (16:35)
[2023-08-16] MEDS ORDERED: traZODone HCL 50 MG TAB PO PRN (16:36)
[2023-08-16] MEDS ORDERED: PANTOPRAZOLE 40 MG TABLET PO PRN (16:36)
[2023-08-16] MEDS ORDERED: HYDROmorphone 0.5 MG/0.5 ML SYRINGE IVP ONE (17:00)
--- NOTE | 2023-08-16 17:07 | P.HPIM ---
History of Present Illness H&P Date: 08/16/23 Patient is a 58-year-old female with history of alcohol dependence, nicotine dependence, dyslipidemia, asthma, PTSD/anxiety/depression presenting for elective left ankle ORIF. Patient still experiencing extreme pain after surgery, being admitted for further pain control. Surgery and anesthesiology following. Patient recently broke her left ankle after a fall. She claims that she was drunk at that time. Since her injury she has been crawling everywhere in the house. Currently denies any chest pain, shortness of breath, abdominal pain, nausea, vomiting, urinary or bowel complaints. Vital signs normal limits. Patient drinks 2 shots of silviano per day, smokes 5 cigarettes per day, denies any illicit drug use Pertinent positives and negatives as discussed in HPI, a complete review of systems was performed and all other systems are negative. Patient seen and examined at bedside. Vital signs reviewed General: nontoxic, in mild distress, appears at stated age Derm: warm, dry Head: atraumatic, normocephalic, symmetric Eyes: EOMI, no lid lag, anicteric sclera, pupils equal round reactive to light ENT: Nose and ears atraumatic Neck: No thyromegaly, supple Mouth: no lip lesion, mucus membranes moist Cardiovascular: S1S2 reg, no murmur, no edema Lungs: clear to auscultation bilateral, no rhonchi, no rales, no wheeze, no accessory muscle use Abdominal: soft, nontender to palpation, no guarding, no appreciable organomegaly Ext: Left lower extremity cast Neuro: CN II-XII grossly intact Psych: Alert, oriented, appropriate affect, tearful Assessment/Plan: Status post left ankle ORIF Alcohol dependence Nicotine dependence Dyslipidemia Asthma PTSD/anxiety/depression -Started on norco PRN and IV dilaudid PRN -Anesthesiology following, may need to do a nerve block -Thiamine supplementation, monitor for withdrawals -Nicotine patch -Home medications reviewed and reconciled -PT/OT The patient is admitted with an anticipated less than 2 midnight stay as observation status for evaluation of pain. Surrogate decision-maker: spouse CODE STATUS:full code DVT prophylaxis: per ortho Anticipated discharge date: pending clinical course Anticipated discharge place: pending clinical course A total of 66 minutes was spent on the care of this complex patient more than 50% of the time was spent in counseling and care coordination. Past Medical History Past Medical History: Asthma, GERD/Reflux, Hyperlipidemia, Osteoarthritis (OA), Sleep Apnea/CPAP/BIPAP Additional Past Medical History / Comment(s): Hx migraines, occasional irregular heartbeat, no cpap used, hx anemia. Patient states has had hx of low potassium, unsure why. History of Any Multi-Drug Resistant Organisms: None Reported Past Surgical History: Breast Surgery, Section, Hernia Repair, Hysterectomy, Tonsillectomy, Tubal Ligation Additional Past Surgical History / Comment(s): Left breast biopsy. Past Anesthesia/Blood Transfusion Reactions: No Reported Reaction, Motion Sickness Additional Past Anesthesia/Blood Transfusion Reaction / Comment(s): . Past Psychological History: Anxiety, Depression, PTSD Smoking Status: Current every day smoker Past Alcohol Use History: Heavy Additional Past Alcohol Use History / Comment(s): Has smoked for 15 yrs, smokes 5 cigarettes per day. Drinks 1 pint per week. Advised no alcohol at least 24 hrs prior to surgery. Past Drug Use History: None Reported - Past Family History Mother Family Medical History: No Reported History Additional Family Medical History / Comment(s): . Father Family Medical History: Osteoarthritis (OA) Additional Family Medical History / Comment(s): DDD Medications and Allergies Home Medications Medication Instructions Recorded Confirmed Type Hydrocodone/Acetaminophen [[place] 1 tab PO Q4H PRN 11/16/18 08/16/23 History 10-325] Omeprazole 20 mg PO DAILY PRN 01/12/20 08/16/23 History Fenofibrate 54 mg PO DAILY 10/03/21 08/16/23 History QUEtiapine [SEROquel] 400 mg PO HS 10/03/21 08/16/23 History Albuterol Inhaler [Ventolin Hfa 1 puff INHALATION QAM 03/14/22 08/16/23 History Inhaler] Atorvastatin Calcium [Lipitor] 40 mg PO HS 03/14/22 08/16/23 History Magnesium Oxide 400 mg PO HS 03/14/22 08/16/23 History Ibuprofen [Motrin] 800 mg PO Q8H PRN #30 tab 08/05/23 08/16/23 Rx Clonazepam (Unknown Dose) 1 tab PO HS 08/14/23 08/16/23 History Ergocalciferol [Vitamin D2 (1250 1,250 mcg PO MENA 08/14/23 08/16/23 History Mcg = 90687 Iu)] Sennosides [Senokot] 8.6 mg PO DAILY 08/14/23 08/16/23 History Venlafaxine HCl ER [Effexor Xr] 37.5 mg PO QAM 08/14/23 08/16/23 History estradioL [Estrace] 1 mg PO DAILY 08/14/23 08/16/23 History traZODone HCL [Trazodone HCl] 150 mg PO HS PRN 08/14/23 08/16/23 History HYDROcodone/APAP 10-325MG [[place] 1 tab PO Q4-6H PRN #40 tab 08/16/23 Rx 10-325] Allergies Allergy/AdvReac Type Severity Reaction Status Date / Time No Known Allergies Allergy Verified 08/16/23 10:55 Physical Exam Vitals: Vital Signs Temp Pulse Resp BP Pulse Ox 08/16/23 16:57 86 16 153/77 96 08/16/23 16:30 96 16 140/75 97 08/16/23 16:10 87 16 126/77 98 08/16/23 15:52 106 H 16 132/80 92 L 08/16/23 15:45 87 16 137/65 92 L 08/16/23 15:30 92 16 144/62 95 08/16/23 15:15 84 16 146/51 95 08/16/23 15:00 96 16 132/61 100 08/16/23 14:45 100 16 142/73 100 08/16/23 14:40 97 F L 98 16 138/94 100 08/16/23 11:31 102 H 18 111/67 96 08/16/23 11:03 97.4 F L 101 H 18 128/81 95 Intake and Output 08/16/23 08/16/23 08/16/23 06:59 14:59 22:59 Intake Total 1551 0 Output Total 20 Balance 1531 0 Intake: IV 1551 0 Output: Estimated Blood Loss 20 Other: Weight 79.5 kg Thrombosis Risk Factor Assmnt - Choose All That Apply Each Factor Represents 1 point: Age 41-60 years, Obesity (BMI >25) Other Risk Factors: Yes Each Risk Factor Represents 2 Points: Major surgery Other congenital or acquired thrombophilia - If yes, enter type in comment: No Thrombosis Risk Factor Assessment Total Risk Factor Score: 4 Thrombosis Risk Factor Assessment Level: Moderate Risk
[2023-08-16] MEDS: LACTATED RINGERS 1,000 ML IV SCH (17:42)
[2023-08-16] MEDS: NICOTINE 7MG/24HR PATCH TRANSDERM SCH (17:57)
[2023-08-16] MEDS: THIAMINE 100 MG TAB PO SCH (17:57)
[2023-08-16] MEDS: HYDROmorphone 1 MG/ML 1 ML SYRINGE IVP PRN ×2 (18:17→21:59)
[2023-08-16] MEDS: QUEtiapine 400 MG TAB PO SCH (20:37)
[2023-08-16] MEDS: ATORVASTATIN 40 MG TAB PO SCH (20:37)
[2023-08-16] MEDS: HYDROcodone/APAP 5-325MG 1 EACH TAB PO PRN (20:37)
[2023-08-17] MEDS: HYDROmorphone 1 MG/ML 1 ML SYRINGE IVP PRN ×5 (01:59→23:42)
[2023-08-17] MEDS: HYDROmorphone 0.5 MG/0.5 ML SYRINGE IVP PRN (05:45)
[2023-08-17] MEDS: ALBUTEROL NEBULIZED 2.5 MG/3 ML INHALATION SCH (08:33)
[2023-08-17] MEDS: THIAMINE 100 MG TAB PO SCH (10:16)
[2023-08-17] MEDS: SENNOSIDES 8.6 MG TAB PO SCH (10:16)
[2023-08-17] MEDS: VENLAFAXINE HCL ER 37.5 MG CAP PO SCH (10:16)
[2023-08-17] MEDS: NICOTINE 7MG/24HR PATCH TRANSDERM SCH (10:16)
[2023-08-17] MEDS: FENOFIBRATE 54 MG TAB PO SCH (10:16)
[2023-08-17] MEDS: LACTATED RINGERS 1,000 ML IV SCH (11:08)
[2023-08-17] MEDS ORDERED: ALBUTEROL NEBULIZED 2.5 MG/3 ML INHALATION PRN (12:35)
--- NOTE | 2023-08-17 12:38 | P.PN ---
Subjective Progress Note Date: 08/17/23 Hospital course: Patient is a very pleasant 58-year-old female with a past medical history of alcohol dependence with reports of daily alcohol use/abuse, nicotine dependence, hyperlipidemia, asthma/COPD, PTSD, and anxiety/depression. She presented to the hospital on 08/16/23 for an elective left ankle ORIF, patient was transferred to medical floor for observation secondary to uncontrolled postoperative pain. Physical exam: Vital signs reviewed and stable. General: Chronically ill-appearing, emaciated extremities with large distended cirrhotic abdomen Derm: Skin warm and dry, jaundiced Head: Atraumatic, normocephalic and symmetric.Scleral icterus Mouth: no lip lesions, mucus membranes moist Cardiovascular: regular rate and rhythm with normal S1S2, systolic murmur, positive posterior tibial pulses bilaterally, and cap refill < 2 seconds. Lungs: Respirations even, regular, and unlabored on room air. Lungs CTA bilaterally, no rhonchi, no rales, no wheezing, and no accessory muscle usage. Abdominal: Distended cirrhotic abdomen with diffuse tenderness, no guarding, no appreciable organomegaly Ext: No gross muscle atrophy, no edema, no contractures movement and sensation intact. Left lower extremity with posterior short leg splint, movement and sensation of toes intact. Cap refill less than 2 seconds. Neuro: Speech clear, face symmetrical and CN II-XII grossly intact with no noted focal neuro deficits Psych: Alert and oriented to person, place, time, and situation. Appropriate and pleasant affect. Assessment and Plan of Care: Uncontrolled postoperative pain Status post left ankle ORIF Alcohol dependence Nicotine dependence Dyslipidemia Asthma/COPD PTSD/anxiety/depression -Continue [place] 5/325 mg tablets every 4 hours as needed for [id number] pain and dilaudid 1 mg every 4 hours as needed for severe pain. -Anesthesiology following, may need to do a nerve block -Thiamine supplementation, monitor for signs/symptoms of withdrawals -PT/OT -Continue daily medication regimen with atorvastatin 40 mg nightly, fenofibrate 54 mg daily, Seroquel 400 mg nightly, trazodone 150 mg nightly, and Effexor 37.5 mg daily. -Recommend smoking cessation. Nicotine patch 7 mg daily. -Weightbearing, DVT prophylaxis and dressing changes per orthopedic surgery team. -Continue scheduled nebulizer treatments with albuterol 2.5 mg each morning along with every 2 hours as needed for wheezing/shortness of breath Data reviewed: -Vital signs reviewed. Blood pressure 128/79, heart rate 102, respiratory rate 16, temp 98.8F, and SpO2 of 93% on room air. CODE STATUS:full code DVT prophylaxis: per ortho Anticipated discharge date: Likely within the next [address]: Home Patient was seen independently by Nurse Practitioner. This document was prepared using [employer] dictation software. Please allow for errors in fleet administrator while rare they do occur. Objective - Vital Signs Vital signs: Vital Signs Temp 98.8 F 08/17/23 07:00 Pulse 102 H 08/17/23 07:00 Resp 16 08/17/23 07:00 BP 128/79 08/17/23 07:00 Pulse Ox 93 L 08/17/23 07:00 FiO2 Intake & Output 08/16/23 08/17/23 08/17/23 18:59 06:59 18:59 Intake Total 1752 Output Total 20 550 Balance 1732 -550 Weight 79.5 kg Intake: IV 1752 Output: Urine 550 Estimated Blood Loss 20 Other: # Voids 1
[2023-08-17 13:12] LABS: HCT 38.3 % (34.0-46.0); HGB 12.8 gm/dL (11.4-16.0); MCH 36.4 pg (25.0-35.0); MCHC 33.3 g/dL (31.0-37.0); MCV 109.2 fL (80.0-100.0); Macrocytosis Marked; Mean Platelet Volume 10.4; Platelet Count 215 k/uL (150-450); RBC 3.51 m/uL (3.80-5.40); RDW 13.5 % (11.5-15.5); WBC 7.5 k/uL (3.8-10.6)
[2023-08-17 13:41] LABS: ALT 18 U/L (4-34); AST 39 U/L (14-36); African American GFR (CKD) >90 (>60 ml/min/1.73 sqM); Albumin 3.3 g/dL (3.5-5.0); Albumin/Globulin Ratio 1.2; Alkaline Phosphatase 108 U/L (38-126); Anion Gap 6 mmol/L; Blood Urea Nitrogen 3 mg/dL (7-17); Calcium 8.6 mg/dL (8.4-10.2); Carbon Dioxide 29 mmol/L (22-30); Chloride 99 mmol/L (98-107); Globulin 2.8 g/dL; Glucose 107 mg/dL (74-99); Magnesium 1.6 mg/dL (1.6-2.3); Non-African American GFR(CKD) >90 (>60 ml/min/1.73 sqM); Potassium 2.8 mmol/L (3.5-5.1); Sodium 134 mmol/L (137-145); Total Bilirubin 0.6 mg/dL (0.2-1.3); Total Protein 6.1 g/dL (6.3-8.2)
[2023-08-17] MEDS ORDERED: LORazepam 2 MG/ML INJ IV STA (15:33)
[2023-08-17] MEDS: HYDROcodone/APAP 5-325MG 1 EACH TAB PO PRN ×2 (16:46→23:42)
[2023-08-17] MEDS: ATORVASTATIN 40 MG TAB PO SCH (20:16)
[2023-08-17] MEDS: QUEtiapine 400 MG TAB PO SCH (20:16)
[2023-08-18] MEDS: HYDROmorphone 1 MG/ML 1 ML SYRINGE IVP PRN ×3 (04:53→20:14)
[2023-08-18] MEDS: THIAMINE 100 MG TAB PO SCH (08:02)
[2023-08-18] MEDS: NICOTINE 7MG/24HR PATCH TRANSDERM SCH (08:02)
[2023-08-18] MEDS: FENOFIBRATE 54 MG TAB PO SCH (08:02)
[2023-08-18] MEDS: HYDROcodone/APAP 5-325MG 1 EACH TAB PO PRN ×3 (08:02→16:42)
[2023-08-18] MEDS: SENNOSIDES 8.6 MG TAB PO SCH (08:03)
[2023-08-18] MEDS: VENLAFAXINE HCL ER 37.5 MG CAP PO SCH (08:03)
[2023-08-18] MEDS: ALBUTEROL NEBULIZED 2.5 MG/3 ML INHALATION SCH (08:26)
[2023-08-18] MEDS ORDERED: ERGOCALCIFEROL 1,250 MCG (50,000 IU) CAPSULE PO SCH (09:00)
--- NOTE | 2023-08-18 10:31 | P.CNOR ---
History of Present Illness - HPI Consult date: 08/18/23 History of present illness: This is a 58-year-old female who is admitted for pain control. Patient is status post ORIF of the left trimalleolar ankle fracture by Dr. Swan. This is postoperative day #2. Patient is seen and evaluated at bedside today. Patient states that her pain and swelling are improving. Patient states that she is co ncerned that she cannot get into her house because of stairs. Patient denies any fever/chills, numbness, weakness, tingling, abdominal pain, shortness of breath or chest pain. Review of Systems See HPI. Past Medical History Past Medical History: Asthma, GERD/Reflux, Hyperlipidemia, Osteoarthritis (OA), Sleep Apnea/CPAP/BIPAP Additional Past Medical History / Comment(s): Hx migraines, occasional irregular heartbeat, no cpap used, hx anemia. Patient states has had hx of low potassium, unsure why. History of Any Multi-Drug Resistant Organisms: None Reported Past Surgical History: Breast Surgery, Section, Hernia Repair, Hysterectomy, Tonsillectomy, Tubal Ligation Additional Past Surgical History / Comment(s): Left breast biopsy. Past Anesthesia/Blood Transfusion Reactions: No Reported Reaction, Motion Sickness Additional Past Anesthesia/Blood Transfusion Reaction / Comm: . Past Psychological History: Anxiety, Depression, PTSD Smoking Status: Current every day smoker Past Alcohol Use History: Heavy Additional Past Alcohol Use History / Comment(s): Has smoked for 15 yrs, smokes 5 cigarettes per day. Drinks 1 pint per week. Advised no alcohol at least 24 hrs prior to surgery. Past Drug Use History: None Reported - Past Family History Mother Family Medical History: No Reported History Additional Family Medical History / Comment(s): . Father Family Medical History: Osteoarthritis (OA) Additional Family Medical History / Comment(s): DDD Medications and Allergies Home Medications Medication Instructions Recorded Confirmed Type Hydrocodone/Acetaminophen [[place] 1 tab PO Q4H PRN 11/16/18 08/16/23 History 10-325] Omeprazole 20 mg PO DAILY PRN 01/12/20 08/16/23 History Fenofibrate 54 mg PO DAILY 10/03/21 08/16/23 History QUEtiapine [SEROquel] 400 mg PO HS 10/03/21 08/16/23 History Albuterol Inhaler [Ventolin Hfa 1 puff INHALATION QAM 03/14/22 08/16/23 History Inhaler] Atorvastatin Calcium [Lipitor] 40 mg PO HS 03/14/22 08/16/23 History Magnesium Oxide 400 mg PO HS 03/14/22 08/16/23 History Ibuprofen [Motrin] 800 mg PO Q8H PRN #30 tab 08/05/23 08/16/23 Rx Clonazepam (Unknown Dose) 1 tab PO HS 08/14/23 08/16/23 History Ergocalciferol [Vitamin D2 (1250 1,250 mcg PO MENA 08/14/23 08/16/23 History Mcg = 53552 Iu)] Sennosides [Senokot] 8.6 mg PO DAILY 08/14/23 08/16/23 History Venlafaxine HCl ER [Effexor Xr] 37.5 mg PO QAM 08/14/23 08/16/23 History estradioL [Estrace] 1 mg PO DAILY 08/14/23 08/16/23 History traZODone HCL [Trazodone HCl] 150 mg PO HS PRN 08/14/23 08/16/23 History HYDROcodone/APAP 10-325MG [[place] 1 tab PO Q4-6H PRN #40 tab 08/16/23 Rx 10-325] Allergies Allergy/AdvReac Type Severity Reaction Status Date / Time No Known Allergies Allergy Verified 08/16/23 10:55 Physical Examination On exam patient is resting comfortably in bed in no acute distress. Patient is alert and oriented 3. Splint is clean, dry and intact to the left lower extremity. Dorsalis pedis pulse is 2+. The left lower extremity is warm and well perfused. Patient is able to move the toes of the left foot. Capillary refill is normal at < 2 seconds. Sensation intact. Neurovascular status and c irculatory status are intact. Results - Labs Labs: Abnormal Lab Results - Last 24 Hours (Table) 08/17/23 08/17/23 Range/Units 12:56 12:56 RBC 3.51 L (3.80-5.40) m/uL MCV 109.2 H (80.0-100.0) fL MCH 36.4 H (25.0-35.0) pg Macrocytosis Marked A Sodium 134 L (137-145) mmol/L Potassium 2.8 L (3.5-5.1) mmol/L BUN 3 L (7-17) mg/dL Creatinine 0.49 L (0.52-1.04) mg/dL Glucose 107 H (74-99) mg/dL AST 39 H (14-36) U/L Total Protein 6.1 L (6.3-8.2) g/dL Albumin 3.3 L (3.5-5.0) g/dL H & H 08/17/23 Range/Units 12:56 Hgb 12.8 (11.4-16.0) gm/dL Hct 38.3 (34.0-46.0) % Result Diagrams: 08/17/23 12:56 08/17/23 12:56 Assessment and Plan (1) Status post ORIF of fracture of ankle Current Visit: Yes Status: Acute Code(s): Z98.890 - OTHER SPECIFIED POSTPROCEDURAL STATES; Z87.81 - PERSONAL HISTORY OF (HEALED) TRAUMATIC FRACTURE SNOMED Code(s): 08618882061712676 Plan: 1. Continue routine postoperative care and pain control. 2. Maintain splint to left lower extremity. Continue elevating the left lower extremity. 3. Anticipate discharge to [facility] in the next 24-48 hours.
[2023-08-18] MEDS: LACTATED RINGERS 1,000 ML IV SCH (10:46)
[2023-08-18] MEDS ORDERED: LORazepam 2 MG/ML INJ IV STA (14:08)
--- NOTE | 2023-08-18 15:45 | P.PN ---
Subjective Progress Note Date: 08/18/23 Hospital course: Patient is a very pleasant 58-year-old female with a past medical history of alcohol dependence with reports of daily alcohol use/abuse, nicotine dependence, hyperlipidemia, asthma/COPD, PTSD, and anxiety/depression. She presented to the hospital on 08/16/23 for an elective left ankle ORIF, patient was transferred to medical floor for observation secondary to uncontrolled postoperative pain. Physical exam: Patient seen and fully evaluated at bedside this morning.she was visiting with significant other at time of evaluation. Patient and significant other at bedside report patient remains unable to stand with crutches or walker and requesting placement in rehab. Explained that this was very discussed with orthopedic surgeon and plan is for evaluation by physical and occupational therapy and will discuss further with case management tomorrow morning regarding possible placement. Vital signs reviewed and stable. General: Chronically ill-appearing, emaciated extremities with large distended cirrhotic abdomen Derm: Skin warm and dry, jaundiced Head: Atraumatic, normocephalic and symmetric.Scleral icterus Mouth: no lip lesions, mucus membranes moist Cardiovascular: regular rate and rhythm with normal S1S2, systolic murmur, positive posterior tibial pulses bilaterally, and cap refill < 2 seconds. Lungs: Respirations even, regular, and unlabored on room air. Lungs CTA bilaterally, no rhonchi, no rales, no wheezing, and no accessory muscle usage. Abdominal: Distended cirrhotic abdomen with diffuse tenderness, no guarding, no appreciable organomegaly Ext: No gross muscle atrophy, no edema, no contractures movement and sensation intact. Left lower extremity with posterior short leg splint, movement and sensation of toes intact. Cap refill less than 2 seconds. Neuro: Speech clear, face symmetrical and CN II-XII grossly intact with no noted focal neuro deficits Psych: Alert and oriented to person, place, time, and situation. Appropriate and pleasant affect. Assessment and Plan of Care: Uncontrolled postoperative pain Status post left ankle ORIF Alcohol dependence Nicotine dependence Dyslipidemia Asthma/COPD PTSD/anxiety/depression -Received message from surgeon, Dr. Swan. RN reports that Dr. Swan called unit and stated he would like arrangements to be made for patient to be discharged to shelter facility for rehab. Orders placed for physical therapy, occupational therapy, and case management for assistance with placement in SNF. -Continue [place] 5/325 mg tablets every 4 hours as needed for [id number] pain and dilaudid 1 mg every 4 hours as needed for severe pain. -Anesthesiology evaluated cleared patient from their perspective for discharge. -Thiamine supplementation, monitor for signs/symptoms of withdrawals -PT/OT -Continue daily medication regimen with atorvastatin 40 mg nightly, fenofibrate 54 mg daily, Seroquel 400 mg nightly, trazodone 150 mg nightly, and Effexor 37.5 mg daily. -Recommend smoking cessation. Nicotine patch 7 mg daily. -Weightbearing, DVT prophylaxis and dressing changes per orthopedic surgery team. -Continue scheduled nebulizer treatments with albuterol 2.5 mg each morning along with every 2 hours as needed for wheezing/shortness of breath Data reviewed: -Vital signs reviewed. Blood pressure 113/77, heart rate 106, respiratory rate 14, temp 98.2F, and SpO2 of 93% on room air. CODE STATUS:full code DVT prophylaxis: per ortho Anticipated discharge date: Likely within the next [address]: Home Patient was seen independently by Nurse Practitioner. This document was prepared using [employer] dictation software. Please allow for errors in health consultant while rare they do occur. Objective - Vital Signs Vital signs: Vital Signs Temp 98.2 F 08/18/23 07:00 Pulse 106 H 08/18/23 07:00 Resp 14 08/18/23 07:00 BP 113/77 08/18/23 07:00 Pulse Ox 93 L 08/18/23 07:00 FiO2 Intake & Output 08/17/23 08/18/23 08/18/23 18:59 06:59 18:59 Output Total 2 0 Balance -2 0 Output: Urine 2 Stool 0 0 Other: Voiding Method Bedside Commode Bedside Commode # Voids 1 - Labs CBC & Chem 7: 08/17/23 12:56 08/17/23 12:56 Labs: Abnormal Lab Results - Last 24 Hours (Table) 08/17/23 08/17/23 Range/Units 12:56 12:56 RBC 3.51 L (3.80-5.40) m/uL MCV 109.2 H (80.0-100.0) fL MCH 36.4 H (25.0-35.0) pg Macrocytosis Marked A Sodium 134 L (137-145) mmol/L Potassium 2.8 L (3.5-5.1) mmol/L BUN 3 L (7-17) mg/dL Creatinine 0.49 L (0.52-1.04) mg/dL Glucose 107 H (74-99) mg/dL AST 39 H (14-36) U/L Total Protein 6.1 L (6.3-8.2) g/dL Albumin 3.3 L (3.5-5.0) g/dL
[2023-08-18] MEDS: ATORVASTATIN 40 MG TAB PO SCH (20:14)
[2023-08-18] MEDS: QUEtiapine 400 MG TAB PO SCH (20:14)
[2023-08-19] MEDS: HYDROmorphone 1 MG/ML 1 ML SYRINGE IVP PRN ×2 (02:57→07:55)
[2023-08-19] MEDS: SENNOSIDES 8.6 MG TAB PO SCH (07:55)
[2023-08-19] MEDS: VENLAFAXINE HCL ER 37.5 MG CAP PO SCH (07:55)
[2023-08-19] MEDS: FENOFIBRATE 54 MG TAB PO SCH (07:55)
[2023-08-19] MEDS: NICOTINE 7MG/24HR PATCH TRANSDERM SCH (07:55)
[2023-08-19] MEDS: THIAMINE 100 MG TAB PO SCH (07:55)
[2023-08-19] MEDS: ALBUTEROL NEBULIZED 2.5 MG/3 ML INHALATION SCH (08:18)
[2023-08-19] MEDS: HYDROcodone/APAP 5-325MG 1 EACH TAB PO PRN ×4 (10:23→22:24)
[2023-08-19] MEDS: LACTATED RINGERS 1,000 ML IV SCH (11:16)
--- NOTE | 2023-08-19 12:12 | XR ---
Intraoperative/procedural fluoroscopic services were provided. Total fluoroscopy time is 59 seconds w ith a total of 6 submitted images to PACS. Please see the operative/procedural note for further detai ls. DAP: [id number] mGym2
--- NOTE | 2023-08-19 15:25 | P.PN ---
Subjective Progress Note Date: 08/19/23 Hospital course: Patient is a very pleasant 58-year-old female with a past medical history of alcohol dependence with reports of daily alcohol use/abuse, nicotine dependence, hyperlipidemia, asthma/COPD, PTSD, and anxiety/depression. She presented to the hospital on 08/16/23 for an elective left ankle ORIF, patient was transferred to medical floor for observation secondary to uncontrolled postoperative pain. Physical exam: Patient seen and fully evaluated at bedside this morning, discussed plan of care and that we are awaiting acceptance to rehabilitation facility and insurance authorization to transfer to rehab facility. Vital signs reviewed and stable. General: Chronically ill-appearing, emaciated extremities with large distended cirrhotic abdomen Derm: Skin warm and dry, jaundiced Head: Atraumatic, normocephalic and symmetric.Scleral icterus Mouth: no lip lesions, mucus membranes moist Cardiovascular: regular rate and rhythm with normal S1S2, systolic murmur, po sitive posterior tibial pulses bilaterally, and cap refill < 2 seconds. Lungs: Respirations even, regular, and unlabored on room air. Lungs CTA bilaterally, no rhonchi, no rales, no wheezing, and no accessory muscle usage. Abdominal: Distended cirrhotic abdomen with diffuse tenderness, no guarding, no appreciable organomegaly Ext: No gross muscle atrophy, no edema, no contractures movement and sensation intact. Left lower extremity with posterior short leg splint, movement and sensation of toes intact. Cap refill less than 2 seconds. Neuro: Speech clear, face symmetrical and CN II-XII grossly intact with no noted focal neuro deficits Psych: Alert and oriented to person, place, time, and situation. Appropriate and pleasant affect. Assessment and Plan of Care: Uncontrolled postoperative pain Status post left ankle ORIF. Alcohol dependence Nicotine dependence Dyslipidemia Asthma/COPD PTSD/anxiety/depression -PT/OT following, recommending SNF for rehab. -Continue [place] 5/325 mg tablets every 4 hours as needed for pain. -Anesthesiology evaluated cleared patient from their perspective for discharge. -Continue Thiamine supplementation, monitor for signs/symptoms of withdrawals -Continue daily medication regimen with atorvastatin 40 mg nightly, fenofibrate 54 mg daily, Seroquel 400 mg nightly, trazodone 150 mg nightly, and Effexor 37.5 mg daily. -Recommend smoking cessation. Nicotine patch 7 mg daily. -Weightbearing, DVT prophylaxis and dressing changes per orthopedic surgery team. -Continue scheduled nebulizer treatments with albuterol 2.5 mg each morning along with every 2 hours as needed for wheezing/shortness of breath -press worker helper following, working on finding excepting rehab and insurance authorization. Data reviewed: -Vital signs reviewed. Blood pressure 115/70, heart rate 104, respiratory rate 14, temp 98.6F, and SpO2 of 90% on room air.. CODE STATUS:full code DVT prophylaxis: per ortho Anticipated discharge date: Likely within the next 24 hours, pending acceptance to facility and insurance authorization for placement. Anticipated discharge place: SNF for rehab Patient was seen independently by Nurse Practitioner. This document was prepared using [employer] dictation software. Please allow for errors in toll line mechanic while rare they do occur. Objective - Vital Signs Vital signs: Vital Signs Temp 98.6 F 08/19/23 07:00 Pulse 104 H 08/19/23 07:00 Resp 14 08/19/23 07:00 BP 115/70 08/19/23 07:00 Pulse Ox 90 L 08/19/23 07:00 FiO2 Intake & Output 08/18/23 08/19/23 08/19/23 18:59 06:59 18:59 Intake Total 118 Output Total 0 Balance 118 0 Intake: Oral 118 Output: Stool 0 Other: Voiding Method Bedside Commode Bedside Commode # Voids 1 1 # Bowel Movements 0 - Labs CBC & Chem 7: 08/17/23 12:56 08/17/23 12:56
[2023-08-19] MEDS: ATORVASTATIN 40 MG TAB PO SCH (22:23)
[2023-08-19] MEDS: QUEtiapine 400 MG TAB PO SCH (22:23)
[2023-08-20] MEDS: HYDROcodone/APAP 5-325MG 1 EACH TAB PO PRN ×4 (02:46→17:23)
[2023-08-20] MEDS: NICOTINE 7MG/24HR PATCH TRANSDERM SCH (09:18)
[2023-08-20] MEDS: VENLAFAXINE HCL ER 37.5 MG CAP PO SCH (09:18)
[2023-08-20] MEDS: FENOFIBRATE 54 MG TAB PO SCH (09:19)
[2023-08-20] MEDS: THIAMINE 100 MG TAB PO SCH (09:19)
[2023-08-20] MEDS: SENNOSIDES 8.6 MG TAB PO SCH (09:19)
[2023-08-20 10:12] VITALS: RESP 14
[2023-08-20] MEDS: ALBUTEROL NEBULIZED 2.5 MG/3 ML INHALATION SCH (10:45)
[2023-08-20] MEDS ORDERED: POTASSIUM CHLORIDE ER 20 MEQ TAB.ER PO STA (11:41)
--- NOTE | 2023-08-20 11:44 | P.PN ---
Subjective Progress Note Date: 08/20/23 Hospital course: Patient is a very pleasant 58-year-old female with a past medical history of alcohol dependence with reports of daily alcohol use/abuse, nicotine dependence, hyperlipidemia, asthma/COPD, PTSD, and anxiety/depression. She presented to the hospital on 08/16/23 for an elective left ankle ORIF, patient was transferred to medical floor for observation secondary to uncontrolled postoperative pain and placement in rehab . Physical exam: Patient seen and fully evaluated at bedside this morning, discussed plan of care and that she has been accepted to [facility] for rehab and we are currently awaiting insurance authorization at this time. Plan is for discharge once i nsurance authorization has been obtained. Vital signs reviewed and stable. General: Chronically ill-appearing, emaciated extremities with large distended cirrhotic abdomen Derm: Skin warm and dry, jaundiced Head: Atraumatic, normocephalic and symmetric.Scleral icterus Mouth: no lip lesions, mucus membranes moist Cardiovascular: regular rate and rhythm with normal S1S2, systolic murmur, positive posterior tibial pulses bilaterally, and cap refill < 2 seconds. Lungs: Respirations even, regular, and unlabored on room air. Lungs CTA bilaterally, no rhonchi, no rales, no wheezing, and no accessory muscle usage. Abdominal: Distended cirrhotic abdomen with diffuse tenderness, no guarding, no appreciable organomegaly Ext: No gross muscle atrophy, no edema, no contractures movement and sensation intact. Left lower extremity with posterior short leg splint, movement and sensation of toes intact. Cap refill less than 2 seconds. Neuro: Speech clear, face symmetrical and CN II-XII grossly intact with no noted focal neuro deficits Psych: Alert and oriented to person, place, time, and situation. Appropriate and pleasant affect. Assessment and Plan of Care: Uncontrolled postoperative pain Status post left ankle ORIF. Alcohol dependence Nicotine dependence Dyslipidemia Asthma/COPD PTSD/anxiety/depression -PT/OT following, recommending SNF for rehab. -Continue Brighton 5/325 mg tablets every 4 hours as needed for pain. -Anesthesiology evaluated cleared patient from their perspective for discharge. -Continue Thiamine supplementation, monitor for signs/symptoms of withdrawals -Continue daily medication regimen with atorvastatin 40 mg nightly, fenofibrate 54 mg daily, Seroquel 400 mg nightly, trazodone 150 mg nightly, and Effexor 37.5 mg daily. -Recommend smoking cessation. Nicotine patch 7 mg daily. -Weightbearing, DVT prophylaxis and dressing changes per orthopedic surgery team. Dictated surgeon recommending placement in SNF. -Continue scheduled nebulizer treatments with albuterol 2.5 mg each morning along with every 2 hours as needed for wheezing/shortness of breath -pass worker following, stated patient has been accepted to [facility] for rehab and we are now awaiting insurance authorization. Data reviewed: -Vital signs reviewed. Blood pressure 121/76, heart rate 86, respiratory rate 14, temp 98.2F, and SpO2 of 96% on room air. -Order CBC, CMP, and mag will follow up on these results. CODE STATUS:full code DVT prophylaxis: per ortho Anticipated discharge date: Plan is for discharge to [facility], awaiting insurance authorization. Anticipated discharge place: [facility] for rehab Patient was seen independently by Nurse Practitioner. This document was prepared using [employer] dictation software. Please allow for errors in layout designer while rare they do occur. I reviewed the documentation as provided by the SHELLEY above, who is the original author of this note. I agree with the documented assessment and plan, with the following changes: none Objective - Vital Signs Vital signs: Vital Signs Temp 97.9 F 08/20/23 02:19 Pulse 89 08/20/23 02:19 Resp 15 08/20/23 02:19 BP 109/58 08/20/23 02:19 Pulse Ox 97 08/20/23 02:19 FiO2 Intake & Output 08/19/23 08/20/23 08/20/23 18:59 06:59 18:59 Output Total 0 0 Balance 0 0 Output: Stool 0 0 Other: Voiding Method Bedside Commode Bedside Commode # Voids 3 1 # Bowel Movements 1 - Labs CBC & Chem 7: 08/20/23 11:48 08/20/23 11:48
[2023-08-20 12:05] LABS: HCT 37.2 % (34.0-46.0); HGB 11.8 gm/dL (11.4-16.0); MCH 34.8 pg (25.0-35.0); MCHC 31.6 g/dL (31.0-37.0); Macrocytosis Marked; Mean Platelet Volume 10.2; Platelet Count 245 k/uL (150-450); RBC 3.39 m/uL (3.80-5.40); RDW 13.2 % (11.5-15.5); WBC 5.2 k/uL (3.8-10.6)
[2023-08-20 12:50] LABS: ALT 16 U/L (4-34); AST 36 U/L (14-36); African American GFR (CKD) >90 (>60 ml/min/1.73 sqM); Alkaline Phosphatase 120 U/L (38-126); Anion Gap 4 mmol/L; Blood Urea Nitrogen 9 mg/dL (7-17); Calcium 8.8 mg/dL (8.4-10.2); Carbon Dioxide 30 mmol/L (22-30); Chloride 101 mmol/L (98-107); Glucose 104 mg/dL (74-99); Magnesium 1.8 mg/dL (1.6-2.3); Non-African American GFR(CKD) >90 (>60 ml/min/1.73 sqM); Potassium 3.4 mmol/L (3.5-5.1); Sodium 135 mmol/L (137-145); Total Bilirubin 0.6 mg/dL (0.2-1.3)
[2023-08-20 15:36] VITALS: BP 112/70; PULSE 102; TEMP 98.7
--- NOTE | 2023-08-20 17:31 | P.DS ---
Providers Date of admission: 08/16/23 14:28 Expected date of discharge: 08/20/23 Attending physician: Aleksandr Conner MD Primary care physician: [facility] Hospital Course: Discharge Diagnosis: Uncontrolled postoperative pain Status post left ankle ORIF. Alcohol dependence Nicotine dependence Dyslipidemia Asthma/COPD PTSD/anxiety/depression Hospital Course: Patient is a very pleasant 58-year-old female with a past medical history of alcohol dependence with reports of daily alcohol use/abuse, nicotine dependence, hyperlipidemia, asthma/COPD, PTSD, and anxiety/depression. She presented to the hospital on 08/16/23 for an elective left ankle ORIF, patient was transferred to medical floor for observation secondary to uncontrolled postoperative pain and placement in rehab . Patient underwent a 4 day hospitalization and was accepted to rehab at [facility] and currently pending insurance authorization. Received call from RN stating patient demanding discharge at this time she is now refusing rehab because she only wanted to go to [facility] and is refusing any other facility. It was explained to patient that [facility] did not accept her insurance and this is why we had to go with her second choice facilities. Patient adamant to be discharged at this time. Orders place this patient is medically stable. Patient's significant other at bedside to take her home at this time. Patient to follow up outpatient with PCP and orthopedic surgery as scheduled. Please see progress note written earlier in the day to review a full detailed assessment. A total of 31 minutes of time were spent preparing this complex discharge summary. Pt was discharged on 08/20/23 at 5:24 PM. Patient was seen independently by Nurse Practitioner. This document was prepared using [employer] dictation software. Please allow for errors in quality assurance project manager while rare they do occur. I reviewed the documentation as provided by the SHELLEY above, who is the original author of this note. I agree with the documented assessment and plan, with the following changes: none Plan - Discharge Summary Discharge Rx Participant: No New Discharge Prescriptions: New HYDROcodone/APAP 10-325MG [R[place] 10-325] 1 tab PO Q4-6H PRN #40 tab PRN Reason: Pain Continue Omeprazole 20 mg PO DAILY PRN PRN Reason: Acid Reflux Fenofibrate 54 mg PO DAILY Atorvastatin Calcium [Lipitor] 40 mg PO HS Magnesium Oxide 400 mg PO HS Ibuprofen [Motrin] 800 mg PO Q8H PRN #30 tab PRN Reason: Pain Ergocalciferol [Vitamin D2 (1250 Mcg = 99469 Iu)] 1,250 mcg PO MENA Venlafaxine HCl ER [Effexor XR] 37.5 mg PO QAM Sennosides [Senokot] 8.6 mg PO DAILY QUEtiapine [SEROquel] 400 mg PO HS Albuterol Inhaler [Ventolin Hfa Inhaler] 1 puff INHALATION QAM Clonazepam (Unknown Dose) 1 tab PO HS traZODone HCL 150 mg PO HS PRN PRN Reason: Sleep Discontinued Hydrocodone/Acetaminophen [[place] 10-325] 1 tab PO Q4H PRN PRN Reason: Pain No Action estradioL [Estrace] 1 mg PO DAILY Discharge Medication List Omeprazole 20 mg PO DAILY PRN 01/12/20 [History] Fenofibrate 54 mg PO DAILY 10/03/21 [History] QUEtiapine [SEROquel] 400 mg PO HS 10/03/21 [History] Albuterol Inhaler [Ventolin Hfa Inhaler] 1 puff INHALATION QAM 03/14/22 [History] Atorvastatin Calcium [Lipitor] 40 mg PO HS 03/14/22 [History] Magnesium Oxide 400 mg PO HS 03/14/22 [History] Ibuprofen [Motrin] 800 mg PO Q8H PRN #30 tab 08/05/23 [Rx] Clonazepam (Unknown Dose) 1 tab PO HS 08/14/23 [History] Ergocalciferol [Vitamin D2 (1250 Mcg = 45025 Iu)] 1,250 mcg PO MENA 08/14/23 [History] Sennosides [Senokot] 8.6 mg PO DAILY 08/14/23 [History] Venlafaxine HCl ER [Effexor XR] 37.5 mg PO QAM 08/14/23 [History] estradioL [Estrace] 1 mg PO DAILY 08/14/23 [History] traZODone HCL 150 mg PO HS PRN 08/14/23 [History] HYDROcodone/APAP 10-325MG [[place] 10-325] 1 tab PO Q4-6H PRN #40 tab 08/16/23 [Rx] Follow up Appointment(s)/Referral(s): Juan Swan DPM [Doctor of Osteopathic Medicine] - 1 Week (please call tomorrow for an appointment for follow up) Patient Instructions/Handouts: *Surgery [facility] - ([facility]) Discharge Instructins Foot Surgery Activity/Diet/Wound Care/Special Instructions: Keep the splint clean, dry, and intact. Do not remove Keep foot elevated above your heart when resting Apply ice behind the knee continuously for the first 24 hours. Then apply 1 hour on/1 hour off thereafter. Do not place weight on the surgical side Use crutches, walker, etc. for mobility Take pain medications as prescribed Regular diet as tolerated Estradial increases your risks of developing a DVT, please hold this medication until cleared to resume by orthopedic surgeon. Discharge Disposition: HOME WITH HOME HEALTH SERVICES Plan of Treatment: Emiily from social work should call you tomorrow to set up home care and physical therapy DO NOT take estrogen untill okayed by beata ba!!
== END 2023-08-20 18:30 | disposition home health service (06) ==
LOC: OR 10:15 → 6NMEDSUR 14:28 → OR 08-20 06:45 → UNDOADMOB 08-20 06:55 → 6NMEDSUR 08-20 06:55
PROVIDERS: ADMIT Student in an Organized Health Care Education/Training Program; ATTEND Student in an Organized Health Care Education/Training Program
DX: S82.852A Displaced trimalleolar fracture of left lower leg, initial encounter for closed fracture (principal); X58.XXXA Exposure to other specified factors, initial encounter; F10.20 Alcohol dependence, uncomplicated; T51.0X1D Toxic effect of ethanol, accidental (unintentional), subsequent encounter; F17.210 Nicotine dependence, cigarettes, uncomplicated; E78.5 Hyperlipidemia, unspecified; J44.9 Chronic obstructive pulmonary disease, unspecified; F43.10 Post-traumatic stress disorder, unspecified; J45.909 Unspecified asthma, uncomplicated; F41.9 Anxiety disorder, unspecified; F32.A Depression, unspecified; Z79.899 Other long term (current) drug therapy; K21.9 Gastro-esophageal reflux disease without esophagitis; M19.90 Unspecified osteoarthritis, unspecified site; G47.30 Sleep apnea, unspecified; G43.909 Migraine, unspecified, not intractable, without status migrainosus; Z98.891 History of uterine scar from previous surgery; Z98.51 Tubal ligation status; Z82.61 Family history of arthritis
CPT/HCPCS: 96376; 96374; 97530 ×2; 64447; 64445; 80053 ×2; 83735 ×2; 85027 ×2; 73610; 27822; G0378 ×5; C1713; S4990 ×5; J2250; J2060 ×2; J1100; J0690 ×2; J2405; J3010 ×2; J1170 ×6

== ENCOUNTER 2023-09-01 03:01 | Emergency (ER) | payer OTHER ==
[2023-09-01] MEDS ORDERED: MORPHINE SULFATE 4 MG/ML SYRINGE IV STA ×2 (04:41→08:08)
[2023-09-01 05:56] LABS: Basophils % (A) 1 %; Eosinophils # (A) 0.2 k/uL (0-0.7); Eosinophils % (A) 2 %; HCT 36.2 % (34.0-46.0); HGB 12.3 gm/dL (11.4-16.0); Lymphocytes # (A) 2.4 k/uL (1.0-4.8); Lymphocytes % (A) 35 %; MCH 36.6 pg (25.0-35.0); MCV 107.9 fL (80.0-100.0); Macrocytosis Moderate; Mean Platelet Volume 10.3; Monocytes # (A) 0.4 k/uL (0-1.0); Monocytes % (A) 5 %; Neutrophils # (A) 3.7 k/uL (1.3-7.7); Neutrophils % (A) 55 %; Platelet Count 306 k/uL (150-450); RBC 3.36 m/uL (3.80-5.40); RDW 13.2 % (11.5-15.5); WBC 6.8 k/uL (3.8-10.6)
[2023-09-01 06:15] LABS: African American GFR (CKD) >90 (>60 ml/min/1.73 sqM); Anion Gap 3 mmol/L; Blood Urea Nitrogen 15 mg/dL (7-17); C Reactive Protein 2.5 mg/dL (<1.0); Calcium 8.7 mg/dL (8.4-10.2); Carbon Dioxide 31 mmol/L (22-30); Chloride 104 mmol/L (98-107); Glucose 80 mg/dL (74-99); Non-African American GFR(CKD) >90 (>60 ml/min/1.73 sqM); Potassium 4.2 mmol/L (3.5-5.1); Sodium 138 mmol/L (137-145)
--- NOTE | 2023-09-01 07:16 | XR ---
Left ankle HISTORY: Pain following open reduction internal fixation for trimalleolar fracture COMPARISON: 08/05/2023 TECHNIQUE: 3 views left ankle were obtained. FINDINGS: There is been open reduction internal fixation of a trimalleolar fracture of the left ankle. The medi al malleolus fracture is mildly displaced and the fixation device/plate appears to be malpositioned s ituated medial to the actual fracture. There is persistent mild widening of the medial aspect of the ankle mortise. IMPRESSION: Open reduction internal fixation for trimalleolar fracture of the ankle with possible malposition of the medial fixation plate for the medial malleolus or fracture.
--- NOTE | 2023-09-01 07:49 | ED ---
Extremity Problem HPI - General Chief complaint: Extremity Problem,Nontraumatic Stated complaint: LEFT ANKLE PAIN Time Seen by Provider: 09/01/23 04:08 Source: patient, EMS Mode of arrival: EMS Limitations: no limitations - History of Present Illness Initial comments: This patient is a 58-year-old woman who presents evaluation of left ankle pain. Patient states she had fracture of that ankle approximately one month ago. She states she had surgical repair of the fracture by Dr. Swan at the start of August and had been doing fairly well. She states that over she had gone in to have the stitches removed. After that she had been walking and then noticed she was having pain at the left ankle. She indicates the lateral aspect. She did have the orthopedic boot from her surgery so she began to wear that for support. She has not noted systemic symptoms. No fever or chills. No chest pain palpitations, other symptoms. MD Complaint: extremity pain Onset/Timin -: days(s) Location: left, lower extremity History of Same: No Radiation: none Quality: aching Consistency: constant Improves with: nothing Worsens with: weight bearing, walking Associated Symptoms: denies other symptoms - Related Data Home Medications Medication Instructions Recorded Confirmed Omeprazole 20 mg PO DAILY PRN 01/12/20 08/16/23 Fenofibrate 54 mg PO DAILY 10/03/21 08/16/23 QUEtiapine [SEROquel] 400 mg PO 10/03/21 08/16/23 Albuterol Inhaler [Ventolin Hfa 1 puff INHALATION QA 03/14/22 08/16/23 Inhaler] Atorvastatin Calcium [Lipitor] 40 mg PO 03/14/22 08/16/23 Magnesium Oxide 400 mg PO 03/14/22 08/16/23 Clonazepam (Unknown Dose) 1 tab PO 08/14/23 08/16/23 Ergocalciferol [Vitamin D2 (1250 1,250 mcg PO MENA 08/14/23 08/16/23 Mcg = 30968 Iu)] Sennosides [Senokot] 8.6 mg PO DAILY 08/14/23 08/16/23 Venlafaxine HCl ER [Effexor XR] 37.5 mg PO QAM 08/14/23 08/16/23 estradioL [Estrace] 1 mg PO DAILY 08/14/23 08/16/23 traZODone HCL 150 mg PO HS PRN 08/14/23 08/16/23 Previous Rx's Medication Instructions Recorded Ibuprofen [Motrin] 800 mg PO Q8H PRN #30 tab 08/05/23 HYDROcodone/APAP 10-325MG [Smoot 1 tab PO Q4-6H PRN #40 tab 08/16/23 10-325] Allergies Allergy/AdvReac Type Severity Reaction Status Date / Time No Known Allergies Allergy Verified 08/16/23 10:55 Review of Systems ROS Statement: Those systems with pertinent positive or pertinent negative responses have been documented in the HPI. ROS Other: All systems not noted in ROS Statement are negative. Constitutional: Denies: fever, chills Respiratory: Denies: cough, dyspnea, hemoptysis Cardiovascular: Denies: chest pain, edema Musculoskeletal: Reports: as per HPI, joint swelling, arthralgia Skin: Denies: rash, lesions Neurological: Denies: weakness, numbness, paresthesias Past Medical History Past Medical History: Asthma, GERD/Reflux, Hyperlipidemia, Osteoarthritis (OA), Sleep Apnea/CPAP/BIPAP Additional Past Medical History / Comment(s): Hx migraines, occasional irregular heartbeat, no cpap used, hx anemia. Patient states has had hx of low potassium, unsure why. History of Any Multi-Drug Resistant Organisms: None Reported Past Surgical History: Breast Surgery, Section, Hernia Repair, Hysterectomy, Tonsillectomy, Tubal Ligation Additional Past Surgical History / Comment(s): Left breast biopsy. Past Anesthesia/Blood Transfusion Reactions: No Reported Reaction, Motion Sickness Additional Past Anesthesia/Blood Transfusion Reaction / Comment(s): . Past Psychological History: Anxiety, Depression, PTSD Smoking Status: Current every day smoker Past Alcohol Use History: Heavy Past Drug Use History: None Reported - Past Family History Mother Family Medical History: No Reported History Additional Family Medical History / Comment(s): . Father Family Medical History: Osteoarthritis (OA) Additional Family Medical History / Comment(s): DDD General Exam Limitations: no limitations General appearance: alert, in no apparent distress Cardiovascular Exam: Present: other (Strong dorsalis pedis pulse and normal capi llary refill throughout the left lower extremity) Extremities exam: Present: tenderness, normal capillary refill, other (The left ankle has normal postsurgical appearance. No real erythema, warmth, drainage. There is small amount of swelling diffusely at the ankle. Very mild tenderness at the left lateral malleolus. No obvious deformity. Range of motion limited). Absent: pedal edema Neurological exam: Absent: motor sensory deficit Skin exam: Present: warm, dry, normal color, other (There is very minimal area of separation of the skin at one of the surgical incisions. No warmth, erythema, drainage.) Course Vital Signs 09/01/23 09/01/23 09/01/23 03:03 05:35 08:15 Temperature 98.5 F 97.9 F Pulse Rate 89 85 81 Respiratory 16 18 16 Rate Blood Pressure 91/61 109/69 111/67 O2 Sat by Pulse 98 94 L 95 Oximetry Medical Decision Making - Medical Decision Making The patient had x-ray of the left ankle which shows there may be some possible change in position of the surgical hardware, when compared with the intraoperative fluoroscopy, as interpreted by myself Patient's 58-year-old woman here with pain, her x-ray does show that the hardware may have moved. In light of this, I discussed case with orthopedic surgeon on-call would like the patient to come to the clinic tomorrow to be seen by her surgeon. Given the open area of skin I did prescribe antibiotic should she start to notice any erythema, warmth, drainage. We discussed appropriate further care and follow-up and return parameters. Was pt. sent in by a medical professional or institution ([facility], [facility], urgent care, hospital, or [place] health care facility...) When possible be specific @ -[No] Did you speak to anyone other than the patient for history (EMS, parent, family, police, friend...)? What history was obtained from this source @ -[No] Did you review nursing and triage notes (agree or disagree)? Why? @ -[I reviewed and agree with nursing and triage notes] Were old charts reviewed (outside hosp., previous admission, EMS record, old EKG, old radiological studies, urgent care reports/EKG's, [place] health care facility records)? Report findings @ -[old charts/Xray were reviewed] Differential Diagnosis (chest pain, altered mental status, abdominal pain women, abdominal pain men, vaginal bleeding, weakness, fever, dyspnea, syncope, headache, dizziness, GI bleed, back pain, seizure, CVA, palpatations, mental health, musculoskeletal)? @ -[Differential Musculoskeletal Muscular strain, contusion, ligament sprain, fracture, arthritis, septic arthritis, bursitis, cellulitis, muscle spasm, nerve compression, DVT, arterial occlusion, herpes zoster, electrolyte abnormality, tumor.... This is not meant to be in all inclusive list EKG interpreted by me (3pts min.). @ -[ X-rays interpreted by me (1pt min.). @ -[Interpreted as above CT interpreted by me (1pt min.). @ -[None done] U/S interpreted by me (1pt. min.). @ -[None done] What testing was considered but not performed or refused? (CT, X-rays, U/S, labs)? Why? @ -[None] What meds were considered but not given or refused? Why? @ -[None] Did you discuss the management of the patient with other professionals (professionals i.e. , PA, BL[facility]DER, lab, RT, psych nurse, social scientist, tracer bullet charging machine operator, teacher, purchasing officer, case management associate)? Give summary @ -[Case discussed with the on-call orthopedic covering for patient's surgeon Was smoking cessation discussed for >3mins.? @ -[No] Was critical care preformed (if so, how long)? @ -[No] Were there social determinants of health that impacted care today? How? (Homelessness, low income, unemployed, alcoholism, drug addiction, transportation, low edu. Level, literacy, decrease access to med. care, senior living, rehab)? @ -[No] Was there de-escalation of care discussed even if they declined (Discuss DNR or withdrawal of care, Hospice)? DNR status @ -[No] What co-morbidities impacted this encounter? (DM, HTN, Smoking, COPD, CAD, Cancer, CVA, ARF, Chemo, Hep., AIDS, mental health diagnosis, sleep apnea, morbid obesity)? @ -[None] Was patient admitted / discharged? Hospital course, mention meds given and route, prescriptions, significant lab abnormalities, going to OR and other pertinent info. @ -[Discharge, as above Undiagnosed new problem with uncertain prognosis? @ -[No] Drug Therapy requiring intensive monitoring for toxicity (Heparin, Nitro, Insulin, Cardizem)? @ -[No] Were any procedures done? @ -[No] Diagnosis/symptom? @ -[Left ankle pain. Possible postsurgical complication Acute, or Chronic, or Acute on Chronic? @ -[Acute Uncomplicated (without systemic symptoms) or Complicated (systemic symptoms)? @ -[Uncomplicated Side effects of treatment? @ -[No] Exacerbation, Progression, or Severe Exacerbation? @ -[No] Poses a threat to life or bodily function? How? (Chest pain, USA, NC, pneumonia, PE, COPD, DKA, ARF, appy, cholecystitis, CVA, Diverticulitis, Homicidal, Suicidal, threat to staff... and all critical care pts) @ -[No] - Lab Data Result diagrams: 09/01/23 05:32 09/01/23 05:32 Lab Results 09/01/23 09/01/23 Range/Units 05:32 05:32 WBC 6.8 (3.8-10.6) k/uL RBC 3.36 L (3.80-5.40) m/uL Hgb 12.3 (11.4-16.0) gm/dL Hct 36.2 (34.0-46.0) % MCV 107.9 H (80.0-100.0) fL MCH 36.6 H (25.0-35.0) pg MCHC 34.0 (31.0-37.0) g/dL RDW 13.2 (11.5-15.5) % Plt Count 306 (150-450) k/uL MPV 10.3 Neutrophils % 55 % Lymphocytes % 35 % Monocytes % 5 % Eosinophils % 2 % Basophils % 1 % Neutrophils # 3.7 (1.3-7.7) k/uL Lymphocytes # 2.4 (1.0-4.8) k/uL Monocytes # 0.4 (0-1.0) k/uL Eosinophils # 0.2 (0-0.7) k/uL Basophils # 0.0 (0-0.2) k/uL Macrocytosis Moderate Sodium 138 (137-145) mmol/L Potassium 4.2 (3.5-5.1) mmol/L Chloride 104 (98-107) mmol/L Carbon Dioxide 31 H (22-30) mmol/L Anion Gap 3 mmol/L BUN 15 (7-17) mg/dL Creatinine 0.69 (0.52-1.04) mg/dL Est GFR (CKD-EPI)AfAm >90 (>60 ml/min/1.73 sqM) Est GFR (CKD-EPI)NonAf >90 (>60 ml/min/1.73 sqM) Glucose 80 (74-99) mg/dL Calcium 8.7 (8.4-10.2) mg/dL C-Reactive Protein 2.5 H (<1.0) mg/dL Disposition Clinical Impression: Ankle pain Disposition: HOME SELF-CARE Condition: Good Instructions (If sedation given, give patient instructions): Arthralgia (ED) Additional Instructions: As we discussed, follow-up with Dr. Swan tomorrow morning Is patient prescribed a controlled substance at d/c from ED?: No Referrals: [facility] [Primary Care Provider] - 1-2 days Juan Swan DPM [Doctor of Osteopathic Medicine] - 1-2 days
[2023-09-01 08:26] VITALS: BP 111/67; PULSE 81; RESP 16; TEMP 97.9
== END 2023-09-01 08:17 | disposition home or self-care (01) ==
LOC: EC 03:01
DX: M25.572 Pain in left ankle and joints of left foot (principal); E78.5 Hyperlipidemia, unspecified; K21.9 Gastro-esophageal reflux disease without esophagitis; J45.909 Unspecified asthma, uncomplicated; M19.90 Unspecified osteoarthritis, unspecified site; F32.A Depression, unspecified; F41.9 Anxiety disorder, unspecified; F17.200 Nicotine dependence, unspecified, uncomplicated; Z79.899 Other long term (current) drug therapy
CPT/HCPCS: 36415; 80048; 85025; 86140; 73610; 99284; 96365; 96375; 96376; J2270; J0690

== ENCOUNTER 2023-11-27 07:01 | Emergency (ER) | payer OTHER ==
[2023-11-27] MEDS ORDERED: ACET/COD 300 MG/30 MG STARTER PACK 6 TAB BTL PO STA (07:49)
[2023-11-27] MEDS ORDERED: HYDROcodone/APAP 5-325MG 1 EACH TAB PO STA (07:49)
--- NOTE | 2023-11-27 07:51 | ED ---
Extremity Problem HPI - General Chief complaint: Extremity Problem,Nontraumatic Stated complaint: L Ankle Pain Time Seen by Provider: 11/27/23 07:49 Source: patient, RN notes reviewed Mode of arrival: ambulatory Limitations: no limitations - History of Present Illness Initial comments: 58-year-old female presents emergency Department chief complaint of left ankle pain this is chronic. Make sure she states that her pain management physician retired in August. She did not follow up with a new clinic at this time she states that she has an appointment in December. Patient states she used to be on [place]. She has not discussed this with her primary care physician regarding pain management. Patient denies any new injuries. Patient offers no other associated symptoms. - Related Data Home Medications Medication Instructions Recorded Confirmed Omeprazole 20 mg PO DAILY PRN 01/12/20 08/16/23 Fenofibrate 54 mg PO DAILY 10/03/21 08/16/23 QUEtiapine [SEROquel] 400 mg PO HS 10/03/21 08/16/23 Albuterol Inhaler [Ventolin Hfa 1 puff INHALATION QAM 03/14/22 08/16/23 Inhaler] Atorvastatin Calcium [Lipitor] 40 mg PO HS 03/14/22 08/16/23 Magnesium Oxide 400 mg PO HS 03/14/22 08/16/23 Clonazepam (Unknown Dose) 1 tab PO HS 08/14/23 08/16/23 Ergocalciferol [Vitamin D2 (1250 1,250 mcg PO MENA 08/14/23 08/16/23 Mcg = [id number] Iu)] Sennosides [Senokot] 8.6 mg PO DAILY 08/14/23 08/16/23 Venlafaxine HCl ER [Effexor XR] 37.5 mg PO QAM 08/14/23 08/16/23 estradioL [Estrace] 1 mg PO DAILY 08/14/23 08/16/23 traZODone HCL 150 mg PO HS PRN 08/14/23 08/16/23 Previous Rx's Medication Instructions Recorded Ibuprofen [Motrin] 800 mg PO Q8H PRN #30 tab 08/05/23 HYDROcodone/APAP 10-325MG [[place] 1 tab PO Q4-6H PRN #40 tab 08/16/23 10-325] Allergies Allergy/AdvReac Type Severity Reaction Status Date / Time No Known Allergies Allergy Verified 11/27/23 07:47 Review of Systems ROS Statement: Those systems with pertinent positive or pertinent negative responses have been documented in the HPI. ROS Other: All systems not noted in ROS Statement are negative. Past Medical History Past Medical History: Asthma, GERD/Reflux, Hyperlipidemia, Osteoarthritis (OA), Sleep Apnea/CPAP/BIPAP Additional Past Medical History / Comment(s): Hx migraines, occasional irregular heartbeat, no cpap used, hx anemia. Patient states has had hx of low potassium, unsure why. History of Any Multi-Drug Resistant Organisms: None Reported Past Surgical History: Breast Surgery, Section, Hernia Repair, Hysterectomy, Tonsillectomy, Tubal Ligation Additional Past Surgical History / Comment(s): Left breast biopsy. Past Anesthesia/Blood Transfusion Reactions: No Reported Reaction, Motion Sickness Additional Past Anesthesia/Blood Transfusion Reaction / Comment(s): . Past Psychological History: Anxiety, Depression, PTSD Smoking Status: Current every day smoker Past Alcohol Use History: Heavy Past Drug Use History: None Reported - Past Family History Mother Family Medical History: No Reported History Additional Family Medical History / Comment(s): . Father Family Medical History: Osteoarthritis (OA) Additional Family Medical History / Comment(s): DDD General Exam Limitations: no limitations General appearance: alert, in no apparent distress Head exam: Present: atraumatic, normocephalic, normal inspection Neck exam: Present: normal inspection, full ROM. Absent: tenderness, meningismus, lymphadenopathy Respiratory exam: Present: normal lung sounds bilaterally. Absent: respiratory distress, wheezes, rales, rhonchi, stridor Cardiovascular Exam: Present: regular rate, normal rhythm, normal heart sounds. Absent: systolic murmur, diastolic murmur, rubs, gallop, clicks GI/Abdominal exam: Present: soft, normal bowel sounds. Absent: distended, tenderness, guarding, rebound, rigid Neurological exam: Present: alert Course Vital Signs 11/27/23 07:45 Temperature 97 F L Pulse Rate 96 Respiratory 18 Rate Blood Pressure 105/71 O2 Sat by Pulse 98 Oximetry Medical Decision Making - Medical Decision Making Was pt. sent in by a medical professional or institution (, PA, TRAINING PROGRAM DEVELOPER, urgent care, hospital, or detention...) When possible be specific @ -No Did you speak to anyone other than the patient for history (EMS, parent, family, police, friend...)? What history was obtained from this source @ -No Did you review nursing and triage notes (agree or disagree)? Why? @ -I reviewed and agree with nursing and triage notes Were old charts reviewed (outside hosp., previous admission, EMS record, old EKG, old radiological studies, urgent care reports/EKG's, detention records)? Report findings @ -No old charts were reviewed Differential Diagnosis (chest pain, altered mental status, abdominal pain women, abdominal pain men, vaginal bleeding, weakness, fever, dyspnea, syncope, headache, dizziness, GI bleed, back pain, seizure, CVA, palpatations, mental health, musculoskeletal)? @ -Chronic pain, ankle pain EKG interpreted by me (3pts min.). @ -None X-rays interpreted by me (1pt min.). @ -None done CT interpreted by me (1pt min.). @ -None done U/S interpreted by me (1pt. min.). @ -None done What testing was considered but not performed or refused? (CT, X-rays, U/S, labs)? Why? @ -None What meds were considered but not given or refused? Why? @ -None Did you discuss the management of the patient with other professionals (professionals i.e. , PA, TRAINING PROGRAM DEVELOPER, lab, RT, psych nurse, socially responsible investment adviser, seconds handler, teacher, sba business development officer, senior case manager)? Give summary @ -No Was smoking cessation discussed for >3mins.? @ -No Was critical care preformed (if so, how long)? @ -No Were there social determinants of health that impacted care today? How? (Homelessness, low income, unemployed, alcoholism, drug addiction, transportation, low edu. Level, literacy, decrease access to med. care, [facility], rehab)? @ -No Was there de-escalation of care discussed even if they declined (Discuss DNR or withdrawal of care, Hospice)? DNR status @ -No What co-morbidities impacted this encounter? (DM, HTN, Smoking, COPD, CAD, Cancer, CVA, ARF, Chemo, Hep., AIDS, mental health diagnosis, sleep apnea, morbid obesity)? @ -None Was patient admitted / discharged? Hospital course, mention meds given and route, prescriptions, significant lab abnormalities, going to OR and other pertinent info. @ -Discharge is advised that she has a follow-up with her PCP or pain management for further pain meds Undiagnosed new problem with uncertain prognosis? @ -No Drug Therapy requiring intensive monitoring for toxicity (Heparin, Nitro, Insulin, Cardizem)? @ -No Were any procedures done? @ -No Diagnosis/symptom? @ -Chronic pain] Acute, or Chronic, or Acute on Chronic? @ -Acute uncomplicated Uncomplicated (without systemic symptoms) or Complicated (systemic symptoms)? @ -default Side effects of treatment? @ -No Exacerbation, Progression, or Severe Exacerbation? @ -No Poses a threat to life or bodily function? How? (Chest pain, [place], AR, pneumonia, PE, COPD, DKA, ARF, appy, cholecystitis, CVA, Diverticulitis, Homicidal, Suic idal, threat to staff... and all critical care pts) @ -No Disposition Clinical Impression: Chronic pain Disposition: HOME SELF-CARE Condition: Stable Instructions (If sedation given, give patient instructions): Leg Pain (ED) Additional Instructions: Please return to the Emergency Department if symptoms worsen or any other concerns. Is patient prescribed a controlled substance at d/c from ED?: No Referrals: [facility] [Primary Care Provider] - 1-2 days Time of Disposition: 07:51
[2023-11-27 08:23] VITALS: BP 105/71; PULSE 96; RESP 18; TEMP 97
== END 2023-11-27 08:13 | disposition home or self-care (01) ==
LOC: EC 07:01
DX: G89.29 Other chronic pain (principal); M25.572 Pain in left ankle and joints of left foot; E78.5 Hyperlipidemia, unspecified; J45.909 Unspecified asthma, uncomplicated; K21.9 Gastro-esophageal reflux disease without esophagitis; M19.90 Unspecified osteoarthritis, unspecified site; F32.A Depression, unspecified; F41.9 Anxiety disorder, unspecified; F17.200 Nicotine dependence, unspecified, uncomplicated; Z79.899 Other long term (current) drug therapy
CPT/HCPCS: 99284

== ENCOUNTER → 2023-12-26 | Outpatient (CLI) | payer OTHER ==
--- NOTE | 2023-12-26 16:33 | P.PN ---
Subjective DATE: 12/26/2023 FOLLOW UP VISIT. Patient returned to sleep center for follow-up visit related to treatment of sleep walking. Patient is on treatment with clonazepam 1 mg at bedtime. With this regimen no episodes of sleep walking recently. Patient has history of obstructive sleep apnea-hypopnea syndrome, but does not use her CPAP equipment. . [place] sleepiness scale is 12, which is slightly above normal. MEDICATIONS:1. Clonazepam 1 mg at bedtime 2. Seroquel 3. Trazodone 4. Estriol 5. Lipitor During physical exam: GENERAL: A pleasant patient without any distress. VITAL SIGNS: BP 109/73, HR 94, RR 16 , weight 176.4, temperature 97.6, oxygen saturation at room air 94% . HEENT: PERRLA, EOMI. NECK: Supple. No JVD. LUNGS: Clear to percussion and to auscultation. Good air exchange. No wheezing or rhonchi. HEART: S1, S2 regular. ABDOMEN: Soft and nontender. EXTREMITIES: No clubbing or cyanosis. CRUSHER ASSEMBLER: Awake, alert, and oriented x3. No focal deficit. Impressions: 1. Sleep walking, no recent episodes while on treatment with clonazepam 1 mg at bedtime. 2. History of obstructive sleep apnea. Patient doesn't use CPAP equipment on a regular basis. 3. History of PTSD. 4. History of depression. 5. History of neck problems. 6. History of shoulder pain. Plan: 1. Patient will continue treatment with clonazepam 1 mg at bedtime 2. Sleep hygiene with regular time in bed for at least 8 hours. 3. I again discussed necessity to use CPAP equipment during the night. Patient should use CPAP equipment every night for the whole night. 4. Precautions related to driving. No driving if feel any sleepiness. Patient is aware about civil and criminal liability for unsafe driving, promised to follow recommendations. 5. Follow up visit in 4-6 months or earlier if patient has any problems. Thank you very much for allowing me to participate in the management of your patient. Clarke Us MD, PhD, FAASM. Diplomat of [place] [employer], Sleep Medicine Board by [place] [employer] Manager Nursing of [facility]
== END ==
LOC: 3 N SLEEP 15:56
PROVIDERS: ATTEND Internal Medicine
DX: G47.33 Obstructive sleep apnea (adult) (pediatric) (principal); F51.3 Sleepwalking [somnambulism]; F32.A Depression, unspecified; F43.10 Post-traumatic stress disorder, unspecified; F17.200 Nicotine dependence, unspecified, uncomplicated; Z87.39 Personal history of other diseases of the musculoskeletal system and connective tissue
CPT/HCPCS: 99212

== ENCOUNTER 2024-01-17 06:59 | Day surgery (SDC) | payer OTHER ==
[2024-01-17] MEDS ORDERED: METOCLOPRAMIDE 5 MG/ML 2 ML VIAL IVP PRN (07:00)
[2024-01-17] MEDS ORDERED: HYDROmorphone 0.5 MG/0.5 ML SYRINGE IVP PRN (07:00)
[2024-01-17] MEDS: LACTATED RINGERS 1,000 ML IV SCH (07:42)
[2024-01-17] MEDS: ONDANSETRON 4 MG/2 ML VIAL IVP ONE (07:43)
[2024-01-17] MEDS: DEXAMETHASONE SOD PHOSPHATE 4 MG/ML 1 ML VIAL IV ONE (07:43)
[2024-01-17] MEDS: LIDOCAINE 1% (10MG/ML) FOR IV START INTRADERMA PRN (07:43)
[2024-01-17] MEDS ORDERED: PROPOFOL 10 MG/ML 20 ML VIAL IV ONE (08:07)
[2024-01-17] MEDS ORDERED: LIDOCAINE 1% INJ 10MG/ML (20 ML MDV) ONE (08:07)
[2024-01-17] MEDS ORDERED: fentaNYL (PF) 50 MCG/ML 2 ML AMP ONE (08:07)
[2024-01-17] MEDS ORDERED: PHENYLEPHRINE-0.9% NACL SYG 1,000 MCG/10 ML SYRINGE ONE (08:07)
[2024-01-17] MEDS ORDERED: MIDAZOLAM 2 MG/2 ML VIAL ONE (08:07)
[2024-01-17 08:09] LABS: Basophils % (A) 1 %; Eosinophils # (A) 0.1 k/uL (0-0.7); Eosinophils % (A) 2 %; HCT 42.7 % (34.0-46.0); HGB 14.1 gm/dL (11.4-16.0); Lymphocytes # (A) 2.2 k/uL (1.0-4.8); Lymphocytes % (A) 41 %; MCH 34.4 pg (25.0-35.0); MCV 104.5 fL (80.0-100.0); Macrocytosis Slight; Mean Platelet Volume 12.3; Monocytes # (A) 0.4 k/uL (0-1.0); Monocytes % (A) 8 %; Neutrophils # (A) 2.3 k/uL (1.3-7.7); Neutrophils % (A) 44 %; Platelet Count 179 k/uL (150-450); RBC 4.09 m/uL (3.80-5.40); RDW 12.6 % (11.5-15.5); WBC 5.2 k/uL (3.8-10.6)
[2024-01-17] MEDS: BUPIVACAINE (PF) 0.25% 30 ML VIAL SQ ONE (08:22)
[2024-01-17 08:37] LABS: Large Platelets Present
--- NOTE | 2024-01-17 08:55 | P.OP ---
Date of Procedure: 01/17/24 Preoperative Diagnosis: Painful retained hardware left ankle Postoperative Diagnosis: Same Procedure(s) Performed: Removal of deep hardware (plate and 2 screws) left ankle Implants: None Anesthesia: CRISTALA Surgeon: Juan Swan Estimated Blood Loss (ml): 1 Pathology: none sent Condition: stable Disposition: PACU Description of Procedure: The patient was brought into the operating room and placed on table supine position. Timeout was taken to confirm correct patient identifiers, correct laterally of surgery, and correct procedure. Once all staff in the room were in agreement with the timeout, the patient was induced and placed under general anesthesia. A well-padded tourniquet was placed on the left calf and then 20 mL of 0.25% Marcaine was injected as and medial ankle block. The left leg was prepped and draped usual manner. The leg was exsanguinated and the tourniquet inflated to 250 mmHg. Attention was directed over the medial malleolus or the incision was made over the previous surgical scar. The incision was deepened down to the subcutaneous layer and then sharp dissection was continued down to the plate. Overlying soft tissue was bluntly reflected from the plate. The 2 proximal screws were identified, engaged and removed intact. The plate was loosened and removed. A combination of a Eugene and bone rasp are used to remove any of the bony projections from around the plate. Then the wound is irrigated with antibiotic saline. Subcu closure was done with 4-0 Monocryl. And skin closure was done with 4-0 Stratafix in a running subcuticular manner. Dermal glue was applied around the incision. Then Steri-Strips are placed around the incision. Nonadherent gauze and a dry sterile dressing applied the left ankle. The tourniquet was released and capillary refill return to all digits of the left foot.
[2024-01-17 09:20] VITALS: TEMP 97
[2024-01-17] MEDS: oxyCODONE-APAP 7.5-325MG 1 EACH TAB PO STA (10:02)
[2024-01-17 10:25] VITALS: BP 109/66; PULSE 88; RESP 16
== END 2024-01-17 10:36 | disposition home or self-care (01) ==
LOC: OR 06:59
PROVIDERS: ATTEND Podiatrist
DX: T84.84XA Pain due to internal orthopedic prosthetic devices, implants and grafts, initial encounter (principal); E78.5 Hyperlipidemia, unspecified; F10.90 Alcohol use, unspecified, uncomplicated; F41.9 Anxiety disorder, unspecified; F17.210 Nicotine dependence, cigarettes, uncomplicated; G47.33 Obstructive sleep apnea (adult) (pediatric); Z98.890 Other specified postprocedural states; Z79.899 Other long term (current) drug therapy; Y83.1 Surgical operation with implant of artificial internal device as the cause of abnormal reaction of the patient, or of later complication, without mention of misadventure at the time of the procedure
CPT/HCPCS: 20680; 85025; J2250; J1100; J0690; J2405; J2001; J3010; J2704; J2371; J0665

== ENCOUNTER → 2024-01-31 | Outpatient (CLI) | payer OTHER ==
--- NOTE | 2024-01-31 13:12 | MM ---
Reason for Exam: Screening (asymptomatic). Last mammogram was performed 1 year(s) and 6 month(s) ago. Patient History: Menarche at age 13. First Full-Term at age 24. Hysterectomy at age 52. Postmenopausal. Excisional Biopsy on the Left side. Maternal grandmother had breast cancer, age 60. Paternal aunt had ovarian cancer. Sister had ovarian cancer under age 50. Risk Values: Kia 5 year model risk: 1.0%. NCI Lifetime model risk: 6.5%. Prior Study Comparison: 12/09/2014 Bilateral Diagnostic Mammogram, [facility]. 05/02/2018 Bilateral Screening Mammogram, [facility]. 05/20/2018 Right Diagnostic Mammogram, [facility]. 09/25/2019 Bilateral Screening Mammogram, [facility]. 08/13/2022 Bilateral MG 3D screening mammo w/cad, [facility]. Tissue Density: There are scattered fibroglandular densities. Findings: Analyzed By CAD. The pattern is symmetrical. Abdomen appears symmetrical and stable. No significant interval change is evident. No suspicious groups of microcalcifications, spiculated or lobular masses, architectural distortion or other secondary signs of malignancy are mammographically apparent. Overall Assessment: Benign, BI-RAD 2 Management: Screening Mammogram of both breasts in 1 year. A negative mammogram report should not preclude additional follow up of suspicious palpable abnormalities. Patient should continue monthly self breast exam. A clinical breast exam by your physician is recommended on an annual basis and results should be correlated with mammographic findings. Electronically signed and approved by: Glen Lauren D.O. Radiologis
== END | disposition home or self-care (01) ==
LOC: RADMAMWWP 07:04
PROVIDERS: ATTEND Internal Medicine
DX: Z12.31 Encounter for screening mammogram for malignant neoplasm of breast (principal); Z78.0 Asymptomatic menopausal state; Z80.3 Family history of malignant neoplasm of breast
CPT/HCPCS: 77063; 77067

== ENCOUNTER 2024-03-02 05:12 | Emergency (ER) | payer OTHER ==
--- NOTE | 2024-03-02 06:25 | ED ---
General Adult HPI - General Chief complaint: Shortness of Breath Stated complaint: chest pain burning in mouth Time Seen by Provider: 03/02/24 05:29 Source: patient, RN notes reviewed Mode of arrival: wheelchair Limitations: no limitations - History of Present Illness Initial comments: 58-year-old female presents emergency department with multiple complaints. Patient states that she has had excessive dry mouth, sores, feels like her tongue, gums are caught up. Patient states she saw her PCP and was treated for oral candidiasis. Patient states she had no relief. Patient states she has a dry nose states that she has ear pain sore throat, shortness of breath. Patient states that she has no congestion. Patient denies any new medications denies any drug use - Related Data Home Medications Medication Instructions Recorded Confirmed Omeprazole 20 mg PO DAILY PRN 01/12/20 01/17/24 Fenofibrate 54 mg PO DAILY 10/03/21 01/17/24 QUEtiapine [SEROquel] 400 mg PO HS 10/03/21 01/17/24 Albuterol Inhaler [Ventolin Hfa 1 puff INHALATION DIRECTED PRN 03/14/22 01/17/24 Inhaler] Atorvastatin Calcium [Lipitor] 40 mg PO HS 03/14/22 01/17/24 Ergocalciferol [Vitamin D2 (1250 1,250 mcg PO MENA 08/14/23 01/17/24 Mcg = 17172 Iu)] Venlafaxine HCl ER [Effexor XR] 37.5 mg PO QAM 08/14/23 01/17/24 clonazePAM [KlonoPIN] 1 mg PO HS #0 08/14/23 01/17/24 estradioL [Estrace] 1 mg PO DAILY 08/14/23 01/17/24 traZODone HCL 150 mg PO BID PRN 08/14/23 01/17/24 Gabapentin [Neurontin] 300 mg PO TID 01/14/24 01/17/24 Multivit-Min/Iron/Folic/Lutein 1 each PO DAILY 01/14/24 01/17/24 [Centrum Silver Women Tablet] Potassium/Magnesium 1 tab PO DAILY 01/14/24 01/17/24 Vitamin B Complex 1 each PO DAILY 01/14/24 01/17/24 Previous Rx's Medication Instructions Recorded HYDROcodone/APAP 10-325MG [[place] 1 tab PO Q4-6H PRN #40 tab 08/16/23 10-325] oxyCODONE HCL/ACETAMINOPHEN 1 tab PO Q6HR PRN 3 Days #12 tab 01/17/24 [Percocet 7.5-325 mg] Saline Nasal Gel [[place] Nasal Gel] 1 applic TOPICAL Q4H #14.1 gm 03/02/24 Allergies Allergy/AdvReac Type Severity Reaction Status Date / Time No Known Allergies Allergy Verified 03/02/24 05:17 Review of Systems ROS Statement: Those systems with pertinent positive or pertinent negative responses have been documented in the HPI. ROS Other: All systems not noted in ROS Statement are negative. Past Medical History Past Medical History: Asthma, GERD/Reflux, Hyperlipidemia, Osteoarthritis (OA), Sleep Apnea/CPAP/BIPAP Additional Past Medical History / Comment(s): Hx migraines, occasional irregular heartbeat, no cpap used, hx anemia. Patient states has had hx of low potassium, unsure why. History of Any Multi-Drug Resistant Organisms: None Reported Past Surgical History: Breast Surgery, Section, Hernia Repair, Hysterectomy, Tonsillectomy, Tubal Ligation Additional Past Surgical History / Comment(s): Left breast biopsy. Past Anesthesia/Blood Transfusion Reactions: No Reported Reaction, Motion Sickness Additional Past Anesthesia/Blood Transfusion Reaction / Comment(s): . Past Psychological History: Anxiety, Depression, PTSD Smoking Status: Current every day smoker Past Alcohol Use History: None Reported Past Drug Use History: None Reported - Past Family History Mother Family Medical History: No Reported History Additional Family Medical History / Comment(s): . Father Family Medical History: Osteoarthritis (OA) Additional Family Medical History / Comment(s): DDD General Exam Limitations: no limitations General appearance: alert, in no apparent distress Head exam: Present: atraumatic, normocephalic, normal inspection Eye exam: Present: normal appearance, PERRL, EOMI. Absent: scleral icterus, conjunctival injection, periorbital swelling ENT exam: Present: mucous membranes moist, TM's normal bilaterally. Absent: nor mal exam, normal oropharynx (Minimal dentition no obvious lesions) Neck exam: Present: normal inspection, full ROM. Absent: tenderness, meningismus, lymphadenopathy Respiratory exam: Present: normal lung sounds bilaterally. Absent: respiratory distress, wheezes, rales, rhonchi, stridor Cardiovascular Exam: Present: regular rate, normal rhythm, normal heart sounds. Absent: systolic murmur, diastolic murmur, rubs, gallop, clicks Neurological exam: Present: alert Skin exam: Present: warm, dry, intact, normal color. Absent: rash Course Vital Signs 03/02/24 03/02/24 03/02/24 05:14 05:19 06:38 Temperature 98.5 F Pulse Rate 100 87 Respiratory 18 18 18 Rate Blood Pressure 95/64 101/69 O2 Sat by Pulse 99 96 Oximetry EKG Findings - EKG Comments: EKG Findings:: EKG performed at 5: 34 sinus rhythm with a rate of 98 VA 132 QRS 85 QT/QTc 298/354 - EKG Results: EKG: interpreted by SRINIVASA Medical Decision Making - Medical Decision Making Was pt. sent in by a medical professional or institution (, PA, PARK WORKER SUPERVISOR, urgent care, hospital, or assisted...) When possible be specific @ -No Did you speak to anyone other than the patient for history (EMS, parent, family, police, friend...)? What history was obtained from this source @ -No Did you review nursing and triage notes (agree or disagree)? Why? @ -I reviewed and agree with nursing and triage notes Were old charts reviewed (outside hosp., previous admission, EMS record, old EKG, old radiological studies, urgent care reports/EKG's, assisted records)? Report findings @ -No old charts were reviewed Differential Diagnosis (chest pain, altered mental status, abdominal pain women, abdominal pain men, vaginal bleeding, weakness, fever, dyspnea, syncope, headache, dizziness, GI bleed, back pain, seizure, CVA, palpatations, mental health, musculoskeletal)? @ -COVID 19, RSV, influenza, pneumonia, acute bronchitis, URI, this list is not all inclusive EKG interpreted by me (3pts min.). @ -As above X-rays interpreted by me (1pt min.). @ -Chest xray shows no acute cardiopulmonary process CT interpreted by me (1pt min.). @ -None done U/S interpreted by me (1pt. min.). @ -None done What testing was considered but not performed or refused? (CT, X-rays, U/S, labs)? Why? @ -None What meds were considered but not given or refused? Why? @ -None Did you discuss the management of the patient with other professionals (professionals i.e. , PA, PARK WORKER SUPERVISOR, lab, RT, psych nurse, foster care social worker, tooling manager, teacher, campus safety officer, case work aide)? Give summary @ -No Was smoking cessation discussed for >3mins.? @ -No Was critical care preformed (if so, how long)? @ -No Were there social determinants of health that impacted care today? How? (Homelessness, low income, unemployed, alcoholism, drug addiction, transportation, low edu. Level, literacy, decrease access to med. care, assisted, rehab)? @ -No Was there de-escalation of care discussed even if they declined (Discuss DNR or withdrawal of care, Hospice)? DNR status @ -No What co-morbidities impacted this encounter? (DM, HTN, Smoking, COPD, CAD, Cancer, CVA, ARF, Chemo, Hep., AIDS, mental health diagnosis, sleep apnea, morbid obesity)? @ -[Anxiety Was patient admitted / discharged? Hospital course, mention meds given and route, prescriptions, significant lab abnormalities, going to OR and other pertinent info. @ -Discharge patient felt improved after [place] solution, nasal gel. Patient's laboratory findings are unremarkable x-rays unremarkable patient states that she feels improved and is requesting discharge. Patient will follow-up with her PCP return parameters discussed. Undiagnosed new problem with uncertain prognosis? @ -No Drug Therapy requiring intensive monitoring for toxicity (Heparin, Nitro, Insulin, Cardizem)? @ -No Were any procedures done? @ -No Diagnosis/symptom? @ -Dry mouth, mouth pain Acute, or Chronic, or Acute on Chronic? @Acute Uncomplicated (without systemic symptoms) or Complicated (systemic symptoms)? @ -Uncomplicated Side effects of treatment? @ -No Exacerbation, Progression, or Severe Exacerbation? @ -No Poses a threat to life or bodily function? How? (Chest pain, USA, DC, pneumonia, PE, COPD, DKA, ARF, appy, cholecystitis, CVA, Diverticulitis, Homicidal, Suicidal, threat to staff... and all critical care pts) @ -No - Lab Data Result diagrams: 03/02/24 06:46 03/02/24 06:46 Lab Results 03/02/24 03/02/2424 Range/Units 06:46 06:46 06:46 WBC 5.9 (3.8-10.6) k/uL RBC 4.18 (3.80-5.40) m/uL Hgb 14.0 (11.4-16.0) gm/dL Hct 43.4 (34.0-46.0) % MCV 103.8 H (80.0-100.0) fL MCH 33.5 (25.0-35.0) pg MCHC 32.3 (31.0-37.0) g/dL RDW 11.8 (11.5-15.5) % Plt Count 172 (150-450) k/uL MPV 11.8 Neutrophils % 50 % Lymphocytes % 36 % Monocytes % 6 % Eosinophils % 3 % Basophils % 1 % Neutrophils # 3.0 (1.3-7.7) k/uL Lymphocytes # 2.2 (1.0-4.8) k/uL Monocytes # 0.3 (0-1.0) k/uL Eosinophils # 0.2 (0-0.7) k/uL Basophils # 0.1 (0-0.2) k/uL Macrocytosis Slight PT 10.3 (10.0-12.5) sec INR 0.9 (<1.2) APTT 28.0 (22.0-30.0) sec Sodium (137-145) mmol/L Potassium (3.5-5.1) mmol/L Chloride (98-107) mmol/L Carbon Dioxide (22-30) mmol/L Anion Gap mmol/L BUN (7-17) mg/dL Creatinine (0.52-1.04) mg/dL Est GFR (CKD-EPI)AfAm (>60 ml/min/1.73 sqM) Est GFR (CKD-EPI)NonAf (>60 ml/min/1.73 sqM) Glucose (74-99) mg/dL Calcium (8.4-10.2) mg/dL Magnesium (1.6-2.3) mg/dL Total Bilirubin (0.2-1.3) mg/dL AST (14-36) U/L ALT (4-34) U/L Alkaline Phosphatase (38-126) U/L Troponin I (0.000-0.034) ng/mL Total Protein (6.3-8.2) g/dL Albumin (3.5-5.0) g/dL Urine Opiates Screen Detected H (NotDetected) Ur Oxycodone Screen Not Detected (NotDetected) Urine Methadone Screen Not Detected (NotDetected) Ur Barbiturates Screen Not Detected (NotDetected) U Tricyclic Antidepress Detected H (NotDetected) Ur Phencyclidine Scrn Not Detected (NotDetected) Ur Amphetamines Screen Not Detected (NotDetected) U Methamphetamines Scrn Not Detected (NotDetected) U Benzodiazepines Scrn Not Detected (NotDetected) Urine Cocaine Screen Not Detected (NotDetected) U Marijuana (THC) Screen Not Detected (NotDetected) 03/02/24 03/02/24 Range/Units 06:46 06:46 WBC (3.8-10.6) k/uL RBC (3.80-5.40) m/uL Hgb (11.4-16.0) gm/dL Hct (34.0-46.0) % MCV (80.0-100.0) fL MCH (25.0-35.0) pg MCHC (31.0-37.0) g/dL RDW (11.5-15.5) % Plt Count (150-450) k/uL MPV Neutrophils % % Lymphocytes % % Monocytes % % Eosinophils % % Basophils % % Neutrophils # (1.3-7.7) k/uL Lymphocytes # (1.0-4.8) k/uL Monocytes # (0-1.0) k/uL Eosinophils # (0-0.7) k/uL Basophils # (0-0.2) k/uL Macrocytosis PT (10.0-12.5) sec INR (<1.2) APTT (22.0-30.0) sec Sodium 141 (137-145) mmol/L Potassium 3.9 (3.5-5.1) mmol/L Chloride 108 H (98-107) mmol/L Carbon Dioxide 26 (22-30) mmol/L Anion Gap 7 mmol/L BUN 15 (7-17) mg/dL Creatinine 0.75 (0.52-1.04) mg/dL Est GFR (CKD-EPI)AfAm >90 (>60 ml/min/1.73 sqM) Est GFR (CKD-EPI)NonAf 90 (>60 ml/min/1.73 sqM) Glucose 67 L (74-99) mg/dL Calcium 9.4 (8.4-10.2) mg/dL Magnesium 1.7 (1.6-2.3) mg/dL Total Bilirubin 0.5 (0.2-1.3) mg/dL AST 23 (14-36) U/L ALT 16 (4-34) U/L Alkaline Phosphatase 74 (38-126) U/L Troponin I 0.031 (0.000-0.034) ng/mL Total Protein 6.8 (6.3-8.2) g/dL Albumin 3.9 (3.5-5.0) g/dL Urine Opiates Screen (NotDetected) Ur Oxycodone Screen (NotDetected) Urine Methadone Screen (NotDetected) Ur Barbiturates Screen (NotDetected) U Tricyclic Antidepress (NotDetected) Ur Phencyclidine Scrn (NotDetected) Ur Amphetamines Screen (NotDetected) U Methamphetamines Scrn (NotDetected) U Benzodiazepines Scrn (NotDetected) Urine Cocaine Screen (NotDetected) U Marijuana (THC) Screen (NotDetected) Disposition Clinical Impression: Xerostomia, Mouth pain, Dry nose Disposition: HOME SELF-CARE Condition: Stable Additional Instructions: Please return to the Emergency Department if symptoms worsen or any other concerns. Prescriptions: Saline Nasal Gel [[place] Nasal Gel] 1 applic TOPICAL Q4H #14.1 gm Is patient prescribed a controlled substance at d/c from ED?: No Referrals: [facility] RehanaBanks [Primary Care Provider] - 1-2 days Time of Disposition: 08:06
[2024-03-02 07:02] LABS: Basophils # (A) 0.1 k/uL (0-0.2); Basophils % (A) 1 %; Eosinophils # (A) 0.2 k/uL (0-0.7); Eosinophils % (A) 3 %; HCT 43.4 % (34.0-46.0); Lymphocytes # (A) 2.2 k/uL (1.0-4.8); Lymphocytes % (A) 36 %; MCH 33.5 pg (25.0-35.0); MCHC 32.3 g/dL (31.0-37.0); MCV 103.8 fL (80.0-100.0); Macrocytosis Slight; Mean Platelet Volume 11.8; Monocytes # (A) 0.3 k/uL (0-1.0); Monocytes % (A) 6 %; Neutrophils % (A) 50 %; Platelet Count 172 k/uL (150-450); RBC 4.18 m/uL (3.80-5.40); RDW 11.8 % (11.5-15.5); WBC 5.9 k/uL (3.8-10.6)
[2024-03-02] MEDS: SODIUM CHLORIDE 0.9% 1,000 ML IV STA (07:02)
[2024-03-02] MEDS: SALINE NASAL GEL 14.1 GM TUBE NASAL ONE (07:05)
[2024-03-02 07:06] LABS: Amphetamine Screen,Urine Not Detected (NotDetected); Barbiturate Screen,Urine Not Detected (NotDetected); Benzodiazepines Screen,Urine Not Detected (NotDetected); Cocaine Screen,Urine Not Detected (NotDetected); Methadone Screen, Urine Not Detected (NotDetected); Opiate Screen,Urine Detected (NotDetected); Oxycodone Screen, Urine Not Detected (NotDetected); Phencyclidine Screen,Urine Not Detected (NotDetected); Tricyclic Antidepressant,Urine Detected (NotDetected); Urn Cannabinoid Scrn Not Detected (NotDetected)
[2024-03-02] MEDS: MAG HYDROX/AL HYDROX/SIMETH 30 ML, LIDOCAINE VISCOUS 2% 30 ML, diphenhydrAMINE ELIXIR 7... PO STA (07:06)
[2024-03-02 07:11] LABS: INR 0.9 (<1.2); Prothrombin Time 10.3 sec (10.0-12.5)
--- NOTE | 2024-03-02 07:22 | XR ---
EXAMINATION TYPE: XR chest 2V DATE OF EXAM: 03/02/2024 COMPARISON: 02/24/2022 INDICATION: Difficulty breathing TECHNIQUE: Frontal and lateral views of the chest are obtained. FINDINGS: The heart size is normal. The pulmonary vasculature is normal. The lungs are clear. IMPRESSION: 1. No acute pulmonary process.
[2024-03-02 07:25] LABS: ALT 16 U/L (4-34); AST 23 U/L (14-36); African American GFR (CKD) >90 (>60 ml/min/1.73 sqM); Albumin 3.9 g/dL (3.5-5.0); Alkaline Phosphatase 74 U/L (38-126); Anion Gap 7 mmol/L; Blood Urea Nitrogen 15 mg/dL (7-17); Calcium 9.4 mg/dL (8.4-10.2); Carbon Dioxide 26 mmol/L (22-30); Chloride 108 mmol/L (98-107); Glucose 67 mg/dL (74-99); Magnesium 1.7 mg/dL (1.6-2.3); Non-African American GFR(CKD) 90 (>60 ml/min/1.73 sqM); Potassium 3.9 mmol/L (3.5-5.1); Sodium 141 mmol/L (137-145); Total Bilirubin 0.5 mg/dL (0.2-1.3); Total Protein 6.8 g/dL (6.3-8.2)
[2024-03-02 09:06] VITALS: BP 116/71; PULSE 75; RESP 16; TEMP 98.4
== END 2024-03-02 08:17 | disposition home or self-care (01) ==
LOC: EC 05:12
DX: K11.7 Disturbances of salivary secretion (principal); J34.89 Other specified disorders of nose and nasal sinuses; F17.200 Nicotine dependence, unspecified, uncomplicated
CPT/HCPCS: 36415; 71046; 80053; 80306; 83735; 84484; 85025; 85610; 85730; 93005; 96360; 99285

== ENCOUNTER 2024-04-23 07:27 | Day surgery (SDC) | payer OTHER ==
[2024-04-23] MEDS: LACTATED RINGERS 1,000 ML IV SCH (07:49)
--- NOTE | 2024-04-23 08:05 | P.GSHP ---
History of Present Illness H&P Date: 04/23/24 CHIEF COMPLAINT: GERD and colon screen HISTORY OF PRESENT ILLNESS: The patient is a 58-year-old female who presents with gastroesophageal reflux disease and need for colon screen. Upper and lower endoscopy were offered for further evaluation and management. PAST MEDICAL HISTORY: Please see list. PAST SURGICAL HISTORY: Please see list. MEDICATIONS: Please see list. ALLERGIES: Please see list. SOCIAL HISTORY: No illicit drug use FAMILY HISTORY: No reports of Crohn disease or ulcerative colitis. REVIEW OF ORGAN SYSTEMS: CONSTITUTIONAL: No reports of fevers or chills. GI: Denies any blood in stools or constipation. PHYSICAL EXAM: VITAL SIGNS: Stable GENERAL: Well-developed pleasant in no acute distress. HEENT: No scleral icterus. Extraocular movements grossly intact. Moist buccal mucosa. NECK: Supple without lymphadenopathy. CHEST: Unlabored respirations. Equal bilateral excursions. CARDIOVASCULAR: Regular rate and rhythm. Distal 2+ pulses. ABDOMEN: Soft, nondistended. MUSCULOSKELETAL: No clubbing, cyanosis, or edema. ASSESSMENT: 1. Gastroesophageal reflux disease 2. Colon screen. PLAN: 1. Recommend proceeding with an upper and lower endoscopy Past Medical History Past Medical History: Asthma, GERD/Reflux, Hyperlipidemia, Osteoarthritis (OA), Sleep Apnea/CPAP/BIPAP Additional Past Medical History / Comment(s): Hx migraines, occasional irregular heartbeat, no cpap used, hx anemia. Patient states has had hx of low potassium, unsure why. History of Any Multi-Drug Resistant Organisms: None Reported Past Surgical History: Breast Surgery, Section, Hernia Repair, Hysterectomy, Tonsillectomy, Tubal Ligation Additional Past Surgical History / Comment(s): Left breast biopsy. Past Anesthesia/Blood Transfusion Reactions: No Reported Reaction, Motion Sickness Additional Past Anesthesia/Blood Transfusion Reaction / Comment(s): . Smoking Status: Current every day smoker - Past Family History Mother Family Medical History: No Reported History Additional Family Medical History / Comment(s): . Father Family Medical History: Osteoarthritis (OA) Additional Family Medical History / Comment(s): DDD Medications and Allergies Home Medications Medication Instructions Recorded Confirmed Type Omeprazole 20 mg PO DAILY PRN 01/12/20 04/23/24 History Fenofibrate 54 mg PO DAILY 10/03/21 04/23/24 History QUEtiapine [SEROquel] 400 mg PO HS 10/03/21 04/21/24 History Albuterol Inhaler [Ventolin Hfa 1 puff INHALATION DIRECTED PRN 03/14/22 04/23/24 History Inhaler] Atorvastatin Calcium [Lipitor] 40 mg PO HS 03/14/22 04/23/24 History Ergocalciferol [Vitamin D2 (1250 1,250 mcg PO MENA 08/14/23 04/23/24 History Mcg = 52287 Iu)] Venlafaxine HCl ER [Effexor XR] 37.5 mg PO QAM 08/14/23 04/23/24 History clonazePAM [KlonoPIN] 1 mg PO HS #0 08/14/23 04/21/24 History estradioL [Estrace] 1 mg PO DAILY 08/14/23 04/23/24 History traZODone HCL 150 mg PO BID PRN 08/14/23 04/23/24 History HYDROcodone/APAP 10-325MG [[place] 1 tab PO Q4-6H PRN #40 tab 08/16/23 04/21/24 Rx 10-325] Gabapentin [Neurontin] 300 mg PO TID 01/14/24 04/21/24 History Multivit-Min/Iron/Folic/Lutein 1 each PO DAILY 01/14/24 04/21/24 History [Centrum Silver Women Tablet] Vitamin B Complex 1 each PO DAILY 01/14/24 04/21/24 History Allergies Allergy/AdvReac Type Severity Reaction Status Date / Time No Known Allergies Allergy Verified 04/23/24 07:46 Surgical - Exam Vital Signs Temp Pulse Resp BP Pulse Ox 98.2 F 100 16 118/62 96 04/23/24 07:53 04/23/24 07:53 04/23/24 07:53 04/23/24 07:53 04/23/24 07:53
[2024-04-23] MEDS ORDERED: PROPOFOL 10 MG/ML 20 ML VIAL IV ONE (08:11)
[2024-04-23 08:17] VITALS: TEMP 98.2
--- NOTE | 2024-04-23 08:24 | P.PCN ---
Date of Procedure: 04/23/24 Description of Procedure: PREOPERATIVE DIAGNOSIS: Dysphagia POSTOPERATIVE DIAGNOSIS: Gastroesophageal reflux disease with erosive esophagitis Gastritis. Diaphragmatic hiatal hernia OPERATION: Esophagogastroduodenoscopy with biopsies along esophagus, antrum and duodenum SURGEON: Rubi Campbell MD ANESTHESIA: MAC. INDICATIONS: The patient is a 58-year-old female who presents with reflux disease. Benefits and risks of the procedure were described. Informed consent was obtained. DESCRIPTION: The patient was brought into the endoscopy suite and laid in the left lateral decubitus position. An Olympus gastroscope was passed along the posterior oropharynx down to the distal esophagus where the squamocolumnar junction was encountered at 35 cm from the incisors. The stomach was entered and no bile reflux was found. Additional findings are listed below. Biopsies with cold forceps were obtained of the antrum. The first through third portion of the duodenum was examined. Retroflexion of the scope confirmed Hill grade 3 lower esophageal valve. The squamocolumnar junction demonstrated LA grade C erosive esophagitis. The stomach was desufflated. The patient tolerated the procedure well. FINDINGS: Squamocolumnar junction 35 cm from the incisors. Diaphragmatic hiatus at 37 cm. Hiatal hernia, 2 cm Hill grade 3 lower esophageal valve. LA grade C erosive esophagitis. Biopsies obtained. Biopsies obtained of the duodenum. Chronic gastritis with biopsies obtained. RECOMMENDATIONS: Upper endoscopy as needed. Omeprazole 40 mg daily for 2 weeks
--- NOTE | 2024-04-23 08:38 | P.PCN ---
Date of Procedure: 04/23/24 Description of Procedure: PREOPERATIVE DIAGNOSIS: Colonoscopy screening. POSTOPERATIVE DIAGNOSIS: Colonoscopy screening. Chronic constipation OPERATION: Colonoscopy to the cecum, ileocecal valve and appendiceal orifice. SURGEON: Rubi Campbell MD. ANESTHESIA: MAC. INDICATIONS: The patient is a 58-year-old female who presents for colonoscopy screening. Benefits and risks were described and informed consent was obtained. DESCRIPTION OF PROCEDURE: The patient had undergone Sutab prep. The patient had been brought into the operating room and laid in the left lateral decubitus position. After adequate intravenous sedation, the rectum was examined with 2% lidocaine jelly. External hemorrhoids were encountered. The rectal tone was within normal limits. No lesions were palpated in the rectal vault. An Olympus colonoscope was advanced until the cecum, ileocecal valve and appendiceal orifice were clearly viewed. The prep was fair. Highly redundant sigmoid colon identified requiring abdominal wall pressure. No scattered diverticulosis was encountered. No colonic polyps were found. No evidence of focal colitis was found. Retroflexion of the scope demonstrated grade 2 internal hemorrhoids without active bleeding or inflammation. The colon was desufflated. The patient had tolerated the procedure well. Withdrawal time was over 6 minutes. FINDINGS: Aronchick preparation quality scale 3 (1-5) Internal hemorrhoids, grade 2 External prolapsed hemorrhoids, grade 2 No arteriovenous malformations. No adenomatous polyps. No focal colitis. RECOMMENDATIONS: Lower endoscopy in 5 years, 2028 Recommend 2-day colonoscopy prep Plan - Discharge Summary Discharge Rx Participant: No New Discharge Prescriptions: Continue Fenofibrate 54 mg PO DAILY Atorvastatin Calcium [Lipitor] 40 mg PO HS Ergocalciferol [Vitamin D2 (1250 Mcg = 80366 Iu)] 1,250 mcg PO MENA Venlafaxine HCl ER [Effexor XR] 37.5 mg PO QAM estradioL [Estrace] 1 mg PO DAILY HYDROcodone/APAP 10-325MG [[place] 10-325] 1 tab PO Q4-6H PRN #40 tab PRN Reason: Pain Vitamin B Complex 1 each PO DAILY Multivit-Min/Iron/Folic/Lutein [Centrum Silver Women Tablet] 1 each PO DAILY QUEtiapine [SEROquel] 400 mg PO HS Albuterol Inhaler [Ventolin Hfa Inhaler] 1 puff INHALATION DIRECTED PRN PRN Reason: sob clonazePAM [KlonoPIN] 1 mg PO HS #0 traZODone HCL 150 mg PO BID PRN PRN Reason: Anxiety Gabapentin [Neurontin] 300 mg PO TID Discontinued Omeprazole 20 mg PO DAILY PRN PRN Reason: Acid Reflux Discharge Medication List Fenofibrate 54 mg PO DAILY 10/03/21 [History] QUEtiapine [SEROquel] 400 mg PO HS 10/03/21 [History] Albuterol Inhaler [Ventolin Hfa Inhaler] 1 puff INHALATION DIRECTED PRN 03/14/22 [History] Atorvastatin Calcium [Lipitor] 40 mg PO HS 03/14/22 [History] Ergocalciferol [Vitamin D2 (1250 Mcg = 68825 Iu)] 1,250 mcg PO MENA 08/14/23 [History] Venlafaxine HCl ER [Effexor XR] 37.5 mg PO QAM 08/14/23 [History] clonazePAM [KlonoPIN] 1 mg PO HS #0 08/14/23 [History] estradioL [Estrace] 1 mg PO DAILY 08/14/23 [History] traZODone HCL 150 mg PO BID PRN 08/14/23 [History] HYDROcodone/APAP 10-325MG [[place] 10-325] 1 tab PO Q4-6H PRN #40 tab 08/16/23 [Rx] Gabapentin [Neurontin] 300 mg PO TID 01/14/24 [History] Multivit-Min/Iron/Folic/Lutein [Centrum Silver Women Tablet] 1 each PO DAILY 01/14/24 [History] Vitamin B Complex 1 each PO DAILY 01/14/24 [History] Follow up Appointment(s)/Referral(s): Rubi Campbell MD [STAFF PHYSICIAN] - 06/02/24 4:00 pm Patient Instructions/Handouts: Hiatal Hernia (DC) Activity/Diet/Wound Care/Special Instructions: Repeat colonoscopy in 5 years, 2028 Discharge Disposition: HOME SELF-CARE
[2024-04-23 09:15] VITALS: BP 111/76; PULSE 90; RESP 18
== END 2024-04-23 09:19 | disposition home or self-care (01) ==
LOC: ORWHC2ENDO 07:27
PROVIDERS: ATTEND Surgery Plastic and Reconstructive Surgery
DX: K29.50 Unspecified chronic gastritis without bleeding (principal); K21.00 Gastro-esophageal reflux disease with esophagitis, without bleeding; K44.9 Diaphragmatic hernia without obstruction or gangrene; K59.09 Other constipation; K64.1 Second degree hemorrhoids; J45.909 Unspecified asthma, uncomplicated; E78.5 Hyperlipidemia, unspecified; F17.200 Nicotine dependence, unspecified, uncomplicated; M19.90 Unspecified osteoarthritis, unspecified site; G47.33 Obstructive sleep apnea (adult) (pediatric); Z79.899 Other long term (current) drug therapy; Z98.51 Tubal ligation status; Z90.710 Acquired absence of both cervix and uterus; Z90.89 Acquired absence of other organs; Z98.891 History of uterine scar from previous surgery; Z82.61 Family history of arthritis; Z79.51 Long term (current) use of inhaled steroids; Z98.890 Other specified postprocedural states
CPT/HCPCS: 88305; 45378; 43239; J2704

== ENCOUNTER 2024-05-26 08:06 | Emergency (ER) | payer OTHER ==
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
[2024-05-26] MEDS: KETOROLAC 15 MG/ML 1 ML VIAL IM STA (08:42)
[2024-05-26] MEDS: MORPHINE SULFATE 4 MG/ML SYRINGE IM STA (08:42)
[2024-05-26] MEDS: ONDANSETRON ODT 4 MG TAB PO STA (08:42)
[2024-05-26 08:49] VITALS: TEMP 98
--- NOTE | 2024-05-26 09:28 | XR ---
EXAMINATION TYPE: XR Hip RT and AP Pelvis DATE OF EXAM: 05/26/2024 9:09 AM CLINICAL INDICATION:Female, 58 years old with history of Fall; [facility] COMPARISON: None. TECHNIQUE: XR Hip RT and AP Pelvis; hip was examined in the frontal and lateral projections and a AP pelvis. FINDINGS: No evidence for acute process, joint dislocation or significant soft tissue swelling. Osteo phyte formation of the superior acetabulum of the hip. There is mild joint space narrowing. IMPRESSION: 1. No evidence for acute process. 2. Mild hips osteoarthrosis.
[2024-05-26] MEDS: HYDROmorphone 1 MG/ML 1 ML SYRINGE IM STA ×2 (09:50→11:07)
[2024-05-26 09:55] VITALS: RESP 18
--- NOTE | 2024-05-26 10:21 | CT ---
EXAMINATION TYPE: CT pelvis wo con DATE OF EXAM: 05/26/2024 COMPARISON: None HISTORY: Right hip and pelvis pain after fall CT DLP: 749.9 mGycm Automated exposure control for dose reduction was used. Unenhanced CT of the pelvis and hips was perf ormed. Bone and soft tissue window settings are submitted. FINDINGS: No evidence for fracture or dislocation. No soft tissue hematoma seen. No intrapelvic mass or fluid c ollection. No bony destructive process. Vacuum changes at L4-5. Sacral alae are symmetric as are the SI joints. IMPRESSION: NO FRACTURE OR DISLOCATION OF EITHER HIP.
[2024-05-26] MEDS: ORPHENADRINE 30 MG/ML 2 ML VIAL IM STA (11:05)
[2024-05-26 12:00] VITALS: BP 120/79; PULSE 84
== END 2024-05-26 12:03 | disposition home or self-care (01) ==
LOC: EC 08:06
DX: M16.0 Bilateral primary osteoarthritis of hip (principal); F17.200 Nicotine dependence, unspecified, uncomplicated; V28.49XA Other motorcycle driver injured in noncollision transport accident in traffic accident, initial encounter; Y92.410 Unspecified street and highway as the place of occurrence of the external cause; Y93.55 Activity, bike riding
CPT/HCPCS: 99284; 96372 ×5; 73502; 72192; J2270; J2360; J1170; J1885

== ENCOUNTER 2024-06-01 05:07 | Emergency (ER) | payer OTHER ==
[2024-06-01 05:21] VITALS: RESP 18; TEMP 98.1
--- NOTE | 2024-06-01 05:50 | XR ---
EXAMINATION TYPE: XR Hip Complete RT DATE OF EXAM: 06/01/2024 CLINICAL HISTORY: Pain after recent injury. TECHNIQUE: AP and frogleg views of the right hip are obtained. COMPARISON: CT pelvis May 26, 2024 FINDINGS: There is no acute fracture/dislocation evident in the right hip. Mild axial joint space lo ss and acetabular spurring is redemonstrated. The overlying soft tissue appears unremarkable. IMPRESSION: There is no acute fracture or dislocation in the right hip.
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
[2024-06-01] MEDS: ONDANSETRON ODT 4 MG TAB PO STA (07:05)
[2024-06-01] MEDS: KETOROLAC 15 MG/ML 1 ML VIAL IM STA (07:05)
--- NOTE | 2024-06-01 07:07 | CT ---
EXAMINATION TYPE: CT hip RT wo con DATE OF EXAM: 06/01/2024 COMPARISON: CT pelvis May 2024 HISTORY: Pain, unable to ambulate CT DLP: 772.3 mGycm Automated exposure control for dose reduction was used. FINDINGS: No acute fracture or dislocation in the right hip. Femoral head shape is maintained. Mild axial joint space loss is redemonstrated. There is no groin hernia or adenopathy seen. Muscle bulk is maintained . No free fluid in the pelvis is noted. Uterus is surgically absent or atrophic in appearance. IMPRESSION: NO ACUTE FRACTURE OR DISLOCATION IN THE RIGHT HIP. NO SIGNIFICANT CHANGE FROM RECENT CT.
[2024-06-01 07:46] VITALS: BP 112/75; PULSE 80
== END 2024-06-01 07:37 | disposition home or self-care (01) ==
LOC: EC 05:07
DX: S70.01XA Contusion of right hip, initial encounter (principal); F17.200 Nicotine dependence, unspecified, uncomplicated; V19.9XXA Pedal cyclist (driver) (passenger) injured in unspecified traffic accident, initial encounter; Y93.55 Activity, bike riding
CPT/HCPCS: 73502; 73700; 99284; 96372; J1885

== ENCOUNTER → 2024-07-16 | Outpatient (CLI) | payer OTHER | LOC: 3 N SLEEP 16:00 | PROVIDERS: ATTEND Internal Medicine | CPT/HCPCS: 99212 ==

== ENCOUNTER 2024-10-04 06:39 | Emergency (ER) | payer OTHER ==
[2024-10-04 07:07] VITALS: PULSE 84
[2024-10-04 07:21] LABS: Basophils # (A) 0.1 k/uL (0-0.2); Basophils % (A) 1 %; Eosinophils # (A) 0.1 k/uL (0-0.7); Eosinophils % (A) 2 %; HCT 43.1 % (34.0-46.0); HGB 14.2 gm/dL (11.4-16.0); Lymphocytes # (A) 1.9 k/uL (1.0-4.8); Lymphocytes % (A) 30 %; MCH 34.6 pg (25.0-35.0); MCV 104.8 fL (80.0-100.0); Macrocytosis Slight; Mean Platelet Volume 11.1; Monocytes # (A) 0.3 k/uL (0-1.0); Monocytes % (A) 5 %; Neutrophils # (A) 3.7 k/uL (1.3-7.7); Neutrophils % (A) 58 %; Platelet Count 202 k/uL (150-450); RBC 4.11 m/uL (3.80-5.40); RDW 13.7 % (11.5-15.5); WBC 6.3 k/uL (3.8-10.6)
--- NOTE | 2024-10-04 07:21 | XR ---
EXAMINATION TYPE: XR chest 2V DATE OF EXAM: 10/04/2024 7:18 AM COMPARISON: Chest radiographs from 03/02/2024 CLINICAL INDICATION: Female, 59 years old with history of Chest Pain; TECHNIQUE: XR chest 2V Frontal and lateral views of the chest. FINDINGS: Lungs/Pleura: There is no evidence of pleural effusion, focal consolidation, or pneumothorax. Pulmonary vascularity: Unremarkable. Heart/mediastinum: Cardiomediastinal silhouette is unremarkable. Musculoskeletal: No acute osseous pathology. Other findings: None IMPRESSION: No acute cardiopulmonary disease/process. [facility], , 10/04/2024 7:19 AM
--- NOTE | 2024-10-04 07:31 | ED ---
Chest Pain HPI - General Chief Complaint: Chest Pain Stated Complaint: Chest pain, left shoulder pain Time Seen by Provider: 10/04/24 06:52 Source: patient, RN notes reviewed Mode of arrival: wheelchair Limitations: no limitations - History of Present Illness Initial Comments: 59-year-old female presents emergency department via EMS chief complaint of ch est pain. Patient states that she has been having some pain on and off for the last couple weeks but worse in the last few days. Patient states that she was sent from urgent care when initially started but states that the hospital is too busy so she left. Patient states she has no prior cardiac disease. Patient states that central to left-sided chest pain with left arm pain she states it does hurt to move at times. States she has intermittent shortness of breath no current shortness of breath. Patient has had leg pain or leg swelling. Patient denies any history of hyperlipidemia diabetes or hypertension does admit asthma history. - Related Data Home Medications Medication Instructions Recorded Confirmed Fenofibrate 54 mg PO DAILY 10/03/21 05/26/24 Albuterol Inhaler [Ventolin Hfa 2 puff INHALATION RT-Q4H PRN 03/14/22 05/26/24 Inhaler] Atorvastatin Calcium [Lipitor] 40 mg PO HS 03/14/22 05/26/24 Ergocalciferol [Vitamin D2 (1250 1,250 mcg PO SA 08/14/23 05/26/24 Mcg = 74860 Iu)] clonazePAM [KlonoPIN] 1 mg PO HS #0 08/14/23 05/26/24 estradioL [Estrace] 1 mg PO DIRECTED 08/14/23 05/26/24 Gabapentin [Neurontin] 300 mg PO TID 01/14/24 05/26/24 HYDROcodone/APAP 10-325MG [[place] 1 tab PO QID PRN 05/26/24 05/26/24 10-325] Latanoprost [Latanoprost 0.005%] 1 drop BOTH EYES HS 05/26/24 05/26/24 Loratadine [Claritin] 10 mg PO DAILY 05/26/24 05/26/24 Omeprazole 20 mg PO DAILY 05/26/24 05/26/24 QUEtiapine FUMARATE [SEROquel XR] 400 mg PO HS 05/26/24 05/26/24 Venlafaxine HCl [Effexor XR] 75 mg PO BID 05/26/24 05/26/24 traZODone HCL [Desyrel] 100 mg PO BID 05/26/24 05/26/24 Previous Rx's Medication Instructions Recorded Ibuprofen [Motrin] 800 mg PO Q8H PRN #30 tab 05/26/24 methocarbamoL [Robaxin-750] 1,500 mg PO TID PRN #30 tab 05/26/24 Allergies Allergy/AdvReac Type Severity Reaction Status Date / Time No Known Allergies Allergy Verified 10/04/24 06:46 Review of Systems ROS Statement: Those systems with pertinent positive or pertinent negative responses have been documented in the HPI. ROS Other: All systems not noted in ROS Statement are negative. EKG Findings - EKG Comments: EKG Findings:: EKG performed at 6: 55 sinus rhythm rate of 84 [place] 139 QRS 89 QT/QTc 350/391 inverted T wave in V3 - EKG Results: EKG: interpreted by SRINIVASA Past Medical History Past Medical History: Asthma, GERD/Reflux, Hyperlipidemia, Osteoarthritis (OA), Sleep Apnea/CPAP/BIPAP Additional Past Medical History / Comment(s): Hx migraines, occasional irregular heartbeat, no cpap used, hx anemia. Patient states has had hx of low potassium, unsure why. History of Any Multi-Drug Resistant Organisms: None Reported Past Surgical History: Breast Surgery, Section, Hernia Repair, Hysterectomy, Tonsillectomy, Tubal Ligation Additional Past Surgical History / Comment(s): Left breast biopsy. Past Anesthesia/Blood Transfusion Reactions: No Reported Reaction, Motion Sickness Additional Past Anesthesia/Blood Transfusion Reaction / Comment(s): . Past Psychological History: Anxiety, Depression, PTSD Smoking Status: Current every day smoker Past Alcohol Use History: Occasional Past Drug Use History: None Reported - Past Family History Mother Family Medical History: No Reported History Additional Family Medical History / Comment(s): . Father Family Medical History: Osteoarthritis (OA) Additional Family Medical History / Comment(s): DDD General Exam Limitations: no limitations General appearance: alert, in no apparent distress Head exam: Present: atraumatic, normocephalic, normal inspection Eye exam: Present: normal appearance, PERRL, EOMI. Absent: scleral icterus, conjunctival injection, periorbital swelling ENT exam: Present: normal exam, normal oropharynx, mucous membranes moist Neck exam: Present: normal inspection, full ROM. Absent: tenderness, meningismus, lymphadenopathy Respiratory exam: Present: normal lung sounds bilaterally, chest wall tenderness. Absent: respiratory distress, wheezes, rales, rhonchi, stridor Cardiovascular Exam: Present: regular rate, normal rhythm, normal heart sounds. Absent: systolic murmur, diastolic murmur, rubs, gallop, clicks GI/Abdominal exam: Present: soft, normal bowel sounds. Absent: distended, tenderness, guarding, rebound, rigid Neurological exam: Present: alert, oriented X3, CN II-XII intact, reflexes normal. Absent: motor sensory deficit Skin exam: Present: warm, dry, intact, normal color. Absent: rash Course Vital Signs 10/04/24 10/04/24 10/04/24 06:41 06:49 07:35 Temperature 97.6 F 98.4 F 97.8 F Pulse Rate 93 84 84 Respiratory 18 16 17 Rate Blood Pressure 116/69 119/81 125/84 O2 Sat by Pulse 96 93 L 96 Oximetry Chest Pain MDM - MDM Was pt. sent in by a medical professional or institution (, PA, ENVIRONMENTAL LAW PROFESSOR, urgent care, hospital, or fpc...) When possible be specific @ -No Did you speak to anyone other than the patient for history (EMS, parent, family, police, friend...)? What history was obtained from this source @ -No Did you review nursing and triage notes (agree or disagree)? Why? @ -I reviewed and agree with nursing and triage notes Were old charts reviewed (outside hosp., previous admission, EMS record, old EKG, old radiological studies, urgent care reports/EKG's, fpc records)? Report findings @ -No old charts were reviewed Differential Diagnosis (chest pain, altered mental status, abdominal pain women, abdominal pain men, vaginal bleeding, weakness, fever, dyspnea, syncope, headache, dizziness, GI bleed, back pain, seizure, CVA, palpatations, mental health, musculoskeletal)? @ -Differential Chest Pain: Stable Angina, Unstable Angina, STEMI, NSTEMI Aortic Dissection, Pneumothorax, Musculoskeletal, Esophageal Spasm GERD, Cholecystitis, Pancreatitis, Zoster, this is not meant to be an all-inclusive list. EKG interpreted by me (3pts min.). @ -As above X-rays interpreted by me (1pt min.). @ -Chest x-ray shows no acute cardiopulmonary process. CT interpreted by me (1pt min.). @ -None done U/S interpreted by me (1pt. min.). @ -None done What testing was considered but not performed or refused? (CT, X-rays, U/S, labs)? Why? @ -None What meds were considered but not given or refused? Why? @ -None Did you discuss the management of the patient with other professionals (professionals i.e. , PA, ENVIRONMENTAL LAW PROFESSOR, lab, RT, psych nurse, public health social worker, energy infrastructure engineer, teacher, corporate compliance officer, case repairer)? Give summary @ -No Was smoking cessation discussed for >3mins.? @ -No Was critical care preformed (if so, how long)? @ -No Were there social determinants of health that impacted care today? How? (Homelessness, low income, unemployed, alcoholism, drug addiction, transportation, low edu. Level, literacy, decrease access to med. care, detention, rehab)? @ -No Was there de-escalation of care discussed even if they declined (Discuss DNR or withdrawal of care, Hospice)? DNR status @ -No What co-morbidities impacted this encounter? (DM, HTN, Smoking, COPD, CAD, Cancer, CVA, ARF, Chemo, Hep., AIDS, mental health diagnosis, sleep apnea, morbid obesity)? @ -None Was patient admitted / discharged? Hospital course, mention meds given and route, prescriptions, significant lab abnormalities, going to OR and other pertinent info. @ -Patient left AGAINST MEDICAL ADVICE. Undiagnosed new problem with uncertain prognosis? @ -No Drug Therapy requiring intensive monitoring for toxicity (Heparin, Nitro, Insulin, Cardizem)? @ -No Were any procedures done? @ -No Diagnosis/symptom? @ -Chest wall pain Acute, or Chronic, or Acute on Chronic? @ -Acute Uncomplicated (without systemic symptoms) or Complicated (systemic symptoms)? @ -Complicated Side effects of treatment? @ -No Exacerbation, Progression, or Severe Exacerbation? @ -No Poses a threat to life or bodily function? How? (Chest pain, [place], [place], pneumonia, PE, COPD, DKA, ARF, appy, cholecystitis, CVA, Diverticulitis, Homicidal, Suicidal, threat to staff... and all critical care pts) @ -No Disposition Clinical Impression: Chest wall pain Disposition: LEFT AGAINST MEDICAL ADVICE Referrals: Galina Clemente [facility] [Primary Care Provider] - 1-2 days Time of Disposition: 08:05
[2024-10-04 07:33] LABS: INR 0.9 (<1.2); Partial Thromboplastin Time 26.4 sec (22.0-30.0); Prothrombin Time 10.1 sec (10.0-12.5)
[2024-10-04] MEDS: ASPIRIN 81 MG PO STA (07:34)
[2024-10-04 07:38] VITALS: BP 125/84; RESP 17; TEMP 97.8
[2024-10-04 07:40] LABS: ALT 10 U/L (4-34); AST 29 U/L (14-36); African American GFR (CKD) >90 (>60 ml/min/1.73 sqM); Albumin 4.4 g/dL (3.5-5.0); Alkaline Phosphatase 67 U/L (38-126); Anion Gap 7 mmol/L; Blood Urea Nitrogen 11 mg/dL (7-17); Calcium 8.9 mg/dL (8.4-10.2); Carbon Dioxide 26 mmol/L (22-30); Chloride 106 mmol/L (98-107); Glucose 88 mg/dL (74-99); Magnesium 1.9 mg/dL (1.6-2.3); Non-African American GFR(CKD) >90 (>60 ml/min/1.73 sqM); Sodium 139 mmol/L (137-145); Total Bilirubin 0.7 mg/dL (0.2-1.3); Total Protein 7.3 g/dL (6.3-8.2)
[2024-10-04 07:48] LABS: NT-Pro-B-Type Natriuretic Pept 204 pg/mL
[2024-10-04 07:59] LABS: Large Platelets Present
[2024-10-04 08:32] LABS: Potassium 4.3 mmol/L (3.5-5.1)
== END 2024-10-04 07:55 | disposition left against medical advice (07) ==
LOC: EC 06:39
DX: R07.89 Other chest pain (principal); F17.200 Nicotine dependence, unspecified, uncomplicated; Z53.29 Procedure and treatment not carried out because of patient's decision for other reasons
CPT/HCPCS: 36415; 71046; 80053; 83735; 83880; 84484; 85025; 85379; 85610; 85730; 93005; 99285

== ENCOUNTER 2025-01-25 10:32 | Observation (INO) | payer OTHER ==
[2025-01-25] MEDS: SODIUM CHLORIDE 0.9% 1,000 ML IV STA (11:12)
[2025-01-25] MEDS: methylPREDNISolone SOD SUCCI 125 MG/2 ML VIAL IV STA (11:12)
[2025-01-25 11:14] LABS: HGB 14.2 gm/dL (11.4-16.0); MCH 33.5 pg (25.0-35.0); MCHC 31.6 g/dL (31.0-37.0); MCV 106.1 fL (80.0-100.0); Macrocytosis Moderate; Mean Platelet Volume 10.9; Platelet Count 201 k/uL (150-450); RBC 4.24 m/uL (3.80-5.40); RDW 14.2 % (11.5-15.5); WBC 6.1 k/uL (3.8-10.6)
[2025-01-25 11:25] LABS: ALT 21 U/L (4-34); AST 54 U/L (14-36); African American GFR (CKD) >90 (>60 ml/min/1.73 sqM); Albumin 3.7 g/dL (3.5-5.0); Alkaline Phosphatase 116 U/L (38-126); Anion Gap 6 mmol/L; Blood Urea Nitrogen 6 mg/dL (7-17); Calcium 9.2 mg/dL (8.4-10.2); Carbon Dioxide 35 mmol/L (22-30); Chloride 97 mmol/L (98-107); Glucose 106 mg/dL (74-99); Magnesium 1.6 mg/dL (1.6-2.3); Non-African American GFR(CKD) >90 (>60 ml/min/1.73 sqM); Potassium 3.9 mmol/L (3.5-5.1); Sodium 138 mmol/L (137-145); Total Bilirubin 0.8 mg/dL (0.2-1.3); Total Protein 6.6 g/dL (6.3-8.2)
[2025-01-25] MEDS: KETOROLAC 15 MG/ML 1 ML VIAL IVP STA (11:50)
[2025-01-25 11:56] LABS: Influenza A Not Detected (Not Detectd); Influenza B Not Detected (Not Detectd); RSV Not Detected (Not Detectd)
--- NOTE | 2025-01-25 12:24 | XR ---
EXAMINATION TYPE: XR chest 2V DATE OF EXAM: 01/25/2025 11:52 AM COMPARISON: None. CLINICAL INDICATION: Female, 59 years old with history of cough, congestion x11 days TECHNIQUE: XR chest 2V view(s) obtained. FINDINGS: The heart size is normal. The pulmonary vasculature is upper limits of normal. The lungs are clear. IMPRESSION: 1. No acute pulmonary process. [facility], , 01/25/2025 12:21 PM
[2025-01-25] MEDS: IPRATROPIUM-ALBUTEROL 3 ML NEB INHALATION STA (12:28)
[2025-01-25 12:29] LABS: Eosinophils # (M) 0.12 k/uL (0-0.7); Lymphocytes # (M) 2.01 k/uL (1.0-4.8); Monocytes # (M) 0.12 k/uL (0-1.0); Neutrophils # (M) 3.84 k/uL (1.3-7.7); Neutrophils % (M) 63 %; Nucleated Red Blood Cells 0 /100 WBC (0-0); Total Cells Counted 100
[2025-01-25 12:30] LABS: Large Platelets Present
[2025-01-25] MEDS ORDERED: NALOXONE 0.4 MG/ML 1 ML VIAL IV PRN (13:46)
[2025-01-25] MEDS ORDERED: ONDANSETRON 4 MG/2 ML VIAL IVP PRN (13:46)
--- NOTE | 2025-01-25 13:51 | ED ---
General Adult HPI - General Chief complaint: Shortness of Breath Stated complaint: dizziness,SOB Time Seen by Provider: 01/25/25 10:44 Source: patient, family, RN notes reviewed, old records reviewed Mode of arrival: ambulatory Limitations: no limitations - History of Present Illness Initial comments: Patient is a 59-year-old female who presents emergency department complaining of shortness of breath. Has a history of COPD/asthma. Has been having cough and congestion for the last 11 days. States she is not on oxygen at home. Patient presented with hypoxia improved on nasal cannula oxygen. Endorses generalized bodyaches. Has no other acute complaints at this time. Mild cough with productive sputum. Denies sore throat. Denies fevers. Denies sick contacts. Presents for further evaluation at this time. - Related Data Home Medications Medication Instructions Recorded Confirmed Fenofibrate 54 mg PO DAILY 10/03/21 01/25/25 Albuterol Inhaler [Ventolin Hfa 2 puff INHALATION RT-Q4H PRN 03/14/22 01/25/25 Inhaler] Atorvastatin Calcium [Lipitor] 40 mg PO HS 03/14/22 01/25/25 Ergocalciferol [Vitamin D2 (1250 1,250 mcg PO MENA 08/14/23 01/25/25 Mcg = 54777 Iu)] clonazePAM [KlonoPIN] 1 mg PO HS #0 08/14/23 01/25/25 estradioL [Estrace] 1 mg PO DIRECTED 08/14/23 01/25/25 Gabapentin [Neurontin] 300 mg PO TID 01/14/24 01/25/25 Omeprazole 20 mg PO DAILY 05/26/24 01/25/25 Venlafaxine HCl [Effexor XR] 75 mg PO BID 05/26/24 01/25/25 traZODone HCL [Desyrel] 100 mg PO BID 05/26/24 01/25/25 Chlorhexidine Gluconate [Peridex] 10 ml PO TID PRN 01/25/25 01/25/25 Meloxicam [Mobic] 7.5 mg PO DAILY 01/25/25 01/25/25 Metoprolol Succinate (ER) [Toprol 25 mg PO DAILY 01/25/25 01/25/25 Xl] oxyCODONE-APAP 7.5-325MG [Percocet 1 tab PO QID 01/25/25 01/25/25 7.5-325 mg] Allergies Allergy/AdvReac Type Severity Reaction Status Date / Time No Known Allergies Allergy Verified 01/25/25 14:02 Review of Systems ROS Statement: Those systems with pertinent positive or pertinent negative responses have been documented in the HPI. Review of Systems: CONST: Denies fever EYES: Denies blurry vision ENT: Denies nasal congestion C/V: Denies Chest pain RESP: Endorses shortness of breath GI: Denies abdominal pain : Denies dysuria SKIN: Denies rash. MSK: Denies joint pain. NEURO: Denies headache ROS Other: All systems not noted in ROS Statement are negative. Past Medical History Past Medical History: Asthma, GERD/Reflux, Hyperlipidemia, Osteoarthritis (OA), Sleep Apnea/CPAP/BIPAP Additional Past Medical History / Comment(s): Hx migraines, occasional irregular heartbeat, no cpap used, hx anemia. Patient states has had hx of low potassium, unsure why. History of Any Multi-Drug Resistant Organisms: None Reported Past Surgical History: Breast Surgery, Section, Hernia Repair, Hysterectomy, Tonsillectomy, Tubal Ligation Additional Past Surgical History / Comment(s): Left breast biopsy. Past Anesthesia/Blood Transfusion Reactions: No Reported Reaction, Motion Sickness Additional Past Anesthesia/Blood Transfusion Reaction / Comment(s): . Past Psychological History: Anxiety, Depression, PTSD Smoking Status: Current every day smoker Past Alcohol Use History: Occasional Past Drug Use History: None Reported - Past Family History Mother Family Medical History: No Reported History Additional Family Medical History / Comment(s): . Father Family Medical History: Osteoarthritis (OA) Additional Family Medical History / Comment(s): DDD General Exam - General Exam Comments Initial Comments: General: Appears in no acute distress. HEAD: Normal with no signs of head trauma. EYES: PERRLA, EOMI, conjunctiva normal, no discharge. ENT: Hearing grossly intact, normal oropharynx. RESPIRATORY: Hypoxic respiratory failure with increased work of breathing mildly. Coarse wheezing bilaterally. 86% on room air. C/V: Regular rate and rhythm. S1 and S2 auscultated, no edema, peripheral pulses 2+ and intact throughout ABD: Abd is soft, nontender, nondistended EXT: Normal range of motion, no obvious deformity SKIN: No rashes or lesions observed on exposed skin. NEURO: Alert and oriented x 4. Limitations: no limitations Course Vital Signs 01/25/25 01/25/25 01/25/25 10:39 12:03 12:28 Temperature 97.7 F Pulse Rate 111 H 90 81 Respiratory 20 17 Rate Blood Pressure 126/74 138/115 O2 Sat by Pulse 86 L 94 L Oximetry 01/25/25 01/25/25 12:37 14:46 Temperature Pulse Rate 81 87 Respiratory 22 Rate Blood Pressure 154/91 O2 Sat by Pulse 93 L Oximetry Medical Decision Making - Medical Decision Making Was pt. sent in by a medical professional or institution (, PA, MANAGING JEWELER, urgent care, hospital, or fpc...) When possible be specific @ -No Did you speak to anyone other than the patient for history (EMS, parent, family, police, friend...)? What history was obtained from this source @ -No Did you review nursing and triage notes (agree or disagree)? Why? @ -I reviewed and agree with nursing and triage notes Were old charts reviewed (outside hosp., previous admission, EMS record, old EKG, old radiological studies, urgent care reports/EKG's, fpc records)? Report findings @ -No old charts were reviewed Differential Diagnosis (chest pain, altered mental status, abdominal pain women, abdominal pain men, vaginal bleeding, weakness, fever, dyspnea, syncope, headache, dizziness, GI bleed, back pain, seizure, CVA, palpatations, mental health, musculoskeletal)? @ -Differential Dyspnea: Coronary syndrome, arrhythmia, tamponade, asthma, COPD, pulmonary embolism, pneumonia, pneumothorax, pulmonary effusion, anaphylaxis, diabetic ketoacidosis, flailed chest, pulmonary contusion, diaphragmatic rupture, anemia, neuromuscular, this is not meant to be an all-inclusive list. EKG interpreted by me (3pts min.). @ -As above X-rays interpreted by me (1pt min.). @ -Chest x-ray reveals no obvious acute cardiopulmonary process. CT interpreted by me (1pt min.). @ -None done U/S interpreted by me (1pt. min.). @ -None done What testing was considered but not performed or refused? (CT, X-rays, U/S, labs)? Why? @ -None What meds were considered but not given or refused? Why? @ -None Did you discuss the management of the patient with other professionals (professionals i.e. , PA, MANAGING JEWELER, lab, RT, psych nurse, social worker school, stamp classifier, teacher, court security officer, case finisher)? Give summary @ -Discussed with the admitting provider, Dr. Shrestha who accepted the admission. Was smoking cessation discussed for >3mins.? @ -No Was critical care preformed (if so, how long)? @ -yes, 32 minutes Were there social determinants of health that impacted care today? How? (Homelessness, low income, unemployed, alcoholism, drug addiction, transportation, low edu. Level, literacy, decrease access to med. care, [facility], rehab)? @ -No Was there de-escalation of care discussed even if they declined (Discuss DNR or withdrawal of care, Hospice)? DNR status @ -No What co-morbidities impacted this encounter? (DM, HTN, Smoking, COPD, CAD, Cancer, CVA, ARF, Chemo, Hep., AIDS, mental health diagnosis, sleep apnea, morbid obesity)? @ -COPD Was patient admitted / discharged? Hospital course, mention meds given and route, prescriptions, significant lab abnormalities, going to OR and other pertinent info. @ -Patient presents with what appears to be acute hypoxic respiratory failure secondary to COPD exacerbation possible upper respiratory illness. Symptoms have been worsening over the last 10 days. Exam remarkable for diffuse end expiratory wheezing. Patient is also hypoxic on room air, improved on 3 L nasal cannula oxygen. Vitals otherwise within acceptable limits. We will obtain workup. She was in agreement this plan. Patient administered IV steroids, breathing treatments, fluids. Laboratory studies are remarkable for Negative viral swabs. Chest x-ray unremarkable. EKG shows no signs of acute ischemia. On reevaluation, patient is still hypoxic and requiring oxygenation. Wheezing is improved. Patient will be admitted for acute continued treatment of her COPD exacerbation. She was in agreement this plan. Will continue with IV steroids, fluids as well as breathing treatments. Pulmonology consulted. I discussed the case with admitting provider, Dr. José to accepted the admission. Undiagnosed new problem with uncertain prognosis? @ -No Drug Therapy requiring intensive monitoring for toxicity (Heparin, Nitro, Insulin, Cardizem)? @ -No Patient administered IV steroids, breathing treatments, fluids. Laboratory studies are remarkable for procedures done? @ -No Diagnosis/symptom? @ -Acute hypoxic respiratory failure secondary to COPD exacerbation Acute, or Chronic, or Acute on Chronic? @ -Acute Uncomplicated (without systemic symptoms) or Complicated (systemic symptoms)? @ -Complicated Side effects of treatment? @ -No Exacerbation, Progression, or Severe Exacerbation? @ -No Poses a threat to life or bodily function? How? (Chest pain, [place], [place], pneumonia, PE, COPD, DKA, ARF, appy, cholecystitis, CVA, Diverticulitis, Homicidal, Suicidal, threat to staff... and all critical care pts) @ -Yes - Lab Data Result diagrams: 01/25/25 11:07 01/25/25 11:07 Lab Results 01/25/25 01/25/25 01/25/25 Range/Units 11:07 11:07 11:07 WBC 6.1 (3.8-10.6) k/uL RBC 4.24 (3.80-5.40) m/uL Hgb 14.2 (11.4-16.0) gm/dL Hct 45.0 (34.0-46.0) % MCV 106.1 H (80.0-100.0) fL MCH 33.5 (25.0-35.0) pg MCHC 31.6 (31.0-37.0) g/dL RDW 14.2 (11.5-15.5) % Plt Count 201 (150-450) k/uL MPV 10.9 Neutrophils % (Manual) 63 % Lymphocytes % (Manual) 33 % Monocytes % (Manual) 2 % Eosinophils % (Manual) 2 % Neutrophils # (Manual) 3.84 (1.3-7.7) k/uL Lymphocytes # (Manual) 2.01 (1.0-4.8) k/uL Monocytes # (Manual) 0.12 (0-1.0) k/uL Eosinophils # (Manual) 0.12 (0-0.7) k/uL Nucleated RBCs 0 (0-0) /100 WBC Manual Slide Review Performed Large Platelets Present Macrocytosis Moderate Sodium 138 (137-145) mmol/L Potassium 3.9 (3.5-5.1) mmol/L Chloride 97 L (98-107) mmol/L Carbon Dioxide 35 H (22-30) mmol/L Anion Gap 6 mmol/L BUN 6 L (7-17) mg/dL Creatinine 0.58 (0.52-1.04) mg/dL Est GFR (CKD-EPI)AfAm >90 (>60 ml/min/1.73 sqM) Est GFR (CKD-EPI)NonAf >90 (>60 ml/min/1.73 sqM) Glucose 106 H (74-99) mg/dL Calcium 9.2 (8.4-10.2) mg/dL Magnesium 1.6 (1.6-2.3) mg/dL Total Bilirubin 0.8 (0.2-1.3) mg/dL AST 54 H (14-36) U/L ALT 21 (4-34) U/L Alkaline Phosphatase 116 (38-126) U/L Total Protein 6.6 (6.3-8.2) g/dL Albumin 3.7 (3.5-5.0) g/dL Influenza Type A (PCR) Not Detected (Not Detectd) Influenza Type B (PCR) Not Detected (Not Detectd) RSV (PCR) Not Detected (Not Detectd) SARS-CoV-2 (PCR) Not Detected (Not Detectd) - EKG Data -: EKG Interpreted by Me EKG Comments: 12-lead Electrocardiogram Interpretation Note EKG was reviewed and interpreted by myself. 12-lead ECG performed at 1117 is interpreted by me as revealing normal sinus rhythm at a rate of 91 beats per minute. [place] is normal. MI interval is 128 ms, QRS duration is 93 ms, QTc is 418 ms.. There were no ST or T wave abnormalities to suggest myocardial ischemia or injury. R wave progression across the precordium was satisfactory. By my interpretation this EKG is non-diagnostic for acute ischemia. Critical Care Time Critical Care Time: Yes Total Critical Care Time: 32 Disposition Clinical Impression: COPD (chronic obstructive pulmonary disease), Hypoxic respiratory failure Disposition: ADMITTED IP TO THIS HOSP Condition: Stable Time of Disposition: 13:50
[2025-01-25] MEDS: MORPHINE SULFATE 4 MG/ML SYRINGE IVP STA (13:52)
[2025-01-25] MEDS ORDERED: ALBUTEROL NEBULIZED 2.5 MG/3 ML INHALATION PRN (15:23)
[2025-01-25] MEDS ORDERED: ACETAMINOPHEN TAB 325 MG TAB PO PRN (15:23)
--- NOTE | 2025-01-25 16:18 | P.HPIM ---
History of Present Illness H&P Date: 01/25/25 Chief Complaint: Dyspnea 59-year-old woman with medical history of COPD, BONIFACIO, active smoker, chronic narcotic dependence, daily benzodiazepine use who presented for evaluation of dyspnea. Patient says that he started to get progressively short of breath starting from January 13 and started noticing increased milky bad tasting cough with sputum production. She denies fevers, chills, nausea, vomiting. She reports ongoing smoking of 10 cigarettes/day. She denies chest pain, palpitations, syncope, presyncope. She does report dizziness. She reports abdominal pain which she thinks is from her constant coughing. In the emergency room, patient was afebrile, 126/74, heart rate 111, 86% on room air. Patient was started on 3 L of nasal cannula and saturating 94%. CBC significant for MCV of 106.1, otherwise unremarkable. Basic metabolic panel shows CO2 of 35, otherwise unremarkable. Liver function tests are unremarkable. Influenza A, B, RSV, COVID were negative. Chest x-ray appeared clear with no evidence of infiltrate. EKG showed normal sinus rhythm with normal axis, normal intervals and segments. Case was discussed with the emergency room provider and decision was made to admit the patient to the hospital for further evaluation of COPD exacerbation. All Systems reviewed and pertinent positives and negatives noted in HPI, all other symptoms are negative Gen: In NAD, non-toxic HEENT: normocephalic, atraumatic, hearing acuity is intant, mucous membranes moist CVS: perfusing all extremities well, no pitting edema, Respiratory: symmetric chest expansion, no accessory muscle use, diffuse wheezing with fine crackles in the bases GI: soft, NTTP, ND, : no suprapubic tenderness, no CVA tenderness MSK/Derm: no rashes, cyanosis Neuro: CN II-XII intact, no motor weakness, Psych: cooperative, euthymic mood, judgment and insight is intact Labs and images as above Assessment/plan: Acute hypoxemic and hypercarbic respiratory failure Acute COPD exacerbation -Admit to observation -Oxygen as needed -Solu-Medrol 40 mg every 12 hours -DuoNebs every 4 hours and albuterol every 2 hours as needed -Antibiotics will be deferred at this time for COPD prophylaxis -Pulmonology consulted Chronic narcotic dependence Daily benzodiazepine use Nicotine abuse -Will resume home medications, patient should be weaned from these medications on an outpatient basis -NRT on request Patient is full code Past Medical History Past Medical History: Asthma, GERD/Reflux, Hyperlipidemia, Osteoarthritis (OA), Sleep Apnea/CPAP/BIPAP Additional Past Medical History / Comment(s): Hx migraines, occasional irregular heartbeat, no cpap used, hx anemia. Patient states has had hx of low potassium, unsure why. History of Any Multi-Drug Resistant Organisms: None Reported Past Surgical History: Breast Surgery, Section, Hernia Repair, Hyster ectomy, Tonsillectomy, Tubal Ligation Additional Past Surgical History / Comment(s): Left breast biopsy. Past Anesthesia/Blood Transfusion Reactions: No Reported Reaction, Motion Sickness Additional Past Anesthesia/Blood Transfusion Reaction / Comment(s): . Past Psychological History: Anxiety, Depression, PTSD Smoking Status: Current every day smoker Past Alcohol Use History: Occasional Past Drug Use History: None Reported - Past Family History Mother Family Medical History: No Reported History Additional Family Medical History / Comment(s): . Father Family Medical History: Osteoarthritis (OA) Additional Family Medical History / Comment(s): DDD Medications and Allergies Home Medications Medication Instructions Recorded Confirmed Type Fenofibrate 54 mg PO DAILY 10/03/21 01/25/25 History Albuterol Inhaler [Ventolin Hfa 2 puff INHALATION RT-Q4H PRN 03/14/22 01/25/25 History Inhaler] Atorvastatin Calcium [Lipitor] 40 mg PO HS 03/14/22 01/25/25 History Ergocalciferol [Vitamin D2 (1250 1,250 mcg PO MENA 08/14/23 01/25/25 History Mcg = 71216 Iu)] clonazePAM [KlonoPIN] 1 mg PO HS #0 08/14/23 01/25/25 History estradioL [Estrace] 1 mg PO DIRECTED 08/14/23 01/25/25 History Gabapentin [Neurontin] 300 mg PO TID 01/14/24 01/25/25 History Omeprazole 20 mg PO DAILY 05/26/24 01/25/25 History Venlafaxine HCl [Effexor XR] 75 mg PO BID 05/26/24 01/25/25 History traZODone HCL [Desyrel] 100 mg PO BID 05/26/24 01/25/25 History Chlorhexidine Gluconate [Peridex] 10 ml PO TID PRN 01/25/25 01/25/25 History Meloxicam [Mobic] 7.5 mg PO DAILY 01/25/25 01/25/25 History Metoprolol Succinate (ER) [Toprol 25 mg PO DAILY 01/25/25 01/25/25 History Xl] oxyCODONE-APAP 7.5-325MG [Percocet 1 tab PO QID 01/25/25 01/25/25 History 7.5-325 mg] Allergies Allergy/AdvReac Type Severity Reaction Status Date / Time No Known Allergies Allergy Verified 01/25/25 14:02 Physical Exam Osteopathic Statement: *. No significant issues noted on an osteopathic structural exam other than those noted in the History and Physical/Consult. Vitals: Vital Signs Temp Pulse Resp BP Pulse Ox 01/25/25 14:46 87 22 154/91 93 L 01/25/25 12:37 81 01/25/25 12:28 81 01/25/25 12:03 90 17 138/115 94 L 01/25/25 10:39 97.7 F 111 H 20 126/74 86 L Intake and Output 01/25/25 01/25/25 01/25/25 06:59 14:59 22:59 Other: Weight 81.647 kg Results CBC & Chem 7: 01/25/25 11:07 01/25/25 11:07 Labs: Abnormal Lab Results - Last 24 Hours (Table) 01/25/25 01/25/25 Range/Units 11:07 11:07 MCV 106.1 H (80.0-100.0) fL Chloride 97 L (98-107) mmol/L Carbon Dioxide 35 H (22-30) mmol/L BUN 6 L (7-17) mg/dL Glucose 106 H (74-99) mg/dL AST 54 H (14-36) U/L
[2025-01-25] MEDS: IPRATROPIUM-ALBUTEROL 3 ML NEB INHALATION SCH (16:37)
[2025-01-25] MEDS: GABAPENTIN 300 MG CAP PO SCH (16:44)
[2025-01-25] MEDS: oxyCODONE-APAP 7.5-325MG 1 EACH TAB PO SCH (17:04)
[2025-01-25] MEDS: FORMOTEROL FUMARATE 20 MCG/2 ML NEBU INHALATION SCH (19:30)
[2025-01-25] MEDS: BUDESONIDE 0.5 MG/2 ML NEBU INHALATION SCH (19:30)
[2025-01-25] MEDS: ATORVASTATIN 40 MG TAB PO SCH (21:22)
[2025-01-25] MEDS: clonazePAM 1 MG TAB PO SCH (21:22)
[2025-01-25] MEDS: methylPREDNISolone SOD SUCCI 40 MG/ML 1 ML VIAL IV SCH (21:22)
[2025-01-25] MEDS: traZODone HCL 100 MG TAB PO SCH (21:23)
[2025-01-25] MEDS: VENLAFAXINE HCL ER 75 MG CAP PO SCH (21:23)
[2025-01-26] MEDS: KETOROLAC 15 MG/ML 1 ML VIAL IVP PRN (04:27)
--- NOTE | 2025-01-26 05:56 | P.CNPUL ---
History of Present Illness Consult date: 01/26/25 Requesting physician: Juan Orlando Reason for consult: COPD Chief complaint: Shortness of breath History of present illness: Patient is a 59-year-old female with past medical history significant for hypertension, hyperlipidemia, asthma/COPD, obstructive sleep apnea noncompliant with home CPAP, current everyday smoker, anxiety/depression. She follows with a primary care provider out of the [facility] clinic. Presented the emergency department yesterday afternoon with a chief complaint of shortness of breath. Patient significant other is at bedside, reports that he was sick with a flulike illness approximately 1 to 2 weeks ago. The patient then became sick with similar symptoms including reduced appetite, myalgias, weakness, cough with chest congestion. Occasional sputum production, "milky yellow ". Denies any fevers, hemoptysis, chest pain. Denies nausea, vomiting, diarrhea. Shortness of breath became severe, was using her albuterol rescue inhaler without much relief. States she feels like she has "no air". Workup in the emergency department included a viral 4 Plex which was negative for influenza A/B, RSV, COVID. Chest x-ray did not show any focal infiltrates or evidence of pneumonia. CBC unremarkable for leukocytosis. CMP: Sodium 138, potassium 3.9, chloride 97 , serum bicarb 35, BUN 6, creatinine 0.58, glucose 106. LFTs not elevated. EKG: Normal sinus rhythm, rate 91 bpm, no acute ischemic changes. Patient currently being evaluated on the medical floor. She is on 2 L/min nasal cannula. Denies home O2 use. Minimal end expiratory wheezes auscultated. Reportedly has history of COPD. Smokes 10 cigarettes/day. Previously started on a combination of DuoNebs [id number], budesonide inhalation, formoterol inhalation, and IV Solu-Medrol. Current vital signs: Temperature 97.3 F, heart rate 88 bpm, blood pressure 153/98 mmHg, nontachypneic, SpO2 reading 92% on 2 L/min nasal cannula. Review of Systems Constitutional: Reports fatigue, Reports poor appetite, Reports weakness, Denies chills, Denies fever, Denies sweats, Denies weight gain, Denies weight loss Ears, nose, mouth and throat: Denies headache, Denies nasal congestion, Denies nasal discharge, Denies post-nasal drip, Denies sinus pain, Denies sinus pressure, Denies sore throat Cardiovascular: Denies chest pain, Denies leg edema, Denies lightheadedness, Denies orthopnea, Denies palpitations, Denies paroxysmal nocturnal dyspnea, Denies syncope Respiratory: Reports as per HPI Gastrointestinal: Denies abdominal pain, Denies constipation, Denies diarrhea, Denies nausea, Denies vomiting Genitourinary: Denies dysuria, Denies flank pain, Denies hematuria Musculoskeletal: Denies limitation of motion Integumentary: Denies rash Neurological: Denies seizures, Denies syncope Psychiatric: Reports anxiety, Reports depression, Denies suicidal ideation Past Medical History Past Medical History: Asthma, GERD/Reflux, Hyperlipidemia, Osteoarthritis (OA), Sleep Apnea/CPAP/BIPAP Additional Past Medical History / Comment(s): Hx migraines, occasional irregular heartbeat, no cpap used, hx anemia. Patient states has had hx of low potassium, unsure why. History of Any Multi-Drug Resistant Organisms: None Reported Past Surgical History: Breast Surgery, Section, Hernia Repair, Hysterectomy, Tonsillectomy, Tubal Ligation Additional Past Surgical History / Comment(s): Left breast biopsy. Past Anesthesia/Blood Transfusion Reactions: No Reported Reaction, Motion Sickness Additional Past Anesthesia/Blood Transfusion Reaction / Comment(s): . Past Psychological History: Anxiety, Depression, PTSD Smoking Status: Current every day smoker Past Alcohol Use History: Occasional Past Drug Use History: None Reported - Past Family History Mother Family Medical History: No Reported History Additional Family Medical History / Comment(s): . Father Family Medical History: Osteoarthritis (OA) Additional Family Medical History / Comment(s): DDD Medications and Allergies Home Medications Medication Instructions Recorded Confirmed Type Fenofibrate 54 mg PO DAILY 10/03/21 01/25/25 History Albuterol Inhaler [Ventolin Hfa 2 puff INHALATION RT-Q4H PRN 03/14/22 01/25/25 History Inhaler] Atorvastatin Calcium [Lipitor] 40 mg PO HS 03/14/22 01/25/25 History Ergocalciferol [Vitamin D2 (1250 1,250 mcg PO MENA 08/14/23 01/25/25 History Mcg = 55866 Iu)] clonazePAM [KlonoPIN] 1 mg PO HS #0 08/14/23 01/25/25 History estradioL [Estrace] 1 mg PO DIRECTED 08/14/23 01/25/25 History Gabapentin [Neurontin] 300 mg PO TID 01/14/24 01/25/25 History Omeprazole 20 mg PO DAILY 05/26/24 01/25/25 History Venlafaxine HCl [Effexor XR] 75 mg PO BID 05/26/24 01/25/25 History traZODone HCL [Desyrel] 100 mg PO BID 05/26/24 01/25/25 History Chlorhexidine Gluconate [Peridex] 10 ml PO TID PRN 01/25/25 01/25/25 History Meloxicam [Mobic] 7.5 mg PO DAILY 01/25/25 01/25/25 History Metoprolol Succinate (ER) [Toprol 25 mg PO DAILY 01/25/25 01/25/25 History Xl] oxyCODONE-APAP 7.5-325MG [Percocet 1 tab PO QID 01/25/25 01/25/25 History 7.5-325 mg] Allergies Allergy/AdvReac Type Severity Reaction Status Date / Time No Known Allergies Allergy Verified 01/25/25 14:02 Physical Exam Vitals: Vital Signs Temp Pulse Pulse Resp BP BP Pulse Ox 01/26/25 04:26 70 01/26/25 04:15 68 01/26/25 02:00 97.3 F L 88 17 153/98 92 L 01/25/25 23:53 78 01/25/25 23:41 74 01/25/25 20:00 97.9 F 98 18 127/81 94 L 01/25/25 19:56 80 01/25/25 19:44 82 01/25/25 19:31 85 01/25/25 16:47 80 01/25/25 16:40 84 01/25/25 16:05 98.3 F 83 20 149/83 94 L 01/25/25 14:46 87 22 154/91 93 L 01/25/25 12:37 81 01/25/25 12:28 81 01/25/25 12:03 90 17 138/115 94 L 01/25/25 10:39 97.7 F 111 H 20 126/74 86 L Intake and Output 01/25/25 01/25/25 01/26/25 14:59 22:59 06:59 Other: # Voids 1 Weight 81.647 kg GENERAL EXAM: Alert, 59-year-old obese -[place] female, comfortable in no apparent distress. HEAD: Normocephalic and atraumatic EYES: Normal reaction of pupils, equal size. NOSE: Clear with pink turbinates. THROAT: No erythema or exudates. NECK: No masses, no JVD. CHEST: No chest wall deformity. LUNGS: Equal air entry with minimal end expiratory wheezes on 2 L/min nasal cannula. No conversational dyspnea or accessory muscle use.. CVS: S1 and S2 normal with no audible murmur, regular rhythm. No extra heart sounds ABDOMEN: No hepatosplenomegaly, active bowel sounds, no guarding or rigidity. SPINE: No scoliosis or deformity SKIN: No rashes CENTRAL NERVOUS SYSTEM: No focal deficits, tone is normal in all 4 extremities. EXTREMITIES: There is no peripheral edema, clubbing, or cyanosis. Peripheral pulses are intact. Results - Laboratory Findings CBC and BMP: 01/25/25 11:07 01/25/25 11:07 Abnormal lab findings: Abnormal Labs 01/25/25 01/25/25 11:07 11:07 MCV 106.1 H Chloride 97 L Carbon Dioxide 35 H BUN 6 L Glucose 106 H AST 54 H - Diagnostic Findings Chest x-ray: image reviewed Assessment and Plan Assessment: Acute COPD/asthma exacerbation Acute hypoxemic acute respiratory failure, secondary to above Chronic ongoing tobacco dependence, reportedly smokes 10 cigarettes/day Obstructive sleep apnea, noncompliant with CPAP Hypertension History of hyperlipidemia Gastroesophageal reflux disease Anxiety/depression Obesity, with a BMI of 34 kg/m Plan: Patient's medications, labs, chest x-ray reviewed No acute infiltrates or evidence of pneumonia Viral screen negative for influenza, RSV, COVID Continue with combination of DuoNebs, budesonide inhalation, formoterol inhalation, and IV Solu-Medrol Smoking cessation counseling performed We will continue to follow I have personally seen and examined the patient, performed the documentation and the assessment and plan as written. Number of minutes spent on the visit:20 Time with Patient: Greater than 30
[2025-01-26 06:30] LABS: ALT 19 U/L (4-34); AST 35 U/L (14-36); African American GFR (CKD) >90 (>60 ml/min/1.73 sqM); Albumin 3.6 g/dL (3.5-5.0); Albumin/Globulin Ratio 1.3; Alkaline Phosphatase 107 U/L (38-126); Anion Gap 7 mmol/L; Blood Urea Nitrogen 9 mg/dL (7-17); Calcium 8.6 mg/dL (8.4-10.2); Carbon Dioxide 31 mmol/L (22-30); Chloride 98 mmol/L (98-107); Globulin 2.8 g/dL; Glucose 145 mg/dL (74-99); Magnesium 1.7 mg/dL (1.6-2.3); Non-African American GFR(CKD) >90 (>60 ml/min/1.73 sqM); Phosphorus 2.9 mg/dL (2.5-4.5); Potassium 3.8 mmol/L (3.5-5.1); Sodium 136 mmol/L (137-145); Total Bilirubin 0.5 mg/dL (0.2-1.3); Total Protein 6.4 g/dL (6.3-8.2)
[2025-01-26] MEDS: BUDESONIDE 1 MG/2 ML NEBU INHALATION SCH (08:26)
[2025-01-26] MEDS: methylPREDNISolone SOD SUCCI 40 MG/ML 1 ML VIAL IV SCH (08:33)
[2025-01-26] MEDS: METOPROLOL SUCCINATE (ER) 25 MG TAB.ER.24H PO SCH (08:34)
[2025-01-26] MEDS: PANTOPRAZOLE 40 MG TABLET PO SCH (08:34)
[2025-01-26] MEDS: FENOFIBRATE 54 MG TAB PO SCH (08:36)
[2025-01-26 09:04] LABS: HCT 40.6 % (37.2-46.3); HGB 13.4 g/dL (12.0-15.0); MCH 34.7 pg (27.0-32.0); MCV 105.2 FL (80.0-97.0); Mean Platelet Volume 12.9 FL (9.5-12.2); NRBC Per 100 WBC 0 X 10*3/uL (0.00-0.01); Platelet Count 211 X 10*3/uL (140-440); RBC 3.86 X 10*6/uL (4.10-5.20); RDW 14.6 % (11.5-14.5); WBC 4.47 X 10*3/uL (4.50-10.00)
[2025-01-26 09:49] LABS: Basophils # (A) 0.01 X 10*3/uL (0.00-0.10); Basophils % (A) 0.2 %; Eosinophils # (A) 0 X 10*3/uL (0.04-0.35); Eosinophils % (A) 0 %; Lymphocytes # (A) 0.92 X 10*3/uL (0.90-5.00); Lymphocytes % (A) 20.6 %; Monocytes # (A) 0.35 X 10*3/uL (0.20-1.00); Monocytes % (A) 7.8 %; Neutrophils # (A) 3.15 X 10*3/uL (1.80-7.70); Neutrophils % (A) 70.5 %
--- NOTE | 2025-01-26 10:35 | P.PN ---
Subjective Progress Note Date: 01/26/25 No new complaints today. Reports imrpovement in breathing. Gen: In NAD, non-toxic HEENT: normocephalic, atraumatic, hearing acuity is intant, mucous membranes moist CVS: perfusing all extremities well, no pitting edema, Respiratory: symmetric chest expansion, no accessory muscle use, diffuse wheezing with fine crackles in the bases GI: soft, NTTP, ND, : no suprapubic tenderness, no CVA tenderness MSK/Derm: no rashes, cyanosis Neuro: CN II-XII intact, no motor weakness, Psych: cooperative, euthymic mood, judgment and insight is intact Hospital Course: 59-year-old woman with medical history of COPD, BONIFACIO, active smoker, chronic narcotic dependence, daily benzodiazepine use who presented for evaluation of dyspnea. In the emergency room, patient was afebrile, 126/74, heart rate 111, 86% on room air. Patient was started on 3 L of nasal cannula and saturating 94%. CBC significant for MCV of 106.1, otherwise unremarkable. Basic metabolic panel shows CO2 of 35, otherwise unremarkable. Liver function tests are unremarkable. Influenza A, B, RSV, COVID were negative. Chest x-ray appeared clear with no evidence of infiltrate. EKG showed normal sinus rhythm with normal axis, normal intervals and segments. Case was discussed with the emergency room provider and decision was made to admit the patient to the hospital for further evaluation of COPD exacerbation. Assessment/plan: Acute hypoxemic and hypercarbic respiratory failure Acute COPD exacerbation -Admit to observation -Oxygen as needed -Solu-Medrol 40 mg every 12 hours -DuoNebs every 4 hours and albuterol every 2 hours as needed -Antibiotics will be deferred at this time for COPD prophylaxis -Pulmonology consulted Chronic narcotic dependence Daily benzodiazepine use Nicotine abuse -Will resume home medications, patient should be weaned from these medications on an outpatient basis -NRT on request Patient is full code Objective - Vital Signs Vital signs: Vital Signs Temp 98.6 F 01/26/25 07:00 Pulse 76 01/26/25 08:40 Resp 20 01/26/25 08:30 BP 128/77 01/26/25 07:00 Pulse Ox 93 L 01/26/25 08:25 FiO2 Intake & Output 01/25/25 01/26/25 01/26/25 18:59 06:59 18:59 Intake Total 100 Balance 100 Weight 81.647 kg Intake: Oral 100 Other: # Voids 3 - Labs CBC & Chem 7: 01/26/25 05:34 01/26/25 05:34 Labs: Abnormal Lab Results - Last 24 Hours (Table) 01/25/25 01/25/25 01/26/25 Range/Units 11:07 11:07 05:34 WBC (4.50-10.00) X 10*3/uL RBC (4.10-5.20) X 10*6/uL MCV 106.1 H (80.0-100.0) fL MCH (27.0-32.0) pg RDW (11.5-14.5) % MPV (9.5-12.2) FL Eosinophils # (0.04-0.35) X 10*3/uL Sodium 136 L (137-145) mmol/L Chloride 97 L (98-107) mmol/L Carbon Dioxide 35 H 31 H (22-30) mmol/L BUN 6 L (7-17) mg/dL Creatinine 0.49 L (0.52-1.04) mg/dL Glucose 106 H 145 H (74-99) mg/dL AST 54 H (14-36) U/L 01/26/25 Range/Units 05:34 WBC 4.47 L (4.50-10.00) X 10*3/uL RBC 3.86 L (4.10-5.20) X 10*6/uL MCV 105.2 H (80.0-100.0) fL MCH 34.7 H (27.0-32.0) pg RDW 14.6 H (11.5-14.5) % MPV 12.9 H (9.5-12.2) FL Eosinophils # 0 L (0.04-0.35) X 10*3/uL Sodium (137-145) mmol/L Chloride (98-107) mmol/L Carbon Dioxide (22-30) mmol/L BUN (7-17) mg/dL Creatinine (0.52-1.04) mg/dL Glucose (74-99) mg/dL AST (14-36) U/L
[2025-01-27 08:21] VITALS: BP 146/91; TEMP 97.9
[2025-01-27 08:25] VITALS: PULSE 82
[2025-01-27 08:38] LABS: Basophils # (A) 0.02 X 10*3/uL (0.00-0.10); Basophils % (A) 0.2 %; Eosinophils # (A) 0 X 10*3/uL (0.04-0.35); Eosinophils % (A) 0 %; HCT 40.1 % (37.2-46.3); Lymphocytes # (A) 0.75 X 10*3/uL (0.90-5.00); Lymphocytes % (A) 8.1 %; MCH 34.3 pg (27.0-32.0); MCHC 32.4 g/dL (32.0-37.0); MCV 105.8 FL (80.0-97.0); Mean Platelet Volume 12.6 FL (9.5-12.2); Monocytes # (A) 0.53 X 10*3/uL (0.20-1.00); Monocytes % (A) 5.7 %; NRBC Per 100 WBC 0 X 10*3/uL (0.00-0.01); Neutrophils # (A) 7.92 X 10*3/uL (1.80-7.70); Neutrophils % (A) 85.2 %; Platelet Count 239 X 10*3/uL (140-440); RBC 3.79 X 10*6/uL (4.10-5.20); RDW 14.7 % (11.5-14.5); WBC 9.29 X 10*3/uL (4.50-10.00)
[2025-01-27 08:55] LABS: Blood Urea Nitrogen 8.4 mg/dL (9.0-27.0); Calcium 9.1 mg/dL (8.7-10.3); Carbon Dioxide 29.1 mmol/L (21.6-31.8); Chloride 102 mmol/L (96-109); Glucose 149 mg/dL (70-110); Magnesium 1.8 mg/dL (1.5-2.4); Potassium 3.9 mmol/L (3.5-5.5); Sodium 143 mmol/L (135-145)
[2025-01-27 09:55] VITALS: RESP 18
--- NOTE | 2025-01-27 13:15 | P.PN ---
Subjective Progress Note Date: 01/27/25 Patient is a 59-year-old female with past medical history significant for hypertension, hyperlipidemia, asthma/COPD, obstructive sleep apnea noncompliant with home CPAP, current everyday smoker, anxiety/depression. She follows with a primary care provider out of the [facility] clinic. Presented the emergency department yesterday afternoon with a chief complaint of shortness of breath. Patient significant other is at bedside, reports that he was sick with a flulike illness approximately 1 to 2 weeks ago. The patient then became sick with similar symptoms including reduced appetite, myalgias, weakness, cough with chest congestion. Occasional sputum production, "milky yellow ". Denies any fevers, hemoptysis, chest pain. Denies nausea, vomiting, diarrhea. Shortness of breath became severe, was using her albuterol rescue inhaler without much relief. States she feels like she has "no air". Workup in the emergency department included a viral 4 Plex which was negative for influenza A/B, RSV, C OVID. Chest x-ray did not show any focal infiltrates or evidence of pneumonia. CBC unremarkable for leukocytosis. CMP: Sodium 138, potassium 3.9, chloride 97, serum bicarb 35, BUN 6, creatinine 0.58, glucose 106. LFTs not elevated. EKG: Normal sinus rhythm, rate 91 bpm, no acute ischemic changes. Patient currently being evaluated on the medical floor. She is on 2 L/min nasal cannula. Denies home O2 use. Minimal end expiratory wheezes auscultated. Reportedly has history of COPD. Smokes 10 cigarettes/day. Previously started on a combination of DuoNebs [id number], budesonide inhalation, formoterol inhalation, and IV Solu-Medrol. Current vital signs: Temperature 97.3 F, heart rate 88 bpm, blood pressure 153/98 mmHg, nontachypneic, SpO2 reading 92% on 2 L/min nasal cannula. The patient is seen today January 27, 2025 in follow-up on the regular medical floor. She is currently sitting up in bed having breakfast. Awake and alert in no acute distress. Denies any worsening shortness of breath, cough or congestion. She is maintaining O2 saturations in the 90s on room air. Afebrile. Hemodynamically stable. White count 9.2. Hemoglobin 13.0. Platelets 239. Sodium 143. Potassium 4.3.9. Bicarb 29. BUN 8. Creatinine 0.5. Glucose 149. She is continued on DuoNeb inhalations, Pulmicort and Perforomist inhalations, Solu-Medrol. Objective - Vital Signs Vital signs: Vital Signs Temp 97.9 F 01/27/25 07:11 Pulse 82 01/27/25 08:24 Resp 18 01/27/25 08:15 BP 146/91 01/27/25 07:11 Pulse Ox 96 01/27/25 07:11 FiO2 Intake & Output 01/26/25 01/27/25 01/27/25 18:59 06:59 18:59 Intake Total 100 240 Balance 100 240 Intake: Oral 100 240 Other: # Voids 1 3 - Exam GENERAL EXAM: Alert, active, 59-year-old female patient, on room air, comfortable in no apparent distress. HEAD: Normocephalic. EYES: Normal reaction of pupils, equal size. NOSE: Clear with pink turbinates. THROAT: No erythema or exudates. NECK: No masses, no JVD. CHEST: No chest wall deformity. LUNGS: Equal air entry with no crackles, wheeze, rhonchi or dullness. CVS: S1 and S2 normal with no audible murmur, regular rhythm. ABDOMEN: No hepatosplenomegaly, normal bowel sounds, no guarding or rigidity. SPINE: No scoliosis or deformity SKIN: No rashes CENTRAL NERVOUS SYSTEM: No focal deficits, tone is normal in all 4 extremities. EXTREMITIES: There is no peripheral edema. No clubbing, no cyanosis. Peripheral pulses are intact. - Labs CBC & Chem 7: 01/27/25 05:47 01/27/25 05:47 Labs: Abnormal Lab Results - Last 24 Hours (Table) 01/27/25 01/27/25 Range/Units 05:47 05:47 RBC 3.79 L (4.10-5.20) X 10*6/uL MCV 105.8 H (80.0-97.0) FL MCH 34.3 H (27.0-32.0) pg RDW 14.7 H (11.5-14.5) % MPV 12.6 H (9.5-12.2) FL Immature Gran # 0.07 H (0.00-0.04) X 10*3/uL Neutrophils # 7.92 H (1.80-7.70) X 10*3/uL Lymphocytes # 0.75 L (0.90-5.00) X 10*3/uL Eosinophils # 0 L (0.04-0.35) X 10*3/uL BUN 8.4 L (9.0-27.0) mg/dL Creatinine 0.5 L (0.6-1.5) mg/dL Glucose 149 H (70-110) mg/dL Assessment and Plan Assessment: Acute COPD/asthma exacerbation Acute hypoxemic respiratory failure, secondary to above Chronic ongoing tobacco dependence, reportedly smokes 10 cigarettes/day Obstructive sleep apnea, noncompliant with CPAP Hypertension Hyperlipidemia Gastroesophageal reflux disease Anxiety/depression Obesity, with a BMI of 34 kg/m Plan: The patient was seen and evaluated Labs and medications reviewed Currently stable and on room air Cleared for discharge Continue Trelegy, albuterol Complete a prednisone taper Educated regarding smoking cessation Follow-up in our office in 1 week This patient was seen independently by the pulmonary nurse practitioner addressing pulmonary issues I have personally seen and examined the patient, performed the documentation and the assessment and plan as written. Number of minutes spent on the visit: 24 Dictation was produced using [employer] dictation software. Please excuse any grammatical, word or spelling errors.
--- NOTE | 2025-01-27 15:04 | P.DS ---
Providers Date of admission: 01/25/25 13:49 Attending physician: Rommel Monique MD Consults: 01/25/25 13:46 Consult Physician Routine Consulting Provider: Ana María Rosa Consult Reason/Comments: copd, hypoxia Do you want consulting provider notified?: Yes Primary care physician: [facility] Hospital Course: Discharge Diagnosis: Acute COPD/asthma exacerbation Acute hypoxic respiratory failure secondary to above Tobacco use disorder, current smoker BONIFACIO noncompliant with CPAP HTN HLD GERD Anxiety Depression Obesity BMI 34 Hospital Course: A 59-year-old female with PMH of asthma, COPD, HTN, HLD, BONIFACIO noncompliant with CPAP, tobacco use disorder, anxiety, depression, who presented to the ER with SOB, reported cold-like symptoms started 1 or 2 weeks ago and she has been getting progressively sicker. In the ER she had -68, was not septic x-ray did not show any infiltrates, pneumonia, edema. Her CBC was unremarkable for leukocytosis. EKG showed normal sinus rhythm and no acute ischemic changes. He was initially on 2 L nasal cannula, not on home oxygen. He was admitted for management of acute hypoxic respiratory failure secondary to COPD exacerbation, pulmonology consulted. Patient improved on breathing treatments and IV Solu- Medrol, was weaned off oxygen. Was deemed stable for discharge on 01/27. Patient will be sent home with pulmonology follow-up, she is prescribed with jesse Cavazosta, B12. 12-days prednisone taper. Patient seen and examined at bedside Vital signs reviewed and stable. General: [nontoxic], [no distress], [appears at stated age], obese Derm: [warm], [dry] Head: [atraumatic], [normocephalic], [symmetric] Eyes: [EOMI], [no lid lag], [anicteric sclera] Mouth: [no lip lesion], [mucus membranes moist] Cardiovascular: [S1S2 reg], [no murmur] Lungs: [CTA bilateral], [no rhonchi, no rales] , [no accessory muscle use] Abdominal: [soft], [ nontender to palpation], [no guarding], [no appreciable organomegaly] Ext: [no gross muscle atrophy], [no edema], [no contractures] Neuro: [ CN II-XI grossly intact], [no focal neuro deficits] Psych: [Alert], [oriented], [appropriate affect] A total of 40 minutes of time were spent preparing this complex discharge summary. Patient was discharged on 01/27. ? Patient Condition at Discharge: Stable Plan - Discharge Summary Discharge Rx Participant: No New Discharge Prescriptions: New Fluticasone/Umeclidin/Vilanter [Trelegy Ellipta 100-62.5-25] 1 inhalation INHALATION DAILY #3 each predniSONE See Taper PO DIRECTED #30 tab Continue Fenofibrate 54 mg PO DAILY Atorvastatin Calcium [Lipitor] 40 mg PO HS estradioL [Estrace] 1 mg PO DIRECTED oxyCODONE-APAP 7.5-325MG [Percocet 7.5-325 mg] 1 tab PO QID Albuterol Inhaler [Ventolin Hfa Inhaler] 2 puff INHALATION RT-Q4H PRN PRN Reason: Shortness Of Breath clonazePAM [KlonoPIN] 1 mg PO HS #0 Gabapentin [Neurontin] 300 mg PO TID traZODone HCL [Desyrel] 100 mg PO BID Venlafaxine HCl [Effexor XR] 75 mg PO BID Omeprazole 20 mg PO DAILY Metoprolol Succinate (ER) [Toprol XL] 25 mg PO DAILY Meloxicam [Mobic] 7.5 mg PO DAILY Chlorhexidine Gluconate [Peridex] 10 ml PO TID PRN PRN Reason: oral care Discontinued Ergocalciferol [Vitamin D2 (1250 Mcg = 37993 Iu)] 1,250 mcg PO MENA Discharge Medication List Fenofibrate 54 mg PO DAILY 10/03/21 [History] Albuterol Inhaler [Ventolin Hfa Inhaler] 2 puff INHALATION RT-Q4H PRN 03/14/22 [History] Atorvastatin Calcium [Lipitor] 40 mg PO HS 03/14/22 [History] clonazePAM [KlonoPIN] 1 mg PO HS #0 08/14/23 [History] estradioL [Estrace] 1 mg PO DIRECTED 08/14/23 [History] Gabapentin [Neurontin] 300 mg PO TID 01/14/24 [History] Omeprazole 20 mg PO DAILY 05/26/24 [History] Venlafaxine HCl [Effexor XR] 75 mg PO BID 05/26/24 [History] traZODone HCL [Desyrel] 100 mg PO BID 05/26/24 [History] Chlorhexidine Gluconate [Peridex] 10 ml PO TID PRN 01/25/25 [History] Meloxicam [Mobic] 7.5 mg PO DAILY 01/25/25 [History] Metoprolol Succinate (ER) [Toprol XL] 25 mg PO DAILY 01/25/25 [History] oxyCODONE-APAP 7.5-325MG [Percocet 7.5-325 mg] 1 tab PO QID 01/25/25 [History] Fluticasone/Umeclidin/Vilanter [Trelegy Ellipta 100-62.5-25] 1 inhalation INHALATION DAILY #3 each 01/27/25 [Rx] predniSONE See Taper PO DIRECTED #30 tab 01/27/25 [Rx] Follow up Appointment(s)/Referral(s): Ana María Rosa MD [STAFF PHYSICIAN] - 02/05/25 8:30 am [facility] [Primary Care Provider] - 1-2 days Patient Instructions/Handouts: How to Stop Smoking (DC), COPD (Chronic Obstructive Pulmonary Disease) (DC) Activity/Diet/Wound Care/Special Instructions: please, follow up with your PCP. discuss daily sedative and pain medications use. Smoking cessation strongly recommended. Discharge Disposition: HOME SELF-CARE
== END 2025-01-27 11:30 | disposition home or self-care (01) ==
LOC: EC 10:32 → 6NMEDSUR 13:49
PROVIDERS: ADMIT Internal Medicine; ATTEND Internal Medicine
DX: J44.1 Chronic obstructive pulmonary disease with (acute) exacerbation (principal); J96.01 Acute respiratory failure with hypoxia; J96.02 Acute respiratory failure with hypercapnia; J45.901 Unspecified asthma with (acute) exacerbation; F11.20 Opioid dependence, uncomplicated; G47.33 Obstructive sleep apnea (adult) (pediatric); I10 Essential (primary) hypertension; E78.5 Hyperlipidemia, unspecified; K21.9 Gastro-esophageal reflux disease without esophagitis; E66.9 Obesity, unspecified; Z68.34 Body mass index [BMI] 34.0-34.9, adult; F32.A Depression, unspecified; F41.9 Anxiety disorder, unspecified; F17.210 Nicotine dependence, cigarettes, uncomplicated; R10.9 Unspecified abdominal pain; Z79.1 Long term (current) use of non-steroidal anti-inflammatories (NSAID); Z79.818 Long term (current) use of other agents affecting estrogen receptors and estrogen levels; Z79.899 Other long term (current) drug therapy; Z11.52 Encounter for screening for COVID-19; Z11.59 Encounter for screening for other viral diseases; Z91.199 Patient's noncompliance with other medical treatment and regimen due to unspecified reason; Z71.6 Tobacco abuse counseling
CPT/HCPCS: 96376 ×3; 96361; 96374; 96375; 99291; 36415; 94640 ×6; 94760; 93005; 80053 ×2; 80048; 83735 ×3; 84100; 85025 ×3; 82306; 87636; 71046; G0378 ×3; J2270; J1885 ×2; J2919 ×4

== ENCOUNTER 2025-06-03 11:14 | Emergency (ER) | payer OTHER ==
[2025-06-03 11:19] VITALS: TEMP 98.3
--- NOTE | 2025-06-03 11:55 | ED ---
Dizziness HPI - General Chief Complaint: Dizziness Stated Complaint: Abd Pain/Nausea/Light headed Time Seen by Provider: 06/03/25 11:27 Source: patient, RN notes reviewed Mode of arrival: ambulatory Limitations: no limitations - History of Present Illness Initial Comments: This is a 59-year-old female who presents to the emergency department for multiple complaints. States that her father 2 weeks ago and since then she has been struggling emotionally. States over the last couple of days she feels like she cannot see or think straight. 2 days ago she also started developing chest pain, shortness of breath, and lower abdominal pain. States the lower abdominal pain feels like when she last had colitis. Also reports associated nausea. Denies any diarrhea or constipation. She does also report feeling very dizzy. - Related Data Home Medications Medication Instructions Recorded Confirmed Fenofibrate 54 mg PO DAILY 10/03/21 01/25/25 Albuterol Inhaler [Ventolin Hfa 2 puff INHALATION RT-Q4H PRN 03/14/22 01/25/25 Inhaler] Atorvastatin Calcium [Lipitor] 40 mg PO HS 03/14/22 01/25/25 clonazePAM [KlonoPIN] 1 mg PO HS #0 08/14/23 01/25/25 estradioL [Estrace] 1 mg PO DIRECTED 08/14/23 01/25/25 Gabapentin [Neurontin] 300 mg PO TID 01/14/24 01/25/25 Omeprazole 20 mg PO DAILY 05/26/24 01/25/25 Venlafaxine HCl [Effexor XR] 75 mg PO BID 05/26/24 01/25/25 traZODone HCL [Desyrel] 100 mg PO BID 05/26/24 01/25/25 Chlorhexidine Gluconate [Peridex] 10 ml PO TID PRN 01/25/25 01/25/25 Meloxicam [Mobic] 7.5 mg PO DAILY 01/25/25 01/25/25 Metoprolol Succinate (ER) [Toprol 25 mg PO DAILY 01/25/25 01/25/25 XL] oxyCODONE-APAP 7.5-325MG [Percocet 1 tab PO QID 01/25/25 01/25/25 7.5-325 mg] Previous Rx's Medication Instructions Recorded Fluticasone/Umeclidin/Vilanter 1 inhalation INHALATION DAILY #3 01/27/25 [Trelegy Ellipta 100-62.5-25] each predniSONE See Taper PO DIRECTED #30 tab 01/27/25 Ciprofloxacin HCl [Cipro] 500 mg PO Q12HR 10 Days #20 tab 06/03/25 Ondansetron Odt [Zofran Odt] 4 mg PO Q8HR PRN #15 tab 06/03/25 metroNIDAZOLE [Flagyl] 500 mg PO BID 10 Days #20 tab 06/03/25 Allergies Allergy/AdvReac Type Severity Reaction Status Date / Time No Known Allergies Allergy Verified 06/03/25 11:19 Review of Systems ROS Statement: Those systems with pertinent positive or pertinent negative responses have been documented in the HPI. ROS Other: All systems not noted in ROS Statement are negative. Past Medical History Past Medical History: Asthma, GERD/Reflux, Hyperlipidemia, Osteoarthritis (OA), Sleep Apnea/CPAP/BIPAP Additional Past Medical History / Comment(s): Hx migraines, occasional irregular heartbeat, no cpap used, hx anemia. Patient states has had hx of low potassium, unsure why. History of Any Multi-Drug Resistant Organisms: None Reported Past Surgical History: Breast Surgery, Section, Hernia Repair, Hysterectomy, Tonsillectomy, Tubal Ligation Additional Past Surgical History / Comment(s): Left breast biopsy. Past Anesthesia/Blood Transfusion Reactions: No Reported Reaction, Motion Sickness Additional Past Anesthesia/Blood Transfusion Reaction / Comment(s): . Past Psychological History: Anxiety, Depression, PTSD Smoking Status: Current every day smoker Past Alcohol Use History: Occasional Past Drug Use History: None Reported - Past Family History Mother Family Medical History: No Reported History Additional Family Medical History / Comment(s): . Father Family Medical History: Osteoarthritis (OA) Additional Family Medical History / Comment(s): DDD General Exam Limitations: no limitations General appearance: alert, anxious Head exam: Present: atraumatic, normocephalic, normal inspection Eye exam: Present: normal appearance, PERRL, EOMI. Absent: scleral icterus, conjunctival injection, periorbital swelling Respiratory exam: Present: normal lung sounds bilaterally. Absent: respiratory distress, wheezes, rales, rhonchi, stridor Cardiovascular Exam: Present: regular rate, normal rhythm GI/Abdominal exam: Present: soft, tenderness (Lower abdomen). Absent: distended Neurological exam: Present: alert, oriented X3, CN II-XII intact Psychiatric exam: Present: depressed, anxious Skin exam: Present: warm, dry, intact, normal color. Absent: rash Course Vital Signs 06/03/25 06/03/25 06/03/25 11:16 12:19 13:00 Temperature 98.3 F Pulse Rate 114 H 98 79 Respiratory 22 16 16 Rate Blood Pressure 116/75 122/80 121/87 O2 Sat by Pulse 99 95 94 L Oximetry 06/03/25 14:47 Temperature Pulse Rate 77 Respiratory 14 Rate Blood Pressure 139/85 O2 Sat by Pulse 96 Oximetry Medical Decision Making - Medical Decision Making This is a 59-year-old female who presents to the emergency department for dizziness, shortness of breath, and abdominal pain. Was pt. sent in by a medical professional or institution? @ -No Did you speak to anyone other than the patient for history? @ -No Did you review nursing and triage notes? @ -Yes, and I agree, it is accurate with regards to the patient's symptoms. Were old charts reviewed? @ -No Differential Diagnosis? @ -Differential Dizziness: Benign paroxysmal positional Vertigo, Meniere's disease, otitis media, acoustic neuroma, vertebrobasilar insufficiency, cerebellar stroke, encephalitis, hypovolemic, arrhythmia, coronary artery syndrome, anemia, this is not meant to be an all-inclusive list. EKG interpreted by me (3pts min.)? @ -EKG interpreted by me demonstrating the following: Sinus tachycardia. Ventricular rate 101 bpm, ND interval 123 ms, QRS duration 89 ms, QTc 406 ms. X-rays interpreted by me (1pt min.)? @ -Chest x-ray obtained, my interpretation identifies no localized consolidations or infiltrates. CT interpreted by me (1pt min.)? @ -CT scan of the brain obtained. My interpretation identifies no acute intracranial hemorrhage. CT scan of the abdomen and pelvis obtained. My interpretation identifies small bowel thickening. U/S interpreted by me (1pt. min.)? @ -Not obtained What testing was considered but not performed? (CT, X-rays, U/S, labs)? Why? @ -None What meds were considered but not given? Why? @ -None Did you discuss the management of the patient with other professionals? @ -No Did you reconcile home meds? @ -No Was smoking cessation discussed for >3mins.? @ -I discussed smoking cessation for greater than 3 minutes. The risk of smoking were discussed with the patient including but not limited to risks of cancer, stroke, coronary artery disease and COPD. Also discussed with patient were multiple methods of quitting smoking. Lastly we discussed the financial cost of smoking. Was critical care preformed (if so, how long)? @ -No Were there social determinants of health that impacted care today? How? (Homelessness, low income, unemployed, alcoholism, drug addiction, transportation, low edu. Level, literacy, decrease access to med. care, care home, rehab)? @ -No Was there de-escalation of care discussed even if they declined? (Discuss DNR or withdrawal of care, Hospice)? @ -No What co-morbidities impacted this encounter? (DM, HTN, Smoking, COPD, CAD, Cancer, CVA, Hep., AIDS, mental health diagnosis, sleep apnea, morbid obesity)? @ -Smoking, asthma Was patient admitted / discharged? @ -Discharged. Lab work unremarkable. D-dimer and troponin negative. Urinalysis negative for signs of infection. Chest x-ray reveals no acute process. CT scan of the brain obtained also revealing no acute findings. CT scan of the abdomen and pelvis demonstrates recurrence but to a lesser extent of distal small bowel thickening. No obstruction, free air, free fluid, or abscess is identified. They advised the possibility of mild recurrence of Crohn's disease based on the findings. This was discussed with the patient. Denies any history of Crohn's disease. Not currently following with GI. States that the last time she had the colitis, it resolved with antibiotics. Advised that we can try a course of this again given that she did previously improve with this. Cipro and Flagyl prescribed. Zofran prescribed for any additional nausea. She is on both Percocet and Klonopin chronically for management of her pain and anxiety. She can continue taking those as prescribed. Information for follow-up with GI provided as well regarding the recurrent colitis and possibility of Crohn's. Patient discharged home in stable condition. Case disc ussed with ED attending Dr. Ramirez. Return precautions reviewed in depth, the patient is instructed to return to the emergency department with any new, worsening, or concerning symptoms. Patient v erbalized understanding. Undiagnosed new problem with uncertain prognosis? @ -None Drug Therapy requiring intensive monitoring for toxicity (Heparin, Nitro, Insu estefany, Cardizem)? @ -None Were any procedures done? @ -None Diagnosis/symptom? @ -Abdominal pain, colitis, nausea, dizziness, dyspnea Acute, or Chronic, or Acute on Chronic? @ -Acute Uncomplicated (without systemic symptoms) or Complicated (systemic symptoms)? @ -Uncomplicated Side effects of treatment? @ -None Exacerbation, Progression, or Severe Exacerbation] @ -Not applicable Poses a threat to life or bodily function? @ -No - Lab Data Result diagrams: 06/03/25 12:06 06/03/25 12:06 Lab Results 06/03/25 06/03/25 06/03/25 Range/Units 11:34 12:06 12:06 WBC 7.02 (4.50-10.00) 10*3/uL RBC 4.09 L (4.10-5.20) 10*6/uL Hgb 14.6 (12.0-15.0) g/dL Hct 43.0 (37.2-46.3) % MCV 105.1 H (80.0-97.0) fL MCH 35.7 H (27.0-32.0) pg MCHC 34.0 (32.0-37.0) g/dL Plt Count 201 (140-440) 10*3/uL MPV 12.4 H (9.5-12.2) fL Immature Gran % (Auto) 0.1 % Neutrophils % 57.9 % Lymphocytes % 26.9 % Monocytes % 12.4 % Eosinophils % 1.6 % Basophils % 1.1 % Immature Gran # 0.01 (0.00-0.04) 10*3/uL Neutrophils # 4.06 (1.80-7.70) 10*3/uL Lymphocytes # 1.89 (0.90-5.00) 10*3/uL Monocytes # 0.87 (0.20-1.00) 10*3/uL Eosinophils # 0.11 (0.04-0.35) 10*3/uL Basophils # 0.08 (0.00-0.10) 10*3/uL Manual Slide Review Performed D-Dimer (<0.60) mg/L FEU Sodium 141 (137-145) mmol/L Potassium 3.8 (3.5-5.1) mmol/L Chloride 104 (98-107) mmol/L Carbon Dioxide 29 (22-30) mmol/L Anion Gap 8 mmol/L BUN 6 L (7-17) mg/dL Creatinine 0.52 (0.52-1.04) mg/dL Est GFR (CKD-EPI)AfAm >90 (>60 ml/min/1.73 sqM) Est GFR (CKD-EPI)NonAf >90 (>60 ml/min/1.73 sqM) Glucose 99 (74-99) mg/dL Plasma Lactic Acid Pablo (0.7-2.0) mmol/L Calcium 9.8 (8.4-10.2) mg/dL Magnesium 1.7 (1.6-2.3) mg/dL Total Bilirubin 0.4 (0.2-1.3) mg/dL AST 49 H (14-36) U/L ALT 33 (4-34) U/L Alkaline Phosphatase 90 (38-126) U/L Troponin I (0.000-0.034) ng/mL Total Protein 6.8 (6.3-8.2) g/dL Albumin 4.2 (3.5-5.0) g/dL Lipase 47 (23-300) U/L Urine Color Colorless Urine Appearance Clear (Clear) Urine pH 6.0 (5.0-8.0) Ur Specific [place] 1.005 (1.001-1.035) Urine Protein Negative (Negative) Urine Glucose (UA) Negative (Negative) Urine Ketones Negative (Negative) Urine Blood Negative (Negative) Urine Nitrite Negative (Negative) Urine Bilirubin Negative (Negative) Urine Urobilinogen <2.0 (<2.0) mg/dL Ur Leukocyte Esterase Negative (Negative) 06/03/25 06/03/25 06/03/25 Range/Units 12:06 12:06 12:06 WBC (4.50-10.00) 10*3/uL RBC (4.10-5.20) 10*6/uL Hgb (12.0-15.0) g/dL Hct (37.2-46.3) % MCV (80.0-97.0) fL MCH (27.0-32.0) pg MCHC (32.0-37.0) g/dL Plt Count (140-440) 10*3/uL MPV (9.5-12.2) fL Immature Gran % (Auto) % Neutrophils % % Lymphocytes % % Monocytes % % Eosinophils % % Basophils % % Immature Gran # (0.00-0.04) 10*3/uL Neutrophils # (1.80-7.70) 10*3/uL Lymphocytes # (0.90-5.00) 10*3/uL Monocytes # (0.20-1.00) 10*3/uL Eosinophils # (0.04-0.35) 10*3/uL Basophils # (0.00-0.10) 10*3/uL Manual Slide Review D-Dimer 0.54 (<0.60) mg/L FEU Sodium (137-145) mmol/L Potassium (3.5-5.1) mmol/L Chloride (98-107) mmol/L Carbon Dioxide (22-30) mmol/L Anion Gap mmol/L BUN (7-17) mg/dL Creatinine (0.52-1.04) mg/dL Est GFR (CKD-EPI)AfAm (>60 ml/min/1.73 sqM) Est GFR (CKD-EPI)NonAf (>60 ml/min/1.73 sqM) Glucose (74-99) mg/dL Plasma Lactic Acid Pablo 1.7 (0.7-2.0) mmol/L Calcium (8.4-10.2) mg/dL Magnesium (1.6-2.3) mg/dL Total Bilirubin (0.2-1.3) mg/dL AST (14-36) U/L ALT (4-34) U/L Alkaline Phosphatase (38-126) U/L Troponin I <0.012 (0.000-0.034) ng/mL Total Protein (6.3-8.2) g/dL Albumin (3.5-5.0) g/dL Lipase (23-300) U/L Urine Color Urine Appearance (Clear) Urine pH (5.0-8.0) Ur Specific [place] (1.001-1.035) Urine Protein (Negative) Urine Glucose (UA) (Negative) Urine Ketones (Negative) Urine Blood (Negative) Urine Nitrite (Negative) Urine Bilirubin (Negative) Urine Urobilinogen (<2.0) mg/dL Ur Leukocyte Esterase (Negative) - Radiology Data Radiology results: report reviewed, image reviewed Disposition Clinical Impression: Dizziness, Colitis, Abdominal pain, Nausea, Nicotine dependence, Dyspnea, Ad justment reaction of adult life Disposition: HOME SELF-CARE Instructions (If sedation given, give patient instructions): Abdominal Pain (ED), Dizziness (ED), Colitis (ED) Additional Instructions: Return to the emergency department with any new, worsening, or concerning symptoms. Take both antibiotics as prescribed for 10 days. Take the Zofran up to every 8 hours as needed for nausea and vomiting. Try to follow a bland diet for the next several days. Follow-up with gastroenterology as listed below for reevaluation of the recurrent colitis. Follow up with your primary care provider in 1-2 days. Prescriptions: Ciprofloxacin HCl [Cipro] 500 mg PO Q12HR 10 Days #20 tab metroNIDAZOLE [Flagyl] 500 mg PO BID 10 Days #20 tab Ondansetron Odt [Zofran Odt] 4 mg PO Q8HR PRN #15 tab PRN Reason: Nausea And Vomiting Is patient prescribed a controlled substance at d/c from ED?: No Referrals: Filiberto Herring MD [Primary Care Provider] - 1-2 days Alba Jara MD [STAFF PHYSICIAN] - 1-2 days Time of Disposition: 14:32
[2025-06-03 12:11] LABS: Basophils # (A) 0.08 10*3/uL (0.00-0.10); Basophils % (A) 1.1 %; Eosinophils # (A) 0.11 10*3/uL (0.04-0.35); Eosinophils % (A) 1.6 %; HCT 43.0 % (37.2-46.3); HGB 14.6 g/dL (12.0-15.0); Lymphocytes # (A) 1.89 10*3/uL (0.90-5.00); Lymphocytes % (A) 26.9 %; MCH 35.7 pg (27.0-32.0); MCHC 34.0 g/dL (32.0-37.0); MCV 105.1 fL (80.0-97.0); Monocytes # (A) 0.87 10*3/uL (0.20-1.00); Monocytes % (A) 12.4 %; Neutrophils # (A) 4.06 10*3/uL (1.80-7.70); Neutrophils % (A) 57.9 %; Platelet Count 201 10*3/uL (140-440); RBC 4.09 10*6/uL (4.10-5.20); RDW 14.2 % (11.5-14.5); WBC 7.02 10*3/uL (4.50-10.00)
[2025-06-03] MEDS: SODIUM CHLORIDE 0.9% 1,000 ML IV STA (12:27)
[2025-06-03] MEDS: ONDANSETRON 4 MG/2 ML VIAL IVP STA (12:28)
[2025-06-03] MEDS: KETOROLAC 15 MG/ML 1 ML VIAL IVP STA (12:28)
[2025-06-03] MEDS: MORPHINE SULFATE 4 MG/ML SYRINGE IVP STA (12:30)
[2025-06-03 12:33] LABS: ALT 33 U/L (4-34); AST 49 U/L (14-36); African American GFR (CKD) >90 (>60 ml/min/1.73 sqM); Albumin 4.2 g/dL (3.5-5.0); Alkaline Phosphatase 90 U/L (38-126); Anion Gap 8 mmol/L; Blood Urea Nitrogen 6 mg/dL (7-17); Calcium 9.8 mg/dL (8.4-10.2); Carbon Dioxide 29 mmol/L (22-30); Chloride 104 mmol/L (98-107); Glucose 99 mg/dL (74-99); Lipase 47 U/L (23-300); Magnesium 1.7 mg/dL (1.6-2.3); Non-African American GFR(CKD) >90 (>60 ml/min/1.73 sqM); Potassium 3.8 mmol/L (3.5-5.1); Sodium 141 mmol/L (137-145); Total Protein 6.8 g/dL (6.3-8.2)
--- NOTE | 2025-06-03 13:51 | CT ---
EXAMINATION TYPE: CT brain wo con DATE OF EXAM: 06/03/2025 COMPARISON: 02/24/2022 CLINICAL INDICATION: Female, 59 years old with history of Dizziness, visual changes; PHH, Dizziness, visual changes CT DLP: 1127.6 mGycm Automated exposure control for dose reduction was used. Findings: The ventricles, basal cisterns and sulci over the convexities are mildly enlarged consistent with mil d generalized atrophy. There is no mass effect or shift of midline structures. There is stable bilateral basal ganglial calcification. There is no acute intra or extra-axial hemorr yanna.. The posterior fossa including the brainstem, fourth ventricle and cerebellar pontine angles appear no rmal. Intraorbital contents appear normal and symmetric. Visualized paranasal sinuses and mastoid air cells are well aerated. The calvarium is intact. IMPRESSION: 1. No acute bleed or mass effect. 2. No interval change. 3. Stable basal ganglial calcification. 4 stable mild atrophy [facility], , 06/03/2025 1:49 PM
--- NOTE | 2025-06-03 13:56 | CT ---
EXAMINATION TYPE: CT abdomen pelvis w con DATE OF EXAM: 06/03/2025 COMPARISON: 07/22/2023 CLINICAL INDICATION: Female, 59 years old with history of Lower abdominal pain; PHH, Abdominal pain, lower TECHNIQUE: Performed without Oral Contrast and with IV Contrast, patient injected with 100 ml mL of Isovue 300. CT DLP: 1561.[address] CTDI: mGy Automated exposure control for dose reduction was used. FINDINGS: The lung bases are clear. The gallbladder is normal without distention, wall thickening, pericholecystic fluid or gallstones. T here is no biliary ductal dilatation. There is no focal mass or organomegaly involving the liver, pancreas, spleen or adrenal glands. There is no solid renal mass or hydronephrosis and there is homogeneous contrast enhancement of the r enal parenchyma. The caliber the abdominal aorta is normal is no retroperitoneal adenopathy or hemorr yanna. There is a suggestion of small bowel thickening of the distal ileum without bowel obstruction or infl ammation in the adjacent mesentery. The degree of wall thickening is less extensive than what was see n on the prior study. The findings raise the question of Crohn's disease and clinical correlation is recommended. There is no free intraperitoneal air or fluid. No pelvic mass, free fluid, abscess or adenopathy. The osseous structures and soft tissues are intact. IMPRESSION: Recurrence but to lesser extent of distal ileal small bowel thickening as described above. There is n o bowel obstruction, free air, free fluid or abscess. Findings raise the question of mild recurrence of Crohn's disease. [facility], , 06/03/2025 1:54 PM
--- NOTE | 2025-06-03 13:58 | XR ---
EXAMINATION TYPE: XR chest 2V DATE OF EXAM: 06/03/2025 1:40 PM COMPARISON: None. CLINICAL INDICATION: Female, 59 years old with history of RANDEE, chest pain: Shortness of breath TECHNIQUE: XR chest 2V views of the chest are obtained. FINDINGS: Scattered senescent parenchymal changes noted. Hyperinflation compatible with COPD. No evidence for infiltrate. No evidence for atelectasis. Heart size is stable. Mediastinal structures are stable and grossly unremarkable. No evidence for hilar prominence. Degenerative changes dorsal spine. IMPRESSION: 1. No evidence for acute pulmonary disease. [facility], , 06/03/2025 1:55 PM
[2025-06-03] MEDS: HYDROmorphone 1 MG/ML 1 ML SYRINGE IVP STA (14:13)
[2025-06-03 14:23] LABS: Bilirubin,Urine Negative (Negative); Blood,Urine Negative (Negative); Color,Urine Colorless; Glucose,Urine (UA) Negative (Negative); Ketones,Urine Negative (Negative); Leukocyte Esterase,Urine Negative (Negative); Nitrite,Urine Negative (Negative); PH, Urine 6.0 (5.0-8.0); Protein,Urine Negative (Negative); Specific Gravity,Urine 1.005 (1.001-1.035); Urobilinogen,Urine <2.0 mg/dL (<2.0)
[2025-06-03] MEDS: traMADol 50 MG STARTER PACK 3 TAB BTL PO STA (14:46)
[2025-06-03 14:49] VITALS: BP 139/85; PULSE 77; RESP 14
== END 2025-06-03 14:49 | disposition home or self-care (01) ==
LOC: EC 11:14
DX: R06.02 Shortness of breath (principal); R42 Dizziness and giddiness; K52.9 Noninfective gastroenteritis and colitis, unspecified; F43.23 Adjustment disorder with mixed anxiety and depressed mood; F17.200 Nicotine dependence, unspecified, uncomplicated
CPT/HCPCS: 36415; 93005; 85379; 80053; 83605; 83690; 83735; 84484; 85025; 81003; 71046; 70450; 74177; 99284; 96374; 96375; 96361 ×2; J2270; J3360; J2405; J1171; J1885; Q9967